=== PATIENT | female | born 1970 | race Caucasian/White ===

== ENCOUNTER → 2017-03-16 | Outpatient (CLI) | payer OTHER ==
[~2017-03-16] MED LIST: BIOT1TAB2 PO; BUPR-83 PO; BUPR100T8 PO; LISI-725 PO; LISI-788 PO; MONT1TAB3 PO; VNTHFA/IN INH
--- NOTE | 2017-03-16 11:57 | DIAGNOSTIC IMAGING REPORT ---
FLUOROSCOPIC SMALL BOWEL FOLLOW-THROUGH CLINICAL HISTORY: Nausea and vomiting. Generalized abdominal pain. Weight gain. Constipation and diarrhea. COMPARISON STUDY: Abdominal CT dated 09/12/2016. TECHNIQUE: An abdominal dynamometer repairer radiograph was performed. The patient consumed several of thin barium and a small follow-through was performed. Overhead radiographs and spot compression images were obtained. FINDINGS: The abdominal dynamometer repairer radiograph shows a nonobstructed abdominal bowel gas pattern. Cholecystectomy clips are noted. Calcified phleboliths are seen in the pelvis. The bony structures appear intact. On the small bowel follow-through, there is delayed transit time with contrast identified in the colon at 2.5 hours. The stomach and duodenum are normal in configuration. The small bowel mucosal pattern is normal. There is no evidence of stricture or mass. The distal/terminal ileum are normal in appearance on the spot compression views. Fluoroscopy time: 1.3 minutes Fluoroscopic images: 7 IMPRESSION: 1. There is delayed transit time of contrast through the small bowel. 2. Otherwise unremarkable small bowel study. Electronically signed by: Melvin Sheets M.D. 03/16/2017 11:56 AM Dictated Date/Time: 03/16/2017 11:34 AM
== END | disposition home or self-care (01) ==
LOC: C.RAD 07:54
PROVIDERS: ATTEND Registered Nurse
DX: R10.9 Unspecified abdominal pain (principal); K59.8 Other specified functional intestinal disorders

== ENCOUNTER → 2017-03-31 | Outpatient (CLI) | payer OTHER ==
--- NOTE | 2017-03-31 11:04 | DIAGNOSTIC IMAGING REPORT ---
LEFT SHOULDER MIN 2 VIEWS ROUTINE CLINICAL HISTORY: M25.512 Acute pain of left [id number] COMPARISON: None. DISCUSSION: No fractures or dislocations are visualized. There are no visible particular calcifications. There are no erosive or destructive changes. IMPRESSION: Unremarkable conventional radiographic evaluation of the left shoulder. Electronically signed by: Mike Warren M.D. 03/31/2017 11:03 AM Dictated Date/Time: 03/31/2017 11:02 AM
--- NOTE | 2017-03-31 11:19 | DIAGNOSTIC IMAGING REPORT ---
CERVICAL SPINE 2 OR 3 VIEWS CLINICAL HISTORY: Radicular pain of left shoulder. COMPARISON STUDY: No previous studies for comparison. FINDINGS: Reversal of the normal cervical lordosis is noted. There is mild to moderate disc space narrowing and osteophytosis at C5-C6 and C6-C7. There is no fracture or suspicious lesion. IMPRESSION: 1. No fracture. 2. Mild to moderate degenerative disc disease at C5-C6 and C6-C7. 3. Reversal of normal cervical lordosis. Electronically signed by: Koko Jacinto M.D. 03/31/2017 11:18 AM Dictated Date/Time: 03/31/2017 11:17 AM
== END | disposition home or self-care (01) ==
LOC: C.RAD 10:21
PROVIDERS: ATTEND Neuromusculoskeletal Medicine & OMM
DX: M25.512 Pain in left shoulder (principal); M50.122 Cervical disc disorder at C5-C6 level with radiculopathy; M50.123 Cervical disc disorder at C6-C7 level with radiculopathy

== ENCOUNTER 2017-08-12 06:14 | Emergency (ER) | payer OTHER ==
[~2017-08-12] VITALS: Ht 160 cm; Wt 111.8 kg
[~2017-08-12 06:14] MED LIST changes: -BIOT1TAB2 PO; -BUPR-83 PO; -BUPR100T8 PO; -LISI-725 PO; -LISI-788 PO; -MONT1TAB3 PO
[2017-08-12 06:20] VITALS: TEMP 36.6; Ht 160 cm; Wt 111.8 kg
[2017-08-12] MEDS ORDERED: MONT1TAB3 PO (06:44)
[2017-08-12] MEDS ORDERED: BIOT1TAB2 PO (06:44)
[2017-08-12] MEDS ORDERED: LISI-725 PO (06:45)
[2017-08-12] MEDS ORDERED: BUPR-83 PO (06:46)
[2017-08-12] MEDS ORDERED: LISI-788 PO (07:00)
[2017-08-12] MEDS ORDERED: BUPR100T8 PO (07:01)
[2017-08-12] MEDS ORDERED: IBUPROFEN 600 MG TAB PO STA (07:01)
[2017-08-12] MEDS ORDERED: TRAMADOL HCL 50 MG TAB PO STA (07:01)
--- NOTE | 2017-08-12 07:35 | EMERGENCY ROOM VISIT NOTE ---
History Report prepared by Suzanne: Marlen Castro Under the Supervision of: Dr. Kalina Medina M.D. First contact with patient: 06:37 Chief Complaint: KNEEPAIN Stated Complaint: RT KNEE, HIP PAIN, PAIN WALKING History of Present Illness The patient is a 47 year old female who presents to the Emergency Room with complaints of right knee pain that began over a week ago. She currently rates her discomfort as an 8/10 in severity. She describes her pain as a "throbbing" pain. The patient states she was walking up the steps and her foot got stuck between the steps. She notes that when she leaned forward to try and catch herself, and she twisted her right leg. The patient states that her primary pain is located around her right knee when she tries to bend and extend it. She states that when she lays on her right side, her right leg experiences numbness. The pain is generally localized from her waste and down her right leg. The patient states that she is unable to lift her right leg without experiencing pain around her hip. Source of History: patient Onset: over a week ago Position: knee (right) Symptom Intensity: 8/10 Quality: other (throbbing) Timing: worsening Modifying Factors (Relieving): movement, elevation Note: The patient states that she is also experiencing hip pain. Review of Systems See HPI for pertinent positives & negatives. A total of 10 systems reviewed and were otherwise negative. Past Medical & Surgical Medical Problems: (1) Asthma (2) Hypertension (3) Obesity, Nos (4) Strain of left knee Surgical Problems: (1) History of cholecystectomy (2) History of orthopedic surgery (3) S/P panniculectomy Family History Cancer Gallbladder disease Heart disease Hypertension Social History Smoking Status: Never Smoker Alcohol Use: none Drug Use: none Marital Status: Occupation Status: employed Current/Historical Medications Scheduled Biotin (Biotin), Unknown Dose PO DAILY Bupropion (Wellbutrin Sr), 100 MG PO QAM Lisinopril/Hctz (Zestoretic 20MG/25MG), 1 TAB PO DAILY Montelukast Sodium (Singulair), 10 MG PO DAILY Allergies Coded Allergies: Tramadol (Verified Allergy, Intermediate, HIVES, 08/12/17) Blueberry (Unverified Allergy, Unknown, HIVES, 09/15/16) Latex (Verified Allergy, Unknown, SKIN IRRITATION, 09/15/16) Propoxyphene (Verified Allergy, Unknown, 09/15/16) Physical Exam Vital Signs Date Time Temp Pulse Resp B/P (MAP) Pulse Ox O2 Delivery O2 Flow Rate FiO2 08/12/17 08:14 71 18 152/75 98 Room Air 08/12/17 06:20 36.6 87 20 152/92 100 Room Air Physical Exam Vital signs reviewed. General: 47-year-old obese female in no apparent distress. Musculoskeletal: Tenderness to right medial joint line. Negative anterior drawer sign. No appreciable ligamentous laxity to valgus or varus stress. No effusion. Neurologic: Patient awake alert and oriented x 3. Skin: Warm, dry, no rash Medical Decision & Procedures ER Provider Diagnostic Interpretation: RIGHT KNEE 2 VIEWS CLINICAL HISTORY: Right knee pain. FINDINGS: AP and crosstable lateral views of the right knee are correlated with AP view of the right knee dated 11/08/2012. The skeletal structures are well mineralized. No fracture is seen. The joint spaces are preserved. There is no joint effusion. The overlying soft tissues are within normal limits. IMPRESSION: No acute bony abnormality is seen involving the right knee. Electronically signed by: Melvin Sheets M.D. 08/12/2017 7:38 AM Dictated Date/Time: 08/12/2017 7:37 AM Medications Administered Medications (Trade) Dose Ordered Sig/Radha Route Start Time Stop Time Status Last Admin Dose Admin Ibuprofen (Motrin Tab) 600 mg NOW STAT PO 08/12/17 07:01 08/12/17 07:03 DC 08/12/17 07:10 600 MG Tramadol HCl (Ultram Tab) 50 mg NOW STAT PO 08/12/17 07:01 08/12/17 07:03 DC 08/12/17 07:11 50 MG ED Course 0650: Past medical records reviewed. The patient was evaluated in room B2. A complete history and physical examination was performed. 0701: Ultram Tab 50 mg PO, Motrin Tab 600 mg PO. 0821: I reevaluated the patient and she is resting comfortably. I answered all of her questions and she expressed complete understanding. The patient will be discharged home. Medical Decision Differential diagnosis: Etiologies such as fracture, dislocation, neurovascular compromise, compartment syndrome, soft tissue injury, as well as others were entertained. This patient was evaluated and appeared to be in no significant distress. Physical examination reveals no significant deformity or swelling to the right knee. She does have some posterior pain when flexing the knee. X-ray of the right knee is negative. Patient is morbidly obese and likely has strained the soft tissue of the right knee. She is placed in a knee immobilizer. Patient will use ibuprofen as needed for pain and follow-up with her PCP this week. She will return to the ER for worsening of symptoms or any medical concerns. Medication Reconcilliation Current Medication List: was personally reviewed by me Impression Primary Impression: Strain of right knee Scribe Attestation The scribe's documentation has been prepared under my direction and personally reviewed by me in its entirety. I confirm that the note above accurately reflects all work, treatment, procedures, and medical decision making performed by me. Departure Information Dispostion Home / Self-Care Referrals No Doctor, Assigned (PCP) Forms HOME CARE DOCUMENTATION FORM, IMPORTANT VISIT INFORMATION Patient Instructions My [facility] Additional Instructions Diagnosis: Right knee strain Ibuprofen 600 mg every 6 hours as needed for pain with food. Ice and elevate when possible, wear knee immobilizer for comfort. Follow up with your doctor for reevlauation this week. Return to the ED for worsening of symptoms or any medical concerns.
--- NOTE | 2017-08-12 07:39 | DIAGNOSTIC IMAGING REPORT ---
RIGHT KNEE 2 VIEWS CLINICAL HISTORY: Right knee pain. FINDINGS: AP and crosstable lateral views of the right knee are correlated with AP view of the right knee dated 11/08/2012. The skeletal structures are well mineralized. No fracture is seen. The joint spaces are preserved. There is no joint effusion. The overlying soft tissues are within normal limits. IMPRESSION: No acute bony abnormality is seen involving the right knee. Electronically signed by: Melvin Sheets M.D. 08/12/2017 7:38 AM Dictated Date/Time: 08/12/2017 7:37 AM
[2017-08-12 08:14] VITALS: BP 152/75; PULSE 71; O2SAT 98
== END 2017-08-12 08:21 | disposition home or self-care (01) ==
LOC: C.EDB 06:15
DX: S83.91XA Sprain of unspecified site of right knee, initial encounter (principal); X50.0XXA Overexertion from strenuous movement or load, initial encounter; J45.909 Unspecified asthma, uncomplicated; I10 Essential (primary) hypertension; E66.01 Morbid (severe) obesity due to excess calories; Z68.41 Body mass index [BMI] 40.0-44.9, adult; Z90.49 Acquired absence of other specified parts of digestive tract; Z80.9 Family history of malignant neoplasm, unspecified; Z82.49 Family history of ischemic heart disease and other diseases of the circulatory system; Z79.899 Other long term (current) drug therapy

== ENCOUNTER 2018-01-23 14:50 | Emergency (ER) | payer OTHER ==
[~2018-01-23] VITALS: Ht 160 cm; Wt 113.6 kg
[~2018-01-23 14:50] MED LIST changes: +BIOT1TAB2 PO; +BUPR100T8 PO; +LISI-788 PO; +MONT1TAB3 PO; -VNTHFA/IN INH
[2018-01-23 14:55] VITALS: TEMP 36.9; Ht 160 cm; Wt 113.6 kg
[2018-01-23] MEDS ORDERED: KETOROLAC TROMETHAMINE 30 MG/ML VIAL IV STA (16:15)
--- NOTE | 2018-01-23 16:26 | EMERGENCY ROOM VISIT NOTE ---
History Report prepared by Suzanne: Shona Osorio Under the Supervision of: Dr. Kevin Zavala M.D. First contact with patient: 16:02 Chief Complaint: PAIN (GENERALIZED) Stated Complaint: PAIN ALL OVER BODY History of Present Illness The patient is a 47 year old female who presents to the Emergency Room with complaints of persistent neck pain starting 1 week ago. She describes the pain as throbbing. The pain radiates down her left arm and down her back on either side of her spine. The pain worsens with movement. She has never had this pain before. She also reports blurred vision and swelling to her left hand. She has had some intermittent headaches. She had SOB yesterday, but none today. She has been having some lower abdominal pain and notes that she has a history of intestinal problems. She denies any numbness, fever, or chest pain. She currently does not work and denies any strain or injury to the neck. She has a family history of fibromyalgia and MS. She has a history of hypertension and hysterectomy. Source of History: patient Onset: 1 week ago Position: neck Quality: other (throbbing) Timing: other (persistent) Modifying Factors (Worsening): movement Associated Symptoms: + headache, + SOB, + abdominal pain, + back pain, No fevers, No chest pain, No numbness Note: Pt reports blurred vision. Review of Systems See HPI for pertinent positives & negatives. A total of 10 systems reviewed and were otherwise negative. Past Medical & Surgical Medical Problems: (1) Asthma (2) Hypertension (3) Obesity, Nos (4) Strain of left knee Surgical Problems: (1) History of cholecystectomy (2) History of orthopedic surgery (3) S/P panniculectomy Old medical records were reviewed. Nurse's notes were reviewed and I agree with. Family History Cancer Gallbladder disease Heart disease Hypertension Social History Smoking Status: Former Smoker Alcohol Use: none Drug Use: none Marital Status: Occupation Status: unemployed Current/Historical Medications Scheduled Biotin (Biotin), 1 TAB PO DAILY Bupropion (Wellbutrin Sr), 100 MG PO QAM Lisinopril/Hctz (Zestoretic 20MG/25MG), 1 TAB PO DAILY Montelukast Sodium (Singulair), 10 MG PO DAILY Phentermine Hcl (Phentermine Hcl), 15 MG PO DAILY Prednisone (Prednisone), 50 MG PO DAILY Scheduled PRN Oxycodone Immediate Rel Tab (Roxicodone Ir), 1-2 TAB PO Q4H PRN for Severe Pain Allergies Coded Allergies: Tramadol (Verified Allergy, Intermediate, HIVES, 01/23/18) Blueberry (Unverified Allergy, Unknown, HIVES, 01/23/18) Latex (Verified Allergy, Unknown, SKIN IRRITATION, 01/23/18) Propoxyphene (Verified Allergy, Unknown, 01/23/18) Physical Exam Vital Signs Date Time Temp Pulse Resp B/P (MAP) Pulse Ox O2 Delivery O2 Flow Rate FiO2 01/23/18 17:21 94 17 185/118 100 01/23/18 17:11 94 17 185/118 100 Room Air 01/23/18 16:23 98 18 193/105 99 Room Air 01/23/18 14:55 36.9 105 20 172/134 99 Room Air Physical Exam General: Non-ill appearing middle age female in no acute distress. HEENT: Normal cephalic atraumatic. Pupils are equal round and reactive to light. Extraocular movements are intact. Oropharynx is pink with moist mucous membranes. No swelling of the mouth lips or tongue. Neck: Supple with a midline trachea. No meningeal signs or stiffness, no JVD or bruits. No Stridor. Chest: Clear to auscultation bilaterally. No wheezes or rhonchi. No increased work of breathing. Heart: regular rate and rhythm. Abdomen: Soft nontender, nondistended without rebound guarding or rigidity. Extremities: Pain with movement of left shoulder. No cyanosis clubbing or edema. No calf tenderness or assymetry Spine/Back. Non tender to palpation. No CVA tenderness Skin: Good turgor without rashes. Neurologic exam: Cranial nerves two through 12 are intact. Motor and sensation are intact and symmetrical throughout. Medical Decision & Procedures ER Provider Diagnostic Interpretation: X-ray results as stated below per interpretation by me and the radiologist. Radiology results as stated below per my review and radiologist interpretation: CHEST ONE VIEW PORTABLE CLINICAL HISTORY: Atypical chest pain COMPARISON STUDY: 09/15/2016 FINDINGS: The heart is borderline enlarged. There is no failure. There is no focal pulmonary consolidation. There are no pleural effusions.[ IMPRESSION: No active disease in the chest. Electronically signed by: Mike Warren M.D. 01/23/2018 4:30 PM Dictated Date/Time: 01/23/2018 4:[address] HEAD WITHOUT CONTRAST (CT) CLINICAL HISTORY: left arm pain, blurry vision COMPARISON STUDY: 09/15/2016 TECHNIQUE: Axial CT of the brain is performed from the vertex to the skull base. IV contrast was not administered for this examination. A dose lowering technique was utilized adhering to the principles of ALARA. CT DOSE: FINDINGS: No intra or extra-axial mass lesions are visualized. There is no CT evidence of acute cortical infarction. There is no evidence of midline shift. There is no acute hemorrhage. No calvarial fractures are visualized. There are patchy white matter hypodensities likely on a small vessel basis. There is no evidence of pathologic ventricular dilatation. There is mild ethmoid sinus mucosal disease. IMPRESSION: No acute intracranial findings Electronically signed by: Mike Warren M.D. 01/23/2018 4:42 PM Dictated Date/Time: 01/23/2018 4:40 PM CERVICAL SPINE W/O CT DOSE: 950.30 mGy.cm HISTORY: Neuropathy. Pain. left arm pain, eval for radic TECHNIQUE: Multiaxial CT images of the cervical spine were performed and reformatted in the sagittal and coronal plane without the use of contrast. A dose lowering technique was utilized adhering to the principles of ALARA. COMPARISON: None. FINDINGS: No fractures. No subluxation. Prevertebral soft tissues and the C1-C2 interval are intact. No pneumothorax. Straightening of the cervical curvature consistent with muscular spasm. Degenerative disc change C5-C7. No significant compromise of the spinal canal or neural foramina. IMPRESSION: 1. Degenerative disc change C5-C7. 2. Muscle spasm. 3. No significant compromise of the spinal canal or neural foramina The above report was generated using voice recognition software. It may contain grammatical, syntax or spelling errors. Electronically signed by: Ean Littlejohn M.D. 01/23/2018 4:44 PM Dictated Date/Time: 01/23/2018 4:42 PM Laboratory Results 01/23/18 16:04 Red Blood Count 4.68, Mean Corpuscular Volume 86.3, Mean Corpuscular Hemoglobin 29.3, Mean Corpuscular Hemoglobin Concent 33.9, Mean Platelet Volume 8.7, Neutrophils (%) (Auto) 59.0, Lymphocytes (%) (Auto) 33.2, Monocytes (%) (Auto) 6.6, Eosinophils (%) (Auto) 0.7, Basophils (%) (Auto) 0.4, Neutrophils # (Auto) 4.14, Lymphocytes # (Auto) 2.33, Monocytes # (Auto) 0.46, Eosinophils # (Auto) 0.05, Basophils # (Auto) 0.03 01/23/18 16:04 Test 01/23/18 16:04 01/23/18 16:15 White Blood Count 7.02 K/uL (4.8-10.8) Red Blood Count 4.68 M/uL (4.2-5.4) Hemoglobin 13.7 g/dL (12.0-16.0) Hematocrit 40.4 % (37-47) Mean Corpuscular Volume 86.3 fL (80-100) Mean Corpuscular Hemoglobin 29.3 pg (25-34) Mean Corpuscular Hemoglobin Concent 33.9 g/dl (32-36) Platelet Count 342 K/uL (130-400) Mean Platelet Volume 8.7 fL (7.4-10.4) Neutrophils (%) (Auto) 59.0 % Lymphocytes (%) (Auto) 33.2 % Monocytes (%) (Auto) 6.6 % Eosinophils (%) (Auto) 0.7 % Basophils (%) (Auto) 0.4 % Neutrophils # (Auto) 4.14 K/uL (1.4-6.5) Lymphocytes # (Auto) 2.33 K/uL (1.2-3.4) Monocytes # (Auto) 0.46 K/uL (0.11-0.59) Eosinophils # (Auto) 0.05 K/uL (0-0.5) Basophils # (Auto) 0.03 K/uL (0-0.2) RDW Standard Deviation 47.0 fL (36.4-46.3) RDW Coefficient of Variation 14.9 % (11.5-14.5) Immature Granulocyte % (Auto) 0.1 % Immature Granulocyte # (Auto) 0.01 K/uL (0.00-0.02) Anion Gap 8.0 mmol/L (3-11) Est Creatinine Clear Calc Drug Dose 106.4 ml/min Estimated GFR () 101.7 Estimated GFR (Non- 87.7 BUN/Creatinine Ratio 18.5 (10-20) Calcium Level 9.2 mg/dl (8.5-10.1) Total Bilirubin 0.5 mg/dl (0.2-1) Direct Bilirubin 0.2 mg/dl (0-0.2) Aspartate Amino Transf (AST/SGOT) 26 U/L (15-37) Alanine Aminotransferase (ALT/SGPT) 41 U/L (12-78) Alkaline Phosphatase 86 U/L (45-117) Total Creatine Kinase 91 U/L (26-192) Creatine Kinase MB 1.2 ng/ml (0.5-3.6) Troponin I < 0.015 ng/ml (0-0.045) Total Protein 8.6 gm/dl (6.4-8.2) Albumin 4.0 gm/dl (3.4-5.0) Lipase 91 U/L (73-393) Creatine Kinase MB Ratio (0-3.0) Laboratory studies as stated above per my review. Medications Administered Medications (Trade) Dose Ordered Sig/Radha Route Start Time Stop Time Status Last Admin Dose Admin Ketorolac Tromethamine (Toradol Inj) 30 mg NOW STAT IV 01/23/18 16:15 01/23/18 16:17 DC 01/23/18 16:56 30 MG Morphine Sulfate (MoRPHine SULFATE INJ) 4 mg NOW STAT IV 01/23/18 17:02 01/23/18 17:04 DC 01/23/18 17:14 4 MG Ondansetron HCl (Zofran Inj) 4 mg NOW STAT IV 01/23/18 17:02 01/23/18 17:04 DC 01/23/18 17:13 4 MG Prednisone (PredniSONE TAB) 60 mg NOW STAT PO 01/23/18 17:02 01/23/18 17:04 DC 01/23/18 17:13 60 MG ECG Per My Interpretation Indication: back/shoulder pain Rate (beats per minute): 90 Rhythm: normal sinus Findings: no acute ischemic change, no ectopy, other (no prolonged QT) Comparison ECG Date: no prior available ED Course 1608: Past medical records reviewed. The patient was evaluated in room A10, and a complete history and physical examination were performed. 1615: Toradol Inj 30 mg IV. 1701: Upon reevaluation, the patient is asking for something else for pain. I discussed the results and treatment plan with her. She verbalized agreement of the treatment plan. The patient was discharged home. 1702: Prednisone 60 mg PO, Zofran Inj 4 mg IV, Morphine Sulfate 4 mg IV. Medical Decision Differentials include, but are not limited to; cervical radiculopathy, intracranial process, cardiac disease, musculoskeletal, infection, electrolyte or metabolic abnormality. This patient comes in as described above. She was placed on a monitor in room A10. She has neck pain radiating down her left arm. I think most likely it is a cervical radiculopathy. She also says her vision is a little blurry when she does not wear her glasses. She has no neurologic deficits. She has no chest pain. She has no fever. She looks well on exam and has normal neurologic exam. IV access established to do a CAT scan of her head and neck as well as EKG and chest x-ray and did a cardiac workup as well. She was given Toradol 30 mg IV. She was reassessed frequently. She seems to be doing much better. CAT scan of her head was unremarkable. CAT scan [place] some degenerative changes. EKG does not suggest a cardiac disease her troponin is not elevated. She has no acute electrolyte or metabolic abnormalities. I think this most likely is related to her neck and more of a cervical radiculopathy. She is going to use steroids and was given prednisone here as well as a prescription for the next couple days. she does an appointment with her doctor on Monday. She is going to use anti-inflammatories as well as OxyIR for breakthrough pain. She was given a small prescription and was warned that it could make her drowsy and do not take for drinking, driving, working. She should return if: increasing pain , worsening of symptoms, numbness or weakness, any new problems or concerns. She was happy with the plan and discharged to home. [place] Drug Monitoring Program Search Results: patient reviewed within database, no issues identified Medication Reconcilliation Current Medication List: was personally reviewed by me Blood Pressure Screening Patient's blood pressure: Elevated blood pressure Blood pressure disposition: Referred to PCP Impression Primary Impression: Cervical radiculopathy Additional Impression: Left arm pain Scribe Attestation The scribe's documentation has been prepared under my direction and personally reviewed by me in its entirety. I confirm that the note above accurately reflects all work, treatment, procedures, and medical decision making performed by me. Departure Information Dispostion Home / Self-Care Prescriptions Oxycodone Immediate Rel Tab (ROXICODONE IR) 5 Mg Tab 1-2 TAB PO Q4H Y for Severe Pain, #15 TAB Prov: Kevin Zavala M.D. 01/23/18 Prednisone (Prednisone) 50 Mg Tab 50 MG PO DAILY, #4 TAB Prov: Kevin Zavala M.D. 01/23/18 Referrals No Doctor, Assigned (PCP) Forms HOME CARE DOCUMENTATION FORM, IMPORTANT VISIT INFORMATION, WORK / SCHOOL INSTRUCTIONS Patient Instructions My [facility] Additional Instructions Rest. Drink plenty of fluids. Use ibuprofen 400 mg every 6 hours, take with food Use prednisone 50 mg a day for the next 3 days For more severe pain, use OxyIR 5 mg, 1 or 2 pills every 4-6 hours as needed. OxyIR may make you drowsy -do not take before drinking, driving, working. Do not take with any other sedating medications or narcotics. Return if: fever, numbness or weakness, worsening of symptoms, chest pain, any new problems or concerns. Follow-up with your doctor this week for recheck, keep your appointment on Monday Problem Qualifiers
[2018-01-23 16:31] LABS: BASO % 0.4 %; BASO ABS # 0.03 K/uL (0-0.2); EOS % 0.7 %; EOS ABS # 0.05 K/uL (0-0.5); HEMATOCRIT 40.4 % (37-47); HEMOGLOBIN 13.7 g/dL (12.0-16.0); IG# 0.01 K/uL (0.00-0.02); LYMPH % 33.2 %; LYMPH ABS # 2.33 K/uL (1.2-3.4); MEAN CELL VOLUME 86.3 fL (80-100); MEAN CORPUSCULAR HEMOGLOBIN 29.3 pg (25-34); MEAN CORPUSCULAR HGB CONC 33.9 g/dl (32-36); MEAN PLATELET VOLUME 8.7 fL (7.4-10.4); MONO % 6.6 %; MONO ABS # 0.46 K/uL (0.11-0.59); NEUT ABS # 4.14 K/uL (1.4-6.5); PLATELET COUNT 342 K/uL (130-400); RED CELL DISTRIBUTION WIDTH CV 14.9 % (11.5-14.5); WHITE BLOOD COUNT 7.02 K/uL (4.8-10.8)
[2018-01-23] MEDS ORDERED: PHEN15CA PO (16:32)
--- NOTE | 2018-01-23 16:32 | DIAGNOSTIC IMAGING REPORT ---
CHEST ONE VIEW PORTABLE CLINICAL HISTORY: Atypical chest pain COMPARISON STUDY: 09/15/2016 FINDINGS: The heart is borderline enlarged. There is no failure. There is no focal pulmonary consolidation. There are no pleural effusions.[ IMPRESSION: No active disease in the chest. Electronically signed by: Mike Warren M.D. 01/23/2018 4:30 PM Dictated Date/Time: 01/23/2018 4:30 PM
[2018-01-23 16:39] LABS: BLOOD UREA NITROGEN 15 mg/dl (7-18); CALCIUM 9.2 mg/dl (8.5-10.1); CARBON DIOXIDE 24 mmol/L (21-32); CREATININE 0.81 mg/dl (0.60-1.20); GLUCOSE 87 mg/dl (70-99); LIPASE 91 U/L (73-393); POTASSIUM 3.5 mmol/L (3.5-5.1); SODIUM 135 mmol/L (136-145)
--- NOTE | 2018-01-23 16:44 | DIAGNOSTIC IMAGING REPORT ---
CT HEAD WITHOUT CONTRAST (CT) CLINICAL HISTORY: left arm pain, blurry vision COMPARISON STUDY: 09/15/2016 TECHNIQUE: Axial CT of the brain is performed from the vertex to the skull base. IV contrast was not administered for this examination. A dose lowering technique was utilized adhering to the principles of ALARA. CT DOSE: FINDINGS: No intra or extra-axial mass lesions are visualized. There is no CT evidence of acute cortical infarction. There is no evidence of midline shift. There is no acute hemorrhage. No calvarial fractures are visualized. There are patchy white matter hypodensities likely on a small vessel basis. There is no evidence of pathologic ventricular dilatation. There is mild ethmoid sinus mucosal disease. IMPRESSION: No acute intracranial findings Electronically signed by: Mike Warren M.D. 01/23/2018 4:42 PM Dictated Date/Time: 01/23/2018 4:40 PM
[2018-01-23 16:45] LABS: ALKALINE PHOSPHATASE 86 U/L (45-117); ALT/SGPT 41 U/L (12-78); AST/SGOT 26 U/L (15-37); CKMB 1.2 ng/ml (0.5-3.6); TOTAL PROTEIN 8.6 gm/dl (6.4-8.2)
--- NOTE | 2018-01-23 16:45 | DIAGNOSTIC IMAGING REPORT ---
CERVICAL SPINE W/O CT DOSE: 950.30 mGy.cm HISTORY: Neuropathy. Pain. left arm pain, eval for radic TECHNIQUE: Multiaxial CT images of the cervical spine were performed and reformatted in the sagittal and coronal plane without the use of contrast. A dose lowering technique was utilized adhering to the principles of ALARA. COMPARISON: None. FINDINGS: No fractures. No subluxation. Prevertebral soft tissues and the C1-C2 interval are intact. No pneumothorax. Straightening of the cervical curvature consistent with muscular spasm. Degenerative disc change C5-C7. No significant compromise of the spinal canal or neural foramina. IMPRESSION: 1. Degenerative disc change C5-C7. 2. Muscle spasm. 3. No significant compromise of the spinal canal or neural foramina The above report was generated using voice recognition software. It may contain grammatical, syntax or spelling errors. Electronically signed by: Ean Littlejohn M.D. 01/23/2018 4:44 PM Dictated Date/Time: 01/23/2018 4:42 PM
[2018-01-23] MEDS ORDERED: ONDANSETRON INJ 2 MG/ML 2 ML VIAL IV STA (17:02)
[2018-01-23] MEDS ORDERED: MoRPHine SULFATE 4 MG/ML 1 ML CARP\\VIAL IV STA (17:02)
[2018-01-23] MEDS ORDERED: PRED50TA PO (17:09)
[2018-01-23] MEDS ORDERED: OXYC1TAB3 PO (17:09)
[2018-01-23 17:21] VITALS: BP 185/118; PULSE 94; O2SAT 100
== END 2018-01-23 17:22 | disposition home or self-care (01) ==
LOC: C.EDB 14:53 → C.EDA 17:22
DX: M54.16 Radiculopathy, lumbar region (principal); H53.8 Other visual disturbances; R60.0 Localized edema; I10 Essential (primary) hypertension; J45.909 Unspecified asthma, uncomplicated; Z87.891 Personal history of nicotine dependence; Z82.69 Family history of other diseases of the musculoskeletal system and connective tissue; Z82.49 Family history of ischemic heart disease and other diseases of the circulatory system; Z83.79 Family history of other diseases of the digestive system

== ENCOUNTER 2018-06-01 16:00 | Emergency (ER) | payer OTHER ==
[~2018-06-01] VITALS: Ht 158.8 cm; Wt 116.0 kg
[~2018-06-01 16:00] MED LIST changes: +OXYC-737 PO; +PHEN15CA PO; +PRED50TA PO
[2018-06-01 16:03] VITALS: TEMP 36.7; Ht 158.8 cm; Wt 116.0 kg
[2018-06-01] MEDS ORDERED: KETOROLAC TROMETHAMINE 60 MG/2 ML VIAL IM STA (16:33)
[2018-06-01] MEDS ORDERED: ONDANSETRON 4MG OD TAB PO ONE (16:45)
[2018-06-01] MEDS ORDERED: IBUP-1050 PO (17:07)
[2018-06-01] MEDS ORDERED: NAPR1TAB9 PO (17:07)
[2018-06-01] MEDS ORDERED: ASPI-390 PO (17:07)
--- NOTE | 2018-06-01 17:32 | DIAGNOSTIC IMAGING REPORT ---
LEFT KNEE 3 VIEWS CLINICAL HISTORY: Left knee pain. FINDINGS: AP, crosstable lateral, and sunrise views of the left knee are compared to study dated 08/09/2015. The skeletal structures are well mineralized. No fracture is seen. There is moderate tricompartmental degenerative joint space narrowing, greatest in the medial and patellofemoral compartments. There are large marginal osteophytes and patellar enthesophytes. There is no joint effusion. The overlying soft tissues are normal in appearance. IMPRESSION: Degenerative change as above with no acute osseous abnormality identified. Findings are similar to the 08/09/2015 examination. Electronically signed by: Melvin Sheets M.D. 06/01/2018 5:31 PM Dictated Date/Time: 06/01/2018 5:29 PM
--- NOTE | 2018-06-01 18:05 | DIAGNOSTIC IMAGING REPORT ---
L VENOUS DOPP LOWER EXT UNILAT CLINICAL HISTORY: LEFT, EVAL DVT pain. Edema. TECHNIQUE: Venous Doppler COMPARISON STUDY: None FINDINGS: Normal study IMPRESSION: Normal study The above report was generated using voice recognition software. It may contain grammatical, syntax or spelling errors. Electronically signed by: Ean Littlejohn M.D. 06/01/2018 6:03 PM Dictated Date/Time: 06/01/2018 6:03 PM
--- NOTE | 2018-06-01 18:17 | EMERGENCY ROOM VISIT NOTE ---
ED Visit Note First contact with patient: 16:15 CHIEF COMPLAINT: Left knee pain 3-4 days HISTORY OF PRESENT ILLNESS: Patient is a 47-year-old female with long-standing history of left knee pain and known arthritis who presents emergency department for evaluation of worsening left knee over the last 3-4 days. Patient reports that she did a lot of walking a couple of days ago, and nearly fell. After that the pain worsened. She is tried ice, heat, Tylenol, ibuprofen, Aleve and BenGay, all without relief. Patient reports she had the knee scoped several years ago, and since then her pain has worsened. She is seen multiple orthopedic providers had multiple injections in the knee, and has been told that she will need a total knee replacement, but she is too young and overweight. She presently rates her pain a 10/10. She notes that it is deep in the knee, and in the posterior aspect of the knee, and radiates down her calf slightly. She denies any calf swelling, does admit to some cramping in the calf in the last couple of days as well. She denies any numbness, tingling or weakness in the lower extremity. She does not have any DVT risk factors. REVIEW OF SYSTEMS: Review of systems as per HPI. All other systems reviewed were negative. 10 systems reviewed. PMH: Electronic medical records are reviewed and summarized as above/below. See Problem List. Elvia. SOCIAL HISTORY: Patient lives at home. Non-smoker. PHYSICAL EXAM: Vital Signs: Reviewed Nurse's notes. MENTAL STATUS: Patient is is an anxious, obese 47-year-old female who is awake and alert and laying supine on the gurney with her left knee propped up on a pillow. MUSCULOSKELETAL : Examination of the left knee does not reveal any erythema, no increased warmth or induration. No prepatellar soft tissue swelling, and no significant knee joint effusion is palpable. Patient is difficult to examine secondary to guarding. She has some peripatellar tenderness and crepitus with range of motion. She is tender along the medial joint line in the popliteal space. She can extend fully, will flex roughly 75 before she has pain. No gross ligamentous instability is appreciated. The calf is soft and nontender. No palpable cords. Distal pulses are easily appreciated. Negative Homans sign. Left lower extremity is neurovascularly intact. EMERGENCY DEPARTMENT COURSE: The patient was seen and examined as above. Patient was reviewed in the [facility] Prescription Drug Monitoring Program. She received regular narcotic prescriptions from her primary care providers for several months, more recently has been receiving buprenorphine prescriptions from a Dr. Duran in the [place] area. Last prescription was filled 05/04/2018. She was medicated with Toradol 60 mg IM and Zofran 4 mg ODT as she states that the Toradol makes her nauseous. X-rays of the left knee and ultrasound of the left lower extremity were obtained. Patient mentioned to nursing staff that she was feeling depressed and anxious and "wanted to talk to someone. Patient spoke with psychiatric briefcase sewer in the emergency department, Bret Reyna. He reported to me that the patient denied any SI/HI, and he provided her with contact information for counselors in the community. Ultrasound of the left lower extremity was negative for DVT. Left knee x-rays noted degenerative changes, stable from 2014. Patient was made aware of her x-ray and ultrasound results. She reports that she has plans to see orthopedics in [place]. She is waiting for records to be transferred. She was given crutches. She was given a Percocet home pack. She was encouraged to follow-up with orthopedics or her primary care provider for further care and management of her chronic left knee pain. The patient was discharged home in good condition rating her pain a 4/10 at discharge. Differential diagnoses entertained included exacerbation of her degenerative joint disease, gouty arthropathy, synovitis, meniscal tear, ligamentous injury, among others. Medication reconciliation: I attest that I have personally reviewed the patient' s current medication list. Blood pressure screening: Patient was found to have a elevated blood pressure likely worsened due to circumstances. She does have a history of hypertension and is followed by her PCP. L VENOUS DOPP LOWER EXT UNILAT CLINICAL HISTORY: LEFT, EVAL DVT pain. Edema. TECHNIQUE: Venous Doppler COMPARISON STUDY: None FINDINGS: Normal study IMPRESSION: Normal study LEFT KNEE 3 VIEWS CLINICAL HISTORY: Left knee pain. FINDINGS: AP, crosstable lateral, and sunrise views of the left knee are compared to study dated 08/09/2015. The skeletal structures are well mineralized. No fracture is seen. There is moderate tricompartmental degenerative joint space narrowing, greatest in the medial and patellofemoral compartments. There are large marginal osteophytes and patellar enthesophytes. There is no joint effusion. The overlying soft tissues are normal in appearance. IMPRESSION: Degenerative change as above with no acute osseous abnormality identified. Findings are similar to the 08/09/2015 examination. Problem List Medical Problems: (1) Asthma Status: Chronic (2) Cervical radiculopathy Status: Resolved (3) Dehydration Status: Resolved (4) Hypertension Status: Chronic (5) Left arm pain Status: Resolved (6) Left flank pain Status: Resolved (7) Low back pain potentially associated with radiculopathy Status: Resolved (8) Lumbar back pain with radiculopathy affecting right lower extremity Status: Resolved (9) Obesity, Nos Status: Chronic (10) Pyelonephritis Status: Resolved (11) Strain of left knee Status: Resolved (12) Strain of right knee Status: Resolved (13) UTI (urinary tract infection) Status: Resolved Surgical Problems: (1) History of cholecystectomy Status: Resolved (2) History of orthopedic surgery Status: Resolved (3) S/P panniculectomy Status: Resolved Current/Historical Medications Scheduled Yprljnk-Rhdrxbuyyzqgr-Drfrpodr (Excedrin Migraine), 2 TABS PO PRN UD Biotin (Biotin), 1 TAB PO DAILY Bupropion (Wellbutrin Sr), 100 MG PO QAM Ibuprofen (Advil), 400 MG PO DAILY Lisinopril/Hctz (Zestoretic 20MG/25MG), 1 TAB PO DAILY Montelukast Sodium (Singulair), 10 MG PO DAILY Naproxen (Aleve), 4 TABS PO DAILY Allergies Coded Allergies: Tramadol (Verified Allergy, Intermediate, HIVES, 06/01/18) Blueberry (Unverified Allergy, Unknown, HIVES, 06/01/18) ONLY IN CANNED OR FROZEN PIE FILLING Latex (Verified Allergy, Unknown, SKIN IRRITATION, 06/01/18) Propoxyphene (Verified Allergy, Unknown, 06/01/18) Uncoded Allergies: MOLDS (Allergy, Severe, SWELLING/HIVES, 06/01/18) Vital Signs Date Time Temp Pulse Resp B/P (MAP) Pulse Ox O2 Delivery O2 Flow Rate FiO2 06/01/18 18:52 103 18 175/99 99 Room Air 06/01/18 16:03 36.7 115 26 170/77 99 Room Air Medications Administered Medications (Trade) Dose Ordered Sig/Radha Route Start Time Stop Time Status Last Admin Dose Admin Ketorolac Tromethamine (Toradol Inj) 60 mg NOW STAT IM 06/01/18 16:33 06/01/18 16:35 DC 06/01/18 16:57 60 MG Ondansetron HCl (Zofran Odt) 4 mg ONE ONCE PO 06/01/18 16:45 06/01/18 16:46 DC 06/01/18 16:57 4 MG Oxycodone/ Acetaminophen (Percocet 5/ 325MG Home Pack) 1 homepack UD ONCE PO 06/01/18 19:00 06/01/18 19:01 DC 06/01/18 18:51 1 HOMEPACK Departure Information Impression Primary Impression: Left knee pain Referrals Maria G Hines DO (PCP) Patient Instructions My [facility] Additional Instructions Ibuprofen(Motrin, Advil) may be used for fever or pain. Use 600mg every six hours as needed. Take with food. Avoid using more than 2400mg in a 24 hour period. Do not use 2400mg per day for more than three consecutive days without physician direction. Prolonged inappropriate use can lead to stomach upset or ulcers. This medication can be taken if you need to drive, work, or perform activities which may be dangerous when taking narcotic pain medication. (AND/OR) Acetaminophen(Tylenol) may be used for fever or pain. Use 1000mg every six hours as needed. Avoid using more than 3000mg in a 24 hour period. This medication can be taken if you need to drive, work, or perform activities which may be dangerous when taking narcotic pain medication. Ice compresses for 20 minutes at a time four times daily for 2-3 days. Use the crutches as instructed. Rest and elevate your injury. Continue current medications. Return to the ER immediately for any numbness, tingling, severe pain, extreme swelling in the extremity or as needed. Follow up with your primary care physician or with orthopedic surgery next week for further care and management of your knee pain. Problem Qualifiers Primary Impression: Left knee pain
[2018-06-01 18:52] VITALS: BP 175/99; PULSE 103; O2SAT 99
[2018-06-01] MEDS ORDERED: PERCOCET HOME PACK PO ONE (19:00)
== END 2018-06-01 18:59 | disposition home or self-care (01) ==
LOC: C.EDB 16:01 → C.EDD 18:59
DX: M25.562 Pain in left knee (principal); J45.909 Unspecified asthma, uncomplicated; I10 Essential (primary) hypertension; E66.9 Obesity, unspecified; Z79.899 Other long term (current) drug therapy; Z88.5 Allergy status to narcotic agent; Z91.040 Latex allergy status; Z91.048 Other nonmedicinal substance allergy status; Z91.018 Allergy to other foods

== ENCOUNTER 2019-04-11 05:07 | Inpatient (IN) ==
--- NOTE | 2019-03-21 17:21 | PAT Medication Instructions ---
Medication Instructions Date of Service March 21, 2019 Home Medications albuterol sulfate [Ventolin HFA] 2 puff INHALATION QID PRN bupropion HCl 100 mg PO QAM chlordiazepoxide-clidinium [Librax (with clidinium)] 2 cap PO Q6H diclofenac sodium 75 mg PO BID dicyclomine 10 mg PO TID ergocalciferol (vitamin D2) 50,000 unit PO WK linaclotide [Linzess] 145 mcg PO QAM lisinopril-hydrochlorothiazide 1 tab PO QAM montelukast [Singulair] 10 mg PO PM ASK your surgeon for instructions diclofenac sodium 75 mg PO BID DO NOT take the morning of surgery chlordiazepoxide-clidinium [Librax (with clidinium)] 2 cap PO Q6H dicyclomine 10 mg PO TID ergocalciferol (vitamin D2) 50,000 unit PO WK linaclotide [Linzess] 145 mcg PO QAM lisinopril-hydrochlorothiazide 1 tab PO QAM Take morning of surgery With a small sip of water, OTHERWISE NOTHING TO EAT OR DRINK AFTER MIDNIGHT: albuterol sulfate [Ventolin HFA] 2 puff INHALATION QID PRN (if needed, and bring with you to the hospital) bupropion HCl 100 mg PO QAM Take evening before surgery albuterol sulfate [Ventolin HFA] 2 puff INHALATION QID PRN (if needed) chlordiazepoxide-clidinium [Librax (with clidinium)] 2 cap PO Q6H dicyclomine 10 mg PO TID montelukast [Singulair] 10 mg PO PM Other Notes If you have any questions please call us at [phone] or [phone] or [phone] or [phone]
--- NOTE | 2019-03-28 09:46 | Anesthesiology Consultation ---
Date of Service March 28, 2019 Assessment & Plan (1) Encounter for pre-operative examination: - No previous anesthesia records that involve intubation. Chart Review Chart Review: Acceptable Risk for Surgery and Patient seen in Pre Admission Testing Consults Requested medical (Dr. Hines (03/27)) Patient was seen by PCPs office on 03/26/19 for preoperative evaluation. Per note from that visit, "Lengthy discussion education regarding benefits and risks for operative procedure for left knee total arthroplasty. Patient accepts all risks to pursue surgical intervention for degenerative joint disease left knee. At this time, patient is at acceptable risk for surgical intervention." Teaching & Discussion Pre-Anesthesia Teaching/Discussion Notes: Instructed NPO after midnight before surgery, except medications with 15 cc of water. Medication instructions provided according to the PAT guidelines. History Surgery Operation Date: 04/11/19 09:15 Proposed Procedures p Left Total Knee Arthroplasty - Jordan Flores MD Height/Weight Height: 5 ft 2.5 in Weight: 121.7 kg Allergies Allergy/AdvReac Type Severity Reaction Status Date / Time buprenorphine [From Suboxone] Allergy Severe Throat Verified 03/28/19 10:00 swells, hives naloxone [From Suboxone] Allergy Severe Throat Verified 03/28/19 10:00 swells, hives blueberry Allergy Intermediate HIVES Unverified 03/19/19 09:44 tramadol Allergy Intermediate HIVES Verified 03/19/19 09:44 latex Allergy Mild SKIN Verified 03/19/19 09:44 PEELING MOLDS Allergy Severe SWELLING/HI Uncoded 03/19/19 09:44 VES CHEAP METAL Allergy Intermediate SKIN Uncoded 03/19/19 09:45 IRRITATION/SWELLING Medications Home Medications Medication Instructions Recorded Confirmed Last Taken albuterol sulfate [Ventolin HFA] 2 puff INHALATION QID PRN 03/19/19 03/19/19 Unknown bupropion HCl 100 mg PO QAM 03/19/19 03/19/19 Unknown diclofenac sodium 75 mg PO BID 03/19/19 03/19/19 Unknown dicyclomine 10 mg PO TID 03/19/19 03/19/19 Unknown ergocalciferol (vitamin D2) 50,000 unit PO WK 03/19/19 03/19/19 Unknown [Vitamin D2] linaclotide [Linzess] 145 mcg PO QAM 03/19/19 03/19/19 Unknown lisinopril-hydrochlorothiazide 1 tab PO QAM 03/19/19 03/19/19 Unknown montelukast [Singulair] 10 mg PO PM 03/19/19 03/19/19 Unknown azelastine 2 spray INTRANASAL BID 03/28/19 03/28/19 Unknown oxybutynin chloride 5 mg PO QAM 03/28/19 03/28/19 Unknown Past Medical History Medical History Anemia Anxiety Asthma USED RESCUE INHALER LAST YESTERDAY Environmental and seasonal allergies Hypertension IBS (irritable bowel syndrome) Lumbar disc disorder "LOOSE" Migraine Osteoarthritis Overactive bladder Rheumatoid arthritis Exercise / Class Metabolic Activity III < 4 Walking/Shop/Light housework (Limited due to knee pain. Is able to do housework, but rests intermittently. Able to climb stairs sideways, with difficulty. Denies CP or SOB (unless asthma is acting up, has been this spring due to allergies)) Past Family History Family History Father Family history of esophageal cancer Past Surgical History Surgical History H/O bilateral breast reduction surgery History of bilateral tubal ligation History of section History of cholecystectomy History of colonoscopy History of esophagogastroduodenoscopy (EGD) History of hysterectomy History of nasal septoplasty History of tooth extraction S/P panniculectomy Past Anesthesia History No Hx of Anesthesia Complications and No Family Hx of Anesthesia Complications History of PONV No Hx of PONV and Hx of Motion Sickness Social History Smoking Status: Former smoker tobacco type: cigarettes Smoking cigarettes per day: 2ppd x 4-5 years Do You Dip or Chew Tobacco: No Smoking End Date: QUIT 2007 Hx Alcohol Use: No Hx Substance Use: No substance use type: does not use Review of Systems Patient denies chest pain, dyspnea on exertion, reflux, cough, palpitations. +SOB (when asthma is acting up, which has been more lately due to worsening allergies. Sees inventory control associate 04/01) +Joint Pain (Back, right hip, knees) +Wheezing (with asthma/allergies) Physical Exam Vital Signs BP: 118/75 P: 89 R: 18 T: 97.7 SPO2: 100% on RA Constitutional + morbidly obese ENMT Mouth: + dentures (Full upper plate) Thyromental Distance: > or= 3.5 Finger Breadths (4) Mallampati Class: II Neck normal visual inspection and + thick neck; neck extension not limited Respiratory normal respiratory effort Auscultation: lungs clear to auscultation bilaterally Cardiovascular Rate/Rhythm: regular rate and regular rhythm Heart Sounds: no murmur Neurologic moves all extremities Psychiatric Orientation: alert and oriented x 3 Testing Laboratory Results 03/28/19 10:40 03/28/19 10:40 03/28/19 03/28/19 03/28/19 10:40 10:40 10:40 PT 10.1 INR 1.0 APTT 24.2 Hemoglobin A1c 5.6 Urine Color Urine Appearance Urine pH Ur Specific [place] Urine Protein Urine Glucose (UA) Urine Ketones Urine Nitrite Ur Leukocyte Esterase Urine WBC (Auto) Urine RBC (Auto) U Hyaline Cast (Auto) U Epithel Cells (Auto) Urine Bacteria (Auto) Blood Type O Positive Antibody Screen NEGATIVE 03/28/19 Unknown PT INR APTT Hemoglobin A1c Urine Color Yellow Urine Appearance Clear Urine pH 6.0 Ur Specific [place] 1.020 Urine Protein Negative Urine Glucose (UA) Negative Urine Ketones Negative Urine Nitrite Positive A Ur Leukocyte Esterase Negative Urine WBC (Auto) 1-5 Urine RBC (Auto) 0-4 U Hyaline Cast (Auto) 1-5 U Epithel Cells (Auto) >30 H Urine Bacteria (Auto) 1+ H Blood Type Antibody Screen 03/28/19 Unknown Urine Culture - Final Urine,Clean Catch More than three types of organisms present, all high counts. Repeat collection recommended. No further identifications or sensitivities to follow. Surgeon notified of U/A results. Electrocardiogram Date: 03/28/19 Findings: + NSR @ (86) Possible anterior infarct (cited on or before 03/28/19) When compared with ECG of 01/23/18, Nonspecific T wave abnormality now evident in lateral leads Chest X-Ray Date: 03/28/19 Findings: + NAD FINDINGS: The bones soft tissues and hemidiaphragms are normal. The cardiomed iastinal silhouette is normal. The lungs are clear. The pulmonary vasculature is normal. IMPRESSION: Negative chest.
--- NOTE | 2019-03-28 10:09 | PAT Medication Instructions ---
Medication Instructions Date of Service March 28, 2019 Home Medications albuterol sulfate [Ventolin HFA] 2 puff INHALATION QID NEEDED bupropion HCl 100 mg PO QAM diclofenac sodium 75 mg PO BID dicyclomine 10 mg PO TID ergocalciferol (vitamin D2) [Vitamin D2] 50,000 unit PO WK linaclotide [Linzess] 145 mcg PO QAM lisinopril-hydrochlorothiazide 1 tab PO QAM montelukast [Singulair] 10 mg PO PM azelastine 2 spray INTRANASAL BID oxybutynin chloride 5 mg PO QAM Continue as directed ergocalciferol (vitamin D2) [Vitamin D2] 50,000 unit PO WK ASK your surgeon for instructions diclofenac sodium 75 mg PO BID DO NOT take the morning of surgery linaclotide [Linzess] 145 mcg PO QAM lisinopril-hydrochlorothiazide 1 tab PO QAM azelastine 2 spray INTRANASAL BID oxybutynin chloride 5 mg PO QAM Take morning of surgery With a small sip of water, OTHERWISE NOTHING TO EAT OR DRINK AFTER MIDNIGHT: albuterol sulfate [Ventolin HFA] 2 puff INHALATION QID NEEDED (if needed; bring to hospital) bupropion HCl 100 mg PO QAM dicyclomine 10 mg PO TID Take evening before surgery albuterol sulfate [Ventolin HFA] 2 puff INHALATION QID NEEDED (if needed) dicyclomine 10 mg PO TID montelukast [Singulair] 10 mg PO PM azelastine 2 spray INTRANASAL BID Other Notes If you have any questions please call us at [phone] or [phone] or [phone] or [phone]
--- NOTE | 2019-03-28 11:12 | XRay Report ---
XR chest Pre-admission PA/Lat CLINICAL HISTORY: pat preoperative evaluation COMPARISON STUDY: 01/23/2018 FINDINGS: The bones soft tissues and hemidiaphragms are normal. The cardiomediastinal silhouette is n ormal. The lungs are clear. The pulmonary vasculature is normal. IMPRESSION: Negative chest. The above report was generated using voice recognition software. It may contain grammatical, syntax or spelling errors. Electronically signed by: Ean Littlejohn M.D. 03/28/2019 11:10 AM
[2019-03-28 12:23] LABS: Basophils # (auto) 0.04 K/uL (0-0.2); Basophils % (auto) 0.8 %; Eosinophils # (auto) 0.11 K/uL (0-0.5); Eosinophils % (auto) 2.1 %; Hematocrit (blood only) 39.1 % (37-47); Hemoglobin 12.7 g/dL (12.0-16.0); Immature Granulocytes # (auto) 0.01 K/uL (0.00-0.02); Immature Granulocytes % (auto) 0.2 %; Lymphocytes # (auto) 1.76 K/uL (1.2-3.4); Lymphocytes % (auto) 33.5 %; Mean Corpuscular Hgb Conc 32.5 g/dL (32-36); Mean Corpuscular Volume 90.3 fL (80-100); Mean Platelet Volume 8.6 fL (7.4-10.4); Monocytes # (auto) 0.42 K/uL (0.11-0.59); Neutrophils # (auto) 2.92 K/uL (1.4-6.5); Neutrophils % (auto) 55.4 %; Platelet Count 303 K/uL (130-400); RDW Coefficient of Variation 14.2 % (11.5-14.5); RDW Standard Deviation 47.3 fL (36.4-46.3); Red Blood Count 4.33 M/uL (4.2-5.4); White Blood Count 5.26 K/uL (4.8-10.8)
[2019-03-28 12:29] LABS: Albumin Level 3.2 gm/dl (3.4-5.0); BUN Creatinine Ratio 17.5 (10-20); Calcium 8.9 mg/dl (8.5-10.1); Creatinine Clr Calc Pharmacy 111.6 ml/min; Est GFR (Non-African American) 89.8; Potassium 3.9 mmol/L (3.5-5.1)
[2019-03-28 12:31] LABS: Appearance Urine Clear (Clear); Bacteria Urine Automated 1+ (Negative); Bilirubin Urine Negative (Negative); Blood Urine Negative (Negative); Color Urine Yellow; Epithelial Cell Urine Auto >30 /lpf (0-5); Glucose Urine UA Negative (Negative); Ketones Urine Negative (Negative); Leukocyte Esterase Urine Negative (Negative); Nitrite Urine Positive (Negative); Protein Urine Negative (Negative); RBC Urine Automated 0-4 /hpf (0-4); Urobilinogen Urine Negative (Negative)
[2019-03-28 12:31] LABS: Estimated Average Glucose 114 mg/dl; Hemoglobin A1C 5.6 % (4.5-5.6)
[2019-03-28 12:34] LABS: Partial Thromboplastin Ratio 0.9; Partial Thromboplastin Time 24.2 Seconds (21.0-31.0); Prothrombin Time 10.1 Seconds (9.0-12.0)
--- NOTE | 2019-04-09 18:15 | History and Physical Report ---
DATE OF ADMISSION: 04/11/2019 CHIEF COMPLAINT: Chronic left knee pain and instability. HISTORY OF PRESENT ILLNESS: This is a 48-year-old female patient of Dr. Flores'linda complaining of chronic left knee pain and instability, longstanding, now progressively getting worse. The patient has been diagnosed with end-stage osteoarthritis per clinical and radiographic exams. The patient has failed conservative treatment including intraarticular injections, anti-inflammatories, the use of a brace and home exercise program. The patient has increased pain with weightbearing activities and her pain does interfere with her activities of daily living. The patient wished to proceed with an elective left total knee arthroplasty. PAST MEDICAL HISTORY: Asthma, anxiety, anemia, rheumatoid arthritis, spine problems, neck problems, sciatica, obesity, dentures on the top of her mouth. SOCIAL HISTORY: Nonsmoker, nondrinker. PAST SURGICAL HISTORY: Abdominal surgery, gallbladder, hysterectomy, breast reduction, and left knee surgery. FAMILY HISTORY: Noncontributory. REVIEW OF SYSTEMS: Chronic left knee pain and instability. Otherwise, denies any shortness of breath, chest pain, nausea, vomiting or any other joint complaints. MEDICATIONS: Bupropion 100 mg daily, diclofenac sodium 75 mg twice daily, dicyclomine 10 mg 3 times a day, Linzess 145 mcg as needed, lisinopril/hydrochlorothiazide 20/12.5 one tablet daily, montelukast sodium 10 mg at bedtime, Ventolin HFA 90 mg actuation inhaler as needed, vitamin D 50,000 units daily and Bentyl daily. ALLERGIES: LATEX. PHYSICAL EXAMINATION: GENERAL: Well-developed, well-nourished 48-year-old female, in no acute distress. She is alert and oriented x3 and pleasant. HEENT: Normocephalic, atraumatic. Extraocular motions are intact. Pupils are equal, reactive to light. HEART: Regular rate and rhythm. No murmurs appreciated. LUNGS: Clear. ABDOMEN: Soft and nontender. Bowel sounds are present. EXTREMITIES: Left knee limited range of motion of 0-90 degrees. She has a varus deformity with a mild effusion. She has medial joint line tenderness. She has 4/5 strength with pain. NEUROLOGIC: Neurovascularly, she is intact in her left lower extremity. DIAGNOSES: Left knee end-stage osteoarthritis, asthma, anxiety, anemia, rheumatoid arthritis, spine problems, neck problems, sciatica, obesity, top dentures. PLAN: The patient was advised of her diagnosis. Indications, risks, benefits, postop course have all been reviewed. The patient wished to proceed with a left total knee arthroplasty. Necessary consent forms, preoperative testing and clearances will be obtained. ALFREDO
--- OUTSIDE RECORDS SUMMARY | 2019-04-11 05:10 | External Medical Summary | Continuity of Care Document ---
:1970 Author Name Kelly Moe, Provider Address Unavailable Unavailable , Care Team Providers Name Role Phone Kamilla Moe, Mauro Unavailable [email or web address] Roger IVAN, Stefany Unavailable [email or web address] Titi Loyola Unavailable [email or web address] JEANE Moe, ELSA Castaneda Unavailable Unavailable Juan PETERSON Unavailable Unavailable Unavailable Unavailable Unavailable Problems IBS (irritable colon syndrome) (564.1) (K58.9) Low back pain (724.2) (M54.5) Polyosteoarthritis, unspecified (715.89) (M15.9) BMI 40.0-44.9, adult (V85.41) (Z68.41) Joint pain, hip (719.45) (M25.559) Arthritis (716.90) (M19.90) Osteoarthritis of left knee (715.96) (M17.12) Morbid obesity (278.01) (E66.01) Obstructive sleep apnea (327.23) (G47.33) Hiatal hernia (553.3) (K44.9) Dysphagia (787.20) (R13.10) Numbness (782.0) (R20.0) Perimenopause (627.2) (N95.1) Overweight (278.02) (E66.3) Asthma (493.90) (J45.909) Carpal tunnel syndrome (354.0) (G56.00) Reflex incontinence (788.39) (N39.498) History of allergy (V15.09) (Z88.9) Chronic constipation (564.00) (K59.09) Preop examination (V72.84) (Z01.818) Urinary incontinence in female (788.30) (R32) Left knee pain (719.46) (M25.562) Hypertension (401.9) (I10) BMI 45.0-49.9, adult (V85.42) (Z68.42) Allergic rhinitis (477.9) (J30.9) Low vitamin D level (790.6) (R79.89) Dizziness (780.4) (R42) Gait disturbance (781.2) (R26.9) Head injury (959.01) (S09.90XA) Fatigue (780.79) (R53.83) Edema of both legs (782.3) (R60.0) Back pain (724.5) (M54.9) Neck pain (723.1) (M54.2) Fall (E888.9) (W19.XXXA) Rib pain (786.50) (R07.81) Joint pain, knee (719.46) (M25.569) Seasonal allergies (477.9) (J30.2) Radicular pain of shoulder (723.4) (M54.12) Pain medication agreement broken (V15.81) (Z91.14) Diverticulosis of colon (562.10) (K57.30) Encounter for medication monitoring (V58.83) (Z51.81) Neurological abnormality (781.99) (R29.818) Urinary urgency (788.63) (R39.15) Allergies and Adverse Reactions Darvocet-N 100 TABS (Allergy) Reaction: Nausea, Other Suboxone (Allergy) Reaction: Shortness of breath, Hives, Nausea, Vomiting Tramadol (Allergy) Reaction: Hives Medications Ventolin HFA 108 (90 Base) MCG/ACT Inhal ation Aerosol Solution; INHALE 2 PUFFS EVERY 4-6 HOURS NEEDED. Abhi Kohli Start: 02-Oct-2013 Quantity: 5 8 GM Inhaler Refills: 0 Montelukast Sodium 10 MG Oral Tablet; TAKE 1 TABLET AT BEDTIME. LITTLE Hinojosa Start: 25-Jan-2017 Quantity: 30 Refills: 5 buPROPion HCl ER (SR) 100 MG Oral Tablet Extended Release 12 Hour; TAKE 1 TABLET Daily after breakfast LITTLE Hinojosa Start: 29-Dec-2016 Quantity: 30 Refills: 5 Lisinopril-hydroCHLOROthiazide 20-12.5 M G Oral Tablet; Take 1 tablet by mouth daily. LITTLE Hinojosa Start: 17-Jan-2014 Quantity: 30 Refills: 3 Diclofenac Sodium 75 MG Oral Tablet Delayed Release; T avelino 1 tablet twice daily LITTLE Hinojosa Start: 06-Jul-2018 Quantity: 1 60 Tablet Bottle Refills: 1 Dicyclomine HCl - 10 MG Oral Capsule; TAKE ONE CAPSULE 3 TIMES DAILY NEEDED LITTLE Hinojosa Start: 30-Jun-2017 Quantity: 90 Refills: 3 Vitamin D (Ergocalciferol) 2000 UNIT Oral Capsule; URI E 1 CAPSULE Daily LITTLE Hinojosa Start: 01-Apr-2019 Quantity: 30 Refills: 5 Azelastine HCl - 0.1 % Nasal Solution; I NSERT 2 SQUIRTS IN EACH NOSTRIL TWICE DAILY LITTLE Hinojosa Start: 05-Mar-2019 Quantity: 1 30 ML Bottle Refills: 5 Oxybutynin Chloride ER 10 MG Oral Tablet Extended Release 24 Hour; Take 1 tablet daily LITTLE Hinojosa Start: 05-Mar-2019 Quantity: 30 Refills: 3 Linzess 290 MCG Oral Capsule; TAKE 1 CAPSULE Daily MARZENA Duran Start: 17-Mar-2017 Quantity: 30 Refills: 11 Procedures Vitamin D, 25-Hydroxy Date: 26-Mar-2019 History of Arthroscopy Knee Left Status: Completed History of Cholecystectomy Status: Compl eted History of Neuroplasty Decompression Median Nerve Status: Completed At Carpal Tunnel History of Panniculectomy Status: Comple bunny History of Breast Surgery Reduction Procedure Status: Completed Bilateral History of Nasal Septal Deviation Repair Status: Completed History of Layer Closure Of Wound Wrists Status: Completed Immunizations Tdap On: 07-May-2013 Influenza On: 07-Aug-2013 Pneumococcal polysaccharide vaccine, 23 valent On: 3 Family History Unknown Family Member Family history of Ovarian Cancer (V16.41) Status: Active Comments: Family History Social History - Smoking Status Former smoker Plan of Treatment Planned Encounters Appointment; Stefany Duran PA-C Start: 17-May-2019 9:00 Re quest Planned Observations Planned Goals not documented Results X-Ray Chest Preadm Testing (Pending) Laboratory: [facility] Diagnostic Imaging [address] [place] 28-Mar-2019 11:09 X-Ray Chest Preadm Testing (CXRPRE) [facility] [phone] XRay Report Patient: LAVELLE VALIENTE Admit Date: MR#: [id number] Address1: [address] Acct ID:[id number] Address2: Date: 1970 [facility] [address] Age: 48 Location: [facility] Sex: F Room/Bed: Att Phy: Jordan Flores M.D. Diagnosis: Left Knee Osteoarthritis Radha Phy: Elsa Hines DO Service Date: 03/28/19 Fam Phy: Interpreting Phy: Ean Littlejohn MD Admit Phy: Orde ring Phy: Jordan Flores M.D. cc: XR chest Pre-admission PA/Lat CLINICAL HISTORY: pat preoperative evaluation COMPARISON STUDY: 2017 FINDINGS: The bones soft tissues and hemidiaphragms are normal. The cardiomediastinal silhouette isnormal. T he lungs are clear. The pulmonary vasculatu re is normal. IMPRESSION: Negative ches t. The above report was gener ated using voice recognition software. It ma y contain grammatical, syntax or spelling errors. Electronically sig mychal by: Ean Littlejohn M.D. 03/28/2019 11:10 AM Dictated: 03/28/19 1109 Transcribed: 03/28/19 1109 Vital Signs 05-Apr-2019 10:38 Systolic 130 mm[Hg] Diastolic 88 mm[Hg] Weight 261 lb BSA Calculated 2.15 m2 BMI Calculated 47.28 kg/m2 Respiration 16 /min Heart Rate 84 /min 26-Mar-2019 7:12 Systolic 133 mm[Hg] Diastolic 82 mm[Hg] Weight 265.125 lb BSA Calculated 2.16 m2 BMI Calculated 48.03 kg/m2 Heart Rate 88 /min O2 Saturation 97 % Encounters Appointment; Stefany Duran PA-C 05-Apr-2019 10:30 Encounter Diagnosis: Problem not documented Appointment; Titi Hinojosa CRNP 26-Mar-2019 7:00 Encounter Diagnosis: Problem not documented Appointment; Titi Hinojosa CRNP 05-Mar-2019 9:00 Encounter Diagnosis: Problem not documented Appointment; Titi Hinojosa CRNP 08-Feb-2019 9:40 Encounter Diagnosis: Problem not documented Appointment; Elsa Hines DO 18-Jul-2018 10:20 Encounter Diagnosis: Problem not documented Appointment; Elsa Hines DO 06-Jul-2018 11:40 Encounter Diagnosis: Problem not documented Appointment; Tomas Peterson DO 14-Feb-2018 13:00 Encounter Diagnosis: Problem not documented Appointment; Tomas Peterson DO 01-Feb-2018 13:00 Encounter Diagnosis: Problem not documented Appointment; Elsa Hines DO 01-Nov-2017 13:40 Encounter Diagnosis: Problem not documented Appointment; Caprice Cooper DO 11-Jul-2017 15:20 Encounter Diagnosis: Problem not documented Appointment; Nancy Diop PA-C 11-Jul-2017 13:00 Encounter Diagnosis: Problem not documented Appointment; Tomas Peterson DO 22-Jun-2017 11:30 Encounter Diagnosis: Problem not documented Appointment; Nancy Diop PA-C 21-Jun-2017 15:30 Encounter Diagnosis: Problem not documented Appointment; Stefany Duran PA-C 17-May-2019 9:00 Encounter Diagnosis: Problem not documented
[2019-04-11] MEDS ORDERED: CEFAZOLIN 3000MG 65 ML IV SCH (06:00)
[2019-04-11] MEDS ORDERED: dexAMETHasone 4 MG TAB PO SCH (06:00)
[2019-04-11] MEDS ORDERED: LR 500ML BOLUS, THEN 15ML/HR IV SCH (06:00)
[2019-04-11] MEDS ORDERED: CeleBREX 200 MG CAP PO SCH (06:00)
[2019-04-11] MEDS ORDERED: ROPIVACAINE 0.5% HCL/PF 150 MG, BUPIVACAINE 0.5% MPF 30 ML, EPINEPHrine 30MG/30ML (OR U... INFIL SCH (06:00)
[2019-04-11] MEDS ORDERED: ACETAMINOPHEN 500 MG TAB PO SCH (06:00)
[2019-04-11] MEDS ORDERED: GABAPENTIN 300 MG x 3 PO SCH (06:00)
[2019-04-11] MEDS ORDERED: FAMOTIDINE 20 MG TAB PO SCH (06:00)
[2019-04-11] MEDS ORDERED: METOCLOPRAMIDE HCL 10 MG TABLET PO SCH (06:00)
[2019-04-11] MEDS ORDERED: TRANEXAMIC ACID 1,000 MG **IV Pre-op IV SCH (06:00)
[2019-04-11] MEDS ORDERED: BUPIVACAINE 0.5 % 5 MG/1 ML PF 10ML VIAL ONE (06:07)
[2019-04-11] MEDS ORDERED: ROPIVACAINE 0.5% 5 MG/ML 30 ML VIAL ONE (06:07)
[2019-04-11] MEDS ORDERED: TRANEXAMIC ACID 1,000 MG **IV Intra-op IV SCH (06:30)
[2019-04-11] MEDS ORDERED: HYDROmorphone INJ 1 MG/ML SYRINGE IV PRN (06:50)
[2019-04-11] MEDS ORDERED: fentaNYL citrate 100 MCG/2 ML VIAL IV PRN (06:50)
[2019-04-11] MEDS ORDERED: ONDANSETRON INJ 2 MG/ML 2 ML VIAL IV PRN (06:50)
[2019-04-11] MEDS ORDERED: PROMETHAZINE HCL 12.5 MG in SODIUM CHLORIDE 0.9% 50 ML IV PRN (06:50)
[2019-04-11] MEDS ORDERED: ePHEDrine sulfate 50 MG/ML AMP IV PRN (06:50)
[2019-04-11] MEDS ORDERED: PHENYLEPHRINE 100MCG/ML 5ML SYR IV PRN (06:50)
[2019-04-11] MEDS ORDERED: ATROPINE SULFATE 0.1 MG/ML 10ML SYR IV PRN (06:50)
[2019-04-11] MEDS ORDERED: fentaNYL citrate 100 MCG/2 ML VIAL ONE (06:52)
[2019-04-11] MEDS ORDERED: MIDAZOLAM HCL 1 MG/ML 2ML VIAL ONE (06:52)
[2019-04-11] MEDS ORDERED: ORTHO JOINT ANESTHETIC ONE (06:54)
[2019-04-11] MEDS ORDERED: BACITRACIN INJ 50,000 UNIT VIAL ONE (06:54)
--- NOTE | 2019-04-11 07:15 | History & Physical Bridge Note ---
Date of Service April 11, 2019 History & Physical Bridge Note I have examined the patient, reviewed the History & Physical and in the interval since the performance of the History & Physical I have noted the following changes of clinical significance: no changes noted
[2019-04-11] MEDS ORDERED: LIDOCAINE HCL 2% 2 ML VIAL/AMP(20MG/ML) INFIL ONE (08:10)
[2019-04-11] MEDS ORDERED: ePHEDrine sulfate 50 MG/ML SYR ONE (08:10)
[2019-04-11] MEDS ORDERED: PROPOFOL IV EMULSION 10 MG/ML 20 ML VIAL IV ONE ×2 (08:11→09:00)
--- NOTE | 2019-04-11 09:31 | Post Operative Brief Note ---
Immediate Post Op Note v1 Date of Surgery April 11, 2019 Pre & Post Diagnosis Operation Date: 04/11/19 07:15 Pre-Op Diagnosis: Left Knee Osteoarthritis morbid obesity BMI 47.8 Post-Op Diagnosis: Left Knee Osteoarthritis morbid obesity BMI 47.8 Procedure Operation Date: 04/11/19 07:15 Actual Procedures p Left Total Knee Arthroplasty(Left) increased difficulty morbid obesity BMI 47.8, superficial wound VAC- Jordan Florse MD Surgeon Jordan Flores MD Electronic Musical Instrument Repairer Ean BOSCH Estimated Blood Loss 5 Findings Consistent with Post-Op Diagnosis Specimens Bone cuts Drains Hemovac Drain Anesthesia Type Spinal MAC Complications none Disposition Accompanied Patient To Recovery: No Disposition: Recovery Room Overlapping Procedure I was present for: the critical portions of procedure.
--- NOTE | 2019-04-11 10:29 | Anesthesiology Progress Note ---
Date of Service April 11, 2019 Anesthesia Post Procedure Vital Signs Vital Signs: Temp Pulse Resp BP Pulse Ox 04/11/19 10:25 78 16 139/87 99 04/11/19 10:15 83 14 134/79 96 04/11/19 10:05 36.8 C 89 14 119/76 100 04/11/19 05:49 36.9 C 87 18 171/92 H 99 Pain Intensity Left Knee: Pain Intensity: 0 Transfer of Care Handoff Completed per policy Notes Mental Status: alert / awake / arousable Patient Amnestic to Procedure: Yes Nausea / Vomiting: adequately controlled Pain: adequately controlled Airway Patency, RR, SpO2: stable & adequate BP & HR: stable & adequate Neuraxial Anesthesia: was administered and sensory block is resolving Anesthetic Complications: no major complications apparent
--- NOTE | 2019-04-11 10:38 | XRay Report ---
XR knee LT 2V routine CLINICAL HISTORY: Postoperative evaluation. COMPARISON: Left knee radiographs June 01, 2018. FINDINGS: Alignment of the total left knee arthroplasty is anatomic. There is no fracture or unexpec bunny radiopaque foreign body. Drains and skin javy are present. IMPRESSION: Expected findings following total left knee arthroplasty. Electronically signed by: Koko Jacinto M.D. 04/11/2019 10:37 AM
[2019-04-11] MEDS ORDERED: MAGNESIUM HYDROXIDE SUSP 30 ML UDC PO PRN (11:22)
[2019-04-11] MEDS ORDERED: BISACODYL 10 MG SUPP PR PRN (11:22)
[2019-04-11] MEDS ORDERED: HYDROmorphone INJ 0.5 MG/0.5 ML SYR IV PRN (11:22)
[2019-04-11] MEDS ORDERED: ALBUTEROL HFA 8 GM INHALER INH PRN (11:22)
[2019-04-11] MEDS: SODIUM CHLORIDE 0.9% 1000ML 1,000 ML IV SCH ×2 (12:19→22:41)
[2019-04-11] MEDS: DICYCLOMINE HCL 10 MG CAP PO SCH ×2 (13:52→21:57)
[2019-04-11] MEDS: ACETAMINOPHEN 500 MG TAB PO SCH ×2 (13:53→21:57)
[2019-04-11] MEDS ORDERED: PNEUMOCOCCAL POLYSACCHARIDES 25 MCG/0.5 ML VIAL/SYR IM ONE (14:00)
[2019-04-11] MEDS ORDERED: PNEUMOCOCCAL ADMINISTRATION CHARGE ONE (14:00)
--- NOTE | 2019-04-11 15:12 | Hospitalist Consultation ---
Date of Consultation April 11, 2019 Assessment & Plan (1) Post-operative state: 48 y/o F Hx RA, HTN, anxiety, asthma, obesity. The pt is post L TKR. The pt is recovering well in the post-op period. She denies CP, SOB, nausea, vomiting, fevers or excessive pain at the surgical site. 1) Post op - pain is well controlled - no additional acute complaints - early mobility and anticoagulation recommended 2) HTN - can resume Lisinopril Am provided SBP and BMP are at baseline. 3) Anxiety - cont Bupropion 4) Asthma - PRN albuterol - spirometry 5) RA - not presently treated Total time for this consult including review of labs, meds, imaging, records - discussion with pt and review of ortho notes - 33 min The medical service will sign off - we will be data acquisition technician for any acute issues. Present on Admission?: Yes History of Present Illness Reason for Consultation: Post-op med management Attending Physician: Jordan Flores MD History of Present Illness 48 y/o F Hx RA, HTN, anxiety, asthma, obesity. The pt is post L TKR. The pt is recovering well in the post-op period. She denies CP, SOB, nausea, vomiting, fevers or excessive pain at the surgical site. PMH: 1) RA - does not take immune modulators at present 2) Morbidly obese - BMI 45-50 3) Anxiety 4) HTN 5) Asthma Surgical: 1) BL carpal tunnel 2) Cholecystectomy 3) C section Social: Does not drink - quit smoking 12 years ago Family: Father due to esophageal and lung CA Allergies Allergy/AdvReac Type Severity Reaction Status Date / Time buprenorphine [From Suboxone] Allergy Severe Throat Verified 04/11/19 05:44 swells, hives naloxone [From Suboxone] Allergy Severe Throat Verified 04/11/19 05:44 swells, hives blueberry Allergy Intermediate HIVES Verified 04/11/19 05:44 tramadol Allergy Intermediate HIVES Verified 04/11/19 05:44 latex Allergy Mild SKIN Verified 04/11/19 05:44 PEELING MOLDS Allergy Severe SWELLING/HI Uncoded 04/11/19 05:44 VES CHEAP METAL Allergy Intermediate SKIN Uncoded 04/11/19 05:44 IRRITATION/SWELLING Home Medications Home Medications Medication Instructions Recorded Confirmed Type bupropion HCl 100 mg PO QAM 03/19/19 04/11/19 History diclofenac sodium 75 mg PO BID 03/19/19 04/11/19 History dicyclomine 10 mg PO TID 03/19/19 04/11/19 History ergocalciferol (vitamin D2) 50,000 unit PO WK 03/19/19 04/11/19 History [Vitamin D2] linaclotide [Linzess] 145 mcg PO QAM 03/19/19 04/11/19 History lisinopril-hydrochlorothiazide 1 tab PO QAM 03/19/19 04/11/19 History montelukast [Singulair] 10 mg PO PM 03/19/19 04/11/19 History azelastine 2 spray INTRANASAL BID 03/28/19 04/11/19 History oxybutynin chloride 5 mg PO QAM 03/28/19 04/11/19 History albuterol sulfate HFA 90 2 puff INHALATION QID PRN #18 gm 04/01/19 04/11/19 Rx mcg/actuation aerosol inhaler Patient History Family History Father Family history of esophageal cancer Social History Preferred Language: Thai Communication Ability: Effective Frit Coater Required: No Beliefs That Will Affect Care: None Current Living Situation: Significant Other Other Information That Helps Us Care for You: No Feels Safe at Home: Yes Safety Concerns: Feels Safe At This Time Smoking Status: Former smoker Tobacco Type: cigarettes Cigarettes Per Day: 2ppd x 4-5 years Do You Dip or Chew Tobacco: No Smoking End Date: QUIT 2007 Second Hand Exposure: Yes (SOME EXPOSURE) Tobacco Cessation Education Requested by Patient: No Hx Alcohol Use: No Hx Substance Use: No Review of Systems Review of Systems: Gen: Denies fevers, night sweats, rigors, fatigue, malaise, weight loss/gain ENT: Denies congestion, throat pain, hearing loss Eyes: Denies acute visual changes CV: Denies CP, palpitations Pulmonary: Denies SOB, cough, wheezing GI: Denies N/V, diarrhea, constipation Neuro: Denies acute or unilateral weakness, acute gait impairment, headache or acute visual changes Musculoskeletal: Denies ant post-op pain at the time of evaluation Endocrine: Denies polydipsia, polyuria Skin: Denies acute rashes or ulcers Physical Exam Physical Exam: General: Pleasant, overweight F in good spirits, AAO x 3, no distress ENT: No erythema or exudates, no thrush Eyes: MJ, EOMI Head and neck: Normocephalic, atraumatic, No JVD, neck is supple. Chest/heart: Nontender, S1,2, RRR, no murmurs, no gallops Lungs: CTAB, no wheezing or crackles Abdomen: Nontender, nondistended, BS+ Neuro: AAO x 3, speech is clear, no unilateral weakness or loss of sensation, coordination intact Musculoskeletal: L knee is bandaged Skin: No acute rashes or ulcers Extremities: No clubbing, cyanosis, edema Results & Data Vital Signs (Past 12 Hours) Vital Signs Temp Pulse Resp BP Pulse Ox 04/11/19 14:08 91 H 18 146/83 H 94 04/11/19 13:54 98 H 16 142/87 H 97 04/11/19 13:01 85 18 143/90 H 98 04/11/19 11:58 72 18 150/93 H 99 04/11/19 11:00 97.5 F L 81 16 147/84 H 93 04/11/19 10:45 77 20 144/98 H 98 04/11/19 10:36 98.4 F 80 20 166/93 H 98 04/11/19 10:25 78 16 139/87 99 04/11/19 10:15 83 14 134/79 96 04/11/19 10:05 98.2 F 89 14 119/76 100 04/11/19 05:49 98.4 F 87 18 171/92 H 99 PG Care Time/CCT Total # of Minutes Spent Total Time Spent with Patient: Total time spent is greater than 50% in coordination of care (as documented) at patient's floor/unit and/or counseling patient:
[2019-04-11] MEDS: CEFAZOLIN 2000MG 2,000 MG/15 ML SYR IV SCH ×2 (17:00→23:26)
--- NOTE | 2019-04-11 17:43 | Operative Report ---
Post Operative Report Pre & Post Diagnosis Operation Date: 04/11/19 07:15 Pre-Op Diagnosis: Left Knee Osteoarthritis morbid obesity BMI 47.8 Post-Op Diagnosis: Left Knee Osteoarthritis morbid obesity BMI 47.8 Procedure Operation Date: 04/11/19 07:15 Actual Procedures p Left Total Knee Arthroplasty(Left) - Jordan Flores MD Surgeon Jordan Flores MD Spud Sorter Ean BOSCH Estimated Blood Loss 5 Findings Consistent with Post-Op Diagnosis Specimens Bone cuts Drains 2 Hemovac Anesthesia Type Spinal MAC Complications none Disposition Accompanied Patient To Recovery: No Disposition: Recovery Room Indications 48-year-old female with very severe osteoarthritis of left knee.'s [id number] subluxation of femur on the tibia she has a varus knee. She is tricompartmental osteoarthritis. She failed all conservative management. She had prior arthroscopy. Description of Procedure The patient was taken to the operating room and anesthetized under regional block spinal and sedation. Patient was placed supine on the the operating table. A pneumatic tourniquet was placed about the obese left upper thigh. The knee exam demonstrated that she had a flexion contracture that she had flexion to about 115 degrees and had no instability and a varus knee.. The involved leg was elevated exsanguinated with Esmarch bandage and the pneumatic tourniquet was raised to 350 millimeters mercury. A longitudinal incision was made across the anterior knee. Deep layer of fat was divided down to the fascia. Skin flaps were elevated. An incision was made into the medial retinaculum and extended up into the mid third of the quadriceps tendon and extended down to the tibial tubercle. Intra-articular findings demonstrated severe tricompartmental DJD [id number] medial compartment.. The knee was exposed by excising cruciate ligaments and menisci. The infrapatellar fat pad was resected. The fat pad over the anterior femur at the upper aspect of the articular surface was resected for placement of the component in that area. A subperiosteal peel lateral release was performed around the patella. Exposure of the knee was more difficult due to her obesity. The [employer] journey 2.0 total knee arthroplasty system was utilized for the procedure. The intramedullary drill hole was made into the femur and the distal femoral cutting guide was suggested to resect a standard cut distal femur at 5 degree valgus. The distal femoral cut was made. The size 4, 5 in 1 cutting block was placed. The anterior posterior and chamfer cuts were made. The knee was extended and a free hand cut technique was performed to the patella. The patella with was measured and the width was reproduced using a 29 patella component. 3 drill holes are made for the patella component pegs. The tibia was then subluxed. The external tibial cutting guide was adjusted to resect below the most deficient medial side and a perpendicular cut the long axis of the tibia matching the slope and the proximal tibial cut was made with the oscillating saw. The size 3 tibial trial was externally rotated in line with the tibial tubercle and pinned in position. The punch for the stem was used. The femoral trial was inserted and centered the notch cutting devices were used and the collet was placed. Tibial trials were used for the insert. The size 10 trial gave balanced ligaments through full range of motion. Patella tracking was assessed with range of motion. The patella tracked laterally so I went ahead did a lateral release and put a towel clip in place and the patella tracked centrally. The trials were removed. The Orthomix anesthetic cocktail was injected per protocol. The cut bone surfaces and soft tissue were copiously irrigated with antibiotic solution with bacitracin. The final components were cemented with Simplex cement. The final components were size 4 Oxinium left femoral component split there for Javi 2.0 with 3 primary tibial baseplate with 10 mm posterior stabilized polyethylene insert and 29 symmetrical patella.. While the cement cured the Betadine soak was used per protocol. When the cement cured the knee was copiously irrigated with pulsatile lavage antibiotic solution with bacitracin. 2 drains were brought out laterally connected to Hemovac. The quadriceps tendon and medial retinaculum were closed with interrupted [id number] #1 Vicryl sutures. The knee was taken through full range of motion and repair was secure. The subcutaneous tissues were closed with 2-0 Vicryl sutures. The skin was closed with titanium javy. A sterile dressing was applied. The tourniquet was let down and the patient had good capillary refill to the extremity. The patient tolerated the procedure well. My physician assistant speech language pathologist Ean BOSCH assisted in the procedure including prepping draping leg positioning soft tissue retraction instrument management and assisted in the closure ,dressings application and will participate in postoperative care the patient. I attest to the content of the Intraoperative Record and any orders documented therein. Any exceptions are noted below.
[2019-04-11] MEDS: AZELASTINE 0.1% SCH (21:53)
[2019-04-11] MEDS: CeleBREX 200 MG CAP PO SCH (21:57)
[2019-04-11] MEDS: MONTELUKAST SODIUM 10 MG TABLET PO SCH (21:57)
[2019-04-11] MEDS: SENNA 8.6 MG TAB PO SCH (21:57)
[2019-04-11] MEDS: DOCUSATE SODIUM 100 MG CAP PO SCH (21:57)
[2019-04-11] MEDS: OXYCODONE HCL IR 5 MG TAB (IMMEDIATE RELEASE) PO PRN (22:02)
[2019-04-12] MEDS: OXYCODONE HCL IR 5 MG TAB (IMMEDIATE RELEASE) PO PRN ×2 (04:01→15:23)
[2019-04-12] MEDS: ONDANSETRON INJ 2 MG/ML 2 ML VIAL IV PRN (04:01)
[2019-04-12 05:47] LABS: Hemoglobin 10.3 g/dL (12.0-16.0); Mean Corpuscular Hgb Conc 33.2 g/dL (32-36); Mean Corpuscular Volume 89.1 fL (80-100); Mean Platelet Volume 8.6 fL (7.4-10.4); Platelet Count 266 K/uL (130-400); RDW Coefficient of Variation 14.5 % (11.5-14.5); Red Blood Count 3.48 M/uL (4.2-5.4); White Blood Count 7.13 K/uL (4.8-10.8)
[2019-04-12] MEDS: ACETAMINOPHEN 500 MG TAB PO SCH ×3 (05:55→21:25)
[2019-04-12 06:17] LABS: BUN Creatinine Ratio 17.3 (10-20); Calcium 8.9 mg/dl (8.5-10.1); Creatinine Clr Calc Pharmacy 85.1 ml/min; Est GFR (African American) 77.3; Est GFR (Non-African American) 66.7; Potassium 3.9 mmol/L (3.5-5.1)
--- NOTE | 2019-04-12 07:44 | Orthopedic Progress Note ---
Date of Service April 12, 2019 Assessment & Plan (1) Arthritis of left knee: POD #1, Left TKA PT/ OT DVT proph- Xarelto D/C planning- Home w OPPT. Appreciate medicine input. Subjective POD #1, Doing well, denies SOB, CP, N/V. Pain controlled well. Physical Exam Physical Exam: Left knee dressings c/d/i, drain in place, no erythema. Toes and ankle mobile. No calf tenderness. A&Ox3. Results & Data Vital Signs (Past 12 Hours) Vital Signs Temp Pulse Resp BP Pulse Ox 04/12/19 07:05 36.6 C 86 16 127/78 100 04/12/19 03:19 36.8 C 97 H 16 122/73 95 04/11/19 23:05 37.2 C 106 H 16 156/80 H 97
[2019-04-12] MEDS: CeleBREX 200 MG CAP PO SCH ×2 (08:47→20:24)
[2019-04-12] MEDS: OXYBUTYNIN CHLORIDE XL 5 MG TABCR PO SCH (08:47)
[2019-04-12] MEDS: AZELASTINE 0.1% SCH ×2 (08:47→20:21)
[2019-04-12] MEDS: DICYCLOMINE HCL 10 MG CAP PO SCH ×3 (08:47→20:22)
[2019-04-12] MEDS: DOCUSATE SODIUM 100 MG CAP PO SCH ×2 (08:47→20:22)
[2019-04-12] MEDS: RIVAROXABAN 10 MG TABLET PO SCH (08:47)
[2019-04-12] MEDS: MULTIVITAMIN TAB PO SCH (08:48)
[2019-04-12] MEDS: buPROPion HCl 100 MG TABLET PO SCH (08:48)
[2019-04-12] MEDS: LISINOPRIL/HCTZ 20/12.5MG 1 TAB TAB PO SCH (08:48)
[2019-04-12] MEDS: SENNA 8.6 MG TAB PO SCH (20:25)
[2019-04-12] MEDS: MONTELUKAST SODIUM 10 MG TABLET PO SCH (20:25)
[2019-04-13] MEDS: ACETAMINOPHEN 500 MG TAB PO SCH (05:27)
[2019-04-13 06:57] LABS: Hematocrit (blood only) 29.3 % (37-47); Hemoglobin 10.2 g/dL (12.0-16.0); Mean Corpuscular Hgb Conc 34.8 g/dL (32-36); Mean Corpuscular Volume 90.7 fL (80-100); Mean Platelet Volume 8.6 fL (7.4-10.4); Platelet Count 242 K/uL (130-400); RDW Coefficient of Variation 14.8 % (11.5-14.5); Red Blood Count 3.23 M/uL (4.2-5.4); White Blood Count 5.22 K/uL (4.8-10.8)
[2019-04-13] MEDS: ONDANSETRON INJ 2 MG/ML 2 ML VIAL IV PRN (07:12)
[2019-04-13] MEDS: OXYCODONE HCL IR 5 MG TAB (IMMEDIATE RELEASE) PO PRN ×2 (07:13→13:02)
[2019-04-13 07:29] LABS: BUN Creatinine Ratio 18.7 (10-20); Calcium 9.1 mg/dl (8.5-10.1); Creatinine Clr Calc Pharmacy 94.5 ml/min; Est GFR (African American) 87.7; Est GFR (Non-African American) 75.7; Potassium 3.7 mmol/L (3.5-5.1)
--- NOTE | 2019-04-13 08:26 | Orthopedic Progress Note ---
Date of Service April 13, 2019 Assessment & Plan (1) Arthritis of left knee: POD #2, Left TKA PT/ OT DVT proph- Xarelto D/C planning- Home w OPPT today. Appreciate medicine input. Subjective POD #2, Doing well, denies SOB, CP, N/V. Pain controlled well. Physical Exam Physical Exam: Left knee prevena c/d/i, no erythema, no drainage. No calf tenderness. Toes and ankle mobile. A&Ox3. Results & Data Vital Signs (Past 12 Hours) Vital Signs Temp Pulse Resp BP Pulse Ox 04/13/ 06:44 36.7 C 93 H 18 150/86 H 100 04/12/19 23:09 36.6 C 78 18 128/77 99
[2019-04-13] MEDS: DICYCLOMINE HCL 10 MG CAP PO SCH (08:34)
[2019-04-13] MEDS: DOCUSATE SODIUM 100 MG CAP PO SCH (08:34)
[2019-04-13] MEDS: OXYBUTYNIN CHLORIDE XL 5 MG TABCR PO SCH (08:34)
[2019-04-13] MEDS: MULTIVITAMIN TAB PO SCH (08:34)
[2019-04-13] MEDS: LISINOPRIL/HCTZ 20/12.5MG 1 TAB TAB PO SCH (08:35)
[2019-04-13] MEDS: CeleBREX 200 MG CAP PO SCH (08:35)
[2019-04-13] MEDS: AZELASTINE 0.1% SCH (08:36)
[2019-04-13] MEDS: buPROPion HCl 100 MG TABLET PO SCH (08:36)
[2019-04-13] MEDS: RIVAROXABAN 10 MG TABLET PO SCH (08:36)
[2019-04-17] MEDS ORDERED: ERGOCALCIFEROL 50,000 UNITS CAP PO SCH (09:00)
--- NOTE | 2019-04-26 02:03 | Discharge Summary ---
This is a 48-year-old female patient of Dr. Flores's complaining of chronic left knee pain, longstanding, progressively getting worse. The patient failed conservative treatment and elected to proceed with a left total knee arthroplasty. PAST MEDICAL HISTORY: Asthma, anxiety, anemia, rheumatoid arthritis, spine problems, neck problems, sciatica, obesity and dentures. POSTOPERATIVE COURSE: The patient underwent a left total knee arthroplasty on 04/11/2019. She was followed closely with medical consultation, DVT prophylaxis in the form of Xarelto, physical therapy and pain control. The patient did well postoperatively and was discharged home on postoperative day #2. PHYSICAL EXAMINATION: On discharge left knee superficial Prevena wound VAC was clean, dry and intact. It was holding suction well. There was no redness or drainage. She had no calf tenderness. Negative Homans sign. Toes and ankle were mobile. Neurologically and neurovascularly, she was intact in her left lower extremity. DIAGNOSES: Status post left total knee arthroplasty, asthma, anxiety, anemia, rheumatoid arthritis, spine problems, neck problems, sciatica, obesity and dentures. PLAN: The patient was discharged home with outpatient physical therapy on postoperative day #2. She will continue her preadmission medications with the addition of Xarelto for DVT prophylaxis. She will also continue pain medications as needed. She will follow up with Dr. Flores as an outpatient as scheduled.
== END 2019-04-13 13:54 | disposition home health service (06) | DRG 470 ==
LOC: ASU 05:07 → 3E 10:11

== ENCOUNTER 2019-05-08 04:11 | Inpatient (IN) ==
[2019-05-08 05:02] LABS: iSTAT Creatinine 0.9 mg/dl (0.6-1.3); iSTAT Hemoglobin 9.9 g/dl (12.0-16.0); iSTAT Ionized Calcium 1.33 mmol/l (1.12-1.32); iSTAT Potassium 3.7 mEq/L (3.3-5.0)
[2019-05-08] MEDS: fentaNYL citrate 100 MCG/2 ML VIAL IV PRN ×6 (06:00→17:45)
[2019-05-08] MEDS ORDERED: CEFAZOLIN 2000MG 2,000 MG/15 ML SYR IV STA (06:26)
--- NOTE | 2019-05-08 07:23 | XRay Report ---
SINGLE VIEW CHEST CLINICAL HISTORY: Trauma. FINDINGS: 2 AP, portable, supine chest radiographs are compared to study dated 03/28/2019. The examina tion is degraded by portable technique, apical lordotic positioning, and patient rotation. The card iomediastinal silhouette is unremarkable. The lungs and pleural spaces are clear. No pneumothorax is seen. The bony thorax is grossly intact. Cholecystectomy clips are seen in the right upper quadrant. IMPRESSION: No active disease in the chest. Electronically signed by: Melvin Sheets M.D. 05/08/2019 7:22 AM
--- NOTE | 2019-05-08 07:27 | XRay Report ---
SINGLE VIEW PELVIS; 2 VIEWS LEFT HIP; 2 VIEWS LEFT FEMUR CLINICAL HISTORY: Trauma. Fall with left leg pain. FINDINGS: An AP view of the pelvis with AP and crosstable lateral views of the left hip as well as AP and crosstable lateral views of the left femur are obtained. Correlation is made with pelvic CT date d 09/12/2016. The skeletal structures are osteopenic. There is no radiographic evidence of fracture i nvolving the hips or bony pelvis. There is no radiographic evidence of left femoral fracture. Large e nthesophytes arise from the right anterior superior iliac spine. The hip joints are preserved. The sa croiliac joints appear maintained. A left knee arthroplasty is in place. The overlying soft tissues a re normal as imaged. Phleboliths are observed in the pelvis. IMPRESSION: 1. No acute bony abnormality is seen involving the hips or bony pelvis. 2. There is no radiographic evidence of left femoral fracture. Electronically signed by: Melvin Sheets M.D. 05/08/2019 7:25 AM
--- NOTE | 2019-05-08 07:33 | XRay Report ---
LEFT KNEE 2 VIEWS HISTORY: Left knee pain. trauma COMPARISON: None. FINDINGS: There is no fracture or dislocation. Anterior soft tissue swelling. There appears to be gas within the joint space which may represent residual/resolving postoperative change. There is a left total knee arthroplasty. The hardware appears intact. IMPRESSION: 1. No fracture or dislocation within the left knee. 2. Gas within the joint space which favors residual/resolving postoperative change. Electronically signed by: Austin Hendrix M.D. 05/08/2019 7:32 AM
--- NOTE | 2019-05-08 07:35 | XRay Report ---
XR tibia fibula LT 2V CLINICAL HISTORY: trauma. Left lower leg pain. Fall. COMPARISON STUDY: None. FINDINGS: Partially visualized left total knee arthroplasty is again noted. Diffuse subcutaneous arleth a within the lower leg. No fractures within the left tibia or left fibula. No dislocation. IMPRESSION: 1. No fractures within the left lower leg. 2. Diffuse subcutaneous edema within the left lower leg. Electronically signed by: Austin Hendrix M.D. 05/08/2019 7:33 AM
--- NOTE | 2019-05-08 08:22 | History and Physical Report ---
DATE OF ADMISSION: 05/08/2019 CHIEF COMPLAINT: Pain in left knee. HISTORY OF PRESENT ILLNESS: The patient is a 48-year-old white female who is almost 4 weeks out from having her left total knee arthroplasty done by Dr. Flores. The patient states that she was in her normal state of health and that she was doing very well with her rehab for her knee. She was coming down the steps of her home when she ended up losing her balance and falling down a portion of the stairs. She states that upon landing on the ground and the stairs, she ended up hyperflexing her left knee and she heard a noise that sounded like a tear and began having pain in her left knee. She had noticed her wound was open/bleeding and her fiance was there and helped her come to the Emergency Room. She was seen by the staff and was noted to have a left knee wound dehiscence. We have now asked to take care of her wound dehiscence at this time. She denies any loss of consciousness after the fall. She denies any shortness of breath, chest pain, lightheadedness before the fall or after. PAST MEDICAL HISTORY: Asthma, anxiety, anemia, rheumatoid arthritis, degenerative spine disease, sciatica, obesity. PAST SURGICAL HISTORY: She has had a cholecystectomy, hysterectomy, breast reduction, , and noted above, left total knee arthroplasty done on 04/11/2019. FAMILY HISTORY: Noncontributory. SOCIAL HISTORY: The patient does not use tobacco or alcohol and lives with her fiance. MEDICATIONS: Albuterol 2 puffs inhaled q.i.d. p.r.n., Azelastine 137 mcg 2 sprays intranasally b.i.d., bupropion 100 mg p.o. q.a.m., Celebrex 200 mg p.o. b.i.d. for 30 days postop, a history of taking diclofenac sodium 75 mg p.o. b.i.d., dicyclomine 10 mg p.o. t.i.d., vitamin D2 50 mcg p.o. daily, linaclotide 290 mcg p.o. daily, lisinopril/hydrochlorothiazide 1 tab p.o. q.a.m., montelukast 10 mg p.o. q.p.m., oxybutynin chloride ER 5 mg tablets 10 mg p.o. q.a.m. and oxycodone 5 mg p.o. q. 4 hours p.r.n. ALLERGIES: SUBOXONE, BLUEBERRY WHICH CAUSES HIVES, TRAMADOL CAUSES HIVES. LATEX CAUSES SKIN PEELING. CEFADROXIL CAUSES RASH. MOLDS AND CHEAP METAL/NICKEL ALLERGY. REVIEW OF SYSTEMS: The patient states she has been in her normal state of health since her surgery. Denies any unusual fever, chills, night sweats, unexplained weight loss or weight gain. No flu or cold-like symptoms. No increased cough or sputum production. No shortness of breath on exertion or at rest. No hemoptysis, no chest pain, chest pressure, irregular heartbeat. Denies any abdominal discomfort. No unusual nausea, vomiting, or diarrhea. Denies hematemesis, melena, or hematochezia. No recent urinary tract infections, burning on urination, hematuria or pyuria, frequency or urgency. No history of CVA, TIA, seizure disorder, migraine headache. PHYSICAL EXAMINATION: VITAL SIGNS: On this admission, blood pressure is 167/101, pulse 79, respirations 17, temperature 36.6. O2 sats are 100 on room air. GENERAL: The patient is an obese white female who is alert and oriented x3 and in no acute distress, pleasant and cooperative. SKIN: Warm and dry. Turgor is good. HEENT: Head is normocephalic and atraumatic. There is no scleral icterus or injection seen at this time. Nasal airway is patent. Oral mucosa is pink and moist. NECK: Supple without adenopathy or bruits. HEART: Regular rate and rhythm. LUNGS: Clear to auscultation. ABDOMEN: Soft, obese, nontender. Bowel sounds are present x4. GENITALIA AND RECTAL: Not performed at this time. EXTREMITIES: On examination of the left lower extremity, she has a dressing noted over the left knee. This is all removed revealing a large portion of the wound dehiscence of her initial incision. I cannot appreciate any metal showing through or any tear in her retinaculum that is opened into the joint at this time; however, the patient is unable to do a straight leg raise at all. She can bend the knee to try and help with removing the dressing and putting a dressing on. However, it is minimalistic at this time. She has good range of motion of her left ankle and toes. Cap refill is less than 2 seconds. She does state she has some numbness down below the knee that travels across the anterior portion of her lower extremity down to her foot. She states that her whole foot feels numb and tingly and comparing to the right, she states that she can feel me touching her foot, but it definitely feels different than before. Thigh is essentially nontender on palpation, although over the lateral aspect of the thigh just above the knee joint line, she does have some discomfort which she states is where she hit her leg on one of the stairs that she went down. There was no overt bruising noted at this time. Bleeding is controlled of the open wound. She has no other complaints of the right lower extremity at this time and has good range of motion of the hip, knee and ankle. Upper extremities are unaffected bilaterally and she has good range of motion which is within normal limits. She denies any neck pain, thoracic and/or low back pain at this time other than having some new numbness and tingling of the left lower extremity below the knee and at the foot. She otherwise shows no gross motor or sensory loss in any other aspects of her extremities. Distal pulses are equal bilaterally of the upper and lower extremities. ASSESSMENT: Left wound dehiscence. R/O retinacular tear. XRAYS: Xrays of the knee,femur, and tib/fib have been reviewed. No fx's noted. PLAN: The patient will be admitted and planned for irrigation and debridement today with exploration of the knee wound. We discussed that if her retinaculum has been disrupted that will have to be opened further and a possible polyethylene bearing change may occur within repair of the retinaculum and closure of the wound. The patient understands the plan at this point in time and we will get her admitted under Dr. Flores service for her upcoming surgery. ALFREDO
--- NOTE | 2019-05-08 08:44 | Emergency Department Note ---
Entered by Jacquelyn Chase acting as a scribe for History of Present Illness General Chief complaint: Fall Stated complaint: FALL/ KNEE PAIN Time Seen by Provider: 05/08/19 04:16 Source: patient History of Present Illness Provider complaint: fall evaluation Onset (ago): hour(s) less than 1 Location: lower extremity and left Pain Consistency: + constant Maximum Pain Intensity: 3 Relieved By: + none Exacerbated By: + movement Associated symptoms: + denies other symptoms The patient is a 48 y/o female who presents to the emergency department for evaluation of constant left leg pain following a fall prior to arrival. The patient states that she was going down the stair to use the restroom when she felt a shock in her leg causing it to give out causing her to fall down seven s tairs. The patient reports that he whole leg including hip hurts. She states that she had knee surgery on the left knee three weeks ago which was healing great until tonight. The patient notes that she does not know if she hit her head but she knows she did not pass out, though she notes mild face pain. The patient denies any other symptoms. No headache, neck or back pain, no numbness or tingling, vision changes, dizziness, no abdominal pain, no nausea or vomiting, no chest pain or trouble breathing. Patient felt in her usual state of health prior to getting up to go to the bathroom tonight. Home Medications Home Medications Medication Instructions Recorded Confirmed Type dicyclomine 10 mg PO TID 03/19/19 05/08/19 History lisinopril-hydrochlorothiazide 1 tab PO QAM 03/19/19 05/08/19 History montelukast [Singulair] 10 mg PO PM 03/19/19 05/08/19 History albuterol sulfate HFA 90 2 puff INHALATION QID PRN #18 gm 04/01/19 05/08/19 Rx mcg/actuation aerosol inhaler celecoxib [Celebrex] 200 mg PO BID 30 Days #60 cap 04/13/19 05/08/19 Rx azelastine 137 mcg (0.1 %) nasal 2 spray INTRANASAL BID #30 ml 04/15/19 05/08/19 Rx spray aerosol bupropion HCl 100 mg tablet 100 mg PO QAM 04/15/19 05/08/19 History diclofenac sodium 75 mg 75 mg PO BID #1 tab 04/23/19 05/08/19 History tablet,delayed release ergocalciferol (vitamin D2) 50 mcg 50 mcg PO DAILY #30 cap 04/23/19 05/08/19 History (2,000 unit) capsule linaclotide 290 mcg capsule 290 mcg PO DAILY #30 cap 04/23/19 05/08/19 History oxybutynin chloride ER 5 mg 10 mg PO QAM tab 04/23/19 05/08/19 History tablet,extended release 24 hr oxycodone 5 mg tablet 5 mg PO Q4H PRN tab 04/23/19 05/08/19 History Allergies Allergy/AdvReac Type Severity Reaction Status Date / Time buprenorphine [From Suboxone] Allergy Severe Throat Verified 05/08/19 04:39 swells, hives naloxone [From Suboxone] Allergy Severe Throat Verified 05/08/19 04:39 swells, hives blueberry Allergy Intermediate HIVES Verified 05/08/19 04:39 tramadol Allergy Intermediate HIVES Verified 05/08/19 04:39 latex Allergy Mild SKIN Verified 05/08/19 04:39 PEELING cefadroxil Allergy Rash Verified 05/08/19 06:09 MOLDS Allergy Severe SWELLING/HI Uncoded 05/08/19 04:39 VES CHEAP METAL Allergy Intermediate SKIN Uncoded 05/08/19 04:39 IRRITATION/SWELLING Past Med/Surg History Medical History Anemia Anxiety Asthma USED RESCUE INHALER LAST YESTERDAY Environmental and seasonal allergies Hypertension IBS (irritable bowel syndrome) Lumbar disc disorder "LOOSE" Migraine Osteoarthritis Overactive bladder Rheumatoid arthritis Surgical History H/O bilateral breast reduction surgery History of bilateral tubal ligation History of section History of cholecystectomy History of colonoscopy History of esophagogastroduodenoscopy (EGD) History of hysterectomy History of nasal septoplasty History of tooth extraction S/P panniculectomy Family History Father Family history of esophageal cancer Social History Preferred Language: Bulgarian Communication Ability: Effective 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 and A total of 10 systems reviewed and were otherwise negative Physical Exam Vital Signs Vital Signs - 24 hr 05/08/19 05:24 05/08/19 06:02 05/08/19 07:36 Pulse Rate [Finger] 83 87 79 Pulse Rhythm [Finger] Regular Pulse Strength [Finger] Normal Respiratory Rate 16 16 17 Respiratory Effort / Characteristics Non-Labored Spontaneous Non-Labored Spontaneous Non-Labored Spontaneous Respiratory Depth Normal Normal Normal Respiratory Pattern Regular Blood Pressure [Left Arm] 148/91 H 153/94 H 167/101 H Blood Pressure Mean [Left Arm] 110 113 123 Pulse Oximetry 100 100 100 Oxygen Delivery Method Room Air Room Air Room Air GENERAL: alert, well nourished, no distress, non-toxic. Obese, tearful, anxious appearing. HEAD: nc/at, no nuñez sign, no raccoon eyes EYE EXAM: normal conjunctiva, PERRL and EOM's grossly intact OROPHARYNX: no exudate, no erythema, lips, buccal mucosa, and tongue normal and mucous membranes are moist NECK: supple, no nuchal rigidity, no adenopathy, non-tender, FROM LUNGS: Clear to auscultation. Normal chest wall mechanics, no w/r/r CHEST WALL: nontender, no crepitus, no ecchymosis HEART: no murmurs, S1 normal and S2 normal ABDOMEN: abdomen soft, non-tender, normo-active bowel sounds, no masses, no rebound or guarding. BACK: Back is symmetrical on inspection and there is no deformity, no midline tenderness, no CVA tenderness. SKIN: no rashes and no bruising UPPER EXTREMITIES: upper extremities are grossly normal. Nml pulses b/l, FROM, no deformities or evidence of trauma LOWER EXTREMITIES: No pitting edema, pain with palpation distal aspect of proximal left lower extremity. Pain and faint ecchymosis surrounding left knee. Large gapping laceration noted in the area of a prior knee surgery to left knee. White appearing area superiorly possible quad tendon or patella. Har[place] not visible. No active bleeding. Normal distal pulses. Compartments soft. Decreased range of motion secondary to pain. No other deformities, nml distal pulses b/l. NEURO EXAM: Normal sensorium, cranial nerves II-XII intact, normal speech, no weakness of arms, no weakness of legs. Course 0428: Past medical records reviewed. The patient was evaluated in room B12. A complete history and physical exam was performed. 0605: I checked on the patient and reexamined her left leg wound. 0623: I spoke with Dr. Atkins. He requested the patient receive 2 grams of Ancef. He notes a colleague will evaluate for further management. 0640: I redressed the wound on the patients leg. Patient was updated on treatment plan. 0820: Patient seen and evaluated by physician data analysis assistant with orthopedic service. Administered Medications Acetaminophen (Tylenol) 1,[address] Stop: 06/07/19 21:59 Last Admin: 05/08/19 21:09 Dose: 1,000 mg Documented by: [id number] Celecoxib (Celebrex) [address] Stop: 06/07/19 20:59 Last Admin: 05/08/19 21:09 Dose: 200 mg Documented by: [id number] Dicyclomine HCl (Bentyl) [address] Stop: 06/07/19 20:59 Last Admin: 05/08/19 21:09 Dose: 10 mg Documented by: [id number] Docusate Sodium (Colace) [address] Stop: 06/07/19 20:59 Last Admin: 05/08/19 21:09 Dose: 100 mg Documented by: [id number] Hydromorphone HCl (Dilaudid) 0.5 mg IV Q4H PRN PRN Reason: Pain Stop: 05/22/19 18:20 Last Admin: 05/08/19 18:20 Dose: 0.5 mg Documented by: [id number] Sodium Chloride (Nss 1000ml) 1,000 mls @ 100 mls/hr IV .Q10H CT Stop: 05/09/19 06:00 Last Admin: 05/08/19 18:57 Dose: 100 mls/hr Documented by: [id number] Miscellaneous (Order Awaiting Action) 1 ea N/A QS [facility] Stop: 06/08/19 00:00 Last Admin: 05/08/19 23:44 Dose: Not Given Documented by: [id number] Miscellaneous (Order Awaiting Action) 1 ea N/A QS [facility] Stop: 06/08/19 00:00 Last Admin: 05/08/19 23:45 Dose: Not Given Documented by: [id number] Montelukast Sodium (Singulair) [address] Stop: 06/07/19 20:59 Last Admin: 05/08/19 21:09 Dose: 10 mg Documented by: [id number] Oxycodone HCl (Roxicodone Immediate Rel) 5 - 10 mg PO Q4H PRN PRN Reason: Pain Stop: 05/22/19 18:20 Last Admin: 05/08/19 23:48 Dose: 10 mg Documented by: [id number] Sennosides (Senokot) 17.2 mg PO HS [facility] Stop: 06/07/19 20:59 Last Admin: 05/08/19 21:09 Dose: 17.2 mg Documented by: [id number] Discontinued Medications Bacitracin (Bacitracin) Confirm Administered Dose 150,000 units .ROUTE .STK-MED ONE Stop: 05/08/19 13:46 Last Admin: 05/08/19 15:46 Dose: 150,000 units Documented by: [id number] Bacitracin (Bacitracin) Confirm Administered Dose 50,000 units .ROUTE .STK-MED ONE Stop: 05/08/19 15:25 Last Admin: 05/08/19 15:47 Dose: 50,000 units Documented by: [id number] Bupivacaine HCl/Epinephrine Bitart (Sensorcaine/Epinephrine 0.5% Mpf 1:200,000) Confirm Administered Dose 60 ml .ROUTE .STK-MED ONE Stop: 05/08/19 14:19 Last Admin: 05/08/19 16:37 Dose: Not Given Documented by: [id number] Fentanyl Citrate (Fentanyl Citrate) 50 mcg IV Q15M PRN PRN Reason: Pain Stop: 05/22/19 05:45 Last Admin: 05/08/19 08:20 Dose: 50 mcg Documented by: [id number] Admin: 05/08/19 06:00 Dose: 50 mcg Documented by: [id number] Fentanyl Citrate (Fentanyl Citrate) 50 mcg IV Q5M PRN PRN Reason: PACU Use Only-Pain Stop: 05/08/19 19:15 Last Admin: 05/08/19 17:45 Dose: 50 mcg Documented by: [id number] Admin: 05/08/19 17:19 Dose: 50 mcg Documented by: [id number] Admin: 05/08/19 16:55 Dose: 50 mcg Documented by: [id number] Admin: 05/08/19 16:50 Dose: 50 mcg Documented by: [id number] Hydromorphone HCl (Dilaudid) 0.5 mg IV Q4H PRN PRN Reason: Pain Stop: 05/22/19 08:58 Last Admin: 05/08/19 10:22 Dose: 0.5 mg Documented by: [id number] Hydromorphone HCl (Dilaudid) Confirm Administered Dose 0.5 mg .ROUTE .STK-MED ONE Stop: 05/08/19 18:28 Last Admin: 05/08/19 18:56 Dose: Not Given Documented by: [id number] Cefazolin Sodium (Ancef 2000mg) 2,000 mg in 15 mls @ 3.75 mls/min IV NOW STA Stop: 05/08/19 06:29 Last Admin: 05/08/19 06:35 Dose: 3.75 mls/min Documented by: [id number] Cefazolin Sodium (Ancef 2000mg) 2,000 mg in 15 mls @ 3.75 mls/min IV PREOP CT; Protocol Stop: 05/08/19 23:59 Last Admin: 05/08/19 19:35 Dose: Not Given Documented by: [id number] Sodium Chloride (Nss 1000ml) 1,000 mls @ 15 mls/hr IV .Q24H CT Stop: 06/07/19 09:34 Last Admin: 05/08/19 10:24 Dose: 15 mls/hr Documented by: [id number] Cefazolin Sodium (Ancef 2000mg) 2,000 mg in 15 mls @ 3.75 mls/min IV Q8H CT; Protocol Stop: 05/09/19 02:33 Last Admin: 05/09/19 02:27 Dose: 3.75 mls/min Documented by: [id number] Admin: 05/08/19 19:01 Dose: 3.75 mls/min Documented by: [id number] Lisinopril (Zestril) 20 mg PO NOW STA Stop: 05/08/19 09:36 Last Admin: 05/08/19 11:06 Dose: Not Given Documented by: [id number] Medical Decision Making Differential Diagnosis Differential diagnosis includes: fracture, dislocation, intra-abdominal, pneumothorax, intrathoracic , intracranial, neurologic, as well as other traumatic pathologies were entertained. Medical Records Attestation: I reviewed the patient's medical records. Home Medications Current Medication List: was personally reviewed by me Laboratory Data Attestation: I reviewed the patient's lab results. Lab Results 05/08/19 Range/Units 04:47 POC Hgb 9.9 L (12.0-16.0) g/dl POC Hct 29 L (37-47) % POC Sodium 140 (135-144) mEq/L POC Potassium 3.7 (3.3-5.0) mEq/L POC Chloride 104 (101-112) mEq/L POC Total CO2 23 L (24-31) mEq/l POC Anion Gap 17.0 (16-25) mmol/L POC BUN 17 (7-18) mg/dl POC Creatinine 0.9 (0.6-1.3) mg/dl POC Glucose (other) 119 H (70-99) mg/dl POC Ioniz Calcium Herberth 1.33 H (1.12-1.32) mmol/l Imaging Data Attestation: I personally reviewed and interpreted this imaging study as follows: My Impression: Left tib/fib x-ray 4 views hardware at knee notes. No new fracture or dislocation noted. Chest x-ray 1 view showed no cardiomegaly, no effusions, no wide mediastinum, no focal consolidation X-ray of left knee 2 view: hardware noted, no acute fracture or dislocation. Left hip and pelvis x-ray 5 views showed no new fracture or dislocation. Blood Pressure Blood Pressure Findings: Elevated blood pressure Blood Pressure Disposition: elevated BP felt to be situational MDM Narrative Pt here with wheeler resulting in wound dehiscence of recent left knee replacement. No other evidence of trauma and no other reported complaints. xrays reassuring. VS stable. Pain controlled with IV pain meds. Case discussed with ortho as concern wound should be closed in the OR after additional evaluation due to depth and severity. Case discussed with Dr. Chinchilla. Pt seen by ortho PA while in the ER and arrangements made to take to the OR. Pt aware of all results and in agreement with the plan. I have a low suspicion for any additional occult traumatic injury. Impression & Plan Dehiscence of wound, Fall, Left leg pain Discharge Plan Visit Data *Final* Discharge Date/Time: 05/08/19 08:47 Chief Complaint: Fall Stated Complaint: FALL/ KNEE PAIN Other Complaint: Knee Injury/Pain ED Provider: Lili Menendez Discharge Problem: Dehiscence of wound, Fall, Left leg pain Patient Disposition: Admitted As Inpatient Discharge Instructions Interventions: ED Discharge Assessment Last Done: 05/08/19 08:47 Discharge Problem: Fall Qualifiers: Encounter type: initial encounter Qualified Code(s): W19.XXXA - Unspecified fall, initial encounter The scribe's documentation has been prepared under my direction and personally reviewed by me in its entirety. I confirm that the note above accurately reflects all work, treatment, procedures, and medical decision making performed by me.
[2019-05-08] MEDS ORDERED: HYDROmorphone INJ 0.5 MG/0.5 ML SYR IV PRN (08:59)
[2019-05-08] MEDS ORDERED: CEFAZOLIN 2000MG 2,000 MG/15 ML SYR IV SCH (09:30)
[2019-05-08] MEDS ORDERED: LISINOPRIL 20 MG TAB PO STA (09:35)
[2019-05-08] MEDS ORDERED: SODIUM CHLORIDE 0.9% 1000ML 1,000 ML IV SCH (09:35)
[2019-05-08] MEDS ORDERED: ONDANSETRON INJ 2 MG/ML 2 ML VIAL IV PRN ×2 (10:47→14:15)
[2019-05-08] MEDS ORDERED: ONDANSETRON INJ 2 MG/ML 2 ML VIAL ONE (11:38)
[2019-05-08] MEDS ORDERED: PROPOFOL IV EMULSION 10 MG/ML 20 ML VIAL IV ONE (11:38)
[2019-05-08] MEDS ORDERED: LIDOCAINE HCL 2% 2 ML VIAL/AMP(20MG/ML) INFIL ONE (11:38)
[2019-05-08] MEDS ORDERED: MIDAZOLAM HCL 1 MG/ML 2ML VIAL ONE (11:39)
[2019-05-08] MEDS ORDERED: fentaNYL citrate 100 MCG/2 ML VIAL ONE ×2 (11:39→15:03)
[2019-05-08] MEDS ORDERED: BACITRACIN INJ 50,000 UNIT VIAL ONE ×2 (13:45→15:24)
--- NOTE | 2019-05-08 14:09 | Anesthesiology Consultation ---
Date of Service May 08, 2019 Assessment & Plan (1) Encounter for pre-operative examination: Chart Review Chart Review: Acceptable Risk for Surgery Consults Requested none ASA ASA3 Proposed Anesthesia Anesthesia Type: General Risk / Benefits Reviewed With: PT / POA / Parent / Guardian, Accepts Plan and Informed Consent Obtained History Surgery Operation Date: 05/08/19 07:00 Proposed Procedures p Left Knee Incision and Drainage, Possible Retinacular Repair, Possible Polyethylene Bearing Change - Jordan Flores MD Height/Weight Height: 5 ft 2 in Weight: 118.7 kg Allergies Allergy/AdvReac Type Severity Reaction Status Date / Time buprenorphine [From Suboxone] Allergy Severe Throat Verified 05/08/19 04:39 swells, hives naloxone [From Suboxone] Allergy Severe Throat Verified 05/08/19 04:39 swells, hives blueberry Allergy Intermediate HIVES Verified 05/08/19 04:39 tramadol Allergy Intermediate HIVES Verified 05/08/19 04:39 latex Allergy Mild SKIN Verified 05/08/19 04:39 PEELING cefadroxil Allergy Rash Verified 05/08/19 06:09 MOLDS Allergy Severe SWELLING/HI Uncoded 05/08/19 04:39 VES CHEAP METAL Allergy Intermediate SKIN Uncoded 05/08/19 04:39 IRRITATION/SWELLING Medications Home Medications Medication Instructions Recorded Confirmed Last Taken dicyclomine 10 mg PO TID 03/19/19 05/08/19 05/06/19 lisinopril-hydrochlorothiazide 1 tab PO QAM 03/19/19 05/08/19 05/06/19 montelukast [Singulair] 10 mg PO PM 03/19/19 05/08/19 05/07/19 albuterol sulfate HFA 90 2 puff INHALATION QID PRN #18 gm 04/01/19 05/08/19 04/09/19 mcg/actuation aerosol inhaler celecoxib [Celebrex] 200 mg PO BID 30 Days #60 cap 04/13/19 05/08/19 05/06/19 azelastine 137 mcg (0.1 %) nasal 2 spray INTRANASAL BID #30 ml 04/15/19 05/08/19 Unknown spray aerosol bupropion HCl 100 mg tablet 100 mg PO QAM 04/15/19 05/08/19 05/06/19 diclofenac sodium 75 mg 75 mg PO BID #1 tab 06/25/19 07/10/19 07/08/19 tablet,delayed release ergocalciferol (vitamin D2) 50 mcg 50 mcg PO DAILY #30 cap 04/23/19 05/08/19 05/07/19 (2,000 unit) capsule linaclotide 290 mcg capsule 290 mcg PO DAILY #30 cap 04/23/19 05/08/19 05/06/19 oxybutynin chloride ER 5 mg 10 mg PO QAM tab 04/23/19 05/08/19 05/06/19 tablet,extended release 24 hr oxycodone 5 mg tablet 5 mg PO Q4H PRN tab 04/23/19 05/08/19 05/07/19 Active Medications Generic Name Dose Route Start Last Admin Trade Name Freq PRN Reason Stop Dose Admin Hydromorphone HCl 0.5 mg 05/08/19 08:59 05/08/19 10:22 Dilaudid IV 05/22/19 08:58 0.5 mg Q4H PRN Administration Pain Sodium Chloride 1,000 mls @ 15 mls/hr 05/08/19 09:35 05/08/19 10:24 Nss 1000ml IV 06/07/19 09:34 15 mls/hr .Q24H CT Administration NPO Date Last Intake of Fluids: 05/07/19 Time Last Intake of Fluids: 19:00 Date Last Intake of Solids: 05/07/19 Time Last Intake of Solids: 19:00 Past Medical History Medical History Anemia Anxiety Asthma USED RESCUE INHALER LAST YESTERDAY Environmental and seasonal allergies Hypertension IBS (irritable bowel syndrome) Lumbar disc disorder "LOOSE" Migraine Osteoarthritis Overactive bladder Rheumatoid arthritis Exercise / Class Metabolic Activity II 4-5 Yardwork/Stairs/Walk up hill Past Family History Family History Father Family history of esophageal cancer Past Surgical History Surgical History H/O bilateral breast reduction surgery History of bilateral tubal ligation History of section History of cholecystectomy History of colonoscopy History of esophagogastroduodenoscopy (EGD) History of hysterectomy History of nasal septoplasty History of tooth extraction S/P panniculectomy Past Anesthesia History No Hx of Anesthesia Complications and No Family Hx of Anesthesia Complications History of PONV No Hx of PONV and No Hx of Motion Sickness Social History Smoking Status: Former smoker tobacco type: cigarettes Smoking cigarettes per day: 2ppd x 4-5 years Do You Dip or Chew Tobacco: No Smoking End Date: 2007 Hx Alcohol Use: No Hx Substance Use: No substance use type: prescription drug Substance Use Type Other:: oxycodone Last Used Substance: Unknown Physical Exam Vital Signs Last Vital Signs Temp 97.3 F L 05/08/19 13:27 Pulse 57 L 05/08/19 13:27 Resp 16 05/08/19 13:27 BP 163/70 H 05/08/19 13:27 Pulse Ox 100 05/08/19 13:27 ENMT Mouth: + dentures (Upper) Thyromental Distance: > or= 3.5 Finger Breadths Mallampati Class: II Neck normal visual inspection Respiratory normal respiratory effort Auscultation: lungs clear to auscultation bilaterally Cardiovascular Rate/Rhythm: regular rate and regular rhythm Testing Laboratory Results Blood Type O Positive 05/08/19 09:06 Antibody Screen NEGATIVE 05/08/19 09:06 05/08/19 04:47 POC Glucose (other) 119 H Electrocardiogram Date: 03/28/19 Normal sinus rhythm, rate 86 bpm Possible Anterior infarct (cited on or before 28-MAR-2019) Abnormal ECG When compared with ECG of 23-JAN-2018 16:26, Nonspecific T wave abnormality now evident in Lateral leads Confirmed by Orville Zamudio ([id number]) on 03/28/2019 10:07:34 PM Chest X-Ray Date: 05/08/19 Findings: + NAD
[2019-05-08] MEDS ORDERED: ATROPINE SULFATE 0.1 MG/ML 10ML SYR IV PRN (14:15)
[2019-05-08] MEDS ORDERED: ePHEDrine sulfate 50 MG/ML AMP IV PRN (14:15)
[2019-05-08] MEDS ORDERED: BUPIVACAINE/EPINEPHRINE 0.5% MPF 1:200,000 30 ML VIAL ONE (14:18)
--- NOTE | 2019-05-08 14:20 | History & Physical Bridge Note ---
Date of Service May 08, 2019 History & Physical Bridge Note I have examined the patient, reviewed the History & Physical and in the interval since the performance of the History & Physical I have noted the following changes of clinical significance: no changes noted
--- NOTE | 2019-05-08 16:24 | Post Operative Brief Note ---
Immediate Post Op Note v1 Date of Surgery May 08, 2019 Pre & Post Diagnosis Operation Date: 05/08/19 07:00 Pre-Op Diagnosis: Left knee posttraumatic wound dehiscence status post a fall, status post recent total knee replacement, morbid obesity BMI 47.9 Post-Op Diagnosis: Same including acute quadriceps tendon medial retinacular tears. Procedure Operation Date: 05/08/19 07:00 Actual Procedures p Left Knee Incision and Drainage, Quadraceps tendon repair, Retinacular Repair, wound repair(Left) increased difficulty morbid obesity BMI 47.9- Jordan Flores MD Surgeon Jordan Flores MD Insulation Worker aEn BOSCH Estimated Blood Loss 20 Findings Consistent with Post-Op Diagnosis Specimens Culture x1 Drains Hemovac Drain (10 dual hemovac) Anesthesia Type Spinal MAC Complications none Disposition Accompanied Patient To Recovery: No Disposition: Recovery Room Overlapping Procedure I was immediately available: during the entire case.
[2019-05-08] MEDS ORDERED: HYDROmorphone INJ 2 MG/ML SYR/VIAL IV PRN (16:53)
--- NOTE | 2019-05-08 17:18 | Anesthesiology Progress Note ---
Date of Service May 08, 2019 Anesthesia Post Procedure Vital Signs Vital Signs: Temp Pulse Pulse Pulse Resp BP BP 05/08/19 17:15 75 15 170/96 H 05/08/19 17:05 75 14 133/89 05/08/19 16:55 79 15 208/96 H 05/08/19 16:45 36.1 C L 85 16 189/119 H 05/08/19 13:27 36.3 C L 57 L 16 163/70 H 05/08/19 10:31 36.7 C 64 16 137/91 05/08/19 08:47 81 17 163/96 H 05/08/19 07:36 79 17 167/101 H 05/08/19 06:02 87 16 153/94 H 05/08/19 05:24 83 16 148/91 H 05/08/19 04:13 36.6 C 88 20 148/91 H Pulse Ox 05/08/19 17:15 100 05/08/19 17:05 100 05/08/19 16:55 99 05/08/19 16:45 100 05/08/19 13:27 100 05/08/19 10:31 100 05/08/19 08:47 100 05/08/19 07:36 100 05/08/19 06:02 100 05/08/19 05:24 100 05/08/19 04:13 100 Pain Intensity Left Knee: Pain Intensity: 5 Transfer of Care Handoff Completed per policy Notes Mental Status: alert / awake / arousable Patient Amnestic to Procedure: Yes Nausea / Vomiting: adequately controlled Pain: adequately controlled Airway Patency, RR, SpO2: stable & adequate BP & HR: stable & adequate Hydration State: stable & adequate Anesthetic Complications: no major complications apparent
[2019-05-08] MEDS: HYDROmorphone INJ 0.5 MG/0.5 ML SYR IV PRN (18:20)
[2019-05-08] MEDS ORDERED: ALBUTEROL HFA 8 GM INHALER INH PRN (18:21)
[2019-05-08] MEDS ORDERED: BISACODYL 10 MG SUPP PR PRN (18:21)
[2019-05-08] MEDS ORDERED: MAGNESIUM HYDROXIDE SUSP 30 ML UDC PO PRN (18:21)
[2019-05-08] MEDS ORDERED: HYDROmorphone INJ 0.5 MG/0.5 ML SYR ONE (18:27)
[2019-05-08] MEDS: SODIUM CHLORIDE 0.9% 1000ML 1,000 ML IV SCH (18:57)
[2019-05-08] MEDS: CEFAZOLIN 2000MG 2,000 MG/15 ML SYR IV SCH (19:01)
--- NOTE | 2019-05-08 19:41 | XRay Report ---
XR knee LT 2V routine CLINICAL HISTORY: 48 years-old Female presenting with Surgical Post Op. TECHNIQUE: Frontal and crosstable lateral views of the left knee were obtained. COMPARISON: 05/08/2019 at 5:03 AM. FINDINGS: Total left knee arthroplasty with patellar resurfacing. Expected intra-articular and soft tissue emph ysema. Overlying skin javy. A surgical drain is in place. Diffuse soft tissue swelling. No peripro sthetic fracture. No malalignment. IMPRESSION: Expected postsurgical appearance status post total left knee arthroplasty with patellar resurfacing. Electronically signed by: Samy Rg M.D. 05/08/2019 7:40 PM
[2019-05-08] MEDS: CeleBREX 200 MG CAP PO SCH (21:09)
[2019-05-08] MEDS: ACETAMINOPHEN 500 MG TAB PO SCH (21:09)
[2019-05-08] MEDS: SENNA 8.6 MG TAB PO SCH (21:09)
[2019-05-08] MEDS: MONTELUKAST SODIUM 10 MG TABLET PO SCH (21:09)
[2019-05-08] MEDS: DOCUSATE SODIUM 100 MG CAP PO SCH (21:09)
[2019-05-08] MEDS: DICYCLOMINE HCL 10 MG CAP PO SCH (21:09)
--- NOTE | 2019-05-08 21:11 | Operative Report ---
DATE OF OPERATION: 05/08/2019 DATE OF PROCEDURE: 05/08/2019 INDICATION FOR PROCEDURE: The patient is a 48-year-old female who had an acute fall on 05/08/2019 and split open wound of her left knee. She is status post a total knee replacement on 04/11/2019. She is doing well and not having any complications and she fell down some stairs. She was unable to elevate her leg and she has a large open wound in her left knee and radiographs demonstrate intact implants with a [employer] 2.0 total knee replacement with no periprosthetic fracture. There is some air in the joint which consistent with some type of traumatic arthrotomy probably due to quadriceps or medial retinacular disruption. PREOPERATIVE DIAGNOSES: Left knee posttraumatic wound dehiscence with probable quadriceps tendon or medial retinacular rupture, status post total knee replacement with morbid obesity, BMI 47.9. POSTOPERATIVE DIAGNOSES: Left knee wound dehiscence with quadriceps tendon and medial retinacular disruption and morbid obesity, BMI of 47.9. PROCEDURE: Left knee quadriceps tendon and medial retinacular repair with irrigation of knee joint repair of skin and subcutaneous wound dehiscence and closure over drains including application of a superficial wound VAC with increased difficulty due to BMI of 47.9. SURGEON: Jordan Flores MD WINDOW CASER: Ean Gaytan PA-C. ANESTHESIA: Spinal, MAC. COMPLICATIONS: None. SPECIMENS: Knee joint culture. DRAINS: 2 Hemovac and a superficial wound VAC. OPERATIVE PROCEDURE: The patient taken to the operating room and placed supine on the operating room table. She did have spinal anesthesia. Pneumatic tourniquet was placed about her obese left upper thigh. Her left leg examined, demonstrate that she had about 12-15 cm wound dehiscence in the central region of her incision, some of the lower and upper aspect of the original incision was still closed and healed completely. There is no erythema. There is no drainage. There were exposed subcutaneous tissues. The leg was sterilely scrubbed with Hibiclens, painted with Hibiclens and prepped and draped in sterile fashion. Then, the wound was explored and the medial retinaculum was clearly opened, so we did swab the joint internally, then irrigated out. The superficial fat copiously irrigated the fascia of the retinaculum and quad tendon and subsequently irrigated out the joint. We used multiple liters of antibiotic solution with bacitracin. The proximal dehiscence was extended proximally slightly, so we could fully assess the quad extensor mechanism. At this time, the quad tendon was noted to be transversely disrupted about 2-3 cm for musculotendinous junction and then the retinacular repair from the original surgery was disrupted along the medial side of the knee and then the medial retinaculum was transversely disrupted down to the midline of the knee. Patella tendon was intact. The patella was intact. The patellar implant was intact. The polyethylene of the tibial component was intact. The total knee implants are all intact. There are no pus, no signs of infection. At this time, further copious irrigation was performed. The old suture material was all removed which was Vicryl sutures and Vicryl sutures in the subcutaneous and in the retinacular and quad tendon repairs. the edges of the torn tendon areas were freshened up with a scalpel. Some of the shredded tissue was resected. I did release some of the scarred synovium underlying the VMO, so I can mobilize that better. The knee was then soaked with Betadine soak for 3 minutes. I repaired the quad tendon by placing a Krackow suture into the distal quad tendon above the patella and left 2 tails out to the superior quad tendon rupture area and then the superior quad tendon was captured with similar Krackow stitch and then the 2 were tied together to repair the quad tendon transverse portion of the tear end-to-end. Then, the transfer split in the medial retinaculum right at the knee joint level was repaired using a Chin suture technique and [id number] sutures. I used #5 FiberWire for that as well as the Krackow suture of the quad tendon repair with the #5 FiberWire suture. After that was completed, then the knee was irrigated copiously with antibiotic solution and bacitracin. Two drains were brought out laterally and then the VMO medial retinaculum was repaired with clyreo-[id number]-avslw #2 Fiberwire sutures and [id number] #1 Vicryl sutures. The repair secured through 0-90 degrees range of motion. At this time, after further irrigation of subcutaneous tissues, the subcutaneous tissue was closed with interrupted 2-0 Vicryl in layers and the skin was closed with titanium javy and the Prevena superficial wound VAC was applied. Hemovac was activated. Tourniquet was let down. The patient had blood loss of 20 mL and the patient tolerated the procedure well. There was increased difficulty throughout the procedure due to her BMI 47.9. DANITZA Kaiser was my miller first. He functioned as miller first for the entire procedure. He assisted in patient positioning, tourniquet application, prepping, draping, assisted in soft tissue retraction, and performed the subcutaneous and skin closure and wound VAC application and will participate in postoperative care of the patient. I attest to the content of the Intraoperative Record and any orders documented therein. Any exceptions are noted below. ALFREDO
[2019-05-08] MEDS: OXYCODONE HCL IR 5 MG TAB (IMMEDIATE RELEASE) PO PRN (23:48)
[2019-05-09] MEDS: CEFAZOLIN 2000MG 2,000 MG/15 ML SYR IV SCH (02:27)
[2019-05-09] MEDS: SODIUM CHLORIDE 0.9% 1000ML 1,000 ML IV SCH (04:47)
[2019-05-09] MEDS: ACETAMINOPHEN 500 MG TAB PO SCH ×3 (05:38→21:05)
[2019-05-09 07:45] LABS: Hematocrit (blood only) 31.8 % (37-47); Mean Corpuscular Hgb Conc 31.4 g/dL (32-36); Mean Corpuscular Volume 92.2 fL (80-100); Mean Platelet Volume 8.4 fL (7.4-10.4); Platelet Count 287 K/uL (130-400); RDW Coefficient of Variation 13.7 % (11.5-14.5); RDW Standard Deviation 45.6 fL (36.4-46.3); Red Blood Count 3.45 M/uL (4.2-5.4); White Blood Count 7.05 K/uL (4.8-10.8)
[2019-05-09] MEDS: OXYCODONE HCL IR 5 MG TAB (IMMEDIATE RELEASE) PO PRN ×2 (07:49→15:22)
[2019-05-09] MEDS: ONDANSETRON INJ 2 MG/ML 2 ML VIAL IV PRN (07:50)
[2019-05-09 07:58] LABS: BUN Creatinine Ratio 13.9 (10-20); Calcium 8.8 mg/dl (8.5-10.1); Creatinine Clr Calc Pharmacy 119.5 ml/min; Est GFR (African American) 116.4; Est GFR (Non-African American) 100.4; Potassium 4.3 mmol/L (3.5-5.1)
--- NOTE | 2019-05-09 08:47 | Anesthesiology Progress Note ---
Date of Service May 09, 2019 Anesthesia Post Procedure Vital Signs Vital Signs: Temp Pulse Pulse Pulse Pulse Resp BP 05/09/19 07:01 36.5 C 71 16 05/09/19 02:33 36.5 C 76 14 05/08/19 23:00 36.5 C 88 16 05/08/19 21:15 36.6 C 75 19 05/08/19 20:15 36.6 C 68 20 05/08/19 19:15 36.5 C 73 19 05/08/19 18:45 36.6 C 78 18 05/08/19 18:15 36.5 C 77 17 05/08/19 17:50 77 20 05/08/19 17:35 74 15 05/08/19 17:25 36.1 C L 69 15 05/08/19 17:15 75 15 05/08/19 17:05 75 14 05/08/19 16:55 79 15 05/08/19 16:45 36.1 C L 85 16 05/08/19 13:27 36.3 C L 57 L 16 05/08/19 10:31 36.7 C 64 16 05/08/19 08:47 81 17 163/96 H BP Pulse Ox 05/09/19 07:01 133/86 100 05/09/19 02:33 148/93 H 98 05/08/19 23:00 152/88 H 100 05/08/19 21:15 152/81 H 98 05/08/19 20:15 154/81 H 94 05/08/19 19:15 144/78 H 95 05/08/19 18:45 163/78 H 99 05/08/19 18:15 190/92 H 100 05/08/19 17:50 199/98 H 100 05/08/19 17:35 176/99 H 100 05/08/19 17:25 155/97 H 100 05/08/19 17:15 170/96 H 100 05/08/19 17:05 133/89 100 05/08/19 16:55 208/96 H 99 05/08/19 16:45 189/119 H 100 05/08/19 13:27 163/70 H 100 05/08/19 10:31 137/91 100 05/08/19 08:47 100 Notes Mental Status: alert / awake / arousable and participated in evaluation Nausea / Vomiting: adequately controlled Pain: adequately controlled Airway Patency, RR, SpO2: stable & adequate BP & HR: stable & adequate Hydration State: stable & adequate
[2019-05-09] MEDS ORDERED: LINACLOTIDE 72 MCG CAPSULE PO SCH (09:00)
[2019-05-09] MEDS: CeleBREX 200 MG CAP PO SCH ×2 (09:01→21:05)
[2019-05-09] MEDS: DICYCLOMINE HCL 10 MG CAP PO SCH ×3 (09:01→21:05)
[2019-05-09] MEDS: MULTIVITAMIN TAB PO SCH (09:01)
[2019-05-09] MEDS: DOCUSATE SODIUM 100 MG CAP PO SCH ×2 (09:01→21:05)
[2019-05-09] MEDS: LISINOPRIL/HCTZ 20/12.5MG 1 TAB TAB PO SCH (09:01)
[2019-05-09] MEDS: buPROPion HCl 100 MG TABLET PO SCH (09:01)
[2019-05-09] MEDS: RIVAROXABAN 10 MG TABLET PO SCH (09:01)
[2019-05-09] MEDS: OXYBUTYNIN CHLORIDE XL 5 MG TABCR PO SCH (09:03)
[2019-05-09] MEDS: HYDROmorphone INJ 0.5 MG/0.5 ML SYR IV PRN ×2 (12:07→21:13)
--- NOTE | 2019-05-09 12:25 | Orthopedic Progress Note ---
Date of Service May 09, 2019 Assessment & Plan (1) Dehiscence of wound: POD #1, Left knee I&D repair retinaculum, repair quad tendon s/p wound dehiscence post op TKA PT/ OT- WBAT with brace, no knee flexion DVT proph- Xarelto D/C plans home. Subjective POD #1, Doing well, denies sob, cp, n/v. pain controlled well. Physical Exam Physical Exam: Left knee dressings c/d/i, no drainage, toes/ ankle mobile, no calf tenderness, A&oX3. Results & Data Vital Signs (Past 12 Hours) Vital Signs Temp Pulse Resp BP Pulse Ox 05/09/19 11:32 36.4 C L 75 17 111/70 100 05/09/19 07:01 36.5 C 71 16 133/86 100 05/09/19 02:33 36.5 C 76 14 148/93 H 98
[2019-05-09] MEDS: LINACLOTIDE 72 MCG CAPSULE PO SCH (13:20)
[2019-05-09] MEDS: SENNA 8.6 MG TAB PO SCH (21:04)
[2019-05-09] MEDS: MONTELUKAST SODIUM 10 MG TABLET PO SCH (21:04)
[2019-05-10] MEDS: ACETAMINOPHEN 500 MG TAB PO SCH ×3 (05:34→21:11)
[2019-05-10 08:03] LABS: Hematocrit (blood only) 29.9 % (37-47); Hemoglobin 9.4 g/dL (12.0-16.0); Mean Corpuscular Hgb Conc 31.4 g/dL (32-36); Mean Corpuscular Volume 91.2 fL (80-100); Mean Platelet Volume 8.5 fL (7.4-10.4); Platelet Count 259 K/uL (130-400); RDW Standard Deviation 46.3 fL (36.4-46.3); Red Blood Count 3.28 M/uL (4.2-5.4); White Blood Count 4.94 K/uL (4.8-10.8)
--- NOTE | 2019-05-10 08:10 | Orthopedic Progress Note ---
Date of Service May 10, 2019 Assessment & Plan (1) Dehiscence of wound: POD #2 , Left knee I&D repair retinaculum, repair quad tendon s/p wound dehiscence post op TKA PT/ OT- WBAT with brace, no knee flexion DVT proph- Xarelto D/C plans home. Cx's as noted above. Will continue antibx for now. Subjective POD 2 s/p I/D left knee wound dehiscence and repair extensor mechanism/retinaculum Pt sitting up in bed. No complaints. Comfortable. Pain controlled. States she was up with PT twice yesterday. Physical Exam Physical Exam: Dressings C/D/I. Calves soft,NT. NV intact. She states that the original numbness/tingling she had below the knee has essentially resolved. Toes mobile. Hinged knee brace on. Results & Data Vital Signs (Past 12 Hours) Vital Signs Temp Pulse Resp BP Pulse Ox 05/09/19 23:09 36.6 C 69 14 92/52 L 99 Diagnostic Findings Microbiology 05/08/19 15:00 Joint Fluid,Knee Gram Stain - Final 05/08/19 15:00 Joint Fluid,Knee Aerobic and Anaerobic Culture - Preliminary Coag negative Staphylococcus Corynebacterium species
[2019-05-10 08:35] LABS: BUN Creatinine Ratio 15.9 (10-20); Calcium 9.2 mg/dl (8.5-10.1); Creatinine Clr Calc Pharmacy 89.6 ml/min; Est GFR (African American) 82.2; Est GFR (Non-African American) 70.9; Potassium 3.7 mmol/L (3.5-5.1)
[2019-05-10] MEDS: OXYCODONE HCL IR 5 MG TAB (IMMEDIATE RELEASE) PO PRN ×2 (08:37→14:05)
[2019-05-10] MEDS: DOCUSATE SODIUM 100 MG CAP PO SCH ×2 (08:39→21:11)
[2019-05-10] MEDS: CeleBREX 200 MG CAP PO SCH ×2 (08:39→21:11)
[2019-05-10] MEDS: MULTIVITAMIN TAB PO SCH (08:39)
[2019-05-10] MEDS: OXYBUTYNIN CHLORIDE XL 5 MG TABCR PO SCH (08:39)
[2019-05-10] MEDS: DICYCLOMINE HCL 10 MG CAP PO SCH ×3 (08:40→21:11)
[2019-05-10] MEDS: buPROPion HCl 100 MG TABLET PO SCH (08:40)
[2019-05-10] MEDS: LISINOPRIL/HCTZ 20/12.5MG 1 TAB TAB PO SCH (08:40)
[2019-05-10] MEDS: RIVAROXABAN 10 MG TABLET PO SCH (08:41)
[2019-05-10] MEDS: LINACLOTIDE 72 MCG CAPSULE PO SCH (08:41)
[2019-05-10] MEDS: CEFAZOLIN 2000MG 2,000 MG/15 ML SYR IV SCH ×3 (08:51→09:33)
--- NOTE | 2019-05-10 10:00 | Infectious Disease Consult ---
Date of Consultation May 10, 2019 Assessment & Plan (1) Post op infection: Unclear significane of OR cultures, may represent skin telma but due to recent TKR and recent wound opening she would likely benefit from abx. pt states after discussing with surgery, she agrees with IV abx. will stop ancef, discussed with patient and nursing, will change abx to Dapto due to cephalosporin allergy, ease of daily dosing and suspected difficulty of adequate vanco trough due to elevated BMI. Will start Dapto, will need picc line. Suspect 4-6 weeks abx. will follow post d/c. Will need weekly cbc, cmp, esr, cpk while on abx. Ok for d/c when plan for home abx in place, discussed with case management, will follow post d/c. History of Present Illness Attending Physician: Jordan Flores MD pt admitted after fall at home and trauma to incision left knee. underwent TKR 4 weeks ago, was doing well until fall. Came to ER and was taken to OR - underwent I&D and tendon repair. Intra-op culture obtained, now growing few LINE ERECTOR APPRENTICE and few Corynebacterum. No sensitivities done. No f/c. drain and vac in place. For dressing change and drain removal later today. ID consulted to direct abx therapy, pt states she was informed by surgery that she will receive IV abx at home, she has met with case management to review process, ID asked to help with abx selection. wbc nml. She denies cp, sob, cough, shrestha, no abd pain, no n/v/d. states she feels tired today. no gu symptoms. pain in knee well controlled. She does have an allergy to Keflex - states rash, itching, facial flushing. she was ordered Ancef today, but held due to allergy to Keflex. wbc 4.9, creat 0.9. CXR negative. Allergies Allergy/AdvReac Type Severity Reaction Status Date / Time buprenorphine [From Suboxone] Allergy Severe Throat Verified 05/08/19 04:39 swells, hives naloxone [From Suboxone] Allergy Severe Throat Verified 05/08/19 04:39 swells, hives blueberry Allergy Intermediate HIVES Verified 05/08/19 04:39 tramadol Allergy Intermediate HIVES Verified 05/08/19 04:39 latex Allergy Mild SKIN Verified 05/08/19 04:39 PEELING cefadroxil Allergy Rash Verified 05/08/19 06:09 MOLDS Allergy Severe SWELLING/HI Uncoded 05/08/19 04:39 VES CHEAP METAL Allergy Intermediate SKIN Uncoded 05/08/19 04:39 IRRITATION/SWELLING Home Medications Home Medications Medication Instructions Recorded Confirmed Type dicyclomine 10 mg PO TID 03/19/19 05/08/19 History lisinopril-hydrochlorothiazide 1 tab PO QAM 03/19/19 05/08/19 History montelukast [Singulair] 10 mg PO PM 03/19/19 05/08/19 History albuterol sulfate HFA 90 2 puff INHALATION QID PRN #18 gm 04/01/19 05/08/19 Rx mcg/actuation aerosol inhaler celecoxib [Celebrex] 200 mg PO BID 30 Days #60 cap 04/13/19 05/08/19 Rx azelastine 137 mcg (0.1 %) nasal 2 spray INTRANASAL BID #30 ml 04/15/19 05/08/19 Rx spray aerosol bupropion HCl 100 mg tablet 100 mg PO QAM 04/15/19 05/08/19 History diclofenac sodium 75 mg 75 mg PO BID #1 tab 04/23/19 05/08/19 History tablet,delayed release ergocalciferol (vitamin D2) 50 mcg 50 mcg PO DAILY #30 cap 04/23/19 05/08/19 History (2,000 unit) capsule linaclotide 290 mcg capsule 290 mcg PO DAILY #30 cap 04/23/19 05/08/19 History oxybutynin chloride ER 5 mg 10 mg PO QAM tab 04/23/19 05/08/19 History tablet,extended release 24 hr oxycodone 5 mg tablet 5 mg PO Q4H PRN tab 04/23/19 05/08/19 History Patient History Medical History Anemia Anxiety Asthma USED RESCUE INHALER LAST YESTERDAY Environmental and seasonal allergies Hypertension IBS (irritable bowel syndrome) Lumbar disc disorder "LOOSE" Migraine Osteoarthritis Overactive bladder Rheumatoid arthritis Surgical History H/O bilateral breast reduction surgery History of bilateral tubal ligation History of section History of cholecystectomy History of colonoscopy History of esophagogastroduodenoscopy (EGD) History of hysterectomy History of nasal septoplasty History of tooth extraction S/P panniculectomy Family History Father Family history of esophageal cancer Social History Preferred Language: Lao Communication Ability: Effective Vice President Compliance Required: No Beliefs That Will Affect Care: None marital status: Life Partner Current Living Situation: Significant Other Other Information That Helps Us Care for You: No Feels Safe at Home: Yes Safety Concerns: Feels Safe At This Time Smoking Status: Former smoker Tobacco Type: cigarettes Cigarettes Per Day: 2ppd x 4-5 years Do You Dip or Chew Tobacco: No Smoking End Date: 2007 Second Hand Exposure: Yes (some) Tobacco Cessation Education Requested by Patient: No Hx Alcohol Use: No Hx Substance Use: No Review of Systems Review of Systems: All systems reviewed & are unremarkable except as noted in HPI & below Physical Exam Constitutional: WD/WN, vitals as above Eyes: PERRL, conjunctivae normal, anicteric sclerae ENMT: external ear and nose normal, oropharynx normal Neck: normal visual inspection Respiratory: normal respiratory effort, lungs clear to auscultation Cardiovascular: RRR, no murmur, no edema Gastrointestinal (Abdomen): normal bowel sounds, soft, nontender, no hepatosplenomegaly Musculoskeletal: no cyanosis or clubbing, extremities motor strength 5/5 Skin: no rashes, warm and dry left knee brace in place, dressing intact, drain and wound vac in place Psychiatric: A+Ox3, euthymic affect Results & Data Vital Signs (Past 12 Hours) Vital Signs Temp Pulse Pulse Resp BP Pulse Ox 05/10/19 07:40 37 C 86 15 137/81 100 05/09/19 23:09 36.6 C 69 14 92/52 L 99 Laboratory Results Microbiology 05/08/19 15:00 Joint Fluid,Knee Gram Stain - Final 05/08/19 15:00 Joint Fluid,Knee Aerobic and Anaerobic Culture - Preliminary Coag negative Staphylococcus Corynebacterium species
[2019-05-10] MEDS: DAPTOmycin 300 MG in SYRINGE 0 ML IV SCH (11:16)
[2019-05-10] MEDS: ONDANSETRON INJ 2 MG/ML 2 ML VIAL IV PRN (14:05)
[2019-05-10] MEDS: HYDROmorphone INJ 0.5 MG/0.5 ML SYR IV PRN (18:48)
[2019-05-10] MEDS: SENNA 8.6 MG TAB PO SCH (21:11)
[2019-05-10] MEDS: MONTELUKAST SODIUM 10 MG TABLET PO SCH (21:11)
[2019-05-11] MEDS: ACETAMINOPHEN 500 MG TAB PO SCH ×2 (05:50→13:27)
[2019-05-11] MEDS: LISINOPRIL/HCTZ 20/12.5MG 1 TAB TAB PO SCH (09:07)
[2019-05-11] MEDS: DICYCLOMINE HCL 10 MG CAP PO SCH ×2 (09:08→13:27)
[2019-05-11] MEDS: CeleBREX 200 MG CAP PO SCH (09:08)
[2019-05-11] MEDS: OXYBUTYNIN CHLORIDE XL 5 MG TABCR PO SCH (09:08)
[2019-05-11] MEDS: LINACLOTIDE 72 MCG CAPSULE PO SCH (09:08)
[2019-05-11] MEDS: DOCUSATE SODIUM 100 MG CAP PO SCH (09:08)
[2019-05-11] MEDS: MULTIVITAMIN TAB PO SCH (09:08)
[2019-05-11] MEDS: buPROPion HCl 100 MG TABLET PO SCH (09:08)
[2019-05-11] MEDS: RIVAROXABAN 10 MG TABLET PO SCH (09:10)
[2019-05-11] MEDS: OXYCODONE HCL IR 5 MG TAB (IMMEDIATE RELEASE) PO PRN (09:12)
--- NOTE | 2019-05-11 09:13 | Orthopedic Progress Note ---
Date of Service May 11, 2019 Assessment & Plan (1) Post op infection: (2) Dehiscence of wound: 48 yo female s/p recent fall with wound dehiscence left TKA requiring operative repair and positive cultures, ID recommending PICC line and IV abx 1. Med management- PICC line in place, Dr Ignacio recommending 4-6 weeks of IV Dapto 2. DVT prophylaxis- Xarelto, SCDs 3. PT/OT 4. D/C planning- home w/ HH, IV abx Subjective Pt resting in bed, pain controlled, denies complaints, pt just had PICC line placed Physical Exam Physical Exam: Long hinged knee immobilizer in place, prevena in place, toes mobile, NVI Results & Data Vital Signs (Past 12 Hours) Vital Signs Temp Pulse Resp BP Pulse Ox 05/11/19 08:11 36.7 C 90 18 160/87 H 100 05/10/19 23:12 36.7 C 76 14 102/43 L 97 Laboratory Results 05/10/19 Range/Units 07:29 Total Creatine Kinase 43 (26-192) U/L
[2019-05-11] MEDS: DAPTOmycin 300 MG in SYRINGE 0 ML IV SCH (10:38)
--- NOTE | 2019-05-23 09:26 | Discharge Summary ---
HISTORY OF PRESENT ILLNESS: This is a 48-year-old female patient of Dr. Flores, who was about 1 month with a left total knee arthroplasty. She was in her normal state of health and doing very well. She apparently came down the steps at her home when she ended up losing her balance and falling down the stairs. She ended up with a very large wound dehiscence of her left knee and was admitted to the hospital for a wound dehiscence and I&D. The patient denied any loss of consciousness with the fall. She denied any other joint injuries, shortness of breath or head trauma. PAST MEDICAL HISTORY: Asthma, anxiety, anemia, rheumatoid arthritis, degenerative spine disease, sciatica and obesity. POSTOPERATIVE COURSE: The patient underwent a left knee I&D, quad tendon repair and retinacular repair on 05/08/2019. She was followed closely with medical consultation, DVT prophylaxis in the form of Xarelto and physical therapy. Postoperative and intraoperative cultures did show coag negative Staphylococcus infection. Infectious disease was consulted on board. The recommendation was daptomycin for 6 weeks. The patient was given a PICC line and she returned home with home health. She will receive daptomycin daily for 6 weeks and follow up with Dr. Ignacio from infectious disease and Dr. Flores as an outpatient as scheduled. PHYSICAL EXAMINATION: On discharge, left knee incision was clean, dry and intact. Magui were intact. Skin edges were approximated well. There was no redness or drainage. The patient had no calf tenderness. Negative Homans sign. Neurologically and neurovascularly, she was intact in the left lower extremity. DIAGNOSES: Left knee wound dehiscence, status post left total knee arthroplasty with infection. She has a history of asthma, anxiety, anemia, rheumatoid arthritis, degenerative spine disease, sciatica and obesity. PLAN: The patient was discharged home with home health services. She will receive IV daptomycin through a PICC line daily at least for 6 weeks. She will follow up with infectious disease and Dr. Flores as scheduled. The patient will continue her preadmission medications with the addition of Xarelto and pain medications as recommended. The patient will follow up as an outpatient as scheduled.
== END 2019-05-11 17:25 | disposition home health service (06) | DRG 908 ==
LOC: ED 04:11 → 3W 08:03

== ENCOUNTER 2020-06-18 20:18 | Observation (INO) ==
--- NOTE | 2020-06-18 20:54 | XRay Report ---
XR chest 1V portable HISTORY: 49 years-old Female Chest Pain acute atypical chest pain COMPARISON: Chest radiograph 06/11/2019 TECHNIQUE: Portable AP view of the chest FINDINGS: Cardiac silhouette is enlarged, unchanged. No pneumothorax, pleural effusion, airspace consolidation or overt pulmonary edema. Bones of the chest appear grossly intact. IMPRESSION: No acute process. ACT 112: Negative or not required by law. The above report was generated using voice recognition software. It may contain grammatical, syntax o r spelling errors. Electronically signed by: Blair Yates M.D. 06/18/2020 8:52 PM
[2020-06-18 21:09] LABS: Basophils # (auto) 0.04 K/uL (0-0.2); Basophils % (auto) 0.7 %; Eosinophils # (auto) 0.18 K/uL (0-0.5); Hematocrit (blood only) 34.1 % (37-47); Hemoglobin 10.3 g/dL (12.0-16.0); Lymphocytes # (auto) 1.84 K/uL (1.2-3.4); Lymphocytes % (auto) 30.8 %; Mean Corpuscular Hemoglobin 24.9 pg (25-34); Mean Corpuscular Hgb Conc 30.2 g/dL (32-36); Mean Corpuscular Volume 82.4 fL (80-100); Mean Platelet Volume 8.4 fL (7.4-10.4); Monocytes # (auto) 0.45 K/uL (0.11-0.59); Monocytes % (auto) 7.5 %; Neutrophils # (auto) 3.46 K/uL (1.4-6.5); Platelet Count 358 K/uL (130-400); RDW Coefficient of Variation 15.6 % (11.5-14.5); RDW Standard Deviation 47.2 fL (36.4-46.3); Red Blood Count 4.14 M/uL (4.2-5.4); White Blood Count 5.97 K/uL (4.8-10.8)
[2020-06-18 21:21] LABS: Partial Thromboplastin Ratio 0.9; Partial Thromboplastin Time 23.8 Seconds (21.0-31.0); Prothrombin Time 10.7 Seconds (9.0-12.0)
[2020-06-18 21:33] LABS: Pregnancy Test, Serum Negative (Negative)
[2020-06-18 21:41] LABS: Alanine Aminotransferase 26 U/L (12-78); Albumin Level 3.3 gm/dl (3.4-5.0); Aspartate Aminotransferase 16 U/L (15-37); Bilirubin Direct < 0.1 mg/dl (0-0.2); Blood Urea Nitrogen 12 mg/dl (7-18); Calcium 9.1 mg/dl (8.5-10.1); Carbon Dioxide 23 mmol/L (21-32); Chloride 108 mmol/L (98-107); Creatinine Clr Calc Pharmacy 100.7 ml/min; Est GFR (African American) 83.7; Est GFR (Non-African American) 72.2; Glucose 106 mg/dl (70-99); Lipase 72 U/L (73-393); Magnesium 2.2 mg/dl (1.8-2.4); Potassium 4.1 mmol/L (3.5-5.1); Sodium 137 mmol/L (136-145)
--- NOTE | 2020-06-18 21:43 | Emergency Department Note ---
Impression & Plan Hypertensive urgency, Volume overload, Dyspnea, Elevated brain natriuretic peptide (BNP) level ED Provider Note NAME: LAVELLE VALIENTE AGE: 49 SEX: F ARRIVES VIA: Walk-In INFORMANT: Patient, ED PROVIDER(S): Partha Meléndez MD CHIEF COMPLAINT: Shortness of breath, Edema. PLAN: Disposition: Admit MEDICAL DECISION MAKING: The patient is a pleasant 49-year-old woman with a past medical history of LEYDI currently not on CPAP attempting to get device, history of IBS, history of asthma, hypertension, history of broken medication agreement, this emergency department with worsening shortness of breath, lower extremity edema, cough and fatigue that has been ongoing for the past several months and being evaluated by the patient's PCP and had an appointment today and was referred to the emergency department as the patient's symptoms have been worsening with 20lb weight gain since November. Patient denies any fevers, chills, nausea, vomiting, diarrhea, urinary symptoms. Patient is not a smoker but reports her partner smokes in the house. On arrival the patient is in no acute distress, afebrile stable vital signs. She does appear to have fluid overload with bilateral lower extremity edema. She has diminished breath sounds at the bases. EKG without overt acute ischemia. Chest x-ray negative for acute process. WBC and platelets within nor mal limits. H/H 10.3/34.1 similar to prior range of values. Chemistry without acidosis. Electrolytes and LFTs unremarkable. Troponin negative/undetectable. BNP 1400 without prior values for comparison and consistent with the patient's volume overload on exam. CTA of the chest was performed and per preliminary stat read report was negative for PE though does demonstrate interstitial thickening. Patient was ordered for IV Lasix. A limited bedside cardiac ultrasound was performed with suboptimal views given the patient's body habitus and positioning however there was no overt reduction in EF. Given the patient is symptomatic to the point of being unable to sleep and becoming significantly short of breath with minimal exertion reasonable to admit for further management of volume overload and improve blood pressure control which likely is contributing to the patient's symptoms.. Patient is agreeable with this plan. Findings and plan for follow-up reviewed with patient. Patient agreeable and d/c'd per discharge instructions. Triage Nursing notes reviewed and agree them. Prior medical records reviewed Vital Signs: reviewed and remarkable for hypertension. Differential diagnosis: Reactive airway disease, pneumonia, pneumothorax, COPD, CHF, infections, cardiac ischemia, pulmonary embolism, musculoskeletal, gastrointestinal, as well as other pathologies. ER treatment provided: See below. Diagnostics interpreted by me: ECG: Normal sinus rhythm, 94 bpm, no ectopy, no overt ST elevation or depression, QTC 492, QRS 86. Cardiac Monitoring: An order for continuous cardiac monitoring was placed and demonstrated NSR 94 bpm, no ectopy. Laboratory studies: See below Imaging studies: XR chest 1V portable HISTORY: 49 years-old Female Chest Pain acute atypical chest pain COMPARISON: Chest radiograph 06/11/2019 TECHNIQUE: Portable AP view of the chest FINDINGS: Cardiac silhouette is enlarged, unchanged. No pneumothorax, pleural effusion, airspace consolidation or overt pulmonary edema. Bones of the chest appear grossly intact. IMPRESSION: No acute process. Preliminary Findings Only See Final Report For Complete Findings CTA CHEST: The ascending aortic arch is upper limits of normal in diameter measuring 3.8 cm. No dissection is seen. The descending thoracic aorta is normal. Great vessels are all widely patent. The pulmonary arterial tree is well opacified with contrast. No pulmonary emboli are identified. The heart is borderline enlarged. No pericardial effusion is seen. No coronary calcification is identified. The lungs are well inflated and clear. No infiltrate or consolidation is identified. There is a trace amount of subsegmental atelectasis in the lung bases and questionable trace amount of interstitial edema. No pneumothorax or pleural effusion. Mild multilevel degenerative changes are seen throughout the thoracic spine. No fracture or subluxation is seen. Radiologist: Steve Lee MD Study ready at 22:09 and initial results transmitted at 22:18 Consultation(s): Case was discussed [place], [facility], who will evaluate the patient for admission. HPI: The patient is a pleasant 49-year-old woman with a past medical history of LEYDI currently not on CPAP attempting to get device, history of IBS, history of asthma, hypertension, history of broken medication agreement, this emergency department with worsening shortness of breath, lower extremity edema, cough and fatigue that has been ongoing for the past several months and being evaluated by the patient's PCP and had an appointment today and was referred to the emergency department as the patient's symptoms have been worsening with 20lb weight gain since November. Patient denies any fevers, chills, nausea, vomiting, diarrhea, urinary symptoms. Patient is not a smoker but reports her partner smokes in the house. ROS: See above HPI for pertinent positives & negatives. A total of 10 systems reviewed and were otherwise negative. PAST MEDICAL HISTORY:See Below PAST SURGICAL HISTORY:See Below FAMILY HISTORY:See Below SOCIAL HISTORY:See Below HOME MEDICATIONS:See Below ALLERGIES:See Below VITALS:See Below PHYSICAL EXAMINATION: GENERAL: Awake, alert, uncomfortable-appearing, in no distress, BMI 56.6 kg/M HENT: Normocephalic, atraumatic. Oropharynx unremarkable. EYES: Normal conjunctiva. Sclera non-icteric. NECK: Supple. No nuchal rigidity. FROM. No JVD. RESPIRATORY: Diminished breath sounds at the bases otherwise clear. Mild increased work of breathing. CARDIAC: Regular rate, normal rhythm. Extremities warm and well perfused. Pulses equal. ABDOMEN: Soft, non-distended. No tenderness to palpation. No rebound or guarding. No masses. RECTAL: Deferred. MUSCULOSKELETAL: Chest examination reveals no tenderness. The back is symmetrical on inspection without obvious abnormality. There is no CVA tendernes s to palpation. No joint edema. LOWER EXTREMITIES: Calves are equal size bilaterally and non-tender. 2+ edema. No discoloration. NEURO: Normal sensorium. No sensory or motor deficits noted. SKIN: No rash or jaundice noted. Partha Meléndez MD Past Med/Surg History Medical History Anemia Anxiety Asthma USED RESCUE INHALER LAST YESTERDAY Environmental and seasonal allergies Hypertension IBS (irritable bowel syndrome) Lumbar disc disorder "LOOSE" Migraine Osteoarthritis Overactive bladder Rheumatoid arthritis Skin ulcer of female breast Surgical History H/O bilateral breast reduction surgery History of bilateral tubal ligation History of carpal tunnel surgery History of section History of cholecystectomy History of colonoscopy History of esophagogastroduodenoscopy (EGD) History of hysterectomy History of nasal septoplasty History of tooth extraction S/P panniculectomy Status post left knee replacement Family History Father Family history of esophageal cancer Social History Smoking Status: Former smoker Age Started Using Tobacco: 12; Age Quit Using Tobacco: 22; Second Hand Exposure: Yes (some); Hx Alcohol Use: No Hx Substance Use: No Preferred Language: Yakut Communication Ability: Effective 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 Required: No Beliefs That Will Affect Care: None marital status: Life Partner Current Living Situation: Significant Other Feels Safe at Home: Yes Dental Care, Regularly: Yes Physical Activity Frequency: Does not Exercise Seatbelt Use: never Allergies Allergies Allergy/AdvReac Type Severity Reaction Status Date / Time buprenorphine [From Suboxone] Allergy Severe Throat Verified 06/18/20 23:06 swells, hives naloxone [From Suboxone] Allergy Severe Throat Verified 06/18/20 23:06 swells, hives blueberry Allergy Intermediate HIVES Verified 06/18/20 23:06 tramadol Allergy Intermediate HIVES Verified 06/18/20 23:06 latex Allergy Mild SKIN Verified 06/18/20 23:06 PEELING cefadroxil Allergy Rash Verified 06/18/20 23:06 MOLDS Allergy Severe SWELLING/HI Uncoded 06/18/20 23:06 VES CHEAP METAL Allergy Intermediate SKIN Uncoded 06/18/20 23:06 IRRITATION/SWELLING Home Meds Home Medications Medication Instructions Recorded Confirmed diclofenac sodium 75 mg PO BID 06/11/19 06/18/20 linaclotide [Linzess] 290 mcg PO DAILY 06/12/19 06/18/20 acetaminophen [Tylenol Extra 1,000 mg PO Q8 PRN 06/18/20 06/18/20 Strength] Previous Rx's Medication Instructions Recorded albuterol sulfate 90 mcg/actuation 2 puff INHALATION QID PRN #18 gm 04/01/19 aerosol inhaler ondansetron 4 mg PO Q6H PRN #10 tab 06/12/19 bupropion HCl 100 mg tablet,12 hr 100 mg PO DAILY #90 ea 08/05/19 sustained-release oxybutynin chloride 10 mg 10 mg PO DAILY #30 tab 09/05/19 tablet,extended release 24 hr azelastine 137 mcg (0.1 %) nasal See Rx Instructions .ROUTE 09/06/19 spray aerosol .COMPLEX #90 milliliter hydroxyzine HCl 50 mg tablet 50 mg PO TID PRN #90 tab 10/02/19 ferrous sulfate 325 mg (65 mg 325 mg PO .COMPLEX #90 tab 11/21/19 iron) tablet celecoxib 200 mg capsule 200 mg PO BID #60 cap 12/13/19 lisinopril 20 1 tab PO DAILY #90 tab 01/01/20 mg-hydrochlorothiazide 12.5 mg tablet montelukast 10 mg tablet 10 mg PO HS #90 tab 03/04/20 budesonide-formoterol HFA 160 1 puffs INH BID #10.2 gm 05/29/20 mcg-4.5 mcg/actuation aerosol inhaler Results & Data (ED) Vital Signs Vital Signs - 24 hr 06/18/20 20:22 06/18/20 20:41 06/18/20 22:13 Temperature 37.1 C Temperature Source Oral Pulse Rate 115 H 93 H Pulse Rate [Apical] Pulse Rate from SpO2 Sensor 93 H Respiratory Rate 20 23 Respiratory Depth Blood Pressure 200/111 H 136/102 H Blood Pressure [Right Arm] Blood Pressure Mean 140 120 Blood Pressure Mean [Right Arm] Blood Pressure Position Lying Pulse Oximetry 99 98 Oxygen Delivery Method Room Air Room Air Room Air Sepsis Recent Fever Within 48 Hours No Sepsis New/Unexplained Change in Mental Status No Sepsis Action Taken by Nursing No Action Required 06/18/20 22:31 06/18/20 23:02 06/19/20 00:10 Temperature Temperature Source Pulse Rate 92 H 91 H 105 H Pulse Rate [Apical] Pulse Rate from SpO2 Sensor 93 H 89 Respiratory Rate 26 H 21 29 H Respiratory Depth Blood Pressure 191/103 H 208/69 H 137/106 H Blood Pressure [Right Arm] Blood Pressure Mean 121 125 115 Blood Pressure Mean [Right Arm] Blood Pressure Position Pulse Oximetry 99 96 97 Oxygen Delivery Method Room Air Room Air Room Air Sepsis Recent Fever Within 48 Hours Sepsis New/Unexplained Change in Mental Status Sepsis Action Taken by Nursing 06/19/20 00:31 06/19/20 01:25 06/19/20 02:27 Temperature Temperature Source Pulse Rate 93 H Pulse Rate [Apical] 91 H 85 Pulse Rate from SpO2 Sensor 94 H Respiratory Rate 16 20 20 Respiratory Depth Normal Normal Blood Pressure 152/131 H Blood Pressure [Right Arm] 142/72 H 148/80 H Blood Pressure Mean 136 Blood Pressure Mean [Right Arm] 95 102 Blood Pressure Position Pulse Oximetry 98 99 Oxygen Delivery Method Room Air Room Air Sepsis Recent Fever Within 48 Hours Sepsis New/Unexplained Change in Mental Status Sepsis Action Taken by Nursing Laboratory Data Attestation: I reviewed the patient's lab results. Result diagrams: 06/18/20 21:00 06/18/20 21:00 Lab Results 06/18/20 06/18/20 06/18/20 Range/Units 21:00 21:00 21:00 WBC 5.97 (4.8-10.8) K/uL RBC 4.14 L (4.2-5.4) M/uL Hgb 10.3 L (12.0-16.0) g/dL Hct 34.1 L (37-47) % MCV 82.4 (80-100) fL MCH 24.9 L (25-34) pg MCHC 30.2 L (32-36) g/dL RDW Std Deviation 47.2 H (36.4-46.3) fL RDW Coeff of Ni 15.6 H (11.5-14.5) % Plt Count 358 (130-400) K/uL MPV 8.4 (7.4-10.4) fL Immature Gran % (Auto) 0.0 % Neut % (Auto) 58.0 % Lymph % (Auto) 30.8 % [place] % (Auto) 7.5 % Eos % (Auto) 3.0 % Baso % (Auto) 0.7 % Neut # (Auto) 3.46 (1.4-6.5) K/uL Lymph # (Auto) 1.84 (1.2-3.4) K/uL [place] # (Auto) 0.45 (0.11-0.59) K/uL Eos # (Auto) 0.18 (0-0.5) K/uL Baso # (Auto) 0.04 (0-0.2) K/uL Immature Gran # (Auto) 0.00 (0.00-0.02) K/uL PT 10.7 (9.0-12.0) Seconds INR 1.0 (0.9-1.1) APTT 23.8 (21.0-31.0) Seconds PTT Ratio 0.9 Sodium 137 (136-145) mmol/L Potassium 4.1 (3.5-5.1) mmol/L Chloride 108 H (98-107) mmol/L Carbon Dioxide 23 (21-32) mmol/L Anion Gap 6.0 (3-11) BUN 12 (7-18) mg/dl Creatinine 0.94 (0.6-1.2) mg/dl Est Cr Clr Drug Dosing 100.7 ml/min Est GFR ( Amer) 83.7 Est GFR (Non-Af Amer) 72.2 BUN/Creatinine Ratio 13.0 (10-20) Glucose 106 H (70-99) mg/dl Calcium 9.1 (8.5-10.1) mg/dl Phosphorus 3.0 (2.5-4.9) mg/dl Magnesium 2.2 (1.8-2.4) mg/dl Total Bilirubin 0.2 (0.2-1) mg/dl Direct Bilirubin < 0.1 (0-0.2) mg/dl AST 16 (15-37) U/L ALT 26 (12-78) U/L Alkaline Phosphatase 99 (45-117) U/L Troponin I < 0.015 (0-0.045) ng/ml NT-Pro-B Natriuret Pep 1471 H (0-450) pg/ml Total Protein 7.3 (6.4-8.2) gm/dl Albumin 3.3 L (3.4-5.0) gm/dl Globulin 4.0 (2.5-4.0) gm/dl Albumin/Globulin Ratio 0.8 L (0.9-2) Lipase 72 L (73-393) U/L TSH 1.780 (0.300-4.500) uIu/ml HCG, Qual (Negative) 06/18/20 Range/Units 21:00 WBC (4.8-10.8) K/uL RBC (4.2-5.4) M/uL Hgb (12.0-16.0) g/dL Hct (37-47) % MCV (80-100) fL MCH (25-34) pg MCHC (32-36) g/dL RDW Std Deviation (36.4-46.3) fL RDW Coeff of Ni (11.5-14.5) % Plt Count (130-400) K/uL MPV (7.4-10.4) fL Immature Gran % (Auto) % Neut % (Auto) % Lymph % (Auto) % [place] % (Auto) % Eos % (Auto) % Baso % (Auto) % Neut # (Auto) (1.4-6.5) K/uL Lymph # (Auto) (1.2-3.4) K/uL [place] # (Auto) (0.11-0.59) K/uL Eos # (Auto) (0-0.5) K/uL Baso # (Auto) (0-0.2) K/uL Immature Gran # (Auto) (0.00-0.02) K/uL PT (9.0-12.0) Seconds INR (0.9-1.1) APTT (21.0-31.0) Seconds PTT Ratio Sodium (136-145) mmol/L Potassium (3.5-5.1) mmol/L Chloride (98-107) mmol/L Carbon Dioxide (21-32) mmol/L Anion Gap (3-11) BUN (7-18) mg/dl Creatinine (0.6-1.2) mg/dl Est Cr Clr Drug Dosing ml/min Est GFR ( Amer) Est GFR (Non-Af Amer) BUN/Creatinine Ratio (10-20) Glucose (70-99) mg/dl Calcium (8.5-10.1) mg/dl Phosphorus (2.5-4.9) mg/dl Magnesium (1.8-2.4) mg/dl Total Bilirubin (0.2-1) mg/dl Direct Bilirubin (0-0.2) mg/dl AST (15-37) U/L ALT (12-78) U/L Alkaline Phosphatase (45-117) U/L Troponin I (0-0.045) ng/ml NT-Pro-B Natriuret Pep (0-450) pg/ml Total Protein (6.4-8.2) gm/dl Albumin (3.4-5.0) gm/dl Globulin (2.5-4.0) gm/dl Albumin/Globulin Ratio (0.9-2) Lipase (73-393) U/L TSH (0.300-4.500) uIu/ml HCG, Qual Negative (Negative) Administered Medications Discontinued Medications Furosemide (Furosemide 40 Mg/4 Ml Vial) 20 mg IV NOW STA Stop: 06/18/20 23:07 Last Admin: 06/18/20 23:20 Dose: 20 mg Documented by: [id number] Lisinopril/HCTZ (Lisinopril/Hctz 20/12.5mg 1 Tab Tab) 1 tab PO NOW STA Stop: 06/18/20 23:27 Last Admin: 06/19/20 00:08 Dose: 1 tab Documented by: [id number] Ioversol (Optiray 320 125ml) 119 ml IV ONCE ONE Stop: 06/18/20 21:58 Last Admin: 06/18/20 21:58 Dose: 119 ml Documented by: [id number] Ketorolac Tromethamine (Ketorolac Tromethamine 15 Mg/Ml Vial) 15 mg IV NOW STA Stop: 06/18/20 21:45 Last Admin: 06/18/20 22:13 Dose: 15 mg Documented by: [id number] Blood Pressure Blood Pressure Findings: Elevated blood pressure Blood Pressure Disposition: further management by hospitalist Discharge Plan Visit Data Chief Complaint: Shortness of Breath/Dyspnea Stated Complaint: SOB, RETAINING FLUID ED Provider: Partha Meléndez Discharge Problem: Hypertensive urgency, Volume overload, Dyspnea, Elevated brain natriuretic peptide (BNP) level Forms Stand Alone Forms: [facility] [employer] Prescriptions Prescriptions: No Action albuterol sulfate [Ventolin HFA] 90 mcg/actuation HFA aerosol inhaler 2 puff INHALATION QID PRN (Reason: SHORT OF BREATH) Qty: 18 RF: 1 bupropion HCl 100 mg tablet sustained-release 12 hr 100 mg PO DAILY Qty: 90 RF: 2 oxybutynin chloride 10 mg tablet extended release 24hr 10 mg PO DAILY Qty: 30 RF: 3 azelastine 137 mcg (0.1 %) aerosol,spray See Rx Instructions .ROUTE .COMPLEX Qty: 90 RF: 4 hydroxyzine HCl 50 mg tablet 50 mg PO TID PRN (Reason: nausea and vomiting) Qty: 90 RF: 0 ferrous sulfate 325 mg (65 mg iron) tablet 325 mg PO .COMPLEX Qty: 90 RF: 2 celecoxib [Celebrex] 200 mg capsule 200 mg PO BID Qty: 60 RF: 5 lisinopril-hydrochlorothiazide 20-12.5 mg tablet 1 tab PO DAILY Qty: 90 RF: 1 montelukast [Singulair] 10 mg tablet 10 mg PO HS Qty: 90 RF: 3 budesonide-formoterol [Symbicort] 160-4.5 mcg/actuation HFA aerosol inhaler 1 puffs INH BID Qty: 10.2 RF: 1 acetaminophen [Tylenol Extra Strength] 500 mg tablet 1,000 mg PO Q8 PRN (Reason: Fever Or Pain) RF: 0 diclofenac sodium 75 mg Tablet,Delayed Release (Dr/Ec) 75 mg PO BID RF: 0 ondansetron 4 mg tablet,disintegrating 4 mg PO Q6H PRN (Reason: nausea and vomiting) Qty: 10 RF: 0 Linzess 290 mcg Capsule 290 mcg PO DAILY RF: 0 Discharge Problem: Volume overload Qualifiers: Hypervolemia type: unspecified Qualified Code(s): E87.70 - Fluid overload, unspecified Dyspnea Qualifiers: Dyspnea type: unspecified Qualified Code(s): R06.00 - Dyspnea, unspecified
[2020-06-18] MEDS ORDERED: KETOROLAC TROMETHAMINE 15 MG/ML VIAL IV STA (21:44)
[2020-06-18 21:50] LABS: Albumin Globulin Ratio 0.8 (0.9-2); Alkaline Phosphatase 99 U/L (45-117); Bilirubin,Total 0.2 mg/dl (0.2-1); NT Pro B Type Natriuretic Pept 1471 pg/ml (0-450); Total Protein 7.3 gm/dl (6.4-8.2); Troponin I < 0.015 ng/ml (0-0.045)
[2020-06-18] MEDS ORDERED: OPTIRAY 320 125ml IV ONE (21:57)
[2020-06-18] MEDS ORDERED: FUROSEMIDE 40 MG/4 ML VIAL IV STA (23:06)
[2020-06-18] MEDS ORDERED: LISINOPRIL/HCTZ 20/12.5MG 1 TAB TAB PO STA (23:26)
--- NOTE | 2020-06-19 01:13 | History & Physical Report ---
Date of Service June 19, 2020 Assessment & Plan (1) Volume overload: Laine is a 49-year-old female with a past medical history of asthma, poorly controlled, IBS, obstructive sleep apnea pending CPAP equipment, hypertension, obesity, and arthritis who presents with 40 pound weight gain over several weeks and increasing fatigue and shortness of breath. She reports she is also had 1 month of severe right ear and neck pain which has not been improving with conservative treatment. Bilateral leg swelling with 40 pound weight gain, strong family history of HFrEF Lungs without edema on x-ray Legs bilaterally swollen with weight gain as above EKG normal sinus with no signs of ischemia, troponin normal TTE pending Lasix every 6 hours as needed for diuresis BMP daily Lower extremities hot, warm, painful to the touch. Maryellen in color, but not well demarcated. Peer coverage as noted below will cover for potential cellulitis. Asthma Moderate to poorly controlled outpatient Continue budesonide/remainder all inhaler Nebs every 4 hours as needed No wheezing at time of assessment, defer steroids at this time Right ear pain, concern for neck space infection Patient thought she had a right ear infection for 1 month with dental pain No trismus, uvular deflection, airway compromise but external fullness in the V3 distribution with severe pain is appreciated on exam CTsoft tissue ordered If any signs of neck space infection/abscess, stat ENT consult will be ordered Empiric Zosyn/Dapto. No leukocytosis, afebrile pending results, no history of MRSA High NSAID use Patient had been taking 1600 mg of ibuprofen daily, lisinopril/hydrochlorothiazide daily, in addition to Toradol in the ED -Suspicion patient may develop KEY, BMP in the morning Lisinopril/hydrochlorothiazide held Hydralazine, IV antihypertensives PRN overnight BMP in the morning LEYDI CPAP nightly ordered DVT prophylaxis: SCDs, heparin weight adjusted, hold if CTneck positive FEN GI: N.p.o., hold fluids at this time CODE STATUS: Full code Disposal: Medical/surgical with telemetry (2) Hypertensive urgency: (3) Dyspnea: (4) Elevated brain natriuretic peptide (BNP) level: (5) Skin ulcer of female breast: (6) Post op infection: (7) Dehiscence of wound: (8) Fall: (9) Left leg pain: (10) Aftercare following knee joint replacement surgery: (11) Allergic reaction: (12) Allergic rhinitis: (13) Edema of both legs: History of Present Illness Chief Complaint: Shortness of breath, leg swelling, ear pain Primary Care Provider: LITTLE Reyes Laine is a 49-year-old female with a past medical history of asthma, poorly controlled, IBS, obstructive sleep apnea pending CPAP equipment, hypertension, obesity, and arthritis who presents with 40 pound weight gain over several weeks and increasing fatigue and shortness of breath. She reports she is also had 1 month of severe right ear and neck pain which has not been improving with conservative treatment. She reports that her symptoms began several weeks ago and she has had slow progressive increase in swelling in her legs and feet. She reports she has not had any dietary indiscretions and "salt is not allowed in my house ". Nonetheless she has had increasing bilateral lower leg swelling which have become tender, stretch, and painful bilaterally in the last few weeks. She has noted an increased shortness of breath while walking and decreased exercise tolerance. She occasionally feels her breathing is tight, like she experiences with asthma exacerbations and these episodes are increasing in frequency and with less and less exercise. She is now only able to walk through the store before she feels very winded. She denies chest pain. She is not had a cough. She had one episode of presyncope many months ago, but otherwise denies syncope, presyncope, palpitations. She denies dysuria, but endorses recent urinary incontinence for which she was supposed to follow-up with urology but has had an appointment yet due to COVID. She is also had severe right ear pain extending into her neck for about 1 month. She denies taking any antibiotic treatment for this, but reports that the pain is constant. It extends from the inner ear, border of the ear, and mcc down her neck. She feels that it is slightly tight and swollen. She denies any fever, chills, sweats. She has not had any trismus, but endorses some upper tooth pain. Denies oral discharge/purulence/foul taste. She is able to rotate her neck, but notes that the right side feels tender. She denies ear discharge, loss of balance, and loss of hearing. She has a extensive family history of early heart disease with congestive heart failure and reduced ejection fraction/cardiomyopathies. History: Reviewed Surgical history: Reviewed Allergies: Reviewed. Of note patient reports she has had penicillins and penicillin related drugs before, with no reaction. She is not aware of ever having cefadroxil. Medications: Reviewed CODE STATUS: Full code, discussed with patient Allergies Allergy/AdvReac Type Severity Reaction Status Date / Time buprenorphine [From Suboxone] Allergy Severe Throat Verified 06/18/20 23:06 swells, hives naloxone [From Suboxone] Allergy Severe Throat Verified 06/18/20 23:06 swells, hives blueberry Allergy Intermediate HIVES Verified 06/18/20 23:06 tramadol Allergy Intermediate HIVES Verified 06/18/20 23:06 latex Allergy Mild SKIN Verified 06/18/20 23:06 PEELING cefadroxil Allergy Rash Verified 06/18/20 23:06 MOLDS Allergy Severe SWELLING/HI Uncoded 06/18/20 23:06 VES CHEAP METAL Allergy Intermediate SKIN Uncoded 06/18/20 23:06 IRRITATION/SWELLING Home Medications Home Medications Medication Instructions Recorded Confirmed Type albuterol sulfate 90 mcg/actuation 2 puff INHALATION QID PRN #18 gm 04/01/19 06/18/20 Rx aerosol inhaler diclofenac sodium 75 mg PO BID 06/11/19 06/18/20 History linaclotide [Linzess] 290 mcg PO DAILY 06/12/19 06/18/20 History ondansetron 4 mg PO Q6H PRN #10 tab 06/12/19 06/18/20 Rx bupropion HCl 100 mg tablet,12 hr 100 mg PO DAILY #90 ea 08/05/19 06/18/20 Rx sustained-release oxybutynin chloride 10 mg 10 mg PO DAILY #30 tab 09/05/19 06/18/20 Rx tablet,extended release 24 hr azelastine 137 mcg (0.1 %) nasal See Rx Instructions .ROUTE 09/06/19 06/18/20 Rx spray aerosol .COMPLEX #90 milliliter hydroxyzine HCl 50 mg tablet 50 mg PO TID PRN #90 tab 10/02/19 06/18/20 Rx ferrous sulfate 325 mg (65 mg 325 mg PO .COMPLEX #90 tab 11/21/19 06/18/20 Rx iron) tablet celecoxib 200 mg capsule 200 mg PO BID #60 cap 12/13/19 06/18/20 Rx lisinopril 20 1 tab PO DAILY #90 tab 01/01/20 06/18/20 Rx mg-hydrochlorothiazide 12.5 mg tablet montelukast 10 mg tablet 10 mg PO HS #90 tab 03/04/20 06/18/20 Rx budesonide-formoterol HFA 160 1 puffs INH BID #10.2 gm 05/29/20 06/18/20 Rx mcg-4.5 mcg/actuation aerosol inhaler acetaminophen [Tylenol Extra 1,000 mg PO Q8 PRN 06/18/20 06/18/20 History Strength] Past Med/Surg History Medical History Anemia Anxiety Asthma USED RESCUE INHALER LAST YESTERDAY Environmental and seasonal allergies Hypertension IBS (irritable bowel syndrome) Lumbar disc disorder "LOOSE" Migraine Osteoarthritis Overactive bladder Rheumatoid arthritis Skin ulcer of female breast Surgical History H/O bilateral breast reduction surgery History of bilateral tubal ligation History of carpal tunnel surgery History of section History of cholecystectomy History of colonoscopy History of esophagogastroduodenoscopy (EGD) History of hysterectomy History of nasal septoplasty History of tooth extraction S/P panniculectomy Status post left knee replacement Family History Father Family history of esophageal cancer Social History Smoking Status: Former smoker Age Started Using Tobacco: 12; Age Quit Using Tobacco: 22; Second Hand Exposure: Yes (some); Hx Alcohol Use: No Hx Substance Use: No Preferred Language: Turkmen Communication Ability: Effective Hearing Screener Required: No Beliefs That Will Affect Care: None marital status: Life Partner Current Living Situation: Other Current Living Situation Comment: Giuseppe lives with pt Feels Safe at Home: Yes Dental Care, Regularly: Yes Physical Activity Frequency: Does not Exercise Seatbelt Use: never Review of Systems Review of Systems: All systems reviewed & are unremarkable except as noted in HPI & below Physical Exam Physical Exam: General: A&Ox3. NAD. Cooperative. HEENT: Atraumatic, normocephalic. Pulls equal and reactive to light and accommodation, visual acuity grossly intact. TMs without perforation, effusion, erythema, purulence, or injection bilaterally. Ear canals clear bilaterally. Patient with right sided zone 3 tenderness with some swelling appreciated. No uvular deviation, no airway swelling. No stridor. Pulm: CTAB A&P. -wheezes, -rales, -rhonchi. Symmetrical chest rise. No increase work of breathing. No respiratory distress. Cardiac: RRR, -mrg. Radial pulses intact and symmetrical. Abdominal: Bees, nontender, nondistended, soft. BS present. Extremities: Swollen, maryellen, warm, tender bilaterally and symmetrically. No clear demarcation. Pitting edema at the ankles. DP pulses intact. 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 Sensation to soft touch intact in fingers and toes bilaterally without deficit. Results & Data Results & Data ([facility]) Vital Signs (Past 12 Hours) Vital Signs Temp Pulse Resp BP Pulse Ox 06/19/20 00:31 93 H 16 152/131 H 98 06/19/20 00:10 105 H 29 H 137/106 H 97 06/18/20 23:02 91 H 21 208/69 H 96 06/18/20 22:31 92 H 26 H 191/103 H 99 06/18/20 22:13 93 H 23 136/102 H 98 06/18/20 20:22 37.1 C 115 H 20 200/111 H 99 Code Status & VTE Plan VTE Prophylaxis Plan VTE Prophylaxis will be ordered: Yes Supervising Physician Co-Signing Physician Notes Attending addendum: I have physically seen this patient, have supervised the medical residents activities, and agree with the H&P unless as otherwise noted. Assessment and Plan: Volume overload/bilateral lower extremity swelling/40 pound weight gain- The patient will be admitted to telemetry for serial cardiac enzymes, serial EKG's, cardiac rhythm monitoring and a 2-D echocardiogram with Dopplers. Given Lasix 20 mg IV by the ED. Place on Lasix 20 mg IV twice daily, avoiding stronger dosages for now due to significant nephrotoxin contribution to current state. Symptoms are likely in large part contributed to her taking ibuprofen 1600 mg daily, and being on lisinopril/HCTZ daily, all of which will be held. Place on hydralazine 10 mg IV every 4 hours as needed for systolic blood pressure greater than 160 Follow serial laboratories History of right ear infection with dental pain x1 month- CT soft tissues of face and neck ordered. Empiric treatment with daptomycin and Zosyn IV for now. Remaining orders and notations as noted. Resident Activity Tracking Resident Involvement: Resident Care Provided Care Provided: Adult Hospital Medicine (1) Dyspnea Dyspnea type: unspecified Qualified Code(s): R06.00 - Dyspnea, unspecified (2) Fall Encounter type: initial encounter Qualified Code(s): W19.XXXA - Unspecified fall, initial encounter (3) Volume overload Hypervolemia type: unspecified Qualified Code(s): E87.70 - Fluid overload, unspecified
[2020-06-19] MEDS ORDERED: HydrALAZINE HCL 20 MG/ML VIAL IV PRN (01:14)
[2020-06-19] MEDS ORDERED: HydrALAZINE HCL 20 MG/ML VIAL ONE (01:21)
[2020-06-19] MEDS ORDERED: PIPERACILL/TAZOBAC CONSULT ACTIVE PRN (03:19)
[2020-06-19] MEDS ORDERED: ACETAMINOPHEN 325 MG TAB PO PRN (03:19)
[2020-06-19] MEDS ORDERED: DAPTOMYCIN CONSULT ACTIVE PRN (03:19)
[2020-06-19] MEDS ORDERED: ALBUT/IPRATROP 3MG/0.5MG NEB 3 ML VIAL NEB PRN (03:19)
[2020-06-19] MEDS ORDERED: PIPERACILLIN/TAZOBACTAM 4.5 GM in DEXTROSE 5% 100 ML IV ONE (03:30)
[2020-06-19] MEDS: DAPTOmycin 350 MG in SYRINGE 0 ML IV SCH (03:48)
[2020-06-19] MEDS: HEPARIN SOD 5,000 UNIT/0.5 ML VIAL SQ SCH ×3 (05:44→22:04)
--- NOTE | 2020-06-19 08:07 | CT Scan Report ---
CT angio chest PE protocol CT DOSE: 803.00 mGy.cm HISTORY: 49 years-old Female with PE. Acute shortness of breath TECHNIQUE: Multiple CTA images of the chest were obtained after the intravenous administration of 119 ml Optiray 320. Coronal and sagittal MIPS were obtained from the axial data set and were submitted for review. All measurements were obtained according to NASCET criteria. A dose lowering technique w as utilized adhering to the principles of ALARA. COMPARISON: CT soft tissue neck, chest radiograph of same day FINDINGS: CTA: Heart is upper limits of normal in size. No pericardial effusion. No thoracic aortic aneurysm or diss ection. Patency of the imaged great vessels. The pulmonary artery is opacified to the level of the lo bar branches. The segmental and subsegmental branches are not well evaluated secondary to contrast idalia cheryl timing and respiratory motion artifact. No pulmonary emboli identified. CT CHEST: Heterogeneous thyroid. Left thyroid lobe calcification. No adenopathy. No pneumothorax, pleural effus ion, overt pulmonary edema or airspace consolidation typical for pneumonia. There is mild subsegmenta l bibasilar atelectasis. There are no suspicious pulmonary nodules or masses. Central airways are pat ent. No acute process of the imaged upper abdomen. Soft tissues are unremarkable. The bones appear intact. IMPRESSION: No acute intrathoracic abnormality, specifically there is no evidence of pulmonary throm boembolic disease. ACT 112: Negative or not required by law. The above report was generated using voice recognition software. It may contain grammatical, syntax o r spelling errors. Electronically signed by: Blair Yates M.D. 06/19/2020 8:06 AM
--- NOTE | 2020-06-19 08:11 | CT Scan Report ---
CT soft tissue neck wo con HISTORY: 49 years-old Female L neck pain, soft tissue swelling vs inf acute shortness of breath with neck pain and soft tissue swelling. COMPARISON: CTA of the chest of same day, CT cervical spine 01/23/2018 TECHNIQUE: Multiple axial CT images of the soft tissues of the neck were obtained without the use of IV contrast. A dose lowering technique was used consistent with the principals of ALARA. FINDINGS: The imaged intracranial structures demonstrate no acute abnormality. The globes and orbits are unrema rkable. The parotid and 70 blood glands are within normal limits. Heterogeneous thyroid. Left thyroid lobe calcification. Frontal fat planes are symmetric. Patent nasopharynx, oral pharynx and hypopharynx. The epiglottis an d area epiglottic folds are unremarkable. The glottis and subglottic airway is unremarkable. No signi ficant adenopathy or parapharyngeal collection. Streak artifact from dental amalgam hardware. Nonspec ific mildly enlarged left supraclavicular lymph node, 1.5 x 1.0 cm. Lung apices are clear without pne umothorax. No acute fracture. Minimal mucosal thickening of the right maxillary sinus. Partial ethmoi dectomy with bilateral maxillary antrostomy. Mastoid air cells are clear. Multilevel degenerative leonie nges of the cervical spine. IMPRESSION: 1. Patent airway. No significant inflammatory stranding, mass or drainable fluid collection. 2. Nonspecific mildly enlarged left supraclavicular lymph node. ACT 112: Negative or not required by law. The above report was generated using voice recognition software. It may contain grammatical, syntax o r spelling errors. Electronically signed by: Blair Yates M.D. 06/19/2020 8:10 AM
[2020-06-19] MEDS ORDERED: FUROSEMIDE 40 MG/4 ML VIAL IV SCH (09:00)
[2020-06-19 09:20] LABS: Basophils # (auto) 0.04 K/uL (0-0.2); Basophils % (auto) 0.7 %; Eosinophils # (auto) 0.23 K/uL (0-0.5); Eosinophils % (auto) 4.1 %; Hemoglobin 10.1 g/dL (12.0-16.0); Immature Granulocytes # (auto) 0.01 K/uL (0.00-0.02); Immature Granulocytes % (auto) 0.2 %; Lymphocytes # (auto) 1.42 K/uL (1.2-3.4); Lymphocytes % (auto) 25.2 %; Mean Corpuscular Hgb Conc 29.7 g/dL (32-36); Mean Corpuscular Volume 84.2 fL (80-100); Mean Platelet Volume 8.5 fL (7.4-10.4); Monocytes # (auto) 0.48 K/uL (0.11-0.59); Monocytes % (auto) 8.5 %; Neutrophils # (auto) 3.46 K/uL (1.4-6.5); Neutrophils % (auto) 61.3 %; Platelet Count 341 K/uL (130-400); RDW Standard Deviation 49.1 fL (36.4-46.3); Red Blood Count 4.04 M/uL (4.2-5.4); White Blood Count 5.64 K/uL (4.8-10.8)
[2020-06-19] MEDS: FUROSEMIDE 40 MG in SYRINGE 0 ML IV SCH (09:40)
[2020-06-19] MEDS: OXYBUTYNIN CHLORIDE XL 5 MG TABCR PO SCH (09:40)
[2020-06-19] MEDS: BuPROPion SR 100 MG TABCR PO SCH (09:41)
[2020-06-19] MEDS: FLUTICASONE/VILANTEROL 200/25MCG 14 PUFFS/INHALER INH SCH (09:41)
[2020-06-19 09:51] LABS: BUN Creatinine Ratio 16.2 (10-20); Creatinine Clr Calc Pharmacy 102.9 ml/min; Est GFR (African American) 84.8; Est GFR (Non-African American) 73.2
--- NOTE | 2020-06-19 13:54 | XCELERA ---
[id number]
--- NOTE | 2020-06-19 14:48 | Electrocardiogram Report ---
Test Reason : Blood Pressure : / mmHG Vent. Rate : 094 BPM Atrial Rate : 094 BPM P-R Int : 166 ms QRS Dur : 086 ms QT Int : 394 ms P-R-T Axes : 070 070 080 degrees QTc Int : 492 ms Normal sinus rhythm Right atrial enlargement Prolonged QT Abnormal ECG When compared with ECG of 28-MAR-2019 10:35, No significant change was found Confirmed by Salvatore Duarte ([id number]) on 06/19/2020 2:48:23 PM Referred By: REFERRED SELF Confirmed By:Salvatore Duarte
[2020-06-19] MEDS: PIPERACILLIN/TAZOBACTAM 4.5 GM in DEXTROSE 5% 100 ML IV SCH ×2 (15:41→22:10)
[2020-06-19] MEDS ORDERED: IBUPROFEN 800 MG TAB PO PRN (19:30)
[2020-06-19] MEDS: GABAPENTIN 100 MG CAP PO SCH (22:05)
--- NOTE | 2020-06-20 04:40 | Billing Data ---
Date of Service June 20, 2020 Coding Level of Care Code 53644 Initial Inpt Care Lvl 3
[2020-06-20] MEDS: DAPTOmycin 350 MG in SYRINGE 0 ML IV SCH (05:03)
[2020-06-20] MEDS: HEPARIN SOD 5,000 UNIT/0.5 ML VIAL SQ SCH ×2 (05:54→13:57)
[2020-06-20] MEDS: PIPERACILLIN/TAZOBACTAM 4.5 GM in DEXTROSE 5% 100 ML IV SCH ×2 (05:59→14:00)
[2020-06-20] MEDS: FLUTICASONE/VILANTEROL 200/25MCG 14 PUFFS/INHALER INH SCH (09:15)
[2020-06-20] MEDS: BuPROPion SR 100 MG TABCR PO SCH (09:15)
[2020-06-20] MEDS: GABAPENTIN 100 MG CAP PO SCH ×2 (09:15→13:55)
[2020-06-20] MEDS: OXYBUTYNIN CHLORIDE XL 5 MG TABCR PO SCH (09:15)
[2020-06-20] MEDS: FUROSEMIDE 40 MG in SYRINGE 0 ML IV SCH (09:17)
--- NOTE | 2020-06-28 16:58 | Discharge Summary ---
Date of Service June 20, 2020 Admission HPI Per Admitting Provider Laine is a 49-year-old female with a past medical history of asthma, poorly controlled, IBS, obstructive sleep apnea pending CPAP equipment, hypertension, obesity, and arthritis who presents with 40 pound weight gain over several weeks and increasing fatigue and shortness of breath. She reports she is also had 1 month of severe right ear and neck pain which has not been improving with conservative treatment. She reports that her symptoms began several weeks ago and she has had slow progressive increase in swelling in her legs and feet. She reports she has not had any dietary indiscretions and "salt is not allowed in my house ". Nonetheless she has had increasing bilateral lower leg swelling which have become tender, stretch, and painful bilaterally in the last few weeks. She has noted an increased shortness of breath while walking and decreased exercise tolerance. She occasionally feels her breathing is tight, like she experiences with asthma exacerbations and these episodes are increasing in frequency and with less and less exercise. She is now only able to walk through the store before she feels very winded. She denies chest pain. She is not had a cough. She had one episode of presyncope many months ago, but otherwise denies syncope, presyncope, palpitations. She denies dysuria, but endorses recent urinary incontinence for which she was supposed to follow-up with urology but has had an appointment yet due to COVID. She is also had severe right ear pain extending into her neck for about 1 month. She denies taking any antibiotic treatment for this, but reports that the pain is constant. It extends from the inner ear, border of the ear, and [facility] down her neck. She feels that it is slightly tight and swollen. She denies any fever, chills, sweats. She has not had any trismus, but endorses some upper tooth pain. Denies oral discharge/purulence/foul taste. She is able to rotate her neck, but notes that the right side feels tender. She denies ear discharge, loss of balance, and loss of hearing. She has a extensive family history of early heart disease with congestive heart failure and reduced ejection fraction/cardiomyopathies. History: Reviewed Surgical history: Reviewed Allergies: Reviewed. Of note patient reports she has had penicillins and penicillin related drugs before, with no reaction. She is not aware of ever having cefadroxil. Medications: Reviewed CODE STATUS: Full code, discussed with patient Principal Diagnosis tooth pain Discharge Exam General: A&Ox3. NAD. Cooperative. HEENT: Atraumatic, normocephalic. Pulls equal and reactive to light and accommodation, visual acuity grossly intact. TMs without perforation, effusion, erythema, purulence, or injection bilaterally. Ear canals clear bilaterally. Patient with right sided zone 3 tenderness with some swelling appreciated. No uvular deviation, no airway swelling. No stridor. Pulm: CTAB A&P. -wheezes, -rales, -rhonchi. Symmetrical chest rise. No increase work of breathing. No respiratory distress. Cardiac: RRR, -mrg. Radial pulses intact and symmetrical. Abdominal: Bees, nontender, nondistended, soft. BS present. Extremities: Swollen, pa, warm, tender bilaterally and symmetrically. No clear demarcation. Pitting edema at the ankles. DP pulses intact. 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 Sensation to soft touch intact in fingers and toes bilaterally without deficit. Discharge Data Allergies Allergy/AdvReac Type Severity Reaction Status Date / Time buprenorphine [From Suboxone] Allergy Severe Throat Verified 06/26/20 09:29 swells, hives naloxone [From Suboxone] Allergy Severe Throat Verified 06/26/20 09:29 swells, hives blueberry Allergy Intermediate HIVES Verified 06/26/20 09:29 tramadol Allergy Intermediate HIVES Verified 06/26/20 09:29 latex Allergy Mild SKIN Verified 06/26/20 09:29 PEELING cefadroxil Allergy Rash Verified 06/26/20 09:29 MOLDS Allergy Severe SWELLING/HI Uncoded 06/26/20 09:29 VES CHEAP METAL Allergy Intermediate SKIN Uncoded 06/26/20 09:29 IRRITATION/SWELLING Consultations 06/18/20 23:28 ED Decision to Admit Stat Ordered Studies 06/18/20 20:41 CT angio chest PE protocol Urgent 06/19/20 00:56 CT soft tissue neck wo con Urgent Hospital Course (1) Volume overload: Laine is a 49-year-old female with a past medical history of asthma, poorly controlled, IBS, obstructive sleep apnea pending CPAP equipment, hypertension, obesity, and arthritis who presents with 40 pound weight gain over several weeks and increasing fatigue and shortness of breath. She reports she is also had 1 month of severe right ear and neck pain which has not been improving with conservative treatment. Bilateral leg swelling with 40 pound weight gain, strong family history of HFrEF Lungs without edema on x-ray Legs bilaterally swollen with weight gain as above -No signs of heart failure. Possible diastolic dysfunction. will defer to PCP. Asthma Moderate to poorly controlled outpatient Continue budesonide/remainder all inhaler Nebs every 4 hours as needed No wheezing at time of assessment, defer steroids at this time -WILL RECOMMEND close followup and frequent outpatient visits to help get this under control. Right ear pain, concern for neck space infection Patient thought she had a right ear infection for 1 month with dental pain No trismus, uvular deflection, airway compromise but external fullness in the V3 distribution with severe pain is appreciated on exam CTsoft tissue ordered negative for abscess. will place on antibiotics. Patient will benefit from seeing Maxillofacial or dentist. will discharge on gabapentin. High NSAID use Patient had been taking 1600 mg of ibuprofen daily, lisinopril/hydrochlorothiazide daily, in addition to Toradol in the ED -Suspicion patient may develop KEY, BMP improved LEYDI CPAP nightly ordered (2) Hypertensive urgency: (3) Dyspnea: (4) Elevated brain natriuretic peptide (BNP) level: (5) Skin ulcer of female breast: (6) Post op infection: (7) Dehiscence of wound: (8) Fall: (9) Left leg pain: (10) Aftercare following knee joint replacement surgery: (11) Allergic reaction: (12) Allergic rhinitis: (13) Edema of both legs: Total Time Total Time Spent Total Time Spent (In Minutes): 32 Discharge Plan Discharge Items Patient Disposition: Home - Self-Care Reason For Visit: CHF, FLUID OVERLOAD Discharge Diagnosis: Tooth pain Activity: Resume your previous activity Non-emergency contact: Primary Care Provider Call non-emergency contact if: you have any medication questions Follow-up/Referrals: Titi Hinojosa CRNP [Primary Care Provider] - Diet: Regular Addtl Attending Provider Instructions: will recommend to followup with dentist or maxillofacial surgeon. will continue with gabapentin until tooth is removed. will also continue on antibiotics for 7 days. Check bmp in 1 week Pending Studies at Discharge: No Stand-Alone Forms: [place], Smoking Cessation Medications and DC Order Prescriptions: New ibuprofen 800 mg Tablet 800 mg PO TID PRN (Reason: pain) Qty: 15 RF: 0 gabapentin 100 mg Capsule 100 mg PO TID Qty: 45 RF: 0 lisinopril 20 mg tablet 20 mg PO DAILY Qty: 30 RF: 0 Continued albuterol sulfate [Ventolin HFA] 90 mcg/actuation HFA aerosol inhaler 2 puff INHALATION QID PRN (Reason: SHORT OF BREATH) Qty: 18 RF: 1 bupropion HCl 100 mg tablet sustained-release 12 hr 100 mg PO DAILY Qty: 90 RF: 2 oxybutynin chloride 10 mg tablet extended release 24hr 10 mg PO DAILY Qty: 30 RF: 3 azelastine 137 mcg (0.1 %) aerosol,spray See Rx Instructions .ROUTE .COMPLEX Qty: 90 RF: 4 hydroxyzine HCl 50 mg tablet 50 mg PO TID PRN (Reason: nausea and vomiting) Qty: 90 RF: 0 ferrous sulfate 325 mg (65 mg iron) tablet 325 mg PO .COMPLEX Qty: 90 RF: 2 celecoxib [Celebrex] 200 mg capsule 200 mg PO BID Qty: 60 RF: 5 montelukast [Singulair] 10 mg tablet 10 mg PO HS Qty: 90 RF: 3 budesonide-formoterol [Symbicort] 160-4.5 mcg/actuation HFA aerosol inhaler 1 puffs INH BID Qty: 10.2 RF: 1 acetaminophen [Tylenol Extra Strength] 500 mg tablet 1,000 mg PO Q8 PRN (Reason: Fever Or Pain) RF: 0 diclofenac sodium 75 mg Tablet,Delayed Release (Dr/Ec) 75 mg PO BID RF: 0 ondansetron 4 mg tablet,disintegrating 4 mg PO Q6H PRN (Reason: nausea and vomiting) Qty: 10 RF: 0 Linzess 290 mcg Capsule 290 mcg PO DAILY RF: 0 Discontinued lisinopril-hydrochlorothiazide 20-12.5 mg tablet 1 tab PO DAILY Qty: 90 RF: 1 No Action furosemide 40 mg tablet 40 mg PO DAILY Qty: 30 RF: 1 metoprolol succinate 25 mg tablet extended release 24 hr 12.5 mg PO DAILY Qty: 30 RF: 2 Discharge Orders: Discharge Order (Routine); Ordered 06/20/20 Ordered By: Alexis Mishra Admission Data Admit Date/Time: 06/19/20 00:56 Attending Provider: Alexis Mishra Admit Provider: Samy Moe Primary Care Provider: Titi Hinojosa Other Providers: Andrew Ha Other Interventions: Discharge Summary Assessment (RN) Last Done: 06/20/20 14:24 Coding Level of Care Code 08267 OBS Care - Discharge Diagnoses Volume overload E87.70 Hypervolemia type: unspecified Hypertensive urgency I16.0 Dyspnea R06.00 Dyspnea type: unspecified Elevated brain natriuretic peptide (BNP) level R79.89 Skin ulcer of female breast N61.1 Post op infection T81.40XA Dehiscence of wound T81.30XA Fall W19.XXXA Encounter type: initial encounter Left leg pain M79.605 Aftercare following knee joint replacement surgery Z47.1; Z96.659 Allergic reaction T78.40XA Allergic rhinitis J30.9 Edema of both legs R60.0
== END 2020-06-20 17:02 | disposition home or self-care (01) ==
LOC: ED 20:18 → 2W 06-19 00:56 → SUATTDRO 06-19 00:56 → INTOOBSV 06-19 00:56 → 2W 06-19 02:58

== ENCOUNTER 2023-03-15 07:02 | Observation (INO) ==
--- NOTE | 2023-03-06 15:10 | PAT Medication Instructions ---
Medication Instructions Date of Service March 06, 2023 Home Medications Medication Instructions Recorded tretinoin 0.025 % topical cream 1 applic topical .COMPLEX #45 grams 04/27/22 ketoconazole 2 % shampoo 1 applic topical .COMPLEX #120 mL 08/04/22 albuterol sulfate 90 mcg/actuation 2 puff inhalation QID PRN SHORT OF 10/17/22 aerosol inhaler (Ventolin HFA) BREATH #18 grams budesonide-formoterol HFA 160 2 puff inhalation QAM #10.2 grams 10/17/22 mcg-4.5 mcg/actuation aerosol inhaler (Symbicort) bupropion HCl 150 mg tablet,12 hr 150 mg PO BID 1 month #180 ea 10/17/22 sustained-release gabapentin 100 mg capsule 100 mg PO TID #360 caps 10/17/22 hydroxyzine HCl 50 mg tablet 50 mg PO TID PRN anxiety #90 tabs 10/17/22 losartan 100 1 tab PO QAM #90 tabs 10/19/22 mg-hydrochlorothiazide 25 mg tablet ergocalciferol (vitamin D2) 1,250 1,250 mcg PO .weekly #12 caps 10/20/22 mcg (50,000 unit) capsule montelukast 10 mg tablet 10 mg PO HS #90 tabs 11/17/22 (Singulair) cyclobenzaprine 5 mg tablet 5 mg PO TID PRN muscle spasm #45 12/08/22 tabs betamethasone valerate 0.1 % 1 applic topical TID PRN skin 02/21/23 topical cream irritation #45 grams furosemide 40 mg tablet (Lasix) 40 mg PO DAILY PRN edema #30 tabs 02/21/23 metoprolol succinate 25 mg tablet,extended release 24 hr 12.5 mg PO QAM oxybutynin chloride 10 mg tablet,extended release 24 hr 10 mg PO QAM tretinoin 0.025 % topical cream 1 applic topical .COMPLEX ketoconazole 2 % shampoo 1 applic topical .COMPLEX albuterol sulfate 90 mcg/actuation aerosol inhaler (Ventolin HFA) 2 puff inhalation QID PRN SHORT OF BREATH budesonide-formoterol HFA 160 mcg-4.5 mcg/actuation aerosol inhaler (Symbicort) 2 puff inhalation QAM bupropion HCl 150 mg tablet,12 hr sustained-release 150 mg PO BID gabapentin 100 mg capsule 100 mg PO TID hydroxyzine HCl 50 mg tablet 50 mg PO TID PRN anxiety losartan 100 mg-hydrochlorothiazide 25 mg tablet 1 tab PO QAM ergocalciferol (vitamin D2) 1,250 mcg (50,000 unit) capsule 1,250 mcg PO .weekly montelukast 10 mg tablet (Singulair) 10 mg PO HS cyclobenzaprine 5 mg tablet 5 mg PO TID PRN muscle spasm betamethasone valerate 0.1 % topical cream 1 applic topical TID PRN skin irritation furosemide 40 mg tablet (Lasix) 40 mg PO DAILY PRN edema ondansetron HCl 4 mg tablet 4 mg PO Q8H PRN Nausea amlodipine 5 mg tablet (Norvasc) 5 mg PO QAM cholecalciferol (vitamin D3) 25 mcg (1,000 unit) capsule 25 mcg PO QAM clindamycin phosphate 1 % lotion 1 applic topical Q OTHER DAY fluoxetine 20 mg capsule 20 mg PO QAM pantoprazole 40 mg tablet,delayed release 40 mg PO QAM STOP taking 24 hours before surgery tretinoin 0.025 % topical cream 1 applic topical .COMPLEX ketoconazole 2 % shampoo 1 applic topical .COMPLEX betamethasone valerate 0.1 % topical cream 1 applic topical TID PRN skin irritation clindamycin phosphate 1 % lotion 1 applic topical Q OTHER DAY DO NOT take the morning of surgery oxybutynin chloride 10 mg tablet,extended release 24 hr 10 mg PO QAM hydroxyzine HCl 50 mg tablet 50 mg PO TID PRN anxiety losartan 100 mg-hydrochlorothiazide 25 mg tablet 1 tab PO QAM ergocalciferol (vitamin D2) 1,250 mcg (50,000 unit) capsule 1,250 mcg PO .weekly cyclobenzaprine 5 mg tablet 5 mg PO TID PRN muscle spasm furosemide 40 mg tablet (Lasix) 40 mg PO DAILY PRN edema cholecalciferol (vitamin D3) 25 mcg (1,000 unit) capsule 25 mcg PO QAM Take morning of surgery With a small sip of water, OTHERWISE NOTHING TO EAT OR DRINK AFTER MIDNIGHT: metoprolol succinate 25 mg tablet,extended release 24 hr 12.5 mg PO QAM albuterol sulfate 90 mcg/actuation aerosol inhaler (Ventolin HFA) 2 puff inhalation QID PRN SHORT OF BREATH (use if needed; please bring rescue inhaler with you to hospital day of surgery if possible) budesonide-formoterol HFA 160 mcg-4.5 mcg/actuation aerosol inhaler (Symbicort) 2 puff inhalation QAM bupropion HCl 150 mg tablet,12 hr sustained-release 150 mg PO BID gabapentin 100 mg capsule 100 mg PO TID furosemide 40 mg tablet (Lasix) 40 mg PO DAILY PRN edema (if needed) ondansetron HCl 4 mg tablet 4 mg PO Q8H PRN Nausea (if needed) amlodipine 5 mg tablet (Norvasc) 5 mg PO QAM fluoxetine 20 mg capsule 20 mg PO QAM pantoprazole 40 mg tablet,delayed release 40 mg PO QAM Take evening before surgery albuterol sulfate 90 mcg/actuation aerosol inhaler (Ventolin HFA) 2 puff inhalation QID PRN SHORT OF BREATH (if needed) bupropion HCl 150 mg tablet,12 hr sustained-release 150 mg PO BID gabapentin 100 mg capsule 100 mg PO TID hydroxyzine HCl 50 mg tablet 50 mg PO TID PRN anxiety (if needed) montelukast 10 mg tablet (Singulair) 10 mg PO HS cyclobenzaprine 5 mg tablet 5 mg PO TID PRN muscle spasm (if needed) furosemide 40 mg tablet (Lasix) 40 mg PO DAILY PRN edema (if needed) ondansetron HCl 4 mg tablet 4 mg PO Q8H PRN Nausea (if needed) Other Notes If you have any questions please call us at [phone] or [phone] or [phone] or [phone]
--- NOTE | 2023-03-07 09:15 | Anesthesiology Consultation ---
Date of Service March 07, 2023 Assessment & Plan (1) Encounter for pre-operative examination: - generalized pruritus after hysterectomy. - Outpatient joint assessment: Patient is currently scheduled for inpatient pathway. If re-evaluated pending system levels during current pandemic/surgeon requests outpatient pathway, patient is not acceptable candidate for outpatient joint program from anesthesia standpoint. Chart Review Chart Review: Acceptable Risk for Surgery and Patient seen in Pre Admission Testing Teaching & Discussion Pre-Anesthesia Teaching/Discussion Notes: Instructed NPO after midnight before s urgery, except medications with 15 cc of water. Medication instructions provided according to the PAT guidelines. History Surgery Operation Date: 03/15/23 12:40 Proposed Procedures p Right Total Knee Arthroplasty - Jordan Flores MD Height/Weight Height: 5 ft 2 in Weight: 126.552 kg Allergies Allergy/AdvReac Type Severity Reaction Status Date / Time buprenorphine [From Suboxone] Allergy Severe Throat Verified 03/06/23 11:48 swells, hives naloxone [From Suboxone] Allergy Severe Throat Verified 03/06/23 11:48 swells, hives blueberry Allergy Intermediate HIVES Verified 03/06/23 11:48 nickel Allergy Intermediate SKIN Verified 03/06/23 11:48 IRRITATION/SWELLING tramadol Allergy Intermediate HIVES/nause Verified 03/06/23 11:48 a cefadroxil Allergy Mild Rash Verified 03/06/23 11:48 latex Allergy Mild SKIN Verified 03/06/23 11:48 PEELING MOLDS Allergy Severe SWELLING/HI Uncoded 03/06/23 11:48 VES Medications Home Medications Medication Instructions Recorded Confirmed Last Taken metoprolol succinate 25 mg 12.5 mg PO QAM 12/15/21 03/06/23 03/16/22 tablet,extended release 24 hr oxybutynin chloride 10 mg 10 mg PO QAM 12/15/21 03/06/23 03/16/22 tablet,extended release 24 hr tretinoin 0.025 % topical cream 1 applic topical .COMPLEX #45 grams 04/27/22 03/06/23 Unknown ketoconazole 2 % shampoo 1 applic topical .COMPLEX #120 mL 08/04/22 03/06/23 Unknown albuterol sulfate 90 mcg/actuation 2 puff inhalation QID PRN SHORT OF 10/17/22 03/06/23 Unknown aerosol inhaler (Ventolin HFA) BREATH #18 grams budesonide-formoterol HFA 160 2 puff inhalation QAM #10.2 grams 10/17/22 03/06/23 Unknown mcg-4.5 mcg/actuation aerosol inhaler (Symbicort) bupropion HCl 150 mg tablet,12 hr 150 mg PO BID 1 month #180 ea 10/17/22 03/06/23 Unknown sustained-release gabapentin 100 mg capsule 100 mg PO TID #360 caps 10/17/22 03/06/23 Unknown hydroxyzine HCl 50 mg tablet 50 mg PO TID PRN anxiety #90 tabs 10/17/22 03/06/23 Unknown losartan 100 1 tab PO QAM #90 tabs 10/19/22 03/06/23 Unknown mg-hydrochlorothiazide 25 mg tablet ergocalciferol (vitamin D2) 1,250 1,250 mcg PO .weekly #12 caps 10/20/22 03/06/23 Unknown mcg (50,000 unit) capsule montelukast 10 mg tablet 10 mg PO HS #90 tabs 11/17/22 03/06/23 Unknown (Singulair) cyclobenzaprine 5 mg tablet 5 mg PO TID PRN muscle spasm #45 12/08/22 03/06/23 Unknown tabs betamethasone valerate 0.1 % 1 applic topical TID PRN skin 02/21/23 03/06/23 Unknown topical cream irritation #45 grams furosemide 40 mg tablet (Lasix) 40 mg PO DAILY PRN edema #30 tabs 02/21/23 03/06/23 Unknown ondansetron HCl 4 mg tablet 4 mg PO Q8H PRN Nausea 02/21/23 03/06/23 Unknown amlodipine 5 mg tablet (Norvasc) 5 mg PO QAM 03/06/23 03/06/23 Unknown cholecalciferol (vitamin D3) 25 25 mcg PO QAM 03/06/23 03/06/23 Unknown mcg (1,000 unit) capsule clindamycin phosphate 1 % lotion 1 applic topical Q OTHER DAY 03/06/23 03/06/23 Unknown fluoxetine 20 mg capsule 20 mg PO QAM 03/06/23 03/06/23 Unknown pantoprazole 40 mg tablet,delayed 40 mg PO QAM 03/06/23 03/06/23 Unknown release Additional Notes: Provided medication instructions were corrected that patient is NOT to take furosemide day of surgery. She verbalized full understanding and agreement, denied questions or concerns. Past Medical History Medical History (Updated 03/07/23 @ 09:36 by Rosmery Brock PA-C) Anxiety Asthma well controlled at present, rare res inh use Creatinine elevation Depression Heart enlargement per pt History of anesthesia reaction states woke up itchy after hysterectomy--no other issues with anesthesia with prior surgeries or surgeries after History of COVID-19 diagnosed 09/2020 @ [facility]--denies hospitalization--no issues now Hypertension controlled, stable per ptp IBS (irritable bowel syndrome) Iron deficiency anemia Lumbar disc disorder Migraine Morbid obesity BMI 55.7 Obstructive sleep apnea getting fitted for device in March Overactive bladder Prediabetes diet controlled Rheumatoid arthritis Seasonal allergies Urinary incontinence in female Patient denies h/o stroke, seizures, heart attack, heart failure, blood clots or blood transfusions. Exercise / Class Metabolic Activity III < 4 Walking/Shop/Light housework (< 8 steps in home; denies chest discomfort or shortness of breath with usual activities) Past Family History Family History Father Family history of esophageal cancer Heart disease Lung cancer Family/Other Breast cancer maternal cousin Multiple sclerosis paternal side Aunt Breast cancer maternal Sister Colorectal cancer Family/Other Ovarian cancer niece and 2 of mothers nieces Grandfather (Paternal) Cirrhosis Other No family history of adverse response to anesthesia Denies family history of Prostate cancer Myocardial infarction Past Surgical History Surgical History H/O bilateral breast reduction surgery H/O gastric bypass 02/09/23 [facility] [place] History of bilateral tubal ligation History of carpal tunnel surgery bilat History of section x1 History of cholecystectomy History of colonoscopy History of esophagogastroduodenoscopy (EGD) History of hysterectomy History of left knee surgery (~05/11/19) Left knee quadriceps tendon and medial retinacular repair with irrigation of knee joint repair of skin LMA#4. History of nasal septoplasty History of tooth extraction states all teeth are removed S/P panniculectomy Status post left knee replacement (~04/11/19) 04/11/19 SAB L3-L4 1 attempt + PNB. Past Anesthesia History No Family Hx of Anesthesia Complications and Other (generalized itchiness after hysterectomy, denies rash, shortness of breath, dysphagia or swelling) History of PONV History of PONV and Hx of Motion Sickness Social History Smoking Status: Former smoker tobacco type: cigarettes Do You Dip or Chew Tobacco: No Smoking End Date: 13 yrs ago Hx Alcohol Use: No Hx Substance Use: No substance use type: does not use Substance Use Type Other:: oxycodone Last Used Substance: Unknown Review of Systems Patient denies chest pain, shortness of breath, dyspnea on exertion, reflux, fever, chills, cough, wheezing, or palpitations. Physical Exam Vital Signs Vitals BP 123/72 P 67 TEMP 97.8 SP02 99% on RA RESP 17 Physical Full cervical extension range of motion without pain TMD < 3 finger breadths Mallampati Score 3 Dentition: edentulous, full upper and lower dentures Lungs: normal respiratory effort. Clear throughout to auscultation, no adventitious breath sounds Cardiac: regular rate and rhythm, no murmurs noted Carotid arteries: negative bruit bilat Lab Results Anesthesia Preop Results Results Anesthesia Widget: WBC 6.05 K/ul (4.8-10.8) 02/21/23 Hgb 15.8 g/dl (12.0-16.0) 02/21/23 Hct 47.3 % (37.0-47.0) H 02/21/23 Plt 408 K/uL (130-400) H 02/21/23 Na 141 mmol/L (136-145) 03/07/23 K 4.4 mmol/L (3.5-5.1) 03/07/23 Cl 108 mmol/L (98-107) H 03/07/23 CO2 29 mmol/L (21-32) 03/07/23 BUN 13 mg/dl (6-23) 03/07/23 Creat 0.98 mg/dl (0.6-1.2) 03/07/23 Glucose Level 86 mg/dl (70-99(Fasting)) 03/07/23 PT 10.9 Seconds (9.0-12.0) 03/07/23 PTT 27.3 Seconds (21.0-31.0) 03/07/23 INR 1.0 (0.9-1.1) 03/07/23 Urine Color Dark Yellow 03/07/23 Urine Appearance Cloudy (Clear) A 03/07/23 Urine pH 5.5 (4.5-7.5) 03/07/23 Urine Specific [place] 1.031 (1.000-1.030) H 03/07/23 Urine Protein Trace (Negative) H 03/07/23 Urine Glucose (UA) Negative (Negative) 03/07/23 Urine Ketones Trace (Negative) H 03/07/23 Urine Blood Negative (Negative) 03/07/23 Urine Nitrite Negative (Negative) 03/07/23 Urine Bilirubin 1+ (Negative) H 03/07/23 Urine Urobilinogen Negative (Negative) 03/07/23 Urine Leukocyte Esterase Negative (Negative) 03/07/23 Urine WBC (Auto) 1-5 /hpf (0-5) 03/07/23 Urine RBC (Auto) 0-4 /hpf (0-4) 03/07/23 Urine Hyaline Casts (Auto) 0 /lpf (0-5) 03/07/23 Urine Epithelial Cells (Auto) >30 /lpf (0-5) H 03/07/23 Urine Bacteria (Auto) 1+ (Negative) H 03/07/23 Urine Yeast Not Reportable 03/07/23 Blood Type O Positive 03/07/23 Antibody Screen NEGATIVE 03/07/23 Testing Laboratory Results Surgeon's office made aware of abnormal UA. Electrocardiogram Date: 03/07/23 NSR, rate 61 bpm Cannot rule out anterior infarct (cited on or before 03/07/23) When compared with 09/15/21 EKG, ventricular rate has decreased by 31 bpm Chest X-Ray Date: 01/13/23 No acute cardiopulmonary abnormality Echocardiogram Date: 06/19/20 EF 60-65% No regional wall motion abnormalities Borderline cLVH No significant valvular pathology LA mildly dilated Grade II diastolic dysfunction Cervical Spine Date: 11/25/22 No evidence of acute osseous abnormality Slight progression in degenerative findings in the lower cervical spine since 08/04/2018, including moderate left neural foraminal stenosis at C5-6. COVID-19 Risk Screen Screening Information COVID-19 Screen Date: 03/07/23 Exposure 21 Days Family/Household +COVID Last 21 Days: No Exposure 10 Days Any COVID Exposure Last 10 Days: No Symptoms Last 10 Days Experienced COVID Sx Last 10 Days: No + COVID 0-90 Days COVID + in Last 0-90 Days: No
--- NOTE | 2023-03-14 14:46 | History & Physical Report ---
Date of Service March 14, 2023 Assessment & Plan (1) Primary osteoarthritis of right knee: Plan: Treatment options discussed with patient. She has failed conservative measures and would like to proceed with surgical intervention. Risks, benefits and alternatives to surgery including but not limited to infection, DVT, pain, stiffness, need for revision surgery, damage to blood vessels, damage to nerves, PE, , were discussed with the patient and they wish to proceed. Plan on right total knee arthroplasty scheduled for 03/15/23 at [facility] with Dr. Flores. Plan on outpatient PT vs HHPT post op. Plan on Xarelto post op for DVT prophylaxis. All questions answered. Patient will follow up post op. History of Present Illness Chief Complaint: Right knee pain Primary Care Provider: LITTLE Reyes 52yo female with PMHx significant for anxiety, asthma, HTN, migraines, hx of left TKA, LEYDI, RA, morbid obesity s/p recent gastric bypass who presents with ongoing right knee pain. Pain is interfering with daily activities. She has failed conservative measures. She would like to proceed with surgical inter vention. Patient denies headaches, sweats, fevers, chills, double vision, blurred vision, cough, sore throat, dysphagia, chest pain, sob, wheezing, n/v/d/c, numbness, tingling, fatigue, urinary symptoms, mood disorders. ROS positive for right knee pain and stiffness. Allergies Allergy/AdvReac Type Severity Reaction Status Date / Time buprenorphine [From Suboxone] Allergy Severe Throat Verified 03/06/23 11:48 swells, hives naloxone [From Suboxone] Allergy Severe Throat Verified 03/06/23 11:48 swells, hives blueberry Allergy Intermediate HIVES Verified 03/06/23 11:48 nickel Allergy Intermediate SKIN Verified 03/06/23 11:48 IRRITATION/SWELLING tramadol Allergy Intermediate HIVES/nause Verified 03/06/23 11:48 a cefadroxil Allergy Mild Rash Verified 03/06/23 11:48 latex Allergy Mild SKIN Verified 03/06/23 11:48 PEELING MOLDS Allergy Severe SWELLING/HI Uncoded 03/06/23 11:48 VES Home Medications Medication Instructions Recorded Confirmed Type metoprolol succinate 25 mg 12.5 mg PO QAM 12/15/21 03/06/23 History tablet,extended release 24 hr oxybutynin chloride 10 mg 10 mg PO QAM 12/15/21 03/06/23 History tablet,extended release 24 hr tretinoin 0.025 % topical cream 1 applic topical .COMPLEX #45 grams 04/27/22 03/06/23 Rx ketoconazole 2 % shampoo 1 applic topical .COMPLEX #120 mL 08/04/22 03/06/23 Rx albuterol sulfate 90 mcg/actuation 2 puff inhalation QID PRN SHORT OF 10/17/22 03/06/23 Rx aerosol inhaler (Ventolin HFA) BREATH #18 grams budesonide-formoterol HFA 160 2 puff inhalation QAM #10.2 grams 10/17/22 03/06/23 Rx mcg-4.5 mcg/actuation aerosol inhaler (Symbicort) gabapentin 100 mg capsule 100 mg PO TID #360 caps 10/17/22 03/06/23 Rx hydroxyzine HCl 50 mg tablet 50 mg PO TID PRN anxiety #90 tabs 10/17/22 03/06/23 Rx losartan 100 1 tab PO QAM #90 tabs 10/19/22 03/06/23 Rx mg-hydrochlorothiazide 25 mg tablet ergocalciferol (vitamin D2) 1,250 1,250 mcg PO .weekly #12 caps 10/20/22 03/06/23 Rx mcg (50,000 unit) capsule montelukast 10 mg tablet 10 mg PO HS #90 tabs 11/17/22 03/06/23 Rx (Singulair) cyclobenzaprine 5 mg tablet 5 mg PO TID PRN muscle spasm #45 12/08/22 03/06/23 Rx tabs betamethasone valerate 0.1 % 1 applic topical TID PRN skin 02/21/23 03/06/23 Rx topical cream irritation #45 grams furosemide 40 mg tablet (Lasix) 40 mg PO DAILY PRN edema #30 tabs 02/21/23 03/06/23 Rx ondansetron HCl 4 mg tablet 4 mg PO Q8H PRN Nausea 02/21/23 03/06/23 History amlodipine 5 mg tablet (Norvasc) 5 mg PO QAM 03/06/23 03/06/23 History cholecalciferol (vitamin D3) 25 25 mcg PO QAM 03/06/23 03/06/23 History mcg (1,000 unit) capsule clindamycin phosphate 1 % lotion 1 applic topical Q OTHER DAY 03/06/23 03/06/23 History fluoxetine 20 mg capsule 20 mg PO QAM 03/06/23 03/06/23 History pantoprazole 40 mg tablet,delayed 40 mg PO QAM 03/06/23 03/06/23 History release bupropion HCl 150 mg tablet,12 hr 150 mg PO BID 1 month #180 ea 03/13/23 Rx sustained-release Past Med/Surg History Medical History (Updated 03/14/23 @ 14:44 by Malik Acevedo PA-C) Anxiety Asthma well controlled at present, rare res inh use Creatinine elevation Depression Heart enlargement per pt History of anesthesia reaction states woke up itchy after hysterectomy--no other issues with anesthesia with prior surgeries or surgeries after History of COVID-19 diagnosed 09/2020 @ [facility]--denies hospitalization--no issues now Hypertension controlled, stable per ptp IBS (irritable bowel syndrome) Iron deficiency anemia Lumbar disc disorder Migraine Morbid obesity BMI 55.7 Obstructive sleep apnea getting fitted for device in March Overactive bladder Prediabetes diet controlled Rheumatoid arthritis Seasonal allergies Urinary incontinence in female Surgical History H/O bilateral breast reduction surgery H/O gastric bypass 02/09/23 by [facility] History of bilateral tubal ligation History of carpal tunnel surgery bilat History of section x1 History of cholecystectomy History of colonoscopy History of esophagogastroduodenoscopy (EGD) History of hysterectomy History of left knee surgery (~05/11/19) Left knee quadriceps tendon and medial retinacular repair with irrigation of knee joint repair of skin LMA#4. History of nasal septoplasty History of tooth extraction states all teeth are removed S/P panniculectomy Status post left knee replacement (~04/11/19) 04/11/19 SAB L3-L4 1 attempt + PNB. Family History Father Family history of esophageal cancer Heart disease Lung cancer Family/Other Breast cancer maternal cousin Multiple sclerosis paternal side Aunt Breast cancer maternal Sister Colorectal cancer Family/Other Ovarian cancer niece and 2 of mothers nieces Grandfather (Paternal) Cirrhosis Other No family history of adverse response to anesthesia Denies family history of Prostate cancer Myocardial infarction Social History Smoking Status: Former smoker Tobacco Type: Cigarettes Age Started Using Tobacco: 12; Age Quit Using Tobacco: 22; Smoking End Date: 13 yrs ago; Second Hand Exposure: No; Do You Dip or Chew Tobacco: No; Tobacco Cessation Education Requested by Patient: No Hx Alcohol Use: No Hx Substance Use: No Preferred Language: Yemeni Communication Ability: Effective Visual Impairment: No Limitations Hearing Ability: Normal Splash Line Operator Required: No Beliefs That Will Affect Care: None marital status: Current Living Situation: Significant Other Current Living Situation Comment: LIVES ALONE current occupational status: disabled How many Children do You have: 2 Other Information That Helps Us Care for You: No Feels Safe at Home: Yes Safety Concerns: Feels Safe At This Time Childhood Exposure to Second-Hand Smoke: No Diet: regular Diet Comment: regular caffeine: Yes during the past year weight has: remained stable Dental Care, Regularly: Yes Physical Activity Frequency: Does not Exercise Seatbelt Use: never Sunscreen Use: No Assistive Devices: Denture - Upper, Denture - Lower and Glasses Review of Systems All systems reviewed & are unremarkable except as noted in HPI & below Physical Exam Constitutional: well developed and well nourished; no acute distress Eyes: PERRL, conjunctivae normal, anicteric sclerae ENMT: external ear and nose normal, oropharynx normal Neck: trachea midline, no thyromegaly Respiratory: normal respiratory effort, lungs clear to auscultation Cardiovascular: RRR, no murmur, no edema Musculoskeletal: Knee ROM R * Active ROM - Flexion: 115 degrees, Extension: 0 degrees, Factors: pain, Description: flexion. Passive ROM - Factors: pain, Description: flexion. Knee ROM L * Active ROM - Flexion: 130 degrees, Extension: 0 degrees, Factors: normal, Description: active pain free range of motion. Passive ROM - Factors: normal, Description: passive pain free range of motion. Strength LE Normal Strength Description - Normal lower extremity: Bilateral. Knee * Inspection - Gait: antalgic. Alignment - Right: varus, Left: neutral. Ecchymosis - Right: none, Left: none. Effusion - Right: mild. Skin - Left: surgical scars. Swelling - Right: mild, Left: none. Maximum tenderness - Right: medial joint line, Left: non-tender. Patella exam - Patella position - Right: lateral, Left: neutral. Knee Comments Widened scar on left Knee Normal Inspection - Atrophy - Right: Absent, Left: Absent. Skin - Right: Normal. Lon's - lateral - Right: Negative, Left: Negative. [facility]'s - medial - Right: Negative, Left: Negative. Anterior drawer - Right: Negative, Left: Negative. Valgus stress - Right: Negative, Left: Negative. Varus stress - Right: Negative, Left: Negative. Extensor lag - Right: Normal, Left: Normal. Neurovascular LE Normal Neurovascular examination including reflexes, sensation, and pulses is within normal limits. Skin: no rashes, warm and dry Neurologic: patellar DTR's 2+ bilat, sensation intact Psychiatric: A+Ox3, euthymic affect Results & Data Diagnostic Findings X-rays, 4 views right knee, demonstrate that she has a varus knee, with substantial subluxation of the femur medially on the tibia. Bone on bone in the medial compartment, with subchondral sclerosis and tricompartmental osteophytes. The patella is centrally aligned. She has a well-aligned [employer] Journey knee replacement on her opposite knee. We did get markers for preoperative templating purposes.
[~2023-03-15 07:02] MED LIST changes: +ACETAMINOPHEN 500 MG TAB PO SCH; -BIOT1TAB2 PO; +BUPIVACAINE 0.5 % 5 MG/1 ML PF 10ML VIAL ONE; -BUPR100T8 PO; +CeleBREX 200 MG CAP PO SCH; +FAMOTIDINE 20 MG TAB PO SCH; +GABAPENTIN 900 MG DOSE PO SCH; -LISI-788 PO; +LR 15ML/HR IV SCH; +METOCLOPRAMIDE HCL 10 MG TABLET PO SCH; -MONT1TAB3 PO; -OXYC-737 PO; -PHEN15CA PO; -PRED50TA PO; +ROPIVACAINE 0.5% 5 MG/ML 30 ML VIAL ONE; +ROPIVACAINE 0.5% HCL/PF 150 MG, BUPIVACAINE 0.75% MPF 20 ML, EPINEPHrine 30MG/30ML (OR ... INSTIL SCH; +TRANEXAMIC ACID 1,000 MG **IV Intra-op IV SCH; +TRANEXAMIC ACID 1,000 MG **IV Pre-op IV SCH; +dexAMETHasone 4 MG TAB PO SCH
[2023-03-15] MEDS ORDERED: PROPOFOL IV EMULSION 10 MG/ML 100 ML VIAL IV ONE (08:11)
[2023-03-15] MEDS ORDERED: fentaNYL citrate PF 100 MCG/2 ML VIAL ONE (08:12)
[2023-03-15] MEDS ORDERED: MIDAZOLAM HCL 1 MG/ML 2ML VIAL ONE (08:13)
[2023-03-15] MEDS ORDERED: fentaNYL citrate PF 100 MCG/2 ML VIAL IV PRN (09:31)
[2023-03-15] MEDS ORDERED: ATROPINE SULFATE 0.1 MG/ML 10ML SYR IV PRN (09:31)
[2023-03-15] MEDS ORDERED: ePHEDrine sulfate 50 MG/ML AMP IV PRN (09:31)
[2023-03-15] MEDS ORDERED: ONDANSETRON INJ 2 MG/ML 2 ML VIAL IV PRN ×2 (09:31→14:36)
--- NOTE | 2023-03-15 09:53 | History & Physical Bridge Note ---
Date of Service March 15, 2023 History & Physical Bridge Note I have examined the patient, reviewed the History & Physical and in the interval since the performance of the History & Physical I have noted the following changes of clinical significance: no changes noted
[2023-03-15] MEDS ORDERED: ORTHO JOINT ANESTHETIC ONE (10:16)
[2023-03-15] MEDS ORDERED: ePHEDrine sulfate 50 MG/ML AMP ONE (11:49)
--- NOTE | 2023-03-15 13:08 | Operative Report ---
Post Operative Report Pre & Post Diagnosis Operation Date: 03/15/23 09:40 Pre-Op Diagnosis: Right Knee Osteoarthritis, morbid obesity BMI 50.9 Post-Op Diagnosis: Right Knee Osteoarthritis, morbid obesity BMI 50.9 I identified the patient and participated in the time-out.: Yes Procedure Operation Date: 03/15/23 09:40 Actual Procedures p Right Total Knee Arthroplasty(Right), caleb and Acticoat superficial wound VAC, increased difficulty morbid obesity BMI 50.9- Jordan Flores MD Surgeon Jordan Flores MD Tool Design Drafter Gregorio BOSCH Estimated Blood Loss 15 Findings Consistent with Post-Op Diagnosis Specimens Bone cuts Drains 2 Hemovac Anesthesia Type General Regional Complications none Disposition Disposition: Recovery Room Indications 52-year-old female with chronic progressive osteoarthritis in her right knee failed conservative management. Radiographs demonstrate she has a varus knee with tricompartment osteoarthritis [id number] medial compartment. Patient has successful left knee replacement. Description of Procedure The patient was taken to the operating room and anesthetized under spinal MAC regional block. Patient was placed supine on the the operating table. A pneumatic tourniquet was placed about the obese right upper thigh. The knee exam demonstrated obese thigh and leg and abdominal obesity. The involved leg was elevated exsanguinated with Esmarch bandage and the pneumatic tourniquet was raised to 350 millimeters mercury. A longitudinal incision was made across the anterior knee. Skin flaps were elevated. An incision was made into the medial retinaculum and extended up into the mid third of the quadriceps tendon and extended down to the tibial tubercle. Intra-articular findings demonstrated tricompartmental osteoarthritis mainly medial compartment and patellofemoral joint with grade 4 anteromedial osteoarthritis [id number]. The knee was exposed by excising cruciate ligaments and menisci. The infrapatellar fat pad was resected. The fat pad over the anterior femur at the upper aspect of the articular surface was resected for placement of the component in that area. A subperiosteal peel lateral release was performed around the patella. The Veliz [employer] Nephew journey 2.0 posterior stabilized total knee arthroplasty system was utilized for the procedure. The drill hole was made into the distal femur and shaft and the cutting guide was set to make a 5 degree valgus cut at a standard distal resection. The distal femoral cut was made. The femoral sizing guide was placed and the femur was sized for a 4 implant. The drill holes were placed in 3 degrees external rotation to match epicondylar axis. The size 4, 5 in 1 cutting block was placed. The anterior posterior and chamfer cuts were made. It was noted that the bone was very solid and hard. All remaining osteophytes were removed with a rongeur. The knee was extended and a free hand cut technique was performed to the patella. The patella with was measured and the width was reproduced using a 29 symmetrical patella component. Excess lateral facet was beveled off to prevent any impingement. 3 drill holes are made for the patella component pegs. The tibia was then subluxed. The external tibial cutting guide was positioned for posterior slope and a perpendicular cut to the long axis of the tibia. The guide was pinned in position and the proximal tibial cut was made with the oscillating saw. The size 3 tibial trial was externally rotated in line with the tibial tubercle and pinned in position. The punch for the stem was used. The femoral trial was inserted and centered the notch cutting devices were used and the collet was placed. Tibial trials were used for the insert. The size 9 trial gave balanced ligaments through full range of motion. Patella tracking was assessed with range of motion. The patella tracked with some slight tilt so I did a limited lateral release leaving the synovium intact and this allowed central patellar tracking.. The trials were removed. The Orthomix anesthetic cocktail was injected per protocol. The cut bone surfaces and soft tissue were copiously irrigated with pulsatile lavage saline solution. The final components were cemented with Refobacin cement. The final components were size 4 right posterior stabilized with a Regeneten 2.0 femoral component, size 3 right tibial component, 9 posterior stabilized tibial polyethylene and a 29 symmetrical patella polyethylene. After the cement cured, the Betadine soak was used for 3 minutes. The knee was then copiously irrigated with pulsatile lavage saline solution. 2 drains were brought out laterally connected to Hemovac. The quadriceps tendon and medial retinaculum were closed with int errupted [id number] #1 Vicryl sutures. Interrupted #2 FiberWire sutures were placed around the VMO medial retinacular area . The knee was taken through full range of motion and repair was secure. Knee range of motion was 0 through 125 degrees. the subcutaneous tissues were closed with 2-0 Vicryl sutures. The skin was closed with javy. A caleb and Acticoat superficial wound VAC was applied. The tourniquet was let down and the patient had good capillary refill to the extremity. The patient tolerated the procedure well. My physician assistant distribution manager Malik BOSCH participated as transportation assistant and was integral part in all aspects of the procedure including prepping, draping, leg positioning, soft tissue retraction, instrument management and assisted in the closure ,dressings application and will participate in postoperative care the patient. I attest to the content of the Intraoperative Record and any orders documented therein. Any exceptions are noted below.
--- NOTE | 2023-03-15 14:00 | XRay Report ---
TWO VIEWS RIGHT KNEE CLINICAL HISTORY: Postoperative examination. FINDINGS: AP and crosstable lateral portable views of the right knee are obtained. A right knee arthr oplasty is in near anatomic alignment. There has been undersurface remodeling of the patella. No acut e fracture is seen. There are expected postoperative changes around the knee including skin clips, a surgical drain, soft tissue edema, and subcutaneous gas. IMPRESSION: Expected postoperative changes status post right knee arthroplasty. No acute fracture is seen. ACT 112: Negative or not required by law. Electronically signed by: Melvin Sheets M.D. 03/15/2023 1:59 PM
--- NOTE | 2023-03-15 14:01 | Anesthesiology Progress Note ---
Date of Service March 15, 2023 Anesthesia Post Procedure Vital Signs Vital Signs: Temp Pulse Pulse Resp BP Pulse Ox O2 Del Method 03/15/23 13:50 70 14 126/83 97 Room Air 03/15/23 13:40 72 14 135/73 96 Room Air 03/15/23 13:30 84 18 121/82 97 Room Air 03/15/23 13:21 97.2 F L 81 22 116/73 98 Oxymask 03/15/23 07:58 98.2 F 105 H 20 179/107 H 97 Room Air O2 Flow Rate 03/15/23 13:50 03/15/23 13:40 03/15/23 13:30 03/15/23 13:21 6 03/15/23 07:58 Transfer of Care Handoff Completed per policy Notes Mental Status: alert / awake / arousable and participated in evaluation Patient Amnestic to Procedure: Yes Nausea / Vomiting: adequately controlled Pain: adequately controlled Airway Patency, RR, SpO2: stable & adequate BP & HR: stable & adequate Hydration State: stable & adequate Neuraxial Anesthesia: was administered and sensory block is resolving Anesthetic Complications: no major complications apparent and Pt Satisfied with anesthetic care
[2023-03-15] MEDS ORDERED: HYDROmorphone INJ 0.5 MG/0.5 ML SYR IV PRN (14:36)
[2023-03-15] MEDS ORDERED: CYCLOBENZAPRINE HCL 5 MG TAB PO PRN (14:36)
[2023-03-15] MEDS ORDERED: SODIUM CHLORIDE 0.9% 1000ML 1,000 ML IV SCH (14:36)
[2023-03-15] MEDS ORDERED: ALBUTEROL HFA 8 GM INHALER INH PRN (14:36)
[2023-03-15] MEDS ORDERED: VANCOMYCIN CONSULT ACTIVE PRN (14:36)
[2023-03-15] MEDS ORDERED: MAGNESIUM HYDROXIDE SUSP 30 ML UDC PO PRN (14:36)
[2023-03-15] MEDS ORDERED: FUROSEMIDE 40 MG TAB PO PRN (14:36)
[2023-03-15] MEDS ORDERED: NALOXONE HCL 0.4 MG/1 ML VIAL/CARP IV PRN (14:36)
[2023-03-15] MEDS ORDERED: METOCLOPRAMIDE HCL INJ 5 MG/ML 2 ML VIAL IV PRN (14:36)
[2023-03-15] MEDS ORDERED: hydrOXYzine HCl 25 MG TAB PO PRN (14:36)
[2023-03-15] MEDS ORDERED: bisacodyL 10 MG SUPP PR PRN (14:36)
[2023-03-15] MEDS: oxyCODONE HCL IR 5 MG TAB (IMMEDIATE RELEASE) PO PRN ×2 (15:11→19:26)
[2023-03-15] MEDS: GABAPENTIN 100 MG CAP PO SCH ×2 (16:08→19:20)
[2023-03-15] MEDS: ACETAMINOPHEN 500 MG TAB PO SCH ×2 (16:08→21:15)
--- NOTE | 2023-03-15 16:18 | Anesthesiology Progress Note ---
Date of Service March 15, 2023 Anesthesia Post Procedure Vital Signs Vital Signs: Temp Pulse Pulse Resp BP Pulse Ox O2 Del Method 03/15/23 15:18 97 H 16 143/83 H 96 Room Air 03/15/23 14:57 80 16 131/77 98 Room Air 03/15/23 14:20 36.4 C L 86 16 139/87 100 Room Air 03/15/23 14:00 75 16 120/64 97 Room Air 03/15/23 14:10 36.5 C 76 16 121/75 97 Room Air 03/15/23 13:50 70 14 126/83 97 Room Air 03/15/23 13:40 72 14 135/73 96 Room Air 03/15/23 13:30 84 18 121/82 97 Room Air 03/15/23 13:21 36.2 C L 81 22 116/73 98 Oxymask 03/15/23 07:58 36.8 C 105 H 20 179/107 H 97 Room Air O2 Flow Rate 03/15/23 15:18 03/15/23 14:57 03/15/23 14:20 03/15/23 14:00 03/15/23 14:10 03/15/23 13:50 03/15/23 13:40 03/15/23 13:30 03/15/23 13:21 6 03/15/23 07:58 Pain Intensity Right Knee: Pain Intensity: 2 Transfer of Care Handoff Completed per policy Notes Mental Status: alert / awake / arousable and participated in evaluation Patient Amnestic to Procedure: Yes Nausea / Vomiting: adequately controlled Pain: adequately controlled Airway Patency, RR, SpO2: stable & adequate BP & HR: stable & adequate Hydration State: stable & adequate Neuraxial Anesthesia: was administered and sensory block is resolving Anesthetic Complications: no major complications apparent and Pt Satisfied with anesthetic care
--- NOTE | 2023-03-15 18:04 | Hospitalist Consultation ---
Date of Consultation March 15, 2023 Assessment & Plan (1) Status post right knee replacement: -Currently stable -Perioperative abx, DVT PPX, and analgesia per the primary team -Stopping IV fluids at this time as she is stable, able to eat/drink, and has previous hx of diastolic CHF. -Agree with am labs, we will follow -Adding daily famotidine for stress ulcer PPX -Thank you for allowing us to participate in the care of this patient, please reach out with any questions or concerns (2) Hypertension: -Stable -Agree with continuing amlodipine tomorrow -Her Losartan-HCTZ has been on hold since her gastric bypass surgery in January, will continue to hold for now (3) Asthma: -Stable on RA and lungs are CTA -Agree with continuing albuterol and (4) Diastolic dysfunction: -Currently euvolemic -IV fluids stopped to prevent volume overload (5) Urinary urgency: -Continue oxybutynin (6) Anxiety and depression: -Continue Wellbutrin, prozac, hydroxyzine, (7) Gastritis: -Continue protonix and adding daily famotidine for stress ulcer PPX (8) Rheumatoid arthritis: -Not currently on outpatient therapy (9) Obstructive sleep apnea: Plan The patient was discussed with Dr. Milton at the time of the consult Supervising Physician Co-Signing Physician Notes I personally saw and examined the patient. I verified all gomez points and agree with Kike Galvez PA-C with the following exceptions and/or additions: 52 year old female POD#0 right TKA. EBL 15ml. Doing well post operatively with no specific complaints although noted mild hypoxia when she naps. Known LEYDI but waiting for repeat sleep study to determine settings. O/E HS RRR, no murmurs, Chest CTAB, Abdo SNT, NV intact distal to operation site. A/P VTE/Pain/bowel management per primary orthopedic team LEYDI - severe, utilize O2 while here HTN - no longer on HCTZ/losartan History of Present Illness Reason for Consultation: Post-op medical management Requesting Physician: Jordan Flores MD Attending Physician: Dr. Santi Milton History of Present Illness Laine is a 52 year old female with a PMH significant for HTN, asthma, previous gastric bypass surgery, RA, who presented to the [facility] OR on 03/15/23 for Right Total Knee Arthroplasty(Right), caleb and Acticoat superficial wound VAC with Dr. Flores. Per review of her vitals the patient has been stable. Per the operative report, there were no reported intraoperative complications, anesthesia was listed as " General, Regional", and EBL was listed as 15 cc. At the time of the exam the patient was sitting comfortably in bed in no acute distress. She has no complaints after her procedure and has been able to eat and drink without issue. She had gastric bypass surgery last month and has been doing well. Her Losartan-HCTZ has been on hold since the procedure, her PCP will follow up with her to determine when she can restart it. She is scheduled to have a sleep study and CPAP fitting in the near future but dose not have a CPAP machine at this time. Please refer to Dr. Milton's attestation for any changes to the treatment plan Allergies Allergy/AdvReac Type Severity Reaction Status Date / Time buprenorphine [From Suboxone] Allergy Severe Throat Verified 03/15/23 07:44 swells, hives naloxone [From Suboxone] Allergy Severe Throat Verified 03/15/23 07:44 swells, hives blueberry Allergy Intermediate HIVES Verified 03/15/23 07:44 nickel Allergy Intermediate SKIN Verified 03/15/23 07:44 IRRITATION/SWELLING tramadol Allergy Intermediate HIVES/nause Verified 03/15/23 07:44 a cefadroxil Allergy Mild Rash Verified 03/15/23 07:44 latex Allergy Mild SKIN Verified 03/15/23 07:44 PEELING MOLDS Allergy Severe SWELLING/HI Uncoded 03/15/23 07:44 VES Home Medications Medication Instructions Recorded Confirmed Type metoprolol succinate 25 mg 12.5 mg PO QAM 12/15/21 03/15/23 History tablet,extended release 24 hr oxybutynin chloride 10 mg 10 mg PO QAM 12/15/21 03/15/23 History tablet,extended release 24 hr tretinoin 0.025 % topical cream 1 applic topical .COMPLEX #45 grams 04/27/22 03/15/23 Rx ketoconazole 2 % shampoo 1 applic topical .COMPLEX #120 mL 08/04/22 03/15/23 Rx albuterol sulfate 90 mcg/actuation 2 puff inhalation QID PRN SHORT OF 10/17/22 03/15/23 Rx aerosol inhaler (Ventolin HFA) BREATH #18 grams budesonide-formoterol HFA 160 2 puff inhalation QAM #10.2 grams 10/17/22 03/15/23 Rx mcg-4.5 mcg/actuation aerosol inhaler (Symbicort) gabapentin 100 mg capsule 100 mg PO TID #360 caps 10/17/22 03/15/23 Rx losartan 100 1 tab PO QAM #90 tabs 10/19/22 03/15/23 Rx mg-hydrochlorothiazide 25 mg tablet montelukast 10 mg tablet 10 mg PO HS #90 tabs 11/17/22 03/15/23 Rx (Singulair) cyclobenzaprine 5 mg tablet 5 mg PO TID PRN muscle spasm #45 12/08/22 03/15/23 Rx tabs furosemide 40 mg tablet (Lasix) 40 mg PO DAILY PRN edema #30 tabs 02/21/23 03/15/23 Rx amlodipine 5 mg tablet (Norvasc) 5 mg PO QAM 03/06/23 03/15/23 History cholecalciferol (vitamin D3) 25 25 mcg PO QAM 03/06/23 03/15/23 History mcg (1,000 unit) capsule clindamycin phosphate 1 % lotion 1 applic topical Q OTHER DAY 03/06/23 03/15/23 History fluoxetine 20 mg capsule (Prozac) 20 mg PO QAM 03/06/23 03/15/23 History pantoprazole 40 mg tablet,delayed 40 mg PO QAM 03/06/23 03/15/23 History release bupropion HCl 150 mg tablet,12 hr 150 mg PO BID 03/15/23 03/15/23 History sustained-release (Wellbutrin SR) cholecalciferol (vitamin D3) 10 10 mcg PO DAILY 03/15/23 03/15/23 History mcg (400 unit) tablet (Vitamin D3) acetaminophen 500 mg tablet 1,000 mg PO Q8 #60 tabs 03/16/23 Rx (Tylenol Extra Strength) apixaban 2.5 mg tablet (Eliquis) 2.5 mg PO BID #60 tabs 03/16/23 Rx doxycycline hyclate 100 mg capsule 100 mg PO BID 14 days #28 caps 03/16/23 Rx hydroxyzine HCl 50 mg tablet 50 mg PO TID PRN anxiety #90 tabs 03/16/23 Rx ondansetron HCl 4 mg tablet 4 mg PO Q8H PRN nausea and 03/16/23 Rx vomiting #20 tabs oxycodone 5 mg tablet 5 - 10 mg PO .Q4h-6h PRN pain #30 03/16/23 Rx tabs Patient History Medical History Anxiety Asthma well controlled at present, rare res inh use Creatinine elevation Depression Heart enlargement per pt History of anesthesia reaction states woke up itchy after hysterectomy--no other issues with anesthesia with prior surgeries or surgeries after History of COVID-19 diagnosed 09/2020 @ [facility]--denies hospitalization--no issues now Hypertension controlled, stable per ptp IBS (irritable bowel syndrome) Iron deficiency anemia Lumbar disc disorder Migraine Morbid obesity BMI 55.7 Obstructive sleep apnea getting fitted for device in March Overactive bladder Prediabetes diet controlled Rheumatoid arthritis Seasonal allergies Urinary incontinence in female Surgical History (Updated 03/15/23 @ 18:38 by Kike Galvez PA-C) H/O bilateral breast reduction surgery H/O gastric bypass 02/09/23 by [facility] History of bilateral tubal ligation History of carpal tunnel surgery bilat History of section x1 History of cholecystectomy History of colonoscopy History of esophagogastroduodenoscopy (EGD) History of hysterectomy History of left knee surgery (~05/11/19) Left knee quadriceps tendon and medial retinacular repair with irrigation of knee joint repair of skin LMA#4. History of nasal septoplasty History of tooth extraction states all teeth are removed S/P panniculectomy Status post left knee replacement (~04/11/19) 04/11/19 SAB L3-L4 1 attempt + PNB. Family History Father Family history of esophageal cancer Heart disease Lung cancer Family/Other Breast cancer maternal cousin Multiple sclerosis paternal side Aunt Breast cancer maternal Sister Colorectal cancer Family/Other Ovarian cancer niece and 2 of mothers nieces Grandfather (Paternal) Cirrhosis Other No family history of adverse response to anesthesia Denies family history of Prostate cancer Myocardial infarction Social History Smoking Status: Former smoker Tobacco Type: Cigarettes Age Started Using Tobacco: 12; Age Quit Using Tobacco: 22; Second Hand Exposure: No; Do You Dip or Chew Tobacco: No; Hx Alcohol Use: No Hx Substance Use: No Preferred Language: Swedish Communication Ability: Effective Visual Impairment: No Limitations Hearing Ability: Normal Fixing Carpenter Required: No Beliefs That Will Affect Care: None marital status: Current Living Situation: Significant Other Current Living Situation Comment: LIVES ALONE current occupational status: disabled How many Children do You have: 2 Feels Safe at Home: Yes Childhood Exposure to Second-Hand Smoke: No Diet: regular Diet Comment: regular caffeine: Yes during the past year weight has: remained stable Dental Care, Regularly: Yes Physical Activity Frequency: Does not Exercise Seatbelt Use: never Sunscreen Use: No Assistive Devices: Walker Physical Exam Physical Exam: Physical Exam: General: In no acute distress, stated age, well-nourished, good hygiene HEENT: Normocephalic, atraumatic, no scleral icterus, pupils around round, symmetrical, and reactive to light, moist mucus membranes, trachea midline, no thyromegaly Chest/Pulm: No respiratory distress, symmetrical chest expansion, clear breath sounds throughout Cardiac: RRR, no murmurs noted Abdomen: Negative for ascites and bruising, normoactive bowel sounds, soft, non-tender to palpation throughout Musculoskeletal: LLE currently with brace and drain in place and appears to be functioning properly, patient with intact motor function and sensation in the BL feet Extremities: Radial, dorsalis pedis, and posterior tibial pulses are intact and symmetrical, no edema noted in the BL LE's Skin: Warm, dry, no rashes , lesions, or scars noted Neuro: Alert and oriented to person, place, month, year, and president, no focal defects, no tremors noted Psych: No acute distress, calm and cooperative during the exam Results & Data Results & Data Vital Signs (Past 12 Hours) Vital Signs Temp Pulse Pulse Resp BP Pulse Ox O2 Del Method 03/15/23 16:29 87 16 124/76 97 Nasal Cannula 03/15/23 15:18 97 H 16 143/83 H 96 Room Air 03/15/23 14:57 80 16 131/77 98 Room Air 03/15/23 14:20 36.4 C L 86 16 139/87 100 Room Air 03/15/23 14:00 75 16 120/64 97 Room Air 03/15/23 14:10 36.5 C 76 16 121/75 97 Room Air 03/15/23 13:50 70 14 126/83 97 Room Air 03/15/23 13:40 72 14 135/73 96 Room Air 03/15/23 13:30 84 18 121/82 97 Room Air 03/15/23 13:21 36.2 C L 81 22 116/73 98 Oxymask 03/15/23 07:58 36.8 C 105 H 20 179/107 H 97 Room Air O2 Flow Rate 03/15/23 16:29 2 03/15/23 15:18 03/15/23 14:57 03/15/23 14:20 03/15/23 14:00 03/15/23 14:10 03/15/23 13:50 03/15/23 13:40 03/15/23 13:30 03/15/23 13:21 6 03/15/23 07:58 Diagnostic Findings Knee X-Ray 03/15/23 13:29 TWO VIEWS RIGHT KNEE CLINICAL HISTORY: Postoperative examination. FINDINGS: AP and crosstable lateral portable views of the right knee are obtained. A right knee arthroplasty is in near anatomic alignment. There has been undersurface remodeling of the patella. No acute fracture is seen. There are expected postoperative changes around the knee including skin clips, a surgical drain, soft tissue edema, and subcutaneous gas. IMPRESSION: Expected postoperative changes status post right knee arthroplasty. No acute fracture is seen. ACT 112: Negative or not required by law. Electronically signed by: Melvin Sheets M.D. 03/15/2023 1:59 PM PG Care Time/CCT Total # of Minutes Spent Total Time Spent with Patient: Total time spent is greater than 50% in coordination of care (as documented) at patient's floor/unit and/or counseling patient: Coding [place] [address] IN/OBS CONSULT LVL 3,45M Patient Type Established Medical Decision Making Moderate Complexity Diagnoses Status post right knee replacement Z96.651 Hypertension I10 Asthma J45.40 Asthma complication type: uncomplicated Asthma persistence: persistent Asthma severity: moderate Diastolic dysfunction I51.89 Urinary urgency R39.15 Anxiety and depression F41.9; F32.9 Gastritis K29.70 Rheumatoid arthritis M06.9 Obstructive sleep apnea G47.33 (3) Asthma Asthma complication type: uncomplicated Asthma persistence: persistent Asthma severity: moderate Qualified Code(s): J45.40 - Moderate persistent asthma, uncomplicated
[2023-03-15] MEDS: DOCUSATE SODIUM 100 MG CAP PO SCH (19:21)
[2023-03-15] MEDS: buPROPion SR 150 MG TABCR PO SCH (19:21)
[2023-03-15] MEDS ORDERED: MONTELUKAST SODIUM 10 MG TABLET PO SCH (21:00)
[2023-03-15] MEDS ORDERED: SENNA 8.6 MG TAB PO SCH (21:00)
[2023-03-15] MEDS ORDERED: VANCOMYCIN HCL 2,000 MG in SODIUM CHLORIDE 0.9% 500 ML IV SCH (23:30)
[2023-03-16] MEDS: oxyCODONE HCL IR 5 MG TAB (IMMEDIATE RELEASE) PO PRN ×2 (01:03→08:15)
[2023-03-16] MEDS: ACETAMINOPHEN 500 MG TAB PO SCH (05:54)
[2023-03-16 06:48] LABS: Hematocrit (blood only) 40.5 % (37.0-47.0); Hemoglobin 13.7 g/dl (12.0-16.0); Mean Corpuscular Hemoglobin 31.1 pg (25.0-34.0); Mean Corpuscular Hgb Conc 33.8 g/dL (32.0-36.0); Mean Platelet Volume 9.7 fL (9.4-12.4); Platelet Count 233 K/uL (130-400); RDW Coefficient of Variation 12.2 % (11.5-14.5); RDW Standard Deviation 41.4 fL (36.4-46.3); White Blood Count 9.38 K/ul (4.8-10.8)
[2023-03-16 07:03] LABS: BUN Creatinine Ratio 16.5 (10-20); Est GFR (African American) 85.3 ml/min; Est GFR (Non-African American) 73.6 ml/min; Potassium 4.1 mmol/L (3.5-5.1)
[2023-03-16] MEDS: buPROPion SR 150 MG TABCR PO SCH (07:15)
--- NOTE | 2023-03-16 07:15 | Orthopedic Progress Note ---
Date of Service March 16, 2023 Assessment & Plan (1) Status post right knee replacement: Plan: POD#1 right TKA -PT/OT -Pain management as written -AM labs stable -DVT prophylaxis-SCDs, TEDs, Eliquis BID -D/C planning-plan on discharge home today with HHPT as long as remains stable. Admission and Anticipated Discharge Date Admission Date: March 15, 2023 Subjective Patient is POD#1 right TKA. She is doing well this morning. Pain controlled. No other complaints. Review of Systems Review of Systems: All systems reviewed & are unremarkable except as noted in Subjective Physical Exam Physical Exam: Right knee dressing is c/d/i, HARRY on suction, hemovac in place. No calf tenderness. Toes mobile with good dorsiflexion. Able to do SLR. Distally n/v status and sensation grossly intact. Constitutional: WD/WN, vitals as above Results & Data Vital Signs (Past 12 Hours) Vital Signs Temp Pulse Resp BP Pulse Ox O2 Del Method 03/16/23 05:55 36.5 C 74 18 114/74 97 Room Air 03/16/23 03:52 36.5 C 72 18 113/69 98 Room Air 03/15/23 22:35 36.6 C 88 18 152/85 H 98 Room Air 03/15/23 20:02 36.7 C 100 H 18 149/77 H 95 Room Air Laboratory Results Lab Results 03/15/23 03/16/23 03/16/23 Range/Units Unknown 06:17 06:17 WBC 9.38 (4.8-10.8) K/ul RBC 4.40 (4.20-5.40) M/uL Hgb 13.7 (12.0-16.0) g/dl Hct 40.5 (37.0-47.0) % MCV 92.0 (80.0-100.0) fL MCH 31.1 (25.0-34.0) pg MCHC 33.8 (32.0-36.0) g/dL RDW Std Deviation 41.4 (36.4-46.3) fL RDW Coeff of Ni 12.2 (11.5-14.5) % Plt Count 233 (130-400) K/uL MPV 9.7 (9.4-12.4) fL Sodium 139 (136-145) mmol/L Potassium 4.1 (3.5-5.1) mmol/L Chloride 108 H (98-107) mmol/L Carbon Dioxide 25 (21-32) mmol/L Anion Gap 6 (3-11) BUN 15 (6-23) mg/dl Creatinine 0.91 (0.6-1.2) mg/dl Est Cr Clr Drug Dosing 94.0 ml/min Est GFR ( Amer) 85.3 ml/min Est GFR (Non-Af Amer) 73.6 ml/min BUN/Creatinine Ratio 16.5 (10-20) Glucose 112 H (70-99(Fasting)) mg/dl Calcium 10.0 (8.6-10.3) mg/dl SARS-CoV-2, RNA, NAAT NEGATIVE (NEGATIVE)
[2023-03-16] MEDS: DOCUSATE SODIUM 100 MG CAP PO SCH (07:16)
[2023-03-16] MEDS: GABAPENTIN 100 MG CAP PO SCH (07:16)
--- NOTE | 2023-03-16 08:19 | Hospitalist Progress Note ---
Date of Service March 16, 2023 Assessment & Plan (1) Status post right knee replacement: Plan: POD#1 s/p RIGHT total knee with Dr Flores. EBL 15cc WBC wnl, hgb stable on repeat. Chemistry reviewed and stable Pain control/antiemetics/bowel regimen/PT/OT per primary service patient would like rx for zfran at d/c -- messaged Ortho PA for such Famotidine for stress ulcer, continued PPI DVT proph w/ eliquis 2.5mg BID ordered Will need to monitor for any GI bleeding on anticoagulation given recent bypass surgery --> discussed w/ patient continue PPI daily but may need to consider increasing to BID while on chemical proph for DVT -- messaged ortho regarding such prior to dc as well Patient planning HHPT -- CM to f/u this morning Medically stable for d/c (2) Hypertension: Plan: Stable Continues on amlodipine Her losartan/HCTZ held since gastric bypass in January -- continued to hold -- outpt f/u at dc Only takes lasix prn weight gain/leg swelling (3) Asthma: Plan: Stable on RA and lungs are CTA albuterol as needed (4) Diastolic dysfunction: Plan: Currently euvolemic IV fluids stopped to prevent volume overload Remains stable (5) Urinary urgency: Plan: Continue oxybutynin (6) Anxiety and depression: Plan: Continue Wellbutrin, prozac, hydroxyzine (7) Gastritis: Plan: Continue protonix and adding daily famotidine for stress ulcer PPX Consider PPI BID at d/c on eliquis (8) Rheumatoid arthritis: Plan: -Not currently on outpatient therapy Plan The patient was discussed with Dr. Milton at the time of the consult Admission and Anticipated Discharge Date Admission Date: March 15, 2023 Supervising Physician Co-Signing Physician Notes The patient was not seen by me. The chart was reviewed. Case discussed with DANITZA Nguyen. Agree with assessment and plan Subjective Eval this morning, dressed and planning for dc w/ home health. Pain controlled with ordered meds. No fever/chills, chest pain, shortness of breath, abdominal pain. Does have some nausea, but reports this is usual after surgery for her and would like rx for zofran at d/c. Will pass along to primary service. Discussed continued PPI but if issues w/ reflux would consider taking twice daily while on eliquis for DVT prophylaxis. Questions/concerns addressed at this time. Physical Exam Physical Exam: General: WD/WN obese female sitting up in bed, on phone, NAD HEENT: head normocephalic, atraumatic, mmm, trachea midline Resp: CTA, no w/c/r, on room air CV: RRR, no significant m/r/g, calves nontender GI:+BS, soft/NT MSK/Neuro: dressing/charles wrap to R knee, hemovac w/ bloody drainage present, pulses palpable, toes mobile, calves nontender, sensation intact Psych: AOx3, cooperative with exam Results & Data Results & Data Vital Signs (Past 12 Hours) Vital Signs Temp Pulse Resp BP Pulse Ox O2 Del Method 03/16/23 05:55 36.5 C 74 18 114/74 97 Room Air 03/16/23 03:52 36.5 C 72 18 113/69 98 Room Air 03/15/23 22:35 36.6 C 88 18 152/85 H 98 Room Air Laboratory Results 03/16/23 03/16/23 Range/Units 06:17 06:17 WBC 9.38 (4.8-10.8) K/ul RBC 4.40 (4.20-5.40) M/uL Hgb 13.7 (12.0-16.0) g/dl Hct 40.5 (37.0-47.0) % MCV 92.0 (80.0-100.0) fL MCH 31.1 (25.0-34.0) pg MCHC 33.8 (32.0-36.0) g/dL RDW Std Deviation 41.4 (36.4-46.3) fL RDW Coeff of Ni 12.2 (11.5-14.5) % Plt Count 233 (130-400) K/uL MPV 9.7 (9.4-12.4) fL Sodium 139 (136-145) mmol/L Potassium 4.1 (3.5-5.1) mmol/L Chloride 108 H (98-107) mmol/L Carbon Dioxide 25 (21-32) mmol/L Anion Gap 6 (3-11) BUN 15 (6-23) mg/dl Creatinine 0.91 (0.6-1.2) mg/dl Est Cr Clr Drug Dosing 94.0 ml/min Est GFR ( Amer) 85.3 ml/min Est GFR (Non-Af Amer) 73.6 ml/min BUN/Creatinine Ratio 16.5 (10-20) Glucose 112 H (70-99(Fasting)) mg/dl Calcium 10.0 (8.6-10.3) mg/dl Diagnostic Findings Knee X-Ray 03/15/23 13:29 TWO VIEWS RIGHT KNEE CLINICAL HISTORY: Postoperative examination. FINDINGS: AP and crosstable lateral portable views of the right knee are obtained. A right knee arthroplasty is in near anatomic alignment. There has been undersurface remodeling of the patella. No acute fracture is seen. There are expected postoperative changes around the knee including skin clips, a surgical drain, soft tissue edema, and subcutaneous gas. IMPRESSION: Expected postoperative changes status post right knee arthroplasty. No acute fracture is seen. ACT 112: Negative or not required by law. Electronically signed by: Melvin Sheets M.D. 03/15/2023 1:59 PM PG Care Time/CCT Total # of Minutes Spent Total Time Spent with Patient: Total time spent is greater than 50% in coordination of care (as documented) at patient's floor/unit and/or counseling patient: Coding Level of Care Code 51219 SUB INP/OBS CARE 2/35MIN Diagnoses Status post right knee replacement Z96.651 Hypertension I10 Asthma J45.40 Asthma complication type: uncomplicated Asthma persistence: persistent Asthma severity: moderate Diastolic dysfunction I51.89 Urinary urgency R39.15 Anxiety and depression F41.9; F32.9 Gastritis K29.70 Rheumatoid arthritis M06.9 (3) Asthma Asthma complication type: uncomplicated Asthma persistence: persistent Asthma severity: moderate Qualified Code(s): J45.40 - Moderate persistent asthma, uncomplicated
[2023-03-16] MEDS ORDERED: LOSARTAN/HCTZ 50/12.5MG TAB PO SCH (09:00)
[2023-03-16] MEDS ORDERED: CHOLECALCIFEROL 1,000 UNITS 25 MCG TAB PO SCH (09:00)
[2023-03-16] MEDS ORDERED: FAMOTIDINE 20 MG in SYRINGE 3 ML IV SCH (09:00)
[2023-03-16] MEDS ORDERED: FLUoxetine HCL 20 MG CAP PO SCH (09:00)
[2023-03-16] MEDS ORDERED: CHOLECALCIFEROL 400 UNITS 10 MCG TAB PO SCH (09:00)
[2023-03-16] MEDS ORDERED: FLUTICASONE/VILANTEROL 200/25MCG 14 PUFFS/INHALER INH SCH (09:00)
[2023-03-16] MEDS ORDERED: PANTOprazole 40 MG TAB PO SCH (09:00)
[2023-03-16] MEDS ORDERED: METOPROLOL SUCC 25MG EXT REL TAB PO SCH (09:00)
[2023-03-16] MEDS ORDERED: OXYBUTYNIN CHLORIDE XL 5 MG TABCR PO SCH (09:00)
[2023-03-16] MEDS ORDERED: amLODIPine BESYLATE 5 MG TAB PO SCH (09:00)
[2023-03-16] MEDS ORDERED: MULTIVITAMIN TAB PO SCH (09:00)
[2023-03-16] MEDS ORDERED: APIXABAN 2.5 MG TAB PO SCH (09:00)
--- NOTE | 2023-03-16 15:02 | Discharge Summary ---
Date of Service March 16, 2023 Admission HPI Per Admitting Provider 52yo female with PMHx significant for anxiety, asthma, HTN, migraines, hx of left TKA, LEYDI, RA, morbid obesity s/p recent gastric bypass who presents with ongoing right knee pain. Pain is interfering with daily activities. She has failed conservative measures. She would like to proceed with surgical intervention. Patient denies headaches, sweats, fevers, chills, double vision, blurred vision, cough, sore throat, dysphagia, chest pain, sob, wheezing, n/v/d/c, numbness, tingling, fatigue, urinary symptoms, mood disorders. ROS positive for right knee pain and stiffness. Admission Exam Per Admitting Provider Constitutional: well developed and well nourished; no acute distress Eyes: PERRL, conjunctivae normal, anicteric sclerae ENMT: external ear and nose normal, oropharynx normal Neck: trachea midline, no thyromegaly Respiratory: normal respiratory effort, lungs clear to auscultation Cardiovascular: RRR, no murmur, no edema Musculoskeletal: Knee ROM R * Active ROM - Flexion: 115 degrees, Extension: 0 degrees, Factors: pain, Description: flexion. Passive ROM - Factors: pain, Description: flexion. Knee ROM L * Active ROM - Flexion: 130 degrees, Extension: 0 degrees, Factors: normal, Description: active pain free range of motion. Passive ROM - Factors: normal, Description: passive pain free range of motion. Strength LE Normal Strength Description - Normal lower extremity: Bilateral. Knee * Inspection - Gait: antalgic. Alignment - Right: varus, Left: neutral. Ecchymosis - Right: none, Left: none. Effusion - Right: mild. Skin - Left: surgical scars. Swelling - Right: mild, Left: none. Maximum tenderness - Right: medial joint line, Left: non-tender. Patella exam - Patella position - Right: lateral, Left: neutral. Knee Comments Widened scar on left Knee Normal Inspection - Atrophy - Right: Absent, Left: Absent. Skin - Right: Normal. [facility]'s - lateral - Right: Negative, Left: Negative. Lon's - medial - Right: Negative, Left: Negative. Anterior drawer - Right: Negative, Left: Negative. Valgus stress - Right: Negative, Left: Negative. Varus stress - Right: Negative, Left: Negative. Extensor lag - Right: Normal, Left: Normal. Neurovascular LE Normal Neurovascular examination including reflexes, sensation, and pulses is within normal limits. Skin: no rashes, warm and dry Neurologic: patellar DTR's 2+ bilat, sensation intact Psychiatric: A+Ox3, euthymic affect Principal Diagnosis Right knee osteoarthritis Discharge Exam Right knee dressing is c/d/i, HARRY on suction, hemovac in place. No calf tenderness. Toes mobile with good dorsiflexion. Able to do SLR. Distally n/v status and sensation grossly intact. Discharge Data Allergies Allergy/AdvReac Type Severity Reaction Status Date / Time buprenorphine [From Suboxone] Allergy Severe Throat Verified 03/15/23 07:44 swells, hives naloxone [From Suboxone] Allergy Severe Throat Verified 03/15/23 07:44 swells, hives blueberry Allergy Intermediate HIVES Verified 03/15/23 07:44 nickel Allergy Intermediate SKIN Verified 03/15/23 07:44 IRRITATION/SWELLING tramadol Allergy Intermediate HIVES/nause Verified 03/15/23 07:44 a cefadroxil Allergy Mild Rash Verified 03/15/23 07:44 latex Allergy Mild SKIN Verified 03/15/23 07:44 PEELING MOLDS Allergy Severe SWELLING/HI Uncoded 03/15/23 07:44 VES Consultations 03/10/23 14:21 Consult Hospitalist Routine Procedures Performed Operation Date: 03/15/23 09:40 Actual Procedures p Right Total Knee Arthroplasty(Right) - Jordan Flores MD Ordered Studies 03/15/23 07:19 US - OR guided needle placemen Routine Hospital Course (1) Status post right knee replacement: POD#1 right TKA -PT/OT -Pain management as written -AM labs stable -DVT prophylaxis-SCDs, TEDs, Eliquis BID -D/C planning-plan on discharge home today with HHPT as long as remains stable. Lab Results 03/15/23 03/16/23 03/16/23 Range/Units Unknown 06:17 06:17 WBC 9.38 (4.8-10.8) K/ul RBC 4.40 (4.20-5.40) M/uL Hgb 13.7 (12.0-16.0) g/dl Hct 40.5 (37.0-47.0) % MCV 92.0 (80.0-100.0) fL MCH 31.1 (25.0-34.0) pg MCHC 33.8 (32.0-36.0) g/dL RDW Std Deviation 41.4 (36.4-46.3) fL RDW Coeff of Ni 12.2 (11.5-14.5) % Plt Count 233 (130-400) K/uL MPV 9.7 (9.4-12.4) fL Sodium 139 (136-145) mmol/L Potassium 4.1 (3.5-5.1) mmol/L Chloride 108 H (98-107) mmol/L Carbon Dioxide 25 (21-32) mmol/L Anion Gap 6 (3-11) BUN 15 (6-23) mg/dl Creatinine 0.91 (0.6-1.2) mg/dl Est Cr Clr Drug Dosing 94.0 ml/min Est GFR ( Amer) 85.3 ml/min Est GFR (Non-Af Amer) 73.6 ml/min BUN/Creatinine Ratio 16.5 (10-20) Glucose 112 H (70-99(Fasting)) mg/dl Calcium 10.0 (8.6-10.3) mg/dl SARS-CoV-2, RNA, NAAT NEGATIVE (NEGATIVE) Total Time Total Time Spent Total Time Spent (In Minutes): 20 Discharge Plan Discharge Items Patient Disposition: Home - Home Health Services Reason For Visit: Right Knee Osteoarthritis Discharge Diagnosis: Right knee osteoarthritis Activity: Per Instructions section Non-emergency contact: Surgeon Call non-emergency contact if: you have any medication questions, your pain is not controlled, you have a fever, your temperature is above 101, your wound has increased redness and your wound has increased drainage Follow-up/Referrals: Titi Hinojosa CRNP [Primary Care Provider] - 03/23/23 10:15 am Diet: Regular Addtl Attending Provider Instructions: ACTIVITY RECOMMENDATIONS: SELF CARE INSTRUCTIONS AFTER TOTAL KNEE REPLACEMENT A. You may need to continue a physical therapy program after discharge from the hospital. There are several options available to you. Your doctor will assist you in selecting the best one for you. 1. An out-patient facility 2 to 3 times a week for therapy or home therapy. 2. Continue working on all exercises taught to you in the hospital. Your goals should be to increase bending of your knee to 90 degrees and beyond and to fully straighten your knee. B. You may progress at your own pace from walking with a walker or crutches to a cane; then to no assistive devices. C. Make walking a part of your daily routine. Be up as much as comfortable with rest periods throughout the day. Rest with leg elevation is very important. Use the ice wrap frequently for the first 3-4 weeks. D. There are no restrictions on activities. You may ride in a car, shop, participate in forensic locksmith and all social activities. E. Wear the long elastic stockings (ELEAZAR hose) 20 hours a day for 2 weeks after surgery. They can be removed several times a day for laundering and for a bath. F. You may shower, no tub baths until cleared by your doctor. SPECIAL CARE INSTRUCTIONS: VERY IMPORTANT TO READ AND REVIEW A. There are a few signs you need to watch for after you are home. Call [facility] if you notice any of the followin. Increased severe knee pain. Some pain is expected especially when you exercise. 2. Increased swelling in your leg or knee; pain or swelling of the calf muscle in either lower leg. 3. Any fluid drainage from the incision. 4. Shortness of breath or chest pain. B. Please call [facility] at if you have any concerns or questions about your operation or recovery. The doctor or his nurse will return your call promptly. C. You must take antibiotics before dental work, bladder, bowel or other surgery. Your doctor will provide you with a permanent care to carry describing this precaution. IMPORTANT: * REMEMBER TO TAKE ASPIRIN, 81 MG, TWICE DAILY FOR 4 WEEKS UNLESS OTHERWISE DIRECTED. THIS IS YOUR BLOOD THINNER. * HIGH RISK PATIENTS MAY BE PRESCRIBED A STRONGER BLOOD THINNER. THIS WILL BE PROVIDED AT DISCHARGE. * CALL IF INCREASED PAIN, REDNESS, DRAINAGE OR FEVER GREATER THAT 101. * WEAR ELEAZAR HOSE 20 HOURS PER DAY FOR 2 WEEKS. This is a large suction dressing covering your incision. This will help pull any excess drainage from the wound and allow your incision to heal properly. You may shower with this if you can keep the unit outside of the shower. If any bleeding or leakage is noted please call your doctor's office. This will remain on your incision for 7 days and then should be removed. This can be done yourself or by the home nursing staff if applicable. The entire unit is disposable once removed. Once removed, keep incision clean and dry. If redness or drainage is noted, please call your surgeon. IF INCISION IS LEAKING THROUGH DRESSING, CALL THE OFFICE . FOLLOW UP VISIT: If appointment is not already scheduled: Please call [facility] to make a follow-up appointment for 2 weeks after your surgery at . Stand-Alone Forms: My [facility] [employer], Pain - Opioid Pain Management, Smoking Cessation Medications and DC Order Prescriptions: New acetaminophen [Tylenol Extra Strength] 500 mg Tablet 1,000 mg PO Q8 Qty: 60 0RF Eliquis 2.5 mg Tablet 2.5 mg PO BID Qty: 60 0RF oxycodone 5 mg Tablet 5 - 10 mg PO .Q4h-6h MDD 6 PRN (Reason: pain) Qty: 30 0RF Rx Instructions: Ongoing therapy, Dr. Flores supervising ondansetron HCl 4 mg tablet 4 mg PO Q8H PRN (Reason: nausea and vomiting) Qty: 20 0RF doxycycline hyclate 100 mg capsule 100 mg PO BID 14 Days Qty: 28 0RF Continued ketoconazole 2 % shampoo 1 applic topical .COMPLEX Qty: 120 1RF Rx Instructions: 1 applic topical to the scalp 2-3 times a week. Allow to sit on the scalp for 5 minutes before rinsing. albuterol sulfate [Ventolin HFA] 90 mcg/actuation HFA aerosol inhaler 2 puff INHALATION QID PRN (Reason: SHORT OF BREATH) Qty: 18 1RF budesonide-formoterol [Symbicort] 160-4.5 mcg/actuation HFA aerosol inhaler 2 puff INH QAM Qty: 10.2 1RF gabapentin 100 mg capsule 100 mg PO TID Qty: 360 1RF hydroxyzine HCl 50 mg tablet 50 mg PO TID PRN (Reason: anxiety) Qty: 90 1RF montelukast [Singulair] 10 mg tablet 10 mg PO HS Qty: 90 1RF cyclobenzaprine 5 mg tablet 5 mg PO TID PRN (Reason: muscle spasm) Qty: 45 0RF furosemide [Lasix] 40 mg tablet 40 mg PO DAILY PRN (Reason: edema) Qty: 30 2RF losartan-hydrochlorothiazide 100-25 mg tablet 1 tab PO QAM Qty: 90 1RF tretinoin 0.025 % cream 1 applic topical .COMPLEX Qty: 45 3RF Rx Instructions: 1 applic topical a pea-sized amount to the face every other night for 2 weeks, then nightly. Followed by moisturizer. amlodipine [Norvasc] 5 mg tablet 5 mg PO QAM pantoprazole 40 mg tablet,delayed release (DR/EC) 40 mg PO QAM Rx Instructions: TAKE ONE TABLET BY MOUTH EVERY DAY fluoxetine [Prozac] 20 mg capsule 20 mg PO QAM clindamycin phosphate 1 % lotion 1 applic topical Q OTHER DAY cholecalciferol (vitamin D3) 25 mcg (1,000 unit) capsule 25 mcg PO QAM cholecalciferol (vitamin D3) [Vitamin D3] 10 mcg (400 unit) Tablet 10 mcg PO DAILY bupropion HCl [Wellbutrin SR] 150 mg tablet sustained-release 12 hr 150 mg PO BID oxybutynin chloride 10 mg tablet extended release 24hr 10 mg PO QAM metoprolol succinate 25 mg tablet extended release 24 hr 12.5 mg PO QAM Krames/Other Patient Handouts: DVT Post Op Prevention Admission Data Admit Date/Time: 03/15/23 13:29 Attending Provider: Jordan Flores Admit Provider: Jordan Flores Primary Care Provider: Titi Hinojosa Other Providers: Santi Perez Robert R. Other Interventions: Discharge Summary Assessment (RN) Last Done: 03/16/23 08:51
== END 2023-03-16 12:35 | disposition home health service (06) ==
LOC: ASU 07:02 → 3E 07:02

== ENCOUNTER 2025-04-08 22:26 | Observation (INO) ==
--- NOTE | 2025-04-08 23:27 | Emergency Department Note ---
Impression & Plan Acute low back pain, Acute left lumbar radiculopathy, Herniated lumbar intervertebral disc, Ambulatory dysfunction ED Provider Note HISTORY OF PRESENT ILLNESS: Patient is a 54-year-old female presenting with low back pain. Patient reports that she has had pain in her lower back that radiates on the lateral and anterior part of her left leg down to her knee. States this been ongoing for the last 2 days. She reports that she fell 2 weeks ago. She has not fallen in the last week. She states that she has been bedbound for the last 24 hours, as she has been unable to bear weight secondary to "my left leg feeling like Jell- O." Denies any bowel or bladder incontinence. Denies any saddle anesthesia. She states she has been taking gabapentin and Tylenol, with little relief in her symptoms. Denies any history of IV drug use. Denies any fevers. ROS: as above PHYSICAL EXAM: Constitutional: Patient appears in no acute distress. HENT: Head: Normocephalic and atraumatic. Eyes: EOMI, PERRL Mouth/Throat: Mucous membranes moist. Neck: Trachea midline. Neck supple. Abdominal: Abdomen soft, no tenderness, rebound or guarding. Back: No paraspinal tenderness, no CVA tenderness. Lower lumbar midline tenderness to palpation. No step-offs. Patient is able to straight leg raise bilaterally. Musculoskeletal: No edema, tenderness or deformity noted. Skin: Warm and dry. No rash, erythema, pallor or cyanosis Psychiatric: Appropriate mood and affect for situation. Neurological: Alert and keenly responsive. CN II-XII grossly intact MDM: - Vitals signs showed hypertension. - History obtained via patient. History as above. - Chronic conditions affecting care: morbid obesity; LEYDI; IBS; HTN - Differential diagnoses include, but are not limited to: Cauda equina; compression fracture; herniated disc; radiculopathy - Order placed for continuous cardiac monitoring. At this time, monitor showed rate of 76 bpm with normal sinus rhythm, per my interpretation. - External medical records reviewed. Wellness visit note dated 03/11/2025 was reviewed. Patient was seen for a wellness visit. She is being followed with wound care as well as secondary to a dog bite to her right thumb and had osteomyelitis. - Laboratory workup interpreted by myself showed normal WBC; stable electrolytes; normal AST/ALT - CT lumbar spine wo contrast showed anterolisthesis of L3 over L4 level. Also noted to have decreased disc height at L3/L4 and L2/L3 with vacuum phenomenon. Noted to have diffuse disc bulging at L3/L4 causing moderate canal stenosis. MRI of the lumbar spine was recommended. - Patient has <300 cc in bladder on ultrasound. - Patient was given 50 mcg IV fentanyl, 1g IV tylenol, 500 mg PO robaxin and a lidocaine patch in the ER. On reassessment, patient reports having continued back pain. - MRI lumbar spine wo contrast showed asymmetric disc bulge on the left side at the L2/L3 causing mild left lateral recess and neuroforaminal narrowing. Also noted to have posterior disc at the lower border of the L3 vertebrae on the left side causing compression of the nerve root. - Patient given 80 mg IV solumedrol for her radiculopathy and herniated disc. - On reassessment, patient was able to transfer herself to the MRI table from the litter. However, when asked to stand at a bedside commode in the emergency department, the patient was unable to stand at bedside secondary to her left leg weakness and her stating that her leg feels like Jell-O. - UA showed bacteria, but no other findings suggestive of infection such as an elevated white blood cell count. - Discussion was had with outsole caser about patient's case and need for admission - Hospitalist, Dr. Moe, consulted for admission - Patient admitted to [facility] hospitalist service for further evaluation and management. ASSESSMENT AND PLAN: Diagnosis: acute low back pain; acute left lumbar radiculopathy; herniated lumbar intervertebral disc; ambulatory dysfunction Plan: admit Past Med/Surg History Problem List (Updated 04/09/25 @ 03:42 by Desiree Epps MD) Ambulatory dysfunction (Acute) Herniated lumbar intervertebral disc (Acute) Acute left lumbar radiculopathy (Acute) Acute low back pain (Acute) Chronic venous insufficiency Lower extremity edema (Chronic) Leg wound, left Hypertension (Chronic) Asthma (Chronic) Osteoarthritis Urinary urgency (Acute) Seasonal allergies (Chronic) Pain medication agreement broken (Acute) IBS (irritable colon syndrome) (Acute) Gait disturbance (Acute) Diastolic dysfunction Metabolic syndrome Vitamin D deficiency Anxiety and depression Gastritis Prediabetes Iron deficiency anemia Urinary incontinence in female (Chronic) Obstructive sleep apnea (Chronic) getting fitted for device in March Morbid obesity BMI 55.7 Rheumatoid arthritis Migraine Medical History Primary osteoarthritis of right knee Prediabetes Depression Seasonal allergies IBS (irritable bowel syndrome) Heart enlargement Creatinine elevation History of COVID-19 History of anesthesia reaction Lumbar disc disorder Overactive bladder Anxiety Hypertension Asthma Surgical History H/O thumb surgery Status post right knee replacement H/O gastric bypass History of left knee surgery (~05/11/19) History of carpal tunnel surgery Status post left knee replacement (~04/11/19) H/O bilateral breast reduction surgery S/P panniculectomy History of hysterectomy History of section History of bilateral tubal ligation History of esophagogastroduodenoscopy (EGD) History of colonoscopy History of cholecystectomy History of tooth extraction History of nasal septoplasty Family History Father Family history of esophageal cancer Heart disease Lung cancer Family/Other Breast cancer Multiple sclerosis Aunt Breast cancer Sister Colorectal cancer Family/Other Ovarian cancer Grandfather (Paternal) Cirrhosis Other No family history of adverse response to anesthesia Denies family history of Prostate cancer Myocardial infarction Social History Smoking Status: Never smoker Tobacco Type: Cigarettes Age Started Using Tobacco: 12; Age Quit Using Tobacco: 22; packs per day: 0.25; Second Hand Exposure: No; Do You Dip or Chew Tobacco: No; Hx Alcohol Use: No Hx Substance Use: No Preferred Language: Kinyarwanda Communication Ability: Effective Visual Impairment: No Limitations Hearing Ability: Normal Accounting Manager Required: No Beliefs That Will Affect Care: None marital status: Current Living Situation: Significant Other Current Living Situation Comment: LIVES ALONE current occupational status: disabled How many Children do You have: 2 Feels Safe at Home: Yes Childhood Exposure to Second-Hand Smoke: No Diet: regular Diet Comment: regular caffeine: Yes during the past year weight has: remained stable Dental Care, Regularly: Yes Physical Activity Frequency: Does not Exercise Seatbelt Use: always Sunscreen Use: No Assistive Devices: Glasses and Walker Allergies Allergies Allergy/AdvReac Type Severity Reaction Status Date / Time buprenorphine [From Suboxone] Allergy Severe Throat Verified 04/08/25 23:37 swells, hives naloxone [From Suboxone] Allergy Severe Throat Verified 04/08/25 23:37 swells, hives blueberry Allergy Intermediate HIVES Verified 04/08/25 23:37 naproxen Allergy Intermediate Hives Verified 04/08/25 23:37 nickel Allergy Intermediate SKIN Verified 04/08/25 23:37 IRRITATION/SWELLING tramadol Allergy Intermediate HIVES/nause Verified 04/08/25 23:37 a cefadroxil Allergy Mild Rash Verified 04/08/25 23:37 latex Allergy Mild SKIN Verified 04/08/25 23:37 PEELING MOLDS Allergy Severe SWELLING/HI Uncoded 04/08/25 23:37 VES Home Meds Home Medications Medication Instructions Recorded Confirmed oxybutynin chloride 10 mg 10 mg PO QAM 12/15/21 04/08/25 tablet,extended release 24 hr clindamycin phosphate 1 % lotion 1 applic topical Q OTHER DAY 03/06/23 04/08/25 fluoxetine 20 mg capsule (Prozac) 20 mg PO QAM 03/06/23 04/08/25 cyanocobalamin (vitamin B-12) 1,000 mcg IM MONTHLY 11/11/24 04/08/25 1,000 mcg/mL injection kit acetaminophen 500 mg tablet 1,000 mg PO Q8 PRN PAIN/FEVER 12/25/24 04/08/25 (Tylenol Extra Strength) alprazolam 0.25 mg tablet 0.25 mg PO 03/11/25 04/08/25 buprenorphine HCl 8 mg sublingual 8 mg sublingual TID 03/11/25 04/08/25 tablet gabapentin 400 mg capsule 400 mg PO TID 03/11/25 04/08/25 methylphenidate HCl 10 mg 10 mg PO DAILY 03/11/25 04/08/25 tablet,extended release methylphenidate HCl 20 mg 20 mg PO DAILY 03/11/25 04/08/25 tablet,extended release bupropion HCl 300 mg 24 hr tablet, 300 mg PO QAM 04/08/25 04/08/25 extended release citalopram 40 mg tablet 40 mg PO DAILY 04/08/25 04/08/25 doxepin 100 mg capsule 100 mg PO 04/08/25 04/08/25 methylphenidate HCl 10 mg tablet 10 mg PO QDL 04/08/25 04/08/25 semaglutide (weight loss) 2.4 2.4 mg subcut WK 04/08/25 04/08/25 mg/0.75 mL subcutaneous pen injector (Chapito) Previous Rx's Medication Instructions Recorded tretinoin 0.025 % topical cream 1 applic topical .COMPLEX #45 grams 04/27/22 ketoconazole 2 % shampoo 1 applic topical .COMPLEX #120 mL 08/04/22 losartan 100 1 tab PO QAM #90 tabs 11/27/23 mg-hydrochlorothiazide 25 mg tablet pantoprazole 40 mg tablet,delayed 40 mg PO QAM #90 tabs 11/29/23 release amlodipine 5 mg tablet (Norvasc) 5 mg PO QAM #90 tabs 10/07/24 albuterol sulfate 90 mcg/actuation 2 puff inhalation QID PRN SHORT OF 11/11/24 aerosol inhaler (Ventolin HFA) BREATH #18 grams budesonide-formoterol HFA 160 2 puff inhalation QAM #10.2 grams 11/11/24 mcg-4.5 mcg/actuation aerosol inhaler (Symbicort) ibuprofen 800 mg tablet 800 mg PO AMPM PRN pain #60 tabs 11/11/24 montelukast 10 mg tablet 10 mg PO HS #90 tabs 11/11/24 (Singulair) furosemide 40 mg tablet (Lasix) 40 mg PO DAILY PRN edema #90 tabs 03/03/25 metoprolol succinate 25 mg 12.5 mg (1/2 x 25 mg) PO QAM #90 03/04/25 tablet,extended release 24 hr tabs ondansetron HCl 4 mg tablet 4 mg PO Q8H PRN nausea and 03/11/25 vomiting #20 tabs cholecalciferol (vitamin D3) 50 50 mcg PO QAM #90 caps 03/13/25 mcg (2,000 unit) capsule ferrous sulfate 325 mg (65 mg 325 mg PO DAILY #90 tabs 03/13/25 iron) tablet cyclobenzaprine 5 mg tablet 5 mg PO TID PRN muscle spasm #20 04/07/25 tabs Results & Data (ED) Vital Signs Vital Signs - 24 hr 04/08/25 22:34 04/08/25 22:35 04/08/25 22:42 Temperature 37.1 C Temperature Source Oral Pulse Rate 73 81 Pulse Rate [Apical] 79 Pulse Rate from SpO2 Sensor Pulse Strength Normal Respiratory Rate 17 16 Respiratory Effort / Characteristics Non-Labored Spontaneous Non-Labored Spontaneous Respiratory Pattern Regular Regular Blood Pressure 166/96 H Blood Pressure [Right Arm] 147/85 H Blood Pressure Mean 119 Blood Pressure Mean [Right Arm] 105 Blood Pressure Position Lying Blood Pressure Position [Right Arm] Lying Pulse Oximetry 94 95 Oxygen Delivery Method Room Air Room Air Sepsis Recent Fever Within 48 Hours No Sepsis New/Unexplained Change in Mental Status No Sepsis Action Taken by Nursing No Action Required 04/08/25 23:24 04/08/25 23:36 04/09/25 00:06 Temperature Temperature Source Pulse Rate 76 71 Pulse Rate [Apical] 74 Pulse Rate from SpO2 Sensor 71 Pulse Strength Respiratory Rate 20 16 17 Respiratory Effort / Characteristics Non-Labored Spontaneous Respiratory Pattern Regular Blood Pressure Blood Pressure [Right Arm] 146/75 H Blood Pressure Mean Blood Pressure Mean [Right Arm] 98 Blood Pressure Position Blood Pressure Position [Right Arm] Lying Pulse Oximetry 96 94 97 Oxygen Delivery Method Room Air Room Air Sepsis Recent Fever Within 48 Hours Sepsis New/Unexplained Change in Mental Status Sepsis Action Taken by Nursing 04/09/25 00:12 04/09/25 00:24 04/09/25 00:36 Temperature Temperature Source Pulse Rate 69 72 77 Pulse Rate [Apical] Pulse Rate from SpO2 Sensor 68 73 77 Pulse Strength Respiratory Rate 15 12 22 Respiratory Effort / Characteristics Respiratory Pattern Blood Pressure 140/81 Blood Pressure [Right Arm] Blood Pressure Mean 100 Blood Pressure Mean [Right Arm] Blood Pressure Position Blood Pressure Position [Right Arm] Pulse Oximetry 97 97 98 Oxygen Delivery Method Room Air Sepsis Recent Fever Within 48 Hours Sepsis New/Unexplained Change in Mental Status Sepsis Action Taken by Nursing 04/09/25 01:00 04/09/25 02:17 Temperature Temperature Source Pulse Rate 76 Pulse Rate [Apical] 74 Pulse Rate from SpO2 Sensor Pulse Strength Respiratory Rate 16 20 Respiratory Effort / Characteristics Non-Labored Spontaneous Respiratory Pattern Regular Blood Pressure 136/91 Blood Pressure [Right Arm] 141/70 H Blood Pressure Mean 109 Blood Pressure Mean [Right Arm] 93 Blood Pressure Position Blood Pressure Position [Right Arm] Lying Pulse Oximetry 98 96 Oxygen Delivery Method Room Air Room Air Sepsis Recent Fever Within 48 Hours Sepsis New/Unexplained Change in Mental Status Sepsis Action Taken by Nursing Laboratory Data 04/08/25 22:55 04/08/25 22:55 Lab Results 04/08/25 04/09/25 Range/Units 22:55 03:00 WBC 5.12 (4.8-10.8) K/ul RBC 4.68 (4.20-5.40) M/uL Hgb 13.4 (12.0-16.0) g/dl Hct 40.3 (37.0-47.0) % MCV 86.1 (80.0-100.0) fL MCH 28.6 (25.0-34.0) pg MCHC 33.3 (32.0-36.0) g/dL RDW Std Deviation 45.2 (36.4-46.3) fL RDW Coeff of Ni 14.4 (11.5-14.5) % Plt Count 290 (130-400) K/uL MPV 9.5 (9.4-12.4) fL Immature Gran % (Auto) 0.2 % Neut % (Auto) 48.3 % Lymph % (Auto) 40.0 % [place] % (Auto) 8.0 % Eos % (Auto) 2.7 % Baso % (Auto) 0.8 % Neut # (Auto) 2.47 (1.40-6.50) K/uL Lymph # (Auto) 2.05 (1.20-3.40) K/uL [place] # (Auto) 0.41 (0.11-0.59) K/uL Eos # (Auto) 0.14 (0.00-0.50) K/uL Baso # (Auto) 0.04 (0.00-0.20) K/uL Immature Gran # (Auto) 0.01 (0.01-0.20) K/uL Sodium 139 (136-145) mmol/L Potassium 4.1 (3.5-5.1) mmol/L Chloride 109 H (98-107) mmol/L Carbon Dioxide 25 (21-32) mmol/L Anion Gap 5 (3-11) BUN 18 (6-23) mg/dl Creatinine 1.17 (0.6-1.2) mg/dl Est Cr Clr Drug Dosing 66.0 ml/min eGFR 56.15 BUN/Creatinine Ratio 15.4 (10-20) Glucose 114 H (70-99(Fasting)) mg/dl Calcium 10.0 (8.6-10.3) mg/dl Total Bilirubin 0.3 (0.2-1.0) mg/dl AST 16 (13-39) U/L ALT 15 (7-52) U/L Alkaline Phosphatase 82 (34-104) U/L Total Protein 6.5 (6.0-8.3) gm/dl Albumin 3.7 (3.4-5.0) gm/dl Globulin 2.8 (2.5-4.0) gm/dl Albumin/Globulin Ratio 1.3 (0.9-2) Urine Color Yellow Urine Appearance Cloudy A (Clear) Urine pH 5.5 (4.5-7.5) Ur Specific Finger 1.037 H (1.000-1.030) Urine Protein Trace H (Negative) Urine Glucose (UA) Negative (Negative) Urine Ketones Trace H (Negative) Urine Blood Negative (Negative) Urine Nitrite Negative (Negative) Urine Bilirubin Negative (Negative) Urine Urobilinogen Negative (Negative) Ur Leukocyte Esterase Negative (Negative) Urine WBC (Auto) 0-5 (0-5) /hpf Urine RBC (Auto) 0-2 (0-2) /hpf U Hyaline Cast (Auto) 3-5 H (0-2) /lpf U Epithel Cells (Auto) 11-20 H (0-2) /hpf Urine Bacteria (Auto) 4+ H (None Seen) Calcium Oxalate Crystal Present A (None Prsent) Urine Comment Administered Medications Discontinued Medications Fentanyl Citrate (Fentanyl Citrate Pf 100 Mcg/2 Ml Vial) 50 mcg IV NOW STA Stop: 04/08/25 23:16 Last Admin: 04/08/25 23:36 Dose: 50 mcg Documented By: JESSE Acetaminophen (Ofirmev) 1,000 mg in 100 mls @ 400 mls/hr IV NOW STA Stop: 04/08/25 23:27 Last Infusion: 04/08/25 23:54 Dose: Infused Documented By: Admin: 04/08/25 23:36 Dose: 400 mls/hr Documented By: JESSE Lidocaine (Lidocaine 5% 1 Patch) 1 patch TD NOW STA Stop: 04/08/25 23:14 Last Admin: 04/08/25 23:37 Dose: 1 patch Documented By: CDM Methocarbamol (Methocarbamol 500 Mg Tablet) 500 mg PO ONCE ONE Stop: 04/08/25 23:15 Last Admin: 04/08/25 23:56 Dose: 500 mg Documented By: CDM Methylprednisolone (Methylprednisolone 125 Mg/2 Ml Vial) 80 mg IV NOW STA Stop: 04/09/25 03:29 Last Admin: 04/09/25 03:39 Dose: 80 mg Documented By: NAW Imaging Data Radiologist's Impression: Lumbar Spine CT 04/08/25 23:28 EXAM: CT lumbar spine wo con CLINICAL HISTORY: low back pain radiating into left leg TECHNIQUE: Multiple contiguous axial images were obtained through the lumbar spine without IV contrast. Sagittal and coronal reformatted images were obtained from the axial data. CT scan was performed according to ALARA (as low as reasonably achievable). COMPARISON: MR, 03/14/2016 07:34:17 GEM CUTTER FINDINGS: The normal lordotic curvature of the lumbar spine is maintained. Grade I anterolisthesis of L3 over L4 level . Decreased disc height at L3/L4 and L2/L3 disc levels with vaccum phenomena seen. Multiple level small anterior marginal osteophytes seen. Lumbar vertebral bodies are maintained in height. Diffuse disc bulges noted at L3-L4 level causing moderate spinal canal, bilateral lateral recess and neural foraminal stenosis. No vertebral destructive changes are seen. Paravertebral soft tissues are unremarkable. IMPRESSION: 1. Grade I anterolisthesis of L3 over L4 level . New finding 2. Decreased disc height at L3/L4 and L2/L3 disc levels with vaccum phenomena seen. 3. Stable multiple level small anterior marginal osteophytes seen--- Degenerative changes. 4. Diffuse disc bulges noted at L3-L4 level causing moderate spinal canal, bilateral lateral recess and neural foraminal stenosis. 5. Suggested MRI lumbar spine for further evaluation. Electronically signed by Tomas Angeles 04-09-2025 01:12 AM Lumbar Spine MRI 04/09/25 01:14 EXAM: MR lumbar spine wo con CLINICAL HISTORY: low back pain radiating into L leg TECHNIQUE: Multisequential and multiplanar images of the lumbar spine were submitted for review without contrast. COMPARISON: MR, 03/14/2016 07:34:17 GEM CUTTER FINDINGS: Disc desiccation at multiple levels. Grade I anterolisthesis of L3 over L4 level . Decreased disc height at L3/L4 and L2/L3 disc levels . The conus terminates at approximately L1. Bone marrow signal is normal. No evidence of compression fracture. Limited evaluation of the sacrum is normal. The visualized paravertebral soft tissues are unremarkable. L2-L3: Asymmetric left side disc bulge causing mild left lateral recess and neuroforaminal narrowing. A sequestered disc measuring about 8x6mm seen posterior to lower border of L3 vertebra on left side causing compression over traversing as well as exiting nerve roots on left side. L3-L4: Diffuse posterior disc bulge causing Grade II canal stenosis, indentation over traversing as well as bilateral exiting nerve roots with bilateral moderate neuroforaminal narrowing. IMPRESSION: 1. Lumbar spondylosis. 2. Grade I anterolisthesis of L3 over L4 level . 3. L2-L3: Asymmetric left side disc bulge causing mild left lateral recess and neuroforaminal narrowing. 4. A sequestered disc seen posterior to lower border of L3 vertebra on left side causing compression over traversing as well as exiting nerve roots on left side. 5. L3-L4: Diffuse posterior disc bulge causing Grade II canal stenosis, indentation over traversing as well as bilateral exiting nerve roots with bilateral moderate neuroforaminal narrowing. Electronically signed by Tomas Angeles 04-09-2025 03:03 AM Discharge Plan Visit Data Chief Complaint: Back Injury/Pain Stated Complaint: BACK PAIN ED Provider: Desiree Epps Discharge Problem: Acute low back pain, Acute left lumbar radiculopathy, Herniated lumbar intervertebral disc, Ambulatory dysfunction Patient Disposition: Admitted As Inpatient Condition: Fair Forms Stand Alone Forms: [facility] Prescriptions Prescriptions: No Action ketoconazole 2 % shampoo 1 applic topical .COMPLEX Qty: 120 1RF Rx Instructions: 1 applic topical to the scalp 2-3 times a week. Allow to sit on the scalp for 5 minutes before rinsing. losartan-hydrochlorothiazide 100-25 mg tablet 1 tab PO QAM Qty: 90 1RF pantoprazole 40 mg tablet,delayed release (DR/EC) 40 mg PO QAM Qty: 90 3RF Rx Instructions: TAKE ONE TABLET BY MOUTH EVERY DAY amlodipine [Norvasc] 5 mg tablet 5 mg PO QAM Qty: 90 1RF budesonide-formoterol [Symbicort] 160-4.5 mcg/actuation HFA aerosol inhaler 2 puff INH QAM Qty: 10.2 3RF ibuprofen 800 mg tablet 800 mg PO AMPM PRN (Reason: pain) Qty: 60 2RF albuterol sulfate [Ventolin HFA] 90 mcg/actuation HFA aerosol inhaler 2 puff INHALATION QID PRN (Reason: SHORT OF BREATH) Qty: 18 1RF montelukast [Singulair] 10 mg tablet 10 mg PO HS Qty: 90 1RF furosemide [Lasix] 40 mg tablet 40 mg PO DAILY PRN (Reason: edema) Qty: 90 2RF metoprolol succinate 25 mg tablet extended release 24 hr 12.5 mg PO QAM Qty: 90 1RF cholecalciferol (vitamin D3) 50 mcg (2,000 unit) capsule 50 mcg PO QAM Qty: 90 1RF ferrous sulfate 325 mg (65 mg iron) tablet 325 mg PO DAILY Qty: 90 1RF cyclobenzaprine 5 mg tablet 5 mg PO TID PRN (Reason: muscle spasm) Qty: 20 0RF tretinoin 0.025 % cream 1 applic topical .COMPLEX Qty: 45 3RF Rx Instructions: 1 applic topical a pea-sized amount to the face every other night for 2 weeks, then nightly. Followed by moisturizer. acetaminophen [Tylenol Extra Strength] 500 mg tablet 1,000 mg PO Q8 PRN (Reason: PAIN/FEVER) cyanocobalamin (vitamin B-12) 1,000 mcg/mL kit 1,000 mcg IM MONTHLY gabapentin 400 mg capsule 400 mg PO TID methylphenidate HCl 10 mg tablet extended release 10 mg PO DAILY Rx Instructions: TOTAL DOSE 30 MG--TAKES WITH 20 MG TAB alprazolam 0.25 mg tablet 0.25 mg PO HS methylphenidate HCl 20 mg tablet extended release 20 mg PO DAILY Rx Instructions: TOTAL DOSE 30 MG--TAKES WITH 10 MG TAB. buprenorphine HCl 8 mg tablet, sublingual 8 mg sublingual TID ondansetron HCl 4 mg tablet 4 mg PO Q8H PRN (Reason: nausea and vomiting) Qty: 20 0RF fluoxetine [Prozac] 20 mg capsule 20 mg PO QAM clindamycin phosphate 1 % lotion 1 applic topical Q OTHER DAY oxybutynin chloride 10 mg tablet extended release 24hr 10 mg PO QAM citalopram 40 mg tablet 40 mg PO DAILY methylphenidate HCl 10 mg tablet 10 mg PO QDL doxepin 100 mg capsule 100 mg PO HS bupropion HCl 300 mg tablet extended release 24 hr 300 mg PO QAM Wegovy 2.4 mg/0.75 mL pen injector 2.4 mg SUBCUT WK Rx Instructions: SUNDAYS Referrals Referrals: Titi Hinojosa CRNP [Primary Care Provider] -
[2025-04-08 23:36] LABS: Basophils # (auto) 0.04 K/uL (0.00-0.20); Basophils % (auto) 0.8 %; Eosinophils # (auto) 0.14 K/uL (0.00-0.50); Eosinophils % (auto) 2.7 %; Hematocrit (blood only) 40.3 % (37.0-47.0); Hemoglobin 13.4 g/dl (12.0-16.0); Immature Granulocytes # (auto) 0.01 K/uL (0.01-0.20); Immature Granulocytes % (auto) 0.2 %; Lymphocytes # (auto) 2.05 K/uL (1.20-3.40); Mean Corpuscular Hemoglobin 28.6 pg (25.0-34.0); Mean Corpuscular Hgb Conc 33.3 g/dL (32.0-36.0); Mean Corpuscular Volume 86.1 fL (80.0-100.0); Mean Platelet Volume 9.5 fL (9.4-12.4); Monocytes # (auto) 0.41 K/uL (0.11-0.59); Neutrophils # (auto) 2.47 K/uL (1.40-6.50); Neutrophils % (auto) 48.3 %; Platelet Count 290 K/uL (130-400); RDW Coefficient of Variation 14.4 % (11.5-14.5); RDW Standard Deviation 45.2 fL (36.4-46.3); Red Blood Count 4.68 M/uL (4.20-5.40); White Blood Count 5.12 K/ul (4.8-10.8)
[2025-04-08] MEDS: fentaNYL citrate PF 100 MCG/2 ML VIAL IV STA (23:36)
[2025-04-08] MEDS: ACETAMINOPHEN 1,000 MG/100 ML VIAL IV STA (23:36)
[2025-04-08] MEDS: LIDOCAINE 5% 1 PATCH TD STA (23:37)
[2025-04-08 23:44] LABS: Albumin Globulin Ratio 1.3 (0.9-2); Albumin Level 3.7 gm/dl (3.4-5.0); BUN Creatinine Ratio 15.4 (10-20); Bilirubin,Total 0.3 mg/dl (0.2-1.0); Globulin 2.8 gm/dl (2.5-4.0); Potassium 4.1 mmol/L (3.5-5.1); Total Protein 6.5 gm/dl (6.0-8.3)
[2025-04-08] MEDS: METHOCARBAMOL 500 MG TABLET PO ONE (23:56)
--- NOTE | 2025-04-09 01:12 | CT Scan Report ---
EXAM: CT lumbar spine wo con CLINICAL HISTORY: low back pain radiating into left leg TECHNIQUE: Multiple contiguous axial images were obtained through the lumbar spine without IV contrast. Sagittal and coronal reformatted images were obtained from the axial data. CT scan was performed according to ALARA (as low as reasonably achievable). COMPARISON: , 03/14/2016 07:34:17 ENGRAVER COPPERPLATE FINDINGS: The normal lordotic curvature of the lumbar spine is maintained. Grade I anterolisthesis of L3 over L4 level . Decreased disc height at L3/L4 and L2/L3 disc levels with vaccum phenomena seen. Multiple level small anterior marginal osteophytes seen. Lumbar vertebral bodies are maintained in height. Diffuse disc bulges noted at L3-L4 level causing moderate spinal canal, bilateral lateral recess and neural foraminal stenosis. No vertebral destructive changes are seen. Paravertebral soft tissues are unremarkable. IMPRESSION: 1. Grade I anterolisthesis of L3 over L4 level . New finding 2. Decreased disc height at L3/L4 and L2/L3 disc levels with vaccum phenomena seen. 3. Stable multiple level small anterior marginal osteophytes seen--- Degenerative changes. 4. Diffuse disc bulges noted at L3-L4 level causing moderate spinal canal, bilateral lateral recess and neural foraminal stenosis. 5. Suggested MRI lumbar spine for further evaluation. Electronically signed by Tomas Angeles 04-09-2025 01:12 AM
--- NOTE | 2025-04-09 03:05 | Magnetic Resonance Report ---
EXAM: MR lumbar spine wo con CLINICAL HISTORY: low back pain radiating into L leg TECHNIQUE: Multisequential and multiplanar images of the lumbar spine were submitted for review without contrast. COMPARISON: MR, 03/14/2016 07:34:17 [employer] FINDINGS: Disc desiccation at multiple levels. Grade I anterolisthesis of L3 over L4 level . Decreased disc height at L3/L4 and L2/L3 disc levels . The conus terminates at approximately L1. Bone marrow signal is normal. No evidence of compression fracture. Limited evaluation of the sacrum is normal. The visualized paravertebral soft tissues are unremarkable. L2-L3: Asymmetric left side disc bulge causing mild left lateral recess and neuroforaminal narrowing. A sequestered disc measuring about 8x6mm seen posterior to lower border of L3 vertebra on left side causing compression over traversing as well as exiting nerve roots on left side. L3-L4: Diffuse posterior disc bulge causing Grade II canal stenosis, indentation over traversing as well as bilateral exiting nerve roots with bilateral moderate neuroforaminal narrowing. IMPRESSION: 1. Lumbar spondylosis. 2. Grade I anterolisthesis of L3 over L4 level . 3. L2-L3: Asymmetric left side disc bulge causing mild left lateral recess and neuroforaminal narrowing. 4. A sequestered disc seen posterior to lower border of L3 vertebra on left side causing compression over traversing as well as exiting nerve roots on left side. 5. L3-L4: Diffuse posterior disc bulge causing Grade II canal stenosis, indentation over traversing as well as bilateral exiting nerve roots with bilateral moderate neuroforaminal narrowing. Electronically signed by Tomas Angeles 04-09-2025 03:03 AM
[2025-04-09 03:28] LABS: Appearance Urine Cloudy (Clear); Bacteria Urine Automated 4+ (None Seen); Bilirubin Urine Negative (Negative); Blood Urine Negative (Negative); Calcium Oxalate Crystals Urine Present (None Prsent); Color Urine Yellow; Glucose Urine UA Negative (Negative); Ketones Urine Trace (Negative); Leukocyte Esterase Urine Negative (Negative); Nitrite Urine Negative (Negative); Protein Urine Trace (Negative); RBC Urine Automated 0-2 /hpf (0-2); Specific Gravity Urine 1.037 (1.000-1.030); Urobilinogen Urine Negative (Negative); WBC Urine Automated 0-5 /hpf (0-5); pH Urine 5.5 (4.5-7.5)
[2025-04-09] MEDS: methylPREDNISolone 125 MG/2 ML VIAL IV STA (03:39)
--- NOTE | 2025-04-09 03:57 | History & Physical Report ---
Date of Service April 09, 2025 Assessment & Plan (1) Ambulatory dysfunction: Plan: 54-year-old female who presents with worsening left lower extremity pain and paresthesias shooting down to her knee following a fall 2 weeks ago, unable to ambulate the last 24-48 hours due to symptoms. MRI shows a herniated disc and radicular compression. She is not able to pass an ambulatory trial in the ER and was recommended for PT/OT, steroid treatment, and ongoing pain control. Ambulatory dysfunction 2 weeks of left lower extremity pain following a fall, worsened in the last 48 hours and not able to ambulate due to pain they have admission patient is unable to ambulate due to her acute symptoms. Recommended for admission for steroid treatment, PT OT MRIL-spine: Grade 2 canal stenosis, indentation traversing bilateral exiting nerve roots with moderate neuroforaminal narrowing at L3-L4. L2-L3 with asymmetric left-sided disc bulge and mild left lateral recess and neuroforaminal narrowing. L3 sequestered disc with nerve root compression. Received methylprednisolone 80 mg IV x 1 in the ER Will continue dexamethasone 6 mg daily PT/OT Multimodal pain control. Tylenol. Lidocaine patch. Toradol deferred 2/2 allergy. Subutex continued She reports that she has chronic pain including her back which she is prescribed Subutex. Had an allergy to buprenorphine. Reports she has been instructed to take a quarter of a film daily. This is written as 3 times daily, she reports she only takes a quarter of a tablet at night. Hypertension Continue amlodipine Continue losartanhydrochlorothiazide Continue metoprolol GERD Continue PPI Asthma Continue montelukast Continue budesonideformoterol daily No acute exacerbation on admission Anxiety/depression Continue home alprazolam Continue bupropion Fluoxetine continued Subutex use Reports allergy to buprenorphine. Reports that she takes 1/4 tablet for chronic pain, denies history of substance/opioid abuse. DVT prophylaxis: Lovenox Disposition: MSO CODE STATUS: Full code Diet: Regular (2) Herniated lumbar intervertebral disc: (3) Acute low back pain: (4) Prediabetes: History of Present Illness Primary Care Provider: LITTLE Reyes Laine is a 54-year-old female with a past medical history of asthma, hypertension, IBS, diastolic dysfunction, LEYDI, JET, prediabetes, rheumatoid arthritis, migraine who presents with lower back pain following a fall 2 weeks prior. Noticing at the bedside. She reports that she has had some chronic back pain since a fall 2 weeks ago where she tripped "just went over". She reports that she was a little bit sore after falling but otherwise did not have chest pain with activity or exertion. No dyspnea. She reports that she has been weak in her left leg which has been worse in the last 2 days and now cannot walk because of her symptoms. She also has shooting pain which goes from her back down to her left knee. Pain does not travel past the knee. improved but still not tolerable enough to walk at time of ER assessment she reports she has alprazolam for anxiety and buprenorphine which were prescribed by a virtual psychiatrist. She reports that buprenorphine is for pain, denies history of opioid/IV drug use. Denies fever chills or sweats. Endorses fatigue. Denies nausea/vomiting. Medical History: Reviewed Medications: Reviewed Surgical History: Reviewed Family history: Reviewed Allergies: Reviewed Social History: Denies tobacco/etoh use Code Status: Allergies Allergy/AdvReac Type Severity Reaction Status Date / Time buprenorphine [From Suboxone] Allergy Severe Throat Verified 04/08/25 23:37 swells, hives naloxone [From Suboxone] Allergy Severe Throat Verified 04/08/25 23:37 swells, hives blueberry Allergy Intermediate HIVES Verified 04/08/25 23:37 naproxen Allergy Intermediate Hives Verified 04/08/25 23:37 nickel Allergy Intermediate SKIN Verified 04/08/25 23:37 IRRITATION/SWELLING tramadol Allergy Intermediate HIVES/nause Verified 04/08/25 23:37 a cefadroxil Allergy Mild Rash Verified 04/08/25 23:37 latex Allergy Mild SKIN Verified 04/08/25 23:37 PEELING MOLDS Allergy Severe SWELLING/HI Uncoded 04/08/25 23:37 VES Home Medications Medication Instructions Recorded Confirmed Type oxybutynin chloride 10 mg 10 mg PO QAM 12/15/21 04/08/25 History tablet,extended release 24 hr tretinoin 0.025 % topical cream 1 applic topical .COMPLEX #45 grams 04/27/22 04/08/25 Rx ketoconazole 2 % shampoo 1 applic topical .COMPLEX #120 mL 08/04/22 04/08/25 Rx clindamycin phosphate 1 % lotion 1 applic topical Q OTHER DAY 03/06/23 04/08/25 History fluoxetine 20 mg capsule (Prozac) 20 mg PO QAM 03/06/23 04/08/25 History losartan 100 1 tab PO QAM #90 tabs 11/27/23 04/08/25 Rx mg-hydrochlorothiazide 25 mg tablet pantoprazole 40 mg tablet,delayed 40 mg PO QAM #90 tabs 11/29/23 04/08/25 Rx release amlodipine 5 mg tablet (Norvasc) 5 mg PO QAM #90 tabs 10/07/24 04/08/25 Rx albuterol sulfate 90 mcg/actuation 2 puff inhalation QID PRN SHORT OF 11/11/24 04/08/25 Rx aerosol inhaler (Ventolin HFA) BREATH #18 grams budesonide-formoterol HFA 160 2 puff inhalation QAM #10.2 grams 11/11/24 04/08/25 Rx mcg-4.5 mcg/actuation aerosol inhaler (Symbicort) cyanocobalamin (vitamin B-12) 1,000 mcg IM MONTHLY 11/11/24 04/08/25 History 1,000 mcg/mL injection kit ibuprofen 800 mg tablet 800 mg PO AMPM PRN pain #60 tabs 11/11/24 04/08/25 Rx montelukast 10 mg tablet 10 mg PO HS #90 tabs 11/11/24 04/08/25 Rx (Singulair) acetaminophen 500 mg tablet 1,000 mg PO Q8 PRN PAIN/FEVER 12/25/24 04/08/25 History (Tylenol Extra Strength) furosemide 40 mg tablet (Lasix) 40 mg PO DAILY PRN edema #90 tabs 03/03/25 04/08/25 Rx metoprolol succinate 25 mg 12.5 mg (1/2 x 25 mg) PO QAM #90 03/04/25 04/08/25 Rx tablet,extended release 24 hr tabs alprazolam 0.25 mg tablet 0.25 mg PO HS 03/11/25 04/08/25 History buprenorphine HCl 8 mg sublingual 8 mg sublingual TID 03/11/25 04/08/25 History tablet gabapentin 400 mg capsule 400 mg PO TID 03/11/25 04/08/25 History methylphenidate HCl 10 mg 10 mg PO DAILY 03/11/25 04/08/25 History tablet,extended release methylphenidate HCl 20 mg 20 mg PO DAILY 03/11/25 04/08/25 History tablet,extended release ondansetron HCl 4 mg tablet 4 mg PO Q8H PRN nausea and 03/11/25 04/08/25 Rx vomiting #20 tabs cholecalciferol (vitamin D3) 50 50 mcg PO QAM #90 caps 03/13/25 04/08/25 Rx mcg (2,000 unit) capsule ferrous sulfate 325 mg (65 mg 325 mg PO DAILY #90 tabs 03/13/25 04/08/25 Rx iron) tablet cyclobenzaprine 5 mg tablet 5 mg PO TID PRN muscle spasm #20 04/07/25 04/08/25 Rx tabs bupropion HCl 300 mg 24 hr tablet, 300 mg PO QAM 04/08/25 04/08/25 History extended release citalopram 40 mg tablet 40 mg PO DAILY 04/08/25 04/08/25 History doxepin 100 mg capsule 100 mg PO HS 04/08/25 04/08/25 History methylphenidate HCl 10 mg tablet 10 mg PO QDL 04/08/25 04/08/25 History semaglutide (weight loss) 2.4 2.4 mg subcut WK 04/08/25 04/08/25 History mg/0.75 mL subcutaneous pen injector (Wegovy) Past Med/Surg History Problem List (Updated 04/09/25 @ 03:42 by Desiree Epps MD) Ambulatory dysfunction (Acute) Herniated lumbar intervertebral disc (Acute) Acute left lumbar radiculopathy (Acute) Acute low back pain (Acute) Chronic venous insufficiency Lower extremity edema (Chronic) Leg wound, left Hypertension (Chronic) Asthma (Chronic) Osteoarthritis Urinary urgency (Acute) Seasonal allergies (Chronic) Pain medication agreement broken (Acute) IBS (irritable colon syndrome) (Acute) Gait disturbance (Acute) Diastolic dysfunction Metabolic syndrome Vitamin D deficiency Anxiety and depression Gastritis Prediabetes Iron deficiency anemia Urinary incontinence in female (Chronic) Obstructive sleep apnea (Chronic) getting fitted for device in March Morbid obesity BMI 55.7 Rheumatoid arthritis Migraine Medical History Primary osteoarthritis of right knee Prediabetes Depression Seasonal allergies IBS (irritable bowel syndrome) Heart enlargement Creatinine elevation History of COVID-19 History of anesthesia reaction Lumbar disc disorder Overactive bladder Anxiety Hypertension Asthma Surgical History H/O thumb surgery Status post right knee replacement H/O gastric bypass History of left knee surgery (~05/11/19) History of carpal tunnel surgery Status post left knee replacement (~04/11/19) H/O bilateral breast reduction surgery S/P panniculectomy History of hysterectomy History of section History of bilateral tubal ligation History of esophagogastroduodenoscopy (EGD) History of colonoscopy History of cholecystectomy History of tooth extraction History of nasal septoplasty Family History Father Family history of esophageal cancer Heart disease Lung cancer Family/Other Breast cancer Multiple sclerosis Aunt Breast cancer Sister Colorectal cancer Family/Other Ovarian cancer Grandfather (Paternal) Cirrhosis Other No family history of adverse response to anesthesia Denies family history of Prostate cancer Myocardial infarction Social History Smoking Status: Never smoker Tobacco Type: Cigarettes Age Started Using Tobacco: 12; Age Quit Using Tobacco: 22; packs per day: 0.25; Second Hand Exposure: No; Do You Dip or Chew Tobacco: No; Hx Alcohol Use: No Hx Substance Use: No Preferred Language: Com[place]an Communication Ability: Effective Visual Impairment: No Limitations Hearing Ability: Normal Tank Operator Required: No Beliefs That Will Affect Care: None marital status: Current Living Situation: Significant Other Current Living Situation Comment: LIVES ALONE current occupational status: disabled How many Children do You have: 2 Feels Safe at Home: Yes Childhood Exposure to Second-Hand Smoke: No Diet: regular Diet Comment: regular caffeine: Yes during the past year weight has: remained stable Dental Care, Regularly: Yes Physical Activity Frequency: Does not Exercise Seatbelt Use: always Sunscreen Use: No Assistive Devices: Glasses and Walker Physical Exam Physical Exam: General: A&Ox3. NAD. Cooperative. HEENT: Atraumatic, normocephalic. Vision/hearing intact. MJ. Pulm: CTAB A&P. -wheezes, -rales, -rhonchi. Symmetrical chest rise. No increased work of breathing. No respiratory distress. Cardiac: RRR, -mrg. Radial pulses intact and symmetrical. Abdominal: Nontender, nondistended, soft. BS present. Extremities: Compression socks on. Left lower extremity with well-healing wounds, covered without ulceration or erythema. Hip flexion slightly limited by discomfort on the left but with 5/5 strength bilaterally. Ankle dorsiflexion/plantarflexion 5/5 bilaterally. Sensation soft touch intact in hands and feet bilaterally without asymmetry. No ankle clonus. Results & Data Results & Data Vital Signs (Past 12 Hours) Vital Signs Temp Pulse Pulse Resp BP BP Pulse Ox 04/09/25 02:17 74 20 141/70 H 96 04/09/25 01:00 76 16 136/91 98 04/09/25 00:36 77 22 140/81 98 04/09/25 00:24 72 12 97 04/09/25 00:12 69 15 97 04/09/25 00:06 71 17 97 04/08/25 23:36 74 16 146/75 H 94 04/08/25 23:24 76 20 96 04/08/25 22:42 79 16 147/85 H 95 04/08/25 22:35 81 04/08/25 22:34 37.1 C 73 17 166/96 H 94 O2 Del Method 04/09/25 02:17 Room Air 04/09/25 01:00 Room Air 04/09/25 00:36 Room Air 04/09/25 00:24 04/09/25 00:12 04/09/25 00:06 04/08/25 23:36 Room Air 04/08/25 23:24 Room Air 04/08/25 22:42 Room Air 04/08/25 22:35 04/08/25 22:34 Room Air PG Care Time/CCT Total # of Minutes Spent Total Time Spent with Patient: Total time spent is greater than 50% in coordination of care (as documented) at patient's floor/unit and/or counseling patient: Coding Level of Care Code 94416 INT INP/OBS CARE 3/75MIN Diagnoses Ambulatory dysfunction R26.2 Herniated lumbar intervertebral disc M51.26 Acute low back pain M54.50 Prediabetes R73.03
[2025-04-09] MEDS ORDERED: ONDANSETRON INJ 2 MG/ML 2 ML VIAL IV PRN (05:05)
[2025-04-09] MEDS ORDERED: POLYETHYLENE (MIRALAX) 17 GM PACK PO PRN (05:05)
[2025-04-09] MEDS ORDERED: DEXAMETHASONE SOD INJ 4 MG/ML VIAL IV STA (05:05)
[2025-04-09] MEDS ORDERED: MELATONIN 3 MG TAB PO PRN (05:05)
[2025-04-09] MEDS ORDERED: NON-FORMULARY MEDICATION (Cyanocobalamin (Vitamin B-12) 1,000 mcg/mL kit) IM SCH (05:05)
[2025-04-09] MEDS ORDERED: ONDANSETRON 4 MG OD TAB PO PRN (05:12)
[2025-04-09] MEDS: ACETAMINOPHEN 500 MG TAB PO PRN (05:32)
[2025-04-09] MEDS: CYCLOBENZAPRINE HCL 10 MG TAB PO PRN (05:33)
[2025-04-09] MEDS: dexAMETHasone 6 MG in SYRINGE 0 ML IV ONE (05:33)
[2025-04-09] MEDS: ENOXAPARIN INJ 40 MG/0.4 ML SYR SQ SCH (06:45)
[2025-04-09] MEDS: LORazepam 2 MG/1 ML VIAL IV STA (07:41)
[2025-04-09] MEDS: OXYBUTYNIN CHLORIDE XL 5 MG TABCR PO SCH (08:00)
[2025-04-09] MEDS: LOSARTAN/HCTZ 50/12.5MG TAB PO SCH (08:00)
[2025-04-09] MEDS: FLUoxetine HCL 20 MG CAP PO SCH (08:00)
[2025-04-09] MEDS: CHOLECALCIFEROL 25 MCG (1000 UNITS) TAB PO SCH (08:01)
[2025-04-09] MEDS: amLODIPine BESYLATE 5 MG TAB PO SCH (08:01)
[2025-04-09] MEDS: GABAPENTIN 400 MG CAP PO SCH (08:01)
[2025-04-09] MEDS: FUROSEMIDE 40 MG TAB PO PRN (08:01)
[2025-04-09] MEDS: METOPROLOL SUCC 25MG EXT REL TAB PO SCH (08:01)
[2025-04-09] MEDS: CITALOPRAM 40 MG TAB PO SCH (08:01)
[2025-04-09] MEDS: FERROUS SULFATE 325 MG TAB PO SCH (08:02)
[2025-04-09] MEDS: FLUTICASONE/VILANTEROL 100/25MCG 14 PUFFS/INHALER INH SCH (08:02)
[2025-04-09] MEDS: buPROPion XL 300 MG TABCR PO SCH (08:02)
[2025-04-09] MEDS: PANTOprazole 40 MG TAB PO SCH (08:02)
[2025-04-09] MEDS: tiZANidine HCL 4 MG TABLET PO SCH (08:31)
[2025-04-09] MEDS: methylPREDNISolone 4 MG TAB PO SCH (08:31)
--- NOTE | 2025-04-09 17:10 | Hospitalist Progress Note ---
Date of Service April 09, 2025 Assessment & Plan (1) Ambulatory dysfunction: Plan: 54-year-old female who presents with worsening left lower extremity pain and paresthesias shooting down to her knee following a fall 2 weeks ago, unable to ambulate the last 24-48 hours due to symptoms. MRI shows a herniated disc and radicular compression. She is not able to pass an ambulatory trial in the ER and was recommended for PT/OT, steroid treatment, and ongoing pain control. Ambulatory dysfunction 2 weeks of left lower extremity pain following a fall, worsened in the last 48 hours and not able to ambulate due to pain they have admission patient is unable to ambulate due to her acute symptoms. Recommended for admission for steroid treatment, PT OT MRIL-spine: Grade 2 canal stenosis, indentation traversing bilateral exiting nerve roots with moderate neuroforaminal narrowing at L3-L4. L2-L3 with asymmetric left-sided disc bulge and mild left lateral recess and neuroforaminal narrowing. L3 sequestered disc with nerve root compression. Received methylprednisolone 80 mg IV x 1 in the ER c/w steroid medrol started on zanaflex for pain control dexamethasone 6 mg daily PT/OT Multimodal pain control. Tylenol. Lidocaine patch. Toradol deferred 2/2 allergy. Subutex continued She reports that she has chronic pain including her back which she is prescribed Subutex. Had an allergy to buprenorphine. Reports she has been instructed to take a quarter of a film daily. This is written as 3 times daily, she reports she only takes a quarter of a tablet at night. Hypertension Continue amlodipine Continue losartanhydrochlorothiazide Continue metoprolol GERD Continue PPI Asthma Continue montelukast Continue budesonideformoterol daily No acute exacerbation on admission Anxiety/depression Continue home alprazolam Continue bupropion Fluoxetine continued Subutex use Reports allergy to buprenorphine. Reports that she takes 1/4 tablet for chronic pain, denies history of substance/opioid abuse. DVT prophylaxis: Lovenox Disposition: MSO CODE STATUS: Full code Diet: Regular (2) Herniated lumbar intervertebral disc: (3) Acute low back pain: (4) Prediabetes: Admission and Anticipated Discharge Date Admission Date: April 09, 2025 Subjective she was having 10/10 pain started on zanaflex; medrol dose pack and IV ativan still need IV pain medicine for control limiting use of nacrotic review MRI imaging Results & Data Results & Data Vital Signs (Past 12 Hours) Vital Signs Temp Pulse Resp BP Pulse Ox O2 Del Method 04/09/25 15:33 36.6 C 75 16 131/79 94 Room Air 04/09/25 10:04 157/83 H 04/09/25 06:57 37.0 C 93 H 16 175/78 H 90 Room Air Laboratory Results Laboratory Results - last 72 hr 04/08/25 04/09/25 22:55 03:00 WBC 5.12 RBC 4.68 Hgb 13.4 Hct 40.3 MCV 86.1 MCH 28.6 MCHC 33.3 RDW Std Deviation 45.2 RDW Coeff of Ni 14.4 Plt Count 290 MPV 9.5 Immature Gran % (Auto) 0.2 Neut % (Auto) 48.3 Lymph % (Auto) 40.0 [place] % (Auto) 8.0 Eos % (Auto) 2.7 Baso % (Auto) 0.8 Neut # (Auto) 2.47 Lymph # (Auto) 2.05 [place] # (Auto) 0.41 Eos # (Auto) 0.14 Baso # (Auto) 0.04 Immature Gran # (Auto) 0.01 Sodium 139 Potassium 4.1 Chloride 109 H Carbon Dioxide 25 Anion Gap 5 BUN 18 Creatinine 1.17 Est Cr Clr Drug Dosing 66.0 eGFR 56.15 BUN/Creatinine Ratio 15.4 Glucose 114 H Calcium 10.0 Total Bilirubin 0.3 AST 16 ALT 15 Alkaline Phosphatase 82 Total Protein 6.5 Albumin 3.7 Globulin 2.8 Albumin/Globulin Ratio 1.3 Urine Color Yellow Urine Appearance Cloudy A Urine pH 5.5 Ur Specific [place] 1.037 H Urine Protein Trace H Urine Glucose (UA) Negative Urine Ketones Trace H Urine Blood Negative Urine Nitrite Negative Urine Bilirubin Negative Urine Urobilinogen Negative Ur Leukocyte Esterase Negative Urine WBC (Auto) 0-5 Urine RBC (Auto) 0-2 U Hyaline Cast (Auto) 3-5 H U Epithel Cells (Auto) 11-20 H Urine Bacteria (Auto) 4+ H Calcium Oxalate Crystal Present A Urine Comment PG Care Time/CCT Total # of Minutes Spent Total Time Spent with Patient: Total time spent is greater than 50% in coordination of care (as documented) at patient's floor/unit and/or counseling patient: Coding Level of Care Code 57764 SUB INP/OBS CARE 1/25MIN Diagnoses Ambulatory dysfunction R26.2 Herniated lumbar intervertebral disc M51.26 Acute low back pain M54.50 Prediabetes R73.03 Time Spent (min) 25
[2025-04-09] MEDS: DOXEPIN HCL 50 MG CAPSULE PO SCH (20:37)
[2025-04-09] MEDS: MONTELUKAST SODIUM 10 MG TABLET PO SCH (20:37)
[2025-04-09] MEDS: ALPRAZolam 0.25 MG TABLET PO SCH (20:37)
[2025-04-09] MEDS: buprenorphine HCL 2 MG SUBL SL SCH (20:38)
[2025-04-09] MEDS: LIDOCAINE 5% 1 PATCH TD SCH (20:38)
[2025-04-10] MEDS: ALBUTEROL HFA 8 GM INHALER INH PRN (02:06)
[2025-04-10 07:12] LABS: Basophils # (auto) 0.02 K/uL (0.00-0.20); Basophils % (auto) 0.2 %; Eosinophils # (auto) 0.01 K/uL (0.00-0.50); Eosinophils % (auto) 0.1 %; Hematocrit (blood only) 42.4 % (37.0-47.0); Hemoglobin 13.3 g/dl (12.0-16.0); Immature Granulocytes # (auto) 0.03 K/uL (0.01-0.20); Immature Granulocytes % (auto) 0.3 %; Lymphocytes # (auto) 2.38 K/uL (1.20-3.40); Lymphocytes % (auto) 23.2 %; Mean Corpuscular Hemoglobin 27.7 pg (25.0-34.0); Mean Corpuscular Hgb Conc 31.4 g/dL (32.0-36.0); Mean Corpuscular Volume 88.3 fL (80.0-100.0); Mean Platelet Volume 9.4 fL (9.4-12.4); Monocytes # (auto) 0.77 K/uL (0.11-0.59); Monocytes % (auto) 7.5 %; Neutrophils # (auto) 7.06 K/uL (1.40-6.50); Neutrophils % (auto) 68.7 %; Platelet Count 293 K/uL (130-400); RDW Coefficient of Variation 14.9 % (11.5-14.5); RDW Standard Deviation 48.1 fL (36.4-46.3); White Blood Count 10.27 K/ul (4.8-10.8)
[2025-04-10 07:38] LABS: BUN Creatinine Ratio 15.5 (10-20); Calcium 10.3 mg/dl (8.6-10.3); Creatinine Clr Calc Pharmacy 32.8 ml/min; Potassium 3.7 mmol/L (3.5-5.1)
[2025-04-10 07:47] VITALS: RESP 16
[2025-04-10] MEDS: SODIUM CHLORIDE 0.9% 500 ML IV ONE (10:05)
[2025-04-10] MEDS: DOXYCYCLINE HYCLATE 100 MG CAP PO SCH (10:43)
[2025-04-10] MEDS: SODIUM CHLORIDE 0.9% 1,000 ML IV SCH (11:15)
--- NOTE | 2025-04-10 11:23 | Orthopedic Consultation ---
Date of Service April 10, 2025 Assessment & Plan (1) Herniation of intervertebral disc at L3-L4 level: * Case/imaging discussed with Dr Feliciano * Recommend trial of conservative management of L3-4 disc bulge/stenosis, including IV steroid and PT * Disposition: TBD * Daily treatment: Physical Therapy/ Occupational Therapy per protocol * Weight bearing status: WBAT, no motion restrictions * Pain control * Remainder care per primary team * Will continue to follow, if not progressing can discuss surgical intervention but ideally this will be coordinated in outpatient setting * * Patient seen and examined, plan as dictated with IV steroids and mobilization with physical therapy and will monitor the progress for decisions as to whether continued conservative management versus discectomy. (2) Obesity, morbid, BMI 40.0-49.9: (3) Disc degeneration, lumbar: History of Present Illness Reason for Consultation: . Low back pain, leg weakness Requesting Physician: . Attending Physician: Jasmine Donis DO Patient is a 54 y/o female with low back pain and left leg weakness. PMH including HTN, anxiety, prediabetes. Presents to ED with acute onset low back and left leg pain. Patient reports sudden onset of low back pain approximately 3 days ago when lifting an object. Since then she has had persistent low back pain and left leg weakness, difficulty ambulating, requiring use of a crutch to get around. Describes a shooting pain down the back of her left leg to her foot that increases when she is in a sitting position, improved with laying down or not moving. ED workup including CT and MRI lumbar spine demonstrating L2-3 disc bulge, L3-4 disc bulge with grade 2 stenosis. Admitted to hospital medicine team secondary to ambulatory dysfunction and pain. Orthopedics consulted for management recommendations. At time of exam patient sleeping soundly in bed. Upon waking, patient largely comfortable, no acute distress. Reports moderate low back pain at rest that increases with attempted movement as well as sitting up, occasionally pain radiates down the posterior leg to her foot. Reports that she has a difficult time lifting her leg off the bed and has trouble walking. Using a broom stick has a crutch for ambulation. Denies history of similar symptoms. Allergies Allergy/AdvReac Type Severity Reaction Status Date / Time buprenorphine [From Suboxone] Allergy Severe Throat Verified 04/08/25 23:37 louis bush naloxone [From Suboxone] Allergy Severe Throat Verified 04/08/25 23:37 swells, hives blueberry Allergy Intermediate HIVES Verified 04/08/25 23:37 naproxen Allergy Intermediate Hives Verified 04/08/25 23:37 nickel Allergy Intermediate SKIN Verified 04/08/25 23:37 IRRITATION/SWELLING tramadol Allergy Intermediate HIVES/nause Verified 04/08/25 23:37 a cefadroxil Allergy Mild Rash Verified 04/08/25 23:37 latex Allergy Mild SKIN Verified 04/08/25 23:37 PEELING Home Medications Medication Instructions Recorded Confirmed Type oxybutynin chloride 10 mg 10 mg PO QAM 12/15/21 04/08/25 History tablet,extended release 24 hr tretinoin 0.025 % topical cream 1 applic topical .COMPLEX #45 grams 04/27/22 04/08/25 Rx ketoconazole 2 % shampoo 1 applic topical .COMPLEX #120 mL 08/04/22 04/08/25 Rx clindamycin phosphate 1 % lotion 1 applic topical Q OTHER DAY 03/06/23 04/08/25 History fluoxetine 20 mg capsule (Prozac) 20 mg PO QAM 03/06/23 04/08/25 History pantoprazole 40 mg tablet,delayed 40 mg PO QAM #90 tabs 11/29/23 04/08/25 Rx release budesonide-formoterol HFA 160 2 puff inhalation QAM #10.2 grams 11/11/24 04/08/25 Rx mcg-4.5 mcg/actuation aerosol inhaler (Symbicort) acetaminophen 500 mg tablet 1,000 mg PO Q8 PRN PAIN/FEVER 12/25/24 04/08/25 History (Tylenol Extra Strength) metoprolol succinate 25 mg 12.5 mg (1/2 x 25 mg) PO QAM #90 03/04/25 04/08/25 Rx tablet,extended release 24 hr tabs alprazolam 0.25 mg tablet 0.25 mg PO HS 03/11/25 04/08/25 History buprenorphine HCl 8 mg sublingual 8 mg sublingual TID 03/11/25 04/08/25 History tablet gabapentin 400 mg capsule 400 mg PO TID 03/11/25 04/08/25 History methylphenidate HCl 10 mg 10 mg PO DAILY 03/11/25 04/08/25 History tablet,extended release methylphenidate HCl 20 mg 20 mg PO DAILY 03/11/25 04/08/25 History tablet,extended release ondansetron HCl 4 mg tablet 4 mg PO Q8H PRN nausea and 03/11/25 04/08/25 Rx vomiting #20 tabs ferrous sulfate 325 mg (65 mg 325 mg PO DAILY #90 tabs 03/13/25 04/08/25 Rx iron) tablet bupropion HCl 300 mg 24 hr tablet, 300 mg PO QAM 04/08/25 04/08/25 History extended release citalopram 40 mg tablet 40 mg PO DAILY 04/08/25 04/08/25 History doxepin 100 mg capsule 100 mg PO HS 04/08/25 04/08/25 History methylphenidate HCl 10 mg tablet 10 mg PO QDL 04/08/25 04/08/25 History semaglutide (weight loss) 2.4 2.4 mg subcut WK 04/08/25 04/08/25 History mg/0.75 mL subcutaneous pen injector (Wegovy) albuterol sulfate 90 mcg/actuation 2 puff inhalation QID PRN SHORT OF 04/10/25 Rx aerosol inhaler (Ventolin HFA) BREATH #18 grams amlodipine 5 mg tablet (Norvasc) 5 mg PO QAM #90 tabs 04/10/25 Rx cholecalciferol (vitamin D3) 50 50 mcg PO QAM #90 caps 04/10/25 Rx mcg (2,000 unit) capsule cyanocobalamin (vitamin B-12) 1,000 mcg IM MONTHLY #3 KITS 04/10/25 Rx 1,000 mcg/mL injection kit cyclobenzaprine 5 mg tablet 5 mg PO TID PRN muscle spasm #20 04/10/25 Rx tabs furosemide 40 mg tablet (Lasix) 40 mg PO DAILY PRN edema #90 tabs 04/10/25 Rx ibuprofen 800 mg tablet 800 mg PO AMPM PRN pain #60 tabs 04/10/25 Rx losartan 100 1 tab PO QAM #90 tabs 04/10/25 Rx mg-hydrochlorothiazide 25 mg tablet montelukast 10 mg tablet 10 mg PO HS #90 tabs 04/10/25 Rx (Singulair) Past Med/Surg History Problem List (Updated 04/11/25 @ 08:30 by Chris Feliciano MD) Disc degeneration, lumbar Obesity, morbid, BMI 40.0-49.9 Herniation of intervertebral disc at L3-L4 level Ambulatory dysfunction (Acute) Herniated lumbar intervertebral disc (Acute) Acute left lumbar radiculopathy (Acute) Acute low back pain (Acute) Chronic venous insufficiency Lower extremity edema (Chronic) Leg wound, left Hypertension (Chronic) Asthma (Chronic) Osteoarthritis Urinary urgency (Acute) Seasonal allergies (Chronic) Pain medication agreement broken (Acute) IBS (irritable colon syndrome) (Acute) Gait disturbance (Acute) Diastolic dysfunction Metabolic syndrome Vitamin D deficiency Anxiety and depression Gastritis Prediabetes Iron deficiency anemia Urinary incontinence in female (Chronic) Obstructive sleep apnea (Chronic) getting fitted for device in March Morbid obesity BMI 55.7 Rheumatoid arthritis Migraine Medical History Primary osteoarthritis of right knee Prediabetes Depression Seasonal allergies IBS (irritable bowel syndrome) Heart enlargement Creatinine elevation History of COVID-19 History of anesthesia reaction Lumbar disc disorder Overactive bladder Anxiety Hypertension Asthma Surgical History H/O thumb surgery Status post right knee replacement H/O gastric bypass History of left knee surgery (~05/11/19) History of carpal tunnel surgery Status post left knee replacement (~04/11/19) H/O bilateral breast reduction surgery S/P panniculectomy History of hysterectomy History of section History of bilateral tubal ligation History of esophagogastroduodenoscopy (EGD) History of colonoscopy History of cholecystectomy History of tooth extraction History of nasal septoplasty Family History Father Family history of esophageal cancer Heart disease Lung cancer Family/Other Breast cancer Multiple sclerosis Aunt Breast cancer Sister Colorectal cancer Family/Other Ovarian cancer Grandfather (Paternal) Cirrhosis Other No family history of adverse response to anesthesia Denies family history of Prostate cancer Myocardial infarction Social History Smoking Status: Former smoker Tobacco Type: Cigarettes Age Started Using Tobacco: 12; Age Quit Using Tobacco: 22; packs per day: 0.25; Second Hand Exposure: No; Do You Dip or Chew Tobacco: No; Hx Alcohol Use: No Hx Substance Use: No Preferred Language: Croatian Communication Ability: Effective Visual Impairment: No Limitations Hearing Ability: Normal Health Education Specialist Required: No Beliefs That Will Affect Care: None marital status: Current Living Situation: Alone Current Living Situation Comment: LIVES ALONE current occupational status: disabled How many Children do You have: 2 Feels Safe at Home: Yes Safety Concerns: Feels Safe At This Time Childhood Exposure to Second-Hand Smoke: No Diet: regular Diet Comment: regular caffeine: Yes during the past year weight has: remained stable Dental Care, Regularly: Yes Physical Activity Frequency: Does not Exercise Seatbelt Use: always Sunscreen Use: No Assistive Devices: None Review of Systems All systems reviewed & are unremarkable except as noted in HPI & below. Physical Exam . * General: Alert and oriented, no acute distress * Constitutional: well-developed, well-nourished. * Respiratory: Normal respiratory effort, no distress * Gastrointestinal: No tenderness to palpation, no rigidity or guarding. * Skin: No rash or lesion. * Neurologic: Grossly normal * Musculoskeletal: Lumbar region with no obvious deformity or overlying skin changes. Otherwise no deformity or skin changes to the left lower extremity noted. Mild TTP midline lumbar spine and left gluteal region. Otherwise no tenderness of the thigh, knee region, lower leg, foot/ankle. Increased low back pain with lumbar flexion, improved with extension. AROM hip flexion limited secondary to pain and weakness, 2/5. AROM knee extension limited secondary to pain and weakness, 3/5. AROM ankle dorsiflexion and toe extension intact, 5/5. Sensation intact lateral thigh, anterior thigh, knee, medial lower leg, dorsal foot. Brisk capillary refill. Results & Data Results & Data Laboratory Results . Diagnostic Findings MRI lumbar spine EXAM: MR lumbar spine wo con CLINICAL HISTORY: low back pain radiating into L leg TECHNIQUE: Multisequential and multiplanar images of the lumbar spine were submitted for review without contrast. COMPARISON: , 03/14/2016 07:34:17 EDI COORDINATOR FINDINGS: Disc desiccation at multiple levels. Grade I anterolisthesis of L3 over L4 level . Decreased disc height at L3/L4 and L2/L3 disc levels . The conus terminates at approximately L1. Bone marrow signal is normal. No evidence of compression fracture. Limited evaluation of the sacrum is normal. The visualized paravertebral soft tissues are unremarkable. L2-L3: Asymmetric left side disc bulge causing mild left lateral recess and neuroforaminal narrowing. A sequestered disc measuring about 8x6mm seen posterior to lower border of L3 vertebra on left side causing compression over traversing as well as exiting nerve roots on left side. L3-L4: Diffuse posterior disc bulge causing Grade II canal stenosis, indentation over traversing as well as bilateral exiting nerve roots with bilateral moderate neuroforaminal narrowing. IMPRESSION: 1. Lumbar spondylosis. 2. Grade I anterolisthesis of L3 over L4 level . 3. L2-L3: Asymmetric left side disc bulge causing mild left lateral recess and neuroforaminal narrowing. 4. A sequestered disc seen posterior to lower border of L3 vertebra on left side causing compression over traversing as well as exiting nerve roots on left side. 5. L3-L4: Diffuse posterior disc bulge causing Grade II canal stenosis, indentation over traversing as well as bilateral exiting nerve roots with bilateral moderate neuroforaminal narrowing. PG Care Time/CCT Total # of Minutes Spent Total Time Spent with Patient: Total time spent is greater than 50% in coordination of care (as documented) at patient's floor/unit and/or counseling patient: [place] [address] IN/OBS CONSULT LVL 3,45M Patient Type New Medical Decision Making Moderate Complexity Diagnoses Herniation of intervertebral disc at L3-L4 level M51.26 Obesity, morbid, BMI 40.0-49.9 E66.01 Disc degeneration, lumbar M51.369 Time Spent (min) 30
--- NOTE | 2025-04-10 13:13 | Hospitalist Progress Note ---
Date of Service April 10, 2025 Assessment & Plan (1) Ambulatory dysfunction: Plan: 54-year-old female who presents with worsening left lower extremity pain and paresthesias shooting down to her knee following a fall 2 weeks ago, unable to ambulate the last 24-48 hours due to symptoms. MRI shows a herniated disc and radicular compression. She is not able to pass an ambulatory trial in the ER and was recommended for PT/OT, steroid treatment, and ongoing pain control. intractable low back pain neurosurgery recommended IV steroid hold off zanaflex and gapabentin given her [facility] MRI found grade 2 canal stenosis traverse her nerve root at L3-L4 L2-L3 with asymmetric left side disc bulding and mild lateral recess KEY creatinine of 1.17--> 2.33 hold losartan hctz hold gabapentin and zanaflex giving her iV fluid hypotension hold amlodpine and losartan/hctz ambulatory dysfunction PT and OT to evaluate her Multimodal pain control. Tylenol. Lidocaine patch. Toradol deferred 2/2 allergy. Subutex continued She reports that she has chronic pain including her back which she is prescribed Subutex. Had an allergy to buprenorphine. Reports she has been instructed to take a quarter of a film daily. This is written as 3 times daily, she reports she only takes a quarter of a tablet at night. Hypertension holding losartan-hctz given her KEY c/w metoprolol hold amlodipine Continue amlodipine Continue losartanhydrochlorothiazide Continue metoprolol GERD Continue PPI Asthma Continue montelukast Continue budesonideformoterol daily No acute exacerbation on admission Anxiety/depression Continue home alprazolam Continue bupropion Fluoxetine continued Subutex use Reports allergy to buprenorphine. Reports that she takes 1/4 tablet for chronic pain, denies history of substance/opioid abuse. DVT prophylaxis: Lovenox Disposition: MSO CODE STATUS: Full code Diet: Regular (2) Herniated lumbar intervertebral disc: (3) Acute low back pain: (4) Prediabetes: Admission and Anticipated Discharge Date Admission Date: April 09, 2025 Subjective she is in [facility] and we held her ELIUD-inhibitor, HCTZ giving her IV fluid hold gabapentin 400 TID while she's in [facility] spine surgery consulted; recommended ongoing IV steroid PT will assess her her dc is 24-48 hours away Physical Exam Physical Exam: VITALS: Reviewed. WEIGHT/BMI reviewed. GEN: obese; non-toxic appearing -Head: NC/AT; -Mouth and throat: MMM. Normal gums, muc dario, palate,. Good dentition. NECK: Supple, with no masses. CV: RRR, no m/r/g. LUNGS: CTAB, no w/r/c. ABD: Soft, NT/ND, NBS, no masses or organomegaly. : N/A SKIN: Warm, well perfused. No skin rashes or abnormal lesions. MSK: left sacral painful to palpation; thoracic spine non-painfu to palpation. deferring range of motion. no gross deformity EXT: No clubbing, cyanosis, or edema. NEURO: AAOx3; slow mentation Results & Data Results & Data Vital Signs (Past 12 Hours) Vital Signs Temp Pulse Resp BP Pulse Ox O2 Del Method 04/10/25 07:45 36.5 C 58 L 16 105/61 96 Room Air 04/10/25 07:30 62 14 103/62 95 Room Air 04/10/25 02:09 67 18 93 Room Air Laboratory Results Laboratory Results - last 72 hr 04/08/25 04/09/25 04/10/25 22:55 03:00 06:39 WBC 5.12 10.27 RBC 4.68 4.80 Hgb 13.4 13.3 Hct 40.3 42.4 MCV 86.1 88.3 MCH 28.6 27.7 MCHC 33.3 31.4 L RDW Std Deviation 45.2 48.1 H RDW Coeff of Ni 14.4 14.9 H Plt Count 290 293 MPV 9.5 9.4 Immature Gran % (Auto) 0.2 0.3 Neut % (Auto) 48.3 68.7 Lymph % (Auto) 40.0 23.2 [place] % (Auto) 8.0 7.5 Eos % (Auto) 2.7 0.1 Baso % (Auto) 0.8 0.2 Neut # (Auto) 2.47 7.06 H Lymph # (Auto) 2.05 2.38 [place] # (Auto) 0.41 0.77 H Eos # (Auto) 0.14 0.01 Baso # (Auto) 0.04 0.02 Immature Gran # (Auto) 0.01 0.03 Sodium 139 142 Potassium 4.1 3.7 Chloride 109 H 104 Carbon Dioxide 25 30 Anion Gap 5 8 BUN 18 36 H Creatinine 1.17 2.33 H D Est Cr Clr Drug Dosing 66.0 32.8 eGFR 56.15 24.56 BUN/Creatinine Ratio 15.4 15.5 Glucose 114 H 98 Calcium 10.0 10.3 Total Bilirubin 0.3 AST 16 ALT 15 Alkaline Phosphatase 82 Total Protein 6.5 Albumin 3.7 Globulin 2.8 Albumin/Globulin Ratio 1.3 Urine Color Yellow Urine Appearance Cloudy A Urine pH 5.5 Ur Specific [place] 1.037 H Urine Protein Trace H Urine Glucose (UA) Negative Urine Ketones Trace H Urine Blood Negative Urine Nitrite Negative Urine Bilirubin Negative Urine Urobilinogen Negative Ur Leukocyte Esterase Negative Urine WBC (Auto) 0-5 Urine RBC (Auto) 0-2 U Hyaline Cast (Auto) 3-5 H U Epithel Cells (Auto) 11-20 H Urine Bacteria (Auto) 4+ H Calcium Oxalate Crystal Present A Urine Comment PG Care Time/CCT Total # of Minutes Spent Total Time Spent with Patient: Total time spent is greater than 50% in coordination of care (as documented) at patient's floor/unit and/or counseling patient: Coding Level of Care Code 21289 SUB INP/OBS CARE 2/35MIN Diagnoses Ambulatory dysfunction R26.2 Herniated lumbar intervertebral disc M51.26 Acute low back pain M54.50 Prediabetes R73.03 Time Spent (min) 35
[2025-04-10 15:04] LABS: BUN Creatinine Ratio 15.8 (10-20); Calcium 10.3 mg/dl (8.6-10.3); Creatinine Clr Calc Pharmacy 30.2 ml/min; Potassium 4.2 mmol/L (3.5-5.1)
[2025-04-11 07:08] LABS: Hemoglobin 12.5 g/dl (12.0-16.0); Mean Corpuscular Hemoglobin 28.5 pg (25.0-34.0); Mean Corpuscular Hgb Conc 32.1 g/dL (32.0-36.0); Mean Platelet Volume 9.5 fL (9.4-12.4); Platelet Count 224 K/uL (130-400); RDW Coefficient of Variation 14.9 % (11.5-14.5); RDW Standard Deviation 49.3 fL (36.4-46.3); Red Blood Count 4.38 M/uL (4.20-5.40); White Blood Count 5.63 K/ul (4.8-10.8)
--- NOTE | 2025-04-11 07:29 | Orthopedic Progress Note ---
Date of Service April 11, 2025 Assessment & Plan (1) Herniation of intervertebral disc at L3-L4 level: * Case/imaging discussed with Dr Feliciano * Subjectively continued pain, however moderately improved LLE strength on exam * Continue trial of conservative management of L3-4 disc bulge/stenosis, including IV steroid and PT * Disposition: TBD * Daily treatment: Physical Therapy/ Occupational Therapy per protocol * Weight bearing status: WBAT, no motion restrictions * Pain control * Remainder care per primary team * Will continue to follow, if not progressing can discuss surgical intervention but ideally this will be coordinated in outpatient setting Plan Patient seen and examined, has improved strength in left leg to manual testing she has intact strength her ankle plantar dorsiflexion, knee extension was at least in the 4+ if not 5/5 when compared to the right side. I discussed with the patient the options, and explained once again that with improvement since yesterday, would be reasonable to mobilize her with physical therapy and see if she progresses with her ambulation. If continued improvement can monitor this versus moving ahead with operative intervention which would be a left sided microdiscectomy at L3-4, this was discussed with the patient and will continue to follow daily. Subjective . Active Problems: L3-4 disc bulge, stenosis 54 y/o female with L3-4 disc bulge and stenosis, LBP, L leg weakness. Continued low back pain, but improved ambulation yesterday with PT. Denies fever/chills, chest pain/SOB, nausea/vomiting. Otherwise no complaints. Review of Systems All systems reviewed & are unremarkable except as noted in HPI & below. Physical Exam . * General: Alert and oriented, no acute distress * Constitutional: well-developed, well-nourished. * Respiratory: Normal respiratory effort, no distress * Gastrointestinal: No tenderness to palpation, no rigidity or guarding. * Skin: No rash or lesion. * Neurologic: Grossly normal * Musculoskeletal: Lumbar region with no obvious deformity or overlying skin changes. Mild TTP midline lumbar spine and left gluteal region. Otherwise no tenderness of the thigh, knee region, lower leg, foot/ankle. Increased low back pain with lumbar flexion, improved with extension. AROM hip flexion improved today but still limited secondary to pain and weakness, 3/5. AROM knee extension limited secondary to pain and weakness, 3/5. AROM ankle dorsiflexion and toe extension intact, 5/5. Sensation intact lateral thigh, anterior thigh, knee, medial lower leg, dorsal foot. Brisk capillary refill. Results & Data Results & Data Laboratory Results . Diagnostic Findings . PG Care Time/CCT Total # of Minutes Spent Total Time Spent with Patient: Total time spent is greater than 50% in coordination of care (as documented) at patient's floor/unit and/or counseling patient: Coding Level of Care Code 26057 SUB INP/OBS CARE 11/23MIN Diagnoses Herniation of intervertebral disc at L3-L4 level M51.26
[2025-04-11 07:34] LABS: BUN Creatinine Ratio 25.2 (10-20); Calcium 9.4 mg/dl (8.6-10.3); Potassium 3.8 mmol/L (3.5-5.1)
[2025-04-11 07:42] LABS: Basophils # (auto) 0.04 K/uL (0.00-0.20); Basophils % (auto) 0.7 %; Eosinophils # (auto) 0.13 K/uL (0.00-0.50); Eosinophils % (auto) 2.3 %; Immature Granulocytes # (auto) 0.01 K/uL (0.01-0.20); Immature Granulocytes % (auto) 0.2 %; Lymphocytes # (auto) 2.93 K/uL (1.20-3.40); Monocytes # (auto) 0.47 K/uL (0.11-0.59); Monocytes % (auto) 8.3 %; Neutrophils # (auto) 2.05 K/uL (1.40-6.50); Neutrophils % (auto) 36.5 %
[2025-04-11] MEDS: SODIUM CHLORIDE 0.9% 1,000 ML IV ONE (07:55)
[2025-04-11] MEDS: SODIUM CHLORIDE 0.9% 1,000 ML IV SCH (13:00)
[2025-04-11 14:25] VITALS: BP 152/77; PULSE 72; TEMP 97.9; O2SAT 99
[2025-04-11 14:57] LABS: BUN Creatinine Ratio 26.3 (10-20); Calcium 9.1 mg/dl (8.6-10.3); Creatinine Clr Calc Pharmacy 64.8 ml/min; Potassium 4.5 mmol/L (3.5-5.1)
--- NOTE | 2025-04-11 17:14 | Discharge Summary ---
Discharge Summary Date of Service April 11, 2025 Principal Dx & Hospital Course #1 = Principal Diagnosis (1) Ambulatory dysfunction: intractable back pain, lumbar stenosis affect L3-L4 nerve root, and KEY, hypotension patient is a 54yo woman with PMH of obesity, pre-diabetes, chronic suboxone usage asthma. She's has fall 2 weeks ago and been having left leg pain, and paresthesia down to her knee on April 09, 2025 she's came to our ED for intractable back pain, did not do well with PT assessment and recommended inpatient treatment she was started on zanaflex, IV decadron, and gabapentin, however, she's developed significant hypotension, acute kidney injury and need IV fluid her creatinine raise from 1.17--> 2.53 (04/10). we held her losartan/hctz and amlodipine and administer 3-4 liter of IV fluid she's continue to has intractable low back pain and starte on lidocaine patch and maintain on IV decadron, zanaflex was held given her KEY her lumbar MRI found . L2-L3: Asymmetric left side disc bulge causing mild left lateral recess and neuroforaminal narrowing. 4. A sequestered disc seen posterior to lower border of L3 vertebra on left side causing compression over traversing as well as exiting nerve roots on left side. 5. L3-L4: Diffuse posterior disc bulge causing Grade II canal stenosis, indentation over traversing as well as bilateral exiting nerve roots with bilateral moderate neuroforaminal narrowing. she was seen by neurosurgery and they agreed with ongoing IV steroid. on 04/11/2025, her pain improved and her KEY resolved. she was advised to hold losartan/hctz for 3-4 days she was provided with decadron for pain control. she declined placement to [facility]/acute rehab. home services arrange. and she was dc home on 04/11/2025 (2) Herniated lumbar intervertebral disc: (3) Acute low back pain: (4) Prediabetes: Admission HPI Per Admitting Provider Laine is a 54-year-old female with a past medical history of asthma, hypertension, IBS, diastolic dysfunction, LEYDI, JET, prediabetes, rheumatoid arthritis, migraine who presents with lower back pain following a fall 2 weeks prior. Noticing at the bedside. She reports that she has had some chronic back pain since a fall 2 weeks ago where she tripped "just went over". She reports that she was a little bit sore after falling but otherwise did not have chest pain with activity or exertion. No dyspnea. She reports that she has been weak in her left leg which has been worse in the last 2 days and now cannot walk because of her symptoms. She also has shooting pain which goes from her back down to her left knee. Pain does not travel past the knee. improved but still not tolerable enough to walk at time of ER assessment she reports she has alprazolam for anxiety and buprenorphine which were prescribed by a virtual psychiatrist. She reports that buprenorphine is for pain, denies history of opioid/IV drug use. Denies fever chills or sweats. Endorses fatigue. Denies nausea/vomiting. Medical History: Reviewed Medications: Reviewed Surgical History: Reviewed Family history: Reviewed Allergies: Reviewed Social History: Denies tobacco/etoh use Code Status: Discharge Exam General: no acute distress HEENT:At/NC heart: normal s1; s2; RRR lung: CTA b/l; MSK: normal flexion/extension, side bending and rotation left sacrum painful to palpation neuro: AAox3; 5/5 strength in lower extremity. psych: calm; cooperative Discharge Plan Discharge Items Patient Disposition: Home - Home Health Services Reason For Visit: KEY, INTRACTABLE BACK PAIN, HYPOTENSION NEEDING IV Discharge Diagnosis: hypotension, acute kidney injury intractable back pain lumbar stenosis Condition on Discharge: Fair Activity: Per Instructions section Lifting: Gradually increase as tolerated Non-emergency contact: Primary Care Provider Call non-emergency contact if: you have any medication questions, your symptoms worsen and you have a fever Follow-up/Referrals: Titi Hinojosa CRNP [Primary Care Provider] - (Patient aware to make her own follow up appointment) Diet: Regular Addtl Attending Provider Instructions: you will follow up with physical therapy you will follow up with neurosurgeon avoid using NSAID (such as aleve, motrin, ibuprofen) Pending Studies at Discharge: No Stand-Alone Forms: [employer], Smoking Cessation Medications and DC Order Prescriptions: New methylprednisolone 4 mg Tablet 8 mg PO DAILY 6 Days Qty: 12 0RF lidocaine 5 % Adhesive Patch,Medicated 1 patch transdermal HS 10 Days Qty: 15 0RF Continued ketoconazole 2 % shampoo 1 applic topical .COMPLEX Qty: 120 1RF Rx Instructions: 1 applic topical to the scalp 2-3 times a week. Allow to sit on the scalp for 5 minutes before rinsing. pantoprazole 40 mg tablet,delayed release (DR/EC) 40 mg PO QAM Qty: 90 3RF Rx Instructions: TAKE ONE TABLET BY MOUTH EVERY DAY budesonide-formoterol [Symbicort] 160-4.5 mcg/actuation HFA aerosol inhaler 2 puff INH QAM Qty: 10.2 3RF metoprolol succinate 25 mg tablet extended release 24 hr 12.5 mg PO QAM Qty: 90 1RF ferrous sulfate 325 mg (65 mg iron) tablet 325 mg PO DAILY Qty: 90 1RF ibuprofen 800 mg tablet 800 mg PO AMPM PRN (Reason: pain) Qty: 60 2RF cholecalciferol (vitamin D3) 50 mcg (2,000 unit) capsule 50 mcg PO QAM Qty: 90 1RF amlodipine [Norvasc] 5 mg tablet 5 mg PO QAM Qty: 90 1RF albuterol sulfate [Ventolin HFA] 90 mcg/actuation HFA aerosol inhaler 2 puff INHALATION QID PRN (Reason: SHORT OF BREATH) Qty: 18 1RF montelukast [Singulair] 10 mg tablet 10 mg PO HS Qty: 90 1RF cyanocobalamin (vitamin B-12) 1,000 mcg/mL kit 1,000 mcg IM MONTHLY Qty: 3 11RF cyclobenzaprine 5 mg tablet 5 mg PO TID PRN (Reason: muscle spasm) Qty: 20 0RF tretinoin 0.025 % cream 1 applic topical .COMPLEX Qty: 45 3RF Rx Instructions: 1 applic topical a pea-sized amount to the face every other night for 2 weeks, then nightly. Followed by moisturizer. acetaminophen [Tylenol Extra Strength] 500 mg tablet 1,000 mg PO Q8 PRN (Reason: PAIN/FEVER) gabapentin 400 mg capsule 400 mg PO TID methylphenidate HCl 10 mg tablet extended release 10 mg PO DAILY Rx Instructions: TOTAL DOSE 30 MG--TAKES WITH 20 MG TAB alprazolam 0.25 mg tablet 0.25 mg PO HS methylphenidate HCl 20 mg tablet extended release 20 mg PO DAILY Rx Instructions: TOTAL DOSE 30 MG--TAKES WITH 10 MG TAB. buprenorphine HCl 8 mg tablet, sublingual 8 mg sublingual TID ondansetron HCl 4 mg tablet 4 mg PO Q8H PRN (Reason: nausea and vomiting) Qty: 20 0RF fluoxetine [Prozac] 20 mg capsule 20 mg PO QAM clindamycin phosphate 1 % lotion 1 applic topical Q OTHER DAY oxybutynin chloride 10 mg tablet extended release 24hr 10 mg PO QAM citalopram 40 mg tablet 40 mg PO DAILY methylphenidate HCl 10 mg tablet 10 mg PO QDL doxepin 100 mg capsule 100 mg PO HS bupropion HCl 300 mg tablet extended release 24 hr 300 mg PO QAM Wegovy 2.4 mg/0.75 mL pen injector 2.4 mg SUBCUT WK Rx Instructions: SUNDAYS Held furosemide [Lasix] 40 mg tablet 40 mg PO DAILY PRN (Reason: edema) Qty: 90 2RF Hold Instructions: Resume on 04/16/25. losartan-hydrochlorothiazide 100-25 mg tablet 1 tab PO QAM Qty: 90 1RF Hold Instructions: Resume on 04/14/25. Discharge Orders: Discharge Order (Routine); Ordered 04/11/25 Ordered By: Jasmine Paiz/Other Patient Handouts: Back Safety: Pushing and Pulling, Back Safety: Poor Posture Hurts Admission Data Admit Date/Time: 04/10/25 15:50 Attending Provider: Samy Moe Admit Provider: Jasmine Donis Primary Care Provider: Titi Hinojosa Other Providers: Samy Moe; Chris Feliciano Other Interventions: Discharge Summary Assessment (RN) Last Done: 04/11/25 16:00 Hospital Stay Data Consultations 04/09/25 03:47 ED Decision to Admit Stat 04/10/25 08:28 Consult Orthopedic Surgery Routine Diagnostic Imagining Performed 04/08/25 23:28 CT lumbar spine wo con Stat 04/09/25 01:14 MRI Lumbar Spine [MR lumbar spine wo con] Stat Pending Results Patient Have Any Pending Studies at Discharge: No Discharge Instructions Given to Patient (Per Discharging Provider) you will follow up with physical therapy you will follow up with neurosurgeon avoid using NSAID (such as aleve, motrin, ibuprofen) Total Time Total Time Spent Total Time Spent (In Minutes): 35 Coding Level of Care Code 28621 IN/OBS DISCH 30 MIN/LESS Diagnoses Ambulatory dysfunction R26.2 Herniated lumbar intervertebral disc M51.26 Acute low back pain M54.50 Prediabetes R73.03 Time Spent (min) 30
== END 2025-04-11 16:35 | disposition home health service (06) | DRG 552 ==
LOC: SUATTDRO → ED 22:26 → 3W 22:26 → SUATTDRO 04-09 03:59 → 3W 04-09 04:40

== ENCOUNTER 2025-06-02 05:23 | Inpatient (IN) ==
--- NOTE | 2025-05-01 11:18 | PAT Medication Instructions ---
Medication Instructions Date of Service May 01, 2025 Home Medications Medication Instructions Recorded pantoprazole 40 mg tablet,delayed 40 mg PO QAM #90 tabs 11/29/23 release metoprolol succinate 25 mg 12.5 mg (1/2 x 25 mg) PO QAM #90 03/04/25 tablet,extended release 24 hr tabs ondansetron HCl 4 mg tablet 4 mg PO Q8H PRN nausea and 03/11/25 vomiting #20 tabs ferrous sulfate 325 mg (65 mg 325 mg PO DAILY #90 tabs 03/13/25 iron) tablet albuterol sulfate 90 mcg/actuation 2 puff inhalation QID PRN SHORT OF 04/10/25 aerosol inhaler (Ventolin HFA) BREATH #18 grams amlodipine 5 mg tablet (Norvasc) 5 mg PO QAM #90 tabs 04/10/25 furosemide 40 mg tablet (Lasix) 40 mg PO DAILY PRN edema #90 tabs 04/10/25 losartan 100 1 tab PO QAM #90 tabs 04/10/25 mg-hydrochlorothiazide 25 mg tablet budesonide-formoterol HFA 160 2 puff inhalation QAM #10.2 grams 04/15/25 mcg-4.5 mcg/actuation aerosol inhaler (Symbicort) cyanocobalamin (vitamin B-12) 1,000 mcg IM MONTHLY #3 KITS 04/17/25 1,000 mcg/mL injection kit [employer] See Rx Instructions .Route 04/17/25 .COMPLEX #1 ea montelukast 10 mg tablet 10 mg PO HS #90 tabs 04/17/25 (Singulair) cholecalciferol (vitamin D3) 50 50 mcg PO QAM #90 caps 04/25/25 mcg (2,000 unit) capsule ibuprofen 800 mg tablet 800 mg PO AMPM PRN pain #60 tabs 04/25/25 syringe with needle, safety 3 mL #12 ea 04/25/25 25 gauge x 5/8" ([employer] Safety Syringes) cyclobenzaprine 10 mg tablet 10 mg PO Q8H spasm #30 tabs 04/30/25 oxybutynin chloride 10 mg tablet,extended release 24 hr 10 mg PO QAM fluoxetine 20 mg capsule (Prozac) 20 mg PO QAM pantoprazole 40 mg tablet,delayed release 40 mg PO QAM acetaminophen 500 mg tablet (Tylenol Extra Strength) 1,000 mg PO Q8 PRN PAIN/FEVER metoprolol succinate 25 mg tablet,extended release 24 hr 12.5 mg (1/2 x 25 mg) PO QAM alprazolam 0.25 mg tablet 0.25 mg PO HS gabapentin 400 mg capsule 400 mg PO TID methylphenidate HCl 10 mg tablet,extended release 10 mg PO QAM methylphenidate HCl 20 mg tablet,extended release 20 mg PO QAM ondansetron HCl 4 mg tablet 4 mg PO Q8H PRN nausea and vomiting ferrous sulfate 325 mg (65 mg iron) tablet 325 mg PO DAILY citalopram 40 mg tablet 40 mg PO QPM methylphenidate HCl 10 mg tablet 10 mg PO QDL PRN focus with school work semaglutide (weight loss) 2.4 mg/0.75 mL subcutaneous pen injector (Wegovy) 2.4 mg subcut WK albuterol sulfate 90 mcg/actuation aerosol inhaler (Ventolin HFA) 2 puff inhalation QID PRN SHORT OF BREATH amlodipine 5 mg tablet (Norvasc) 5 mg PO QAM furosemide 40 mg tablet (Lasix) 40 mg PO DAILY PRN edema losartan 100 mg-hydrochlorothiazide 25 mg tablet 1 tab PO QAM budesonide-formoterol HFA 160 mcg-4.5 mcg/actuation aerosol inhaler (Symbicort) 2 puff inhalation QAM cyanocobalamin (vitamin B-12) 1,000 mcg/mL injection kit 1,000 mcg IM MONTHLY montelukast 10 mg tablet (Singulair) 10 mg PO HS cholecalciferol (vitamin D3) 50 mcg (2,000 unit) capsule 50 mcg PO QAM ibuprofen 800 mg tablet 800 mg PO AMPM PRN pain cyclobenzaprine 10 mg tablet 10 mg PO Q8H spasm multivitamin 1 tab PO DAILY Continue as directed cyanocobalamin (vitamin B-12) 1,000 mcg/mL injection kit 1,000 mcg IM MONTHLY ASK your surgeon for instructions ibuprofen 800 mg tablet 800 mg PO AMPM PRN pain STOP taking at least 7 days before surgery semaglutide (weight loss) 2.4 mg/0.75 mL subcutaneous pen injector (Wegovy) 2.4 mg subcut WK DO NOT take the morning of surgery oxybutynin chloride 10 mg tablet,extended release 24 hr 10 mg PO QAM methylphenidate HCl 10 mg tablet,extended release 10 mg PO QAM methylphenidate HCl 20 mg tablet,extended release 20 mg PO QAM ferrous sulfate 325 mg (65 mg iron) tablet 325 mg PO DAILY methylphenidate HCl 10 mg tablet 10 mg PO QDL PRN focus with school work furosemide 40 mg tablet (Lasix) 40 mg PO DAILY PRN edema losartan 100 mg-hydrochlorothiazide 25 mg tablet 1 tab PO QAM cholecalciferol (vitamin D3) 50 mcg (2,000 unit) capsule 50 mcg PO QAM multivitamin 1 tab PO DAILY Take morning of surgery With a small sip of water, OTHERWISE NOTHING TO EAT OR DRINK AFTER MIDNIGHT: fluoxetine 20 mg capsule (Prozac) 20 mg PO QAM pantoprazole 40 mg tablet,delayed release 40 mg PO QAM acetaminophen 500 mg tablet (Tylenol Extra Strength) 1,000 mg PO Q8 PRN PAIN/FEVER (if needed) metoprolol succinate 25 mg tablet,extended release 24 hr 12.5 mg (1/2 x 25 mg) PO QAM gabapentin 400 mg capsule 400 mg PO TID ondansetron HCl 4 mg tablet 4 mg PO Q8H PRN nausea and vomiting (if needed) albuterol sulfate 90 mcg/actuation aerosol inhaler (Ventolin HFA) 2 puff inhalation QID PRN SHORT OF BREATH (use if needed; please bring with you to hospital day of surgery if possible) amlodipine 5 mg tablet (Norvasc) 5 mg PO QAM budesonide-formoterol HFA 160 mcg-4.5 mcg/actuation aerosol inhaler (Symbicort) 2 puff inhalation QAM cyclobenzaprine 10 mg tablet 10 mg PO Q8H spasm (if needed) Take evening before surgery acetaminophen 500 mg tablet (Tylenol Extra Strength) 1,000 mg PO Q8 PRN PAIN/ FEVER (if needed) alprazolam 0.25 mg tablet 0.25 mg PO HS gabapentin 400 mg capsule 400 mg PO TID ondansetron HCl 4 mg tablet 4 mg PO Q8H PRN nausea and vomiting (if needed) citalopram 40 mg tablet 40 mg PO QPM albuterol sulfate 90 mcg/actuation aerosol inhaler (Ventolin HFA) 2 puff inhalation QID PRN SHORT OF BREATH (if needed) methylphenidate HCl 10 mg tablet 10 mg PO QDL PRN focus with school work (if needed) furosemide 40 mg tablet (Lasix) 40 mg PO DAILY PRN edema (if needed) montelukast 10 mg tablet (Singulair) 10 mg PO HS cyclobenzaprine 10 mg tablet 10 mg PO Q8H spasm (if needed) Other Notes If you have any questions please call us at [phone] or [phone] or [phone] or [phone]
--- NOTE | 2025-05-07 14:20 | Anesthesiology Consultation ---
Date of Service May 07, 2025 Assessment & Plan (1) Encounter for pre-operative examination: Chart Review Chart Review: Acceptable Risk for Surgery (pending PCP clearance and response regarding abnormal urine) and Patient seen in Pre Admission Testing - Awaiting PCP clearance 05/08/25 (workload note sent re: abnormal UA/urine culture) - Patient informed by nursing to stop Wegovy 7 days prior to surgery. Last dose of Wegovy scheduled 05/11/25. Will be off Wegovy x 9 days prior to DOS on 05/20/25 Per PAT appt on 05/07/25, no recent illness/disease exposures, illness related symptoms, or recent illness/disease positive tests. Will leave to surgeon's discretion if preop Covid testing needed History Surgery Operation Date: 05/20/25 07:15 Proposed Procedures p L3-L4 Lateral Fusion, Post Fusion, Instrumentation/Decompression - Chris Feliciano MD Height/Weight Height: 5 ft 2 in Weight: 108.6 kg Allergies Allergy/AdvReac Type Severity Reaction Status Date / Time buprenorphine [From Suboxone] Allergy Severe Throat Verified 05/08/25 08:12 swells, hives naloxone [From Suboxone] Allergy Severe Throat Verified 05/08/25 08:12 swells, hives blueberry Allergy Intermediate HIVES Verified 05/08/25 08:12 naproxen Allergy Intermediate Hives Verified 05/08/25 08:12 nickel Allergy Intermediate SKIN Verified 05/08/25 08:12 IRRITATION/SWELLING tramadol Allergy Intermediate HIVES/nause Verified 05/08/25 08:12 a cefadroxil Allergy Mild Rash Verified 05/08/25 08:12 latex Allergy Mild SKIN Verified 05/08/25 08:12 PEELING Medications Home Medications Medication Instructions Recorded Confirmed Last Taken oxybutynin chloride 10 mg 10 mg PO QAM 12/15/21 05/08/25 04/08/25 tablet,extended release 24 hr fluoxetine 20 mg capsule (Prozac) 20 mg PO QAM 03/06/23 05/08/25 04/08/25 acetaminophen 500 mg tablet 1,000 mg PO Q8 PRN PAIN/FEVER 12/25/24 05/08/25 Unknown (Tylenol Extra Strength) metoprolol succinate 25 mg 12.5 mg (1/2 x 25 mg) PO QAM #90 0505/08/25 04/08/25 tablet,extended release 24 hr tabs alprazolam 0.25 mg tablet 0.25 mg PO HS 03/11/25 05/08/25 04/07/25 gabapentin 400 mg capsule 400 mg PO TID 03/11/25 05/08/25 04/08/25 14:00 methylphenidate HCl 10 mg 10 mg PO QAM 03/11/25 05/08/25 04/08/25 tablet,extended release methylphenidate HCl 20 mg 20 mg PO QAM 03/11/25 05/08/25 04/08/25 tablet,extended release ondansetron HCl 4 mg tablet 4 mg PO Q8H PRN nausea and 03/11/25 05/08/25 Unknown vomiting #20 tabs ferrous sulfate 325 mg (65 mg 325 mg PO DAILY #90 tabs 03/13/25 05/08/25 04/08/25 iron) tablet citalopram 40 mg tablet 40 mg PO QPM 04/08/25 05/08/25 04/08/25 methylphenidate HCl 10 mg tablet 10 mg PO QDL PRN focus with school 04/08/25 05/08/25 04/08/25 work semaglutide (weight loss) 2.4 2.4 mg subcut WK 04/08/25 05/08/25 04/06/25 mg/0.75 mL subcutaneous pen injector (Wegovy) albuterol sulfate 90 mcg/actuation 2 puff inhalation QID PRN SHORT OF 04/10/25 05/08/25 Unknown aerosol inhaler (Ventolin HFA) BREATH #18 grams amlodipine 5 mg tablet (Norvasc) 5 mg PO QAM #90 tabs 04/10/25 05/08/25 Unknown furosemide 40 mg tablet (Lasix) 40 mg PO DAILY PRN edema #90 tabs 04/10/25 05/08/25 Unknown losartan 100 1 tab PO QAM #90 tabs 04/10/25 05/08/25 Unknown mg-hydrochlorothiazide 25 mg tablet budesonide-formoterol HFA 160 2 puff inhalation QAM #10.2 grams 04/15/2504/29 Unknown mcg-4.5 mcg/actuation aerosol inhaler (Symbicort) cyanocobalamin (vitamin B-12) 1,000 mcg IM MONTHLY #3 KITS 04/17/25 05/08/25 Unknown 1,000 mcg/mL injection kit miscellaneous medical supply See Rx Instructions .Route 04/17/25 05/08/25 Unknown .COMPLEX #1 ea montelukast 10 mg tablet 10 mg PO HS #90 tabs 04/17/25 05/08/25 Unknown (Singulair) cholecalciferol (vitamin D3) 50 50 mcg PO QAM #90 caps 04/25/25 05/08/25 Unknown mcg (2,000 unit) capsule ibuprofen 800 mg tablet 800 mg PO AMPM PRN pain #60 tabs 04/25/25 05/08/25 Unknown syringe with needle, safety 3 mL #12 ea 04/25/25 05/08/25 Unknown 25 gauge x 5/8" (Monoject Safety Syringes) cyclobenzaprine 10 mg tablet 10 mg PO Q8H spasm #30 tabs 04/30/25 05/08/25 Unknown multivitamin 1 tab PO DAILY 04/30/25 05/08/25 Unknown dexlansoprazole 60 mg 60 mg PO DAILY #90 caps 05/08/25 05/08/25 Unknown capsule,biphase delayed release Past Medical History Medical History Ambulatory dysfunction Anxiety Asthma well controlled at present, rare res inh use Chronic venous insufficiency Degenerative spondylolisthesis Depression Disc degeneration, lumbar Herniated lumbar intervertebral disc History of anesthesia reaction states woke up itchy after hysterectomy--no other issues with anesthesia with prior surgeries or surgeries after 2022: woke up during knee surgery- thought she was at [facility]- wide awake after surgery History of COVID-19 diagnosed 09/2020 @ [facility]--denies hospitalization--no issues now History of dog bite (05/19/24) - attacked by a pitbull on may 19, 2024- has had 7 right hand surgeries- will need additional surgery- bone graft - had wound vac on left calf- now healed- no current issues - left arm-- 33 bite amador, right arm-- 28 bite amador- admit to [place] trauma History of urinary incontinence Hx of acute renal failure 04/10/25- admitted to [facility]- resolved on discharge Hx of gastritis Hypertension controlled, stable per ptp IBS (irritable bowel syndrome) Intractable back pain (03/2025) had fallen at home, had left leg numbness, crawled to her bed, was in bed x 3 days, taken to [facility] via ambulance, admitted and d/c - using walker to ambulate, having extreme pain Iron deficiency anemia Lumbar disc disorder Osteoarthritis Overactive bladder Prediabetes diet controlled Rheumatoid arthritis No rheum at this time Seasonal allergies Sleep apnea never got cpap, it was during the time last year when she was attacked by a dog, now has to retested to get machine Stenosis, spinal, lumbar Exercise / Class Metabolic Activity III < 4 Walking/Shop/Light housework (one flight of stairs - no chest pain or SOB- goes very slow ) Past Family History Family History Father Family history of esophageal cancer Heart disease Lung cancer Family/Other Breast cancer maternal cousin Multiple sclerosis paternal side Aunt Breast cancer maternal Sister Colorectal cancer Family/Other Ovarian cancer niece and 2 of mothers nieces Grandfather (Paternal) Cirrhosis Other No family history of adverse response to anesthesia Denies family history of Prostate cancer Myocardial infarction Past Surgical History Surgical History H/O bilateral breast reduction surgery H/O gastric bypass (02/09/23) 02/09/23 by [facility] H/O thumb surgery (2023) has had 7 surgeries so far- R thumb reconstruction .- pt. was attacked by a pitbull on may 19, 2024- will need additional surgery- bone graft History of bilateral knee replacement (2022) right 2022 2018 left History of bilateral tubal ligation History of carpal tunnel surgery bilat History of section (1993) x1 History of cholecystectomy History of colonoscopy History of esophagogastroduodenoscopy (EGD) History of hysterectomy (2001) History of left knee surgery (~05/11/19) Left knee quadriceps tendon and medial retinacular repair with irrigation of knee joint repair of skin LMA#4. History of nasal septoplasty (2008) History of tooth extraction states all teeth are removed History of vascular surgery 02/05/25- LEFT GREAT SAPHENOUS ENDOVENOUS ABLATION S/P panniculectomy Past Anesthesia History No Hx of Anesthesia Complications (with exception to pruritis with hysterectomy post op and awareness with knee surgery ) and No Family Hx of Anesthesia Complications History of PONV No Hx of PONV, No Hx of Motion Sickness and Other ( anxiety with oxygen nasal cannula - does better with oxygen mask ) Social History Smoking Status: Former smoker tobacco type: cigarettes Do You Dip or Chew Tobacco: No Smoking End Date: quit 15 years ago Hx Alcohol Use: No Hx Substance Use: Yes substance use type: marijuana Last Used Substance: Unknown Last Used Substance Other:: marijuana (gummy)- advised Review of Systems - Cough- improved since stopping a certain medication (possibly Lisinopril) - Reflux - occ- eventually relieved with Tums Patient denies chest pain, shortness of breath at rest, wheezing, palpitations. No hx of seizures, stroke, MS. No hx of blood clots or blood transfusions Physical Exam Vital Signs VITALS BP 159/89 P 91 TEMP 98.0 SP02 100% RESP 16 Constitutional no acute distress ENMT Mouth: no TMJ clicking Thyromental Distance: > or= 3.5 Finger Breadths (3.5) Mallampati Class: III Full dentures on top and bottom Neck + limited neck extension Respiratory normal respiratory effort; no respiratory distress Auscultation: lungs clear to auscultation bilaterally; no wheezes Cardiovascular Rate/Rhythm: regular rate and regular rhythm Heart Sounds: no murmur Vessels: no carotid bruit Musculoskeletal Spine: + pain with cervical ROM Extremities: extremities normal to inspection Psychiatric Orientation: alert Lab Results Anesthesia Preop Results Results Anesthesia Widget: WBC 5.63 K/ul (4.8-10.8) 04/11/25 Hgb 12.5 g/dl (12.0-16.0) 04/11/25 Hct 39.0 % (37.0-47.0) 04/11/25 Plt 224 K/uL (130-400) 04/11/25 Na 140 mmol/L (136-145) 05/07/25 K 4.0 mmol/L (3.5-5.1) 05/07/25 Cl 110 mmol/L (98-107) H 05/07/25 CO2 27 mmol/L (21-32) 05/07/25 BUN 17 mg/dl (6-23) 05/07/25 Creat 0.79 mg/dl (0.6-1.2) 05/07/25 Glucose Level 88 mg/dl (70-99(Fasting)) 05/07/25 PT 10.4 Seconds (9.0-12.0) 05/07/25 PTT 26 Seconds (21-31) 05/07/25 INR 1.0 (0.9-1.1) 05/07/25 TSH 1.486 uIu/ml (0.300-4.500) 03/11/25 HA1c 5.3 % (4.5-5.6) 05/07/25 Urine Color Yellow 05/07/25 Urine Appearance Cloudy (Clear) A 05/07/25 Urine pH 7.0 (4.5-7.5) 05/07/25 Urine Specific [place] 1.023 (1.000-1.030) 05/07/25 Urine Protein Negative (Negative) 05/07/25 Urine Glucose (UA) Negative (Negative) 05/07/25 Urine Ketones Negative (Negative) 05/07/25 Urine Blood Negative (Negative) 05/07/25 Urine Nitrite Positive (Negative) A 05/07/25 Urine Bilirubin Negative (Negative) 05/07/25 Urine Urobilinogen Negative (Negative) 05/07/25 Urine Leukocyte Esterase Negative (Negative) 05/07/25 Urine WBC (Auto) 0-5 /hpf (0-5) 05/07/25 Urine RBC (Auto) 0-2 /hpf (0-2) 05/07/25 Urine Hyaline Casts (Auto) 0-2 /lpf (0-2) 05/07/25 Urine Epithelial Cells (Auto) 6-10 /hpf (0-2) H 05/07/25 Urine Bacteria (Auto) 4+ (None Seen) H 05/07/25 Blood Type O Positive 05/07/25 Antibody Screen NEGATIVE 05/07/25 Testing Laboratory Results 05/07/25= URINE CULTURE: Klebsiella pneumoniae >100,000 CFU/ml (will send workload message to PCP to address) Electrocardiogram Date: 05/07/25 Findings: + NSR @ (81bpm) Poor R wave progression, consider anterior MS vs lead placement vs LVH ("Possible anterior infarct" noted on EKGs since at least March 28, 2019; patient has PCP clearance prior to procedure) Chest X-Ray Date: 05/07/25 No active cardiopulmonary disease. No other abnormalities noted. Cardiac silhouette described enlarged in prior US appears to be within normal limits with cardiothoracic ratio of 14/29. Echocardiogram Date: 06/19/20 EF 60-65% No regional wall motion abnormalities Borderline cLVH No significant valvular pathology LA mildly dilated Grade II diastolic dysfunction Cervical Spine Date: 05/07/25 Straightening of the cervical curvature likely due to myospasm. Mild to moderate degenerative changes in the cervical spine with multilevel marginal osteophytosis, varying degree of reduced intervertebral disc spaces at lower cervical levels. Findings remain interval stable when compared to prior CT cervical spine DOS 03/25/2018 and CR cervical spine DOS 03/31/2017. No acute bony abnormality noted. No fracture, or subluxation noted.
[2025-06-02] MEDS: VANCOMYCIN HCL 1,500 MG in SODIUM CHLORIDE 0.9% 500 ML IV SCH (05:51)
[2025-06-02] MEDS: ACETAMINOPHEN 500 MG TAB PO SCH (06:24)
[2025-06-02] MEDS: LR 60ML/HR IV SCH (06:24)
[2025-06-02] MEDS: LR 15ML/HR IV SCH (06:24)
[2025-06-02] MEDS ORDERED: DEXAMETHASONE SOD INJ 4 MG/ML VIAL ONE (06:45)
[2025-06-02] MEDS ORDERED: GLYCOPYRROLATE 0.2 MG/ML VIAL ONE (06:45)
[2025-06-02] MEDS ORDERED: LIDOCAINE 2% 2 ML VIAL/AMP(20MG/ML) INFIL ONE (06:45)
[2025-06-02] MEDS ORDERED: ONDANSETRON INJ 2 MG/ML 2 ML VIAL ONE (06:45)
[2025-06-02] MEDS ORDERED: MIDAZOLAM HCL 1 MG/ML 2ML VIAL ONE (06:46)
[2025-06-02] MEDS ORDERED: PROPOFOL IV EMULSION 10 MG/ML 20 ML VIAL IV ONE (06:46)
[2025-06-02] MEDS ORDERED: ROCURONIUM BROMIDE 10 MG/ML 5 ML VIAL IV ONE (06:46)
[2025-06-02] MEDS ORDERED: SUGAMMADEX SODIUM 200 MG/2 ML VIAL IV ONE ×2 (06:47→13:57)
[2025-06-02] MEDS ORDERED: PROPOFOL IV EMULSION 10 MG/ML 100 ML VIAL IV ONE ×2 (06:52→09:47)
[2025-06-02] MEDS ORDERED: KETAMINE HCL 10MG/ML SYR ONE (06:58)
[2025-06-02] MEDS ORDERED: ATROPINE SULFATE 0.1 MG/ML 10ML SYR IV PRN (07:04)
[2025-06-02] MEDS ORDERED: ONDANSETRON INJ 2 MG/ML 2 ML VIAL IV PRN (07:04)
[2025-06-02] MEDS ORDERED: HYDROmorphone INJ 2 MG/ML SYR/VIAL IV PRN (07:04)
[2025-06-02] MEDS ORDERED: HYDROmorphone INJ 1 MG/ML SYRINGE IV PRN (07:04)
[2025-06-02] MEDS ORDERED: REMIFENTANIL HCL 1 MG VIAL IV ONE ×2 (07:06→07:34)
--- NOTE | 2025-06-02 07:08 | Anesthesiology Consultation ---
Date of Service June 02, 2025 Assessment & Plan Chart Review Chart Review: Acceptable Risk for Surgery Consults Requested none ASA ASA3 Proposed Anesthesia Anesthesia Type: General Additional Notes +LEYDI History Surgery Operation Date: 06/02/25 07:30 Proposed Procedures p L3-L4 Lateral Fusion, Post Fusion, Instrumentation/Decompression - Chris Feliciano MD Height/Weight Height: 5 ft 2 in Weight: 106.5 kg Allergies Allergy/AdvReac Type Severity Reaction Status Date / Time buprenorphine [From Suboxone] Allergy Severe Throat Verified 06/02/25 05:48 swells, hives naloxone [From Suboxone] Allergy Severe Throat Verified 06/02/25 05:48 swells, hives blueberry Allergy Intermediate HIVES Verified 06/02/25 05:48 naproxen Allergy Intermediate Hives Verified 06/02/25 05:48 nickel Allergy Intermediate SKIN Verified 06/02/25 05:48 IRRITATION/SWELLING tramadol Allergy Intermediate HIVES/nause Verified 06/02/25 05:48 a cefadroxil Allergy Mild Rash Verified 06/02/25 05:48 latex Allergy Mild SKIN Verified 06/02/25 05:48 PEELING Medications Home Medications Medication Instructions Recorded Confirmed Last Taken fluoxetine 20 mg capsule (Prozac) 20 mg PO QAM 03/06/23 06/02/25 06/01/25 11:45 acetaminophen 500 mg tablet 1,000 mg PO Q8 PRN PAIN/FEVER 12/25/24 06/02/25 Unknown (Tylenol Extra Strength) metoprolol succinate 25 mg 12.5 mg (1/2 x 25 mg) PO QA #90 03/04/25 06/02/25 06/01/25 11:45 tablet,extended release 24 hr tabs alprazolam 0.25 mg tablet (Xanax) 0.25 mg PO HS 03/11/25 06/02/25 06/01/25 18:00 gabapentin 400 mg capsule 400 mg PO TID 03/11/25 06/02/25 06/01/25 11:45 methylphenidate HCl 10 mg 10 mg PO QAM 03/11/25 06/02/25 06/01/25 15:00 tablet,extended release methylphenidate HCl 20 mg 20 mg PO QAM 03/11/25 06/02/25 06/01/25 11:45 tablet,extended release ferrous sulfate 325 mg (65 mg 325 mg PO DAILY #90 tabs 03/13/25 06/02/25 06/01/25 11:45 iron) tablet citalopram 40 mg tablet (Celexa) 40 mg PO QPM 04/08/25 06/02/25 06/01/25 19:00 methylphenidate HCl 10 mg tablet 10 mg PO QDL PRN focus with school 04/08/25 06/02/25 06/01/25 12:00 (Ritalin) work semaglutide (weight loss) 2.4 2.4 mg subcut WK 04/08/25 06/02/25 05/25/25 mg/0.75 mL subcutaneous pen injector (Wegovy) amlodipine 5 mg tablet (Norvasc) 5 mg PO QAM #90 tabs 04/10/25 06/02/25 06/01/25 11:45 furosemide 40 mg tablet (Lasix) 40 mg PO DAILY PRN edema #90 tabs 04/10/25 06/02/25 Unknown budesonide-formoterol HFA 160 2 puff inhalation QAM #10.2 grams 04/15/25 06/02/25 05/31/25 mcg-4.5 mcg/actuation aerosol inhaler (Symbicort) cyanocobalamin (vitamin B-12) 1,000 mcg IM MONTHLY #3 KITS 04/17/25 06/02/25 05/10/25 1,000 mcg/mL injection kit montelukast 10 mg tablet 10 mg PO HS #90 tabs 04/17/25 06/02/25 06/01/25 20:00 (Singulair) cholecalciferol (vitamin D3) 50 50 mcg PO QAM #90 caps 04/25/25 06/02/25 06/01/25 11:45 mcg (2,000 unit) capsule ibuprofen 800 mg tablet 800 mg PO AMPM PRN pain #60 tabs 04/25/25 06/02/25 06/01/25 19:30 syringe with needle, safety 3 mL #12 ea 04/25/25 05/28/25 Unknown 25 gauge x 5/8" (Monoject Safety Syringes) multivitamin 1 tab PO DAILY 04/30/25 06/02/25 06/01/25 08:00 albuterol sulfate 90 mcg/actuation 2 puff inhalation QID PRN SHORT OF 05/21/25 06/02/25 06/01/25 11:45 aerosol inhaler (Ventolin HFA) BREATH #18 grams cyclobenzaprine 10 mg tablet 10 mg PO Q8H spasm #30 tabs 05/21/25 06/02/25 06/01/25 20:30 ondansetron HCl 4 mg tablet 4 mg PO Q8H PRN nausea and 05/21/25 06/02/25 05/31/25 vomiting #20 tabs electric lift chair #1 ea 05/23/25 05/28/25 Unknown miscellaneous medical supply See Rx Instructions .Route 05/23/25 05/28/25 Unknown .COMPLEX #1 ea dexlansoprazole 60 mg 60 mg PO DAILY 06/02/25 06/02/25 06/01/25 11:45 capsule,biphase delayed release (Dexilant) losartan 100 1 tab PO QAM 06/02/25 06/02/25 06/01/25 11:45 mg-hydrochlorothiazide 25 mg tablet (Hyzaar) Active Medications Generic Name Dose Route Start Last Admin Trade Name Freq PRN Reason Stop Dose Admin Acetaminophen 1,000 mg 06/02/25 06:00 06/02/25 06:24 Acetaminophen 500 Mg Tab PO 07/02/25 05:59 1,[address] Administration Lactated Ringer's 1,000 mls @ 15 mls/hr 06/02/25 06:00 06/02/25 06:24 Lr IV 06/03/25 05:59 15 mls/hr .Q24H CT Administration Lactated Ringer's 1,000 mls @ 60 mls/hr 06/02/25 06:00 06/02/25 06:24 Lr IV 06/02/25 22:[id number] CT Vancomycin HCl 1,500 mg/ 530 mls @ 200 mls/hr 06/02/25 06:00 06/02/25 05:51 Sodium Chloride IV 06/02/25 18:00 200 mls/hr PREOP CT Administration NPO Date Last Intake of Fluids: 06/01/25 Time Last Intake of Fluids: 21:30 Date Last Intake of Solids: 06/01/25 Time Last Intake of Solids: 21:30 Past Medical History Medical History Herniated lumbar intervertebral disc Iron deficiency anemia Intractable back pain (03/2025) had fallen at home, had left leg numbness, crawled to her bed, was in bed x 3 days, taken to [facility] [place] via ambulance, admitted and d/c - using walker to ambulate, having extreme pain Hx of acute renal failure 04/10/25- admitted to [facility]- resolved on discharge Hx of gastritis Osteoarthritis Rheumatoid arthritis No rheum at this time History of urinary incontinence Stenosis, spinal, lumbar Disc degeneration, lumbar Degenerative spondylolisthesis Chronic venous insufficiency Ambulatory dysfunction History of dog bite (05/19/24) - attacked by a pitbull on may 19, 2024- has had 7 right hand surgeries- will need additional surgery- bone graft - had wound vac on left calf- now healed- no current issues - left arm-- 33 bite amador, right arm-- 28 bite amador- [place] [facility] Sleep apnea never got cpap, it was during the time last year when she was attacked by a dog, now has to retested to get machine Prediabetes diet controlled Depression Seasonal allergies IBS (irritable bowel syndrome) History of COVID-19 diagnosed 09/2020 @ [facility]--denies hospitalization--no issues now History of anesthesia reaction states woke up itchy after hysterectomy--no other issues with anesthesia with prior surgeries or surgeries after 2022: woke up during knee surgery- thought she was at [employer]- wide awake after surgery Lumbar disc disorder Overactive bladder Anxiety Hypertension controlled, stable per ptp Asthma well controlled at present, rare res inh use Exercise / Class Metabolic Activity III < 4 Walking/Shop/Light housework Past Family History Family History Father Family history of esophageal cancer Heart disease Lung cancer Family/Other Breast cancer maternal cousin Multiple sclerosis paternal side Aunt Breast cancer maternal Sister Colorectal cancer Family/Other Ovarian cancer niece and 2 of mothers nieces Grandfather (Paternal) Cirrhosis Other No family history of adverse response to anesthesia Denies family history of Prostate cancer Myocardial infarction Past Surgical History Surgical History History of vascular surgery 02/05/25- LEFT GREAT SAPHENOUS ENDOVENOUS ABLATION History of bilateral knee replacement (2022) right 2022 2018 left H/O thumb surgery (2023) has had 7 surgeries so far- R thumb reconstruction .- pt. was attacked by a usama on may 19, 2024- will need additional surgery- bone graft H/O gastric bypass (02/09/23) 02/09/[address] [facility] History of left knee surgery (~05/11/19) Left knee quadriceps tendon and medial retinacular repair with irrigation of knee joint repair of skin LMA#4. History of carpal tunnel surgery bilat H/O bilateral breast reduction surgery S/P panniculectomy History of hysterectomy (2001) History of section (1993) x1 History of bilateral tubal ligation History of esophagogastroduodenoscopy (EGD) History of colonoscopy History of cholecystectomy History of tooth extraction states all teeth are removed History of nasal septoplasty (2008) Past Anesthesia History No Hx of Anesthesia Complications Does report being awake for knee operation - possible spinal with sedation History of PONV No Hx of PONV Social History Smoking Status: Former smoker tobacco type: cigarettes Do You Dip or Chew Tobacco: No Smoking End Date: quit 15 years ago Hx Alcohol Use: No Hx Substance Use: Yes substance use type: marijuana Substance Use Type Other:: oxycodone Last Used Substance: Unknown Last Used Substance Other:: marijuana (gummy)- advised Review of Systems ROS Unobtainable: All systems reviewed & are unremarkable except as noted in HPI & below Physical Exam Vital Signs Last Vital Signs Temp 36.9 C 06/02/25 05:59 Pulse 87 06/02/25 05:59 Resp 18 06/02/25 05:59 BP 146/88 H 06/02/25 05:59 Pulse Ox 99 06/02/25 05:59 O2 Del Method Room Air 06/02/25 05:59 Constitutional no acute distress ENMT Mouth: + TMJ abnormality and + edentulous Mallampati Class: II Neck normal visual inspection and + thick neck Respiratory normal respiratory effort Cardiovascular Rate/Rhythm: regular rate and regular rhythm Neurologic moves all extremities Testing Electrocardiogram Date: 05/07/25 Findings: + NSR @ (81bpm) Poor R wave progression, consider anterior MO vs lead placement vs LVH ("Possible anterior infarct" noted on EKGs since at least March 28, 2019; patient has PCP clearance prior to procedure) Chest X-Ray Date: 05/07/25 No active cardiopulmonary disease. No other abnormalities noted. Cardiac silhouette described enlarged in prior US appears to be within normal limits with cardiothoracic ratio of 14/29. Echocardiogram Date: 06/19/20 EF 60-65% No regional wall motion abnormalities Borderline cLVH No significant valvular pathology LA mildly dilated Grade II diastolic dysfunction Cervical Spine Date: 05/07/25 Straightening of the cervical curvature likely due to myospasm. Mild to m oderate degenerative changes in the cervical spine with multilevel marginal osteophytosis, varying degree of reduced intervertebral disc spaces at lower cervical levels. Findings remain interval stable when compared to prior CT cervical spine DOS 03/25/2018 and CR cervical spine DOS 03/31/2017. No acute bony abnormality noted. No fracture, or subluxation noted.
--- NOTE | 2025-06-02 07:22 | History & Physical Bridge Note ---
Date of Service June 02, 2025 History & Physical Bridge Note I have examined the patient, reviewed the History & Physical and in the interval since the performance of the History & Physical I have noted the following changes of clinical significance: no changes noted
--- NOTE | 2025-06-02 07:23 | History & Physical Report ---
Date of Service June 02, 2025 History of Present Illness Chief Complaint: Low back and leg pain. Primary Care Provider: LITTLE Reyes Patient is here for evaluation status post initial consultation in the hospital in March for back pain and left leg radicular symptoms. Patient states that she is continue to do therapy at home as she did not want to go to rehab, she continues to have pain which starts in the left lumbosacral region radiating around to the posterior thigh but then anterolaterally in the left thigh down to about the knee. It has continued to persist despite taking gabapentin 400 mg 4 times a day, and ibuprofen 800 mg twice a day, along with some other [id number] medications. She has no right leg symptoms, she is here for follow-up evaluation. Exam reveals the patient to be able to stand and raising up on toes and heels, she was able to accomplish this task without any obvious weakness. While seated she had trace knee reflexes roughly symmetric absent ankle reflexes, she had intact strength for EHL, but her left leg extension was slightly weaker in the 4-4+ range as compared to the right side, positive femoral stretch test on the left, straight leg raise also exhibited some back pain. Review of MRI images from [facility] of the lumbar spine from April 09, 2025, this my separate interpretation, this reveals the patient to have unremarkable discs at L4-5 and L5-S1, there is some facet arthrosis at those levels but no stenosis. L3-4 has degenerative grade 1 spondylolisthesis with a central left disc herniation and extrusion going cephalad at the L3-4 level. Notable facet arthritis contributing to the degenerative spondylolisthesis. L1-2 and L2-3 both have some limited degenerative changes and some disc bulging present. 4 views of the lumbar spine taken for today's office AP lateral flexion- extension views reveal the patient on AP view to have no notable findings involving the hip joints, the spine has some scoliosis which appears to develop at the L3-4 level with some lateral listhesis of L3 on L4 to the right, there is grade 1 anterolisthesis and notable loss of disc base height at the L3-4 level, some limited change in flexion extension. Impression: Grade 1 anterolisthesis with degenerative spondylolisthesis at L3-4 along with disc herniation and lumbar stenosis, left leg radiculopathy. Plan: Today I reviewed the imaging studies with the patient went over these with her and another family member went over them in detail. This time I related to the patient that certainly I think the new event that developed several weeks ago was a disc herniation at the L3-4 level though she obviously had some degenerative changes already developing at that level from before. She relates that her symptoms have not really improved significantly and its is hampering her recovery, so for this reason I have recommended operative intervention though I did discuss with her consideration for pain management and additional time. I went on to describe the operative procedure, which would be lateral cage placement at L3-4 followed with posterior instrumentation fusion and decompression at the L3-4 level. Went on to describe the technical details of the surgery, potential risk complications, hospital postoperative course went over these in detail. The patient has been working on weight reduction, she has been having some success with that I have asked her to continue to work on ambulation and getting around and we will work to get her scheduled for this procedure in the near future. A prescription for cyclobenzaprine was provided to help with spasms and she will continue with the current medications except I did advise against stopping the ibuprofen 1 week prior to the surgery. Allergies Allergy/AdvReac Type Severity Reaction Status Date / Time buprenorphine [From Suboxone] Allergy Severe Throat Verified 06/02/25 05:48 swells, hives naloxone [From Suboxone] Allergy Severe Throat Verified 06/02/25 05:48 swells, hives blueberry Allergy Intermediate HIVES Verified 06/02/25 05:48 naproxen Allergy Intermediate Hives Verified 06/02/25 05:48 nickel Allergy Intermediate SKIN Verified 06/02/25 05:48 IRRITATION/SWELLING tramadol Allergy Intermediate HIVES/nause Verified 06/02/25 05:48 a cefadroxil Allergy Mild Rash Verified 06/02/25 05:48 latex Allergy Mild SKIN Verified 06/02/25 05:48 PEELING Home Medications Medication Instructions Recorded Confirmed Type fluoxetine 20 mg capsule (Prozac) 20 mg PO QAM 03/06/23 06/02/25 History acetaminophen 500 mg tablet 1,000 mg PO Q8 PRN PAIN/FEVER 12/25/24 06/02/25 History (Tylenol Extra Strength) metoprolol succinate 25 mg 12.5 mg (1/2 x 25 mg) PO QAM #90 03/04/25 06/02/25 Rx tablet,extended release 24 hr tabs alprazolam 0.25 mg tablet (Xanax) 0.25 mg PO HS 03/11/25 06/02/25 History gabapentin 400 mg capsule 400 mg PO TID 03/11/25 06/02/25 History methylphenidate HCl 10 mg 10 mg PO QAM 03/11/25 06/02/25 History tablet,extended release methylphenidate HCl 20 mg 20 mg PO QAM 03/11/25 06/02/25 History tablet,extended release ferrous sulfate 325 mg (65 mg 325 mg PO DAILY #90 tabs 03/13/25 06/02/25 Rx iron) tablet citalopram 40 mg tablet (Celexa) 40 mg PO QPM 04/08/25 06/02/25 History methylphenidate HCl 10 mg tablet 10 mg PO QDL PRN focus with school 04/08/25 06/02/25 History (Ritalin) work semaglutide (weight loss) 2.4 2.4 mg subcut WK 04/08/25 06/02/25 History mg/0.75 mL subcutaneous pen injector (Wegovy) amlodipine 5 mg tablet (Norvasc) 5 mg PO QAM #90 tabs 04/10/25 06/02/25 Rx furosemide 40 mg tablet (Lasix) 40 mg PO DAILY PRN edema #90 tabs 04/10/25 06/02/25 Rx budesonide-formoterol HFA 160 2 puff inhalation QAM #10.2 grams 04/15/25 06/02/25 Rx mcg-4.5 mcg/actuation aerosol inhaler (Symbicort) cyanocobalamin (vitamin B-12) 1,000 mcg IM MONTHLY #3 KITS 04/17/25 06/02/25 Rx 1,000 mcg/mL injection kit montelukast 10 mg tablet 10 mg PO HS #90 tabs 04/17/25 06/02/25 Rx (Singulair) cholecalciferol (vitamin D3) 50 50 mcg PO QAM #90 caps 04/25/25 06/02/25 Rx mcg (2,000 unit) capsule ibuprofen 800 mg tablet 800 mg PO AMPM PRN pain #60 tabs 04/25/25 06/02/25 Rx syringe with needle, safety 3 mL #12 ea 04/25/25 05/28/25 Rx 25 gauge x 5/8" (Monoject Safety Syringes) multivitamin 1 tab PO DAILY 04/30/25 06/02/25 History albuterol sulfate 90 mcg/actuation 2 puff inhalation QID PRN SHORT OF 05/21/25 06/02/25 Rx aerosol inhaler (Ventolin HFA) BREATH #18 grams cyclobenzaprine 10 mg tablet 10 mg PO Q8H spasm #30 tabs 05/21/25 06/02/25 Rx ondansetron HCl 4 mg tablet 4 mg PO Q8H PRN nausea and 05/21/25 06/02/25 Rx vomiting #20 tabs electric lift chair #1 ea 05/23/25 05/28/25 Rx miscellaneous medical supply See Rx Instructions .Route 05/23/25 05/28/25 Rx .COMPLEX #1 ea dexlansoprazole 60 mg 60 mg PO DAILY 06/02/25 06/02/25 History capsule,biphase delayed release (Dexilant) losartan 100 1 tab PO QAM 06/02/25 06/02/25 History mg-hydrochlorothiazide 25 mg tablet (Hyzaar) Past Med/Surg History Problem List Encounter for pre-operative examination Stenosis, spinal, lumbar Degenerative spondylolisthesis Disc degeneration, lumbar Ambulatory dysfunction (Acute) Herniated lumbar intervertebral disc (Acute) Acute left lumbar radiculopathy (Acute) Chronic venous insufficiency Lower extremity edema (Chronic) Leg wound, left Prediabetes Gastritis Iron deficiency anemia Anxiety and depression Vitamin D deficiency Morbid obesity Metabolic syndrome Diastolic dysfunction Gait disturbance (Acute) IBS (irritable colon syndrome) (Acute) Obstructive sleep apnea (Chronic) getting fitted for device in March Pain medication agreement broken (Acute) Seasonal allergies (Chronic) Urinary incontinence in female (Chronic) Rheumatoid arthritis Osteoarthritis Migraine Asthma (Chronic) Hypertension (Chronic) Medical History Herniated lumbar intervertebral disc Iron deficiency anemia Intractable back pain (03/2025) had fallen at home, had left leg numbness, crawled to her bed, was in bed x 3 days, taken to [facility] via ambulance, admitted and d/c - using walker to ambulate, having extreme pain Hx of acute renal failure 04/10/25- admitted to [facility]- resolved on discharge Hx of gastritis Osteoarthritis Rheumatoid arthritis No rheum at this time History of urinary incontinence Stenosis, spinal, lumbar Disc degeneration, lumbar Degenerative spondylolisthesis Chronic venous insufficiency Ambulatory dysfunction History of dog bite (05/19/24) - attacked by a usama on may 19, 2024- has had 7 right hand surgeries- will need additional surgery- bone graft - had wound vac on left calf- now healed- no current issues - left arm-- 33 bite amador, right arm-- 28 bite amador- admit to [facility] Sleep apnea never got cpap, it was during the time last year when she was attacked by a dog, now has to retested to get machine Prediabetes diet controlled Depression Seasonal allergies IBS (irritable bowel syndrome) History of COVID-19 diagnosed 09/2020 @ [facility]--denies hospitalization--no issues now History of anesthesia reaction states woke up itchy after hysterectomy--no other issues with anesthesia with prior surgeries or surgeries after 2022: woke up during knee surgery- thought she was at [employer]- wide awake after surgery Lumbar disc disorder Overactive bladder Anxiety Hypertension controlled, stable per ptp Asthma well controlled at present, rare res inh use Surgical History History of vascular surgery 02/05/25- LEFT GREAT SAPHENOUS ENDOVENOUS ABLATION History of bilateral knee replacement (2022) right 2022 2018 left H/O thumb surgery (2023) has had 7 surgeries so far- R thumb reconstruction .- pt. was attacked by a rorybull on may 19, 2024- will need additional surgery- bone graft H/O gastric bypass (02/09/23) 02/09/23 by [facility] History of left knee surgery (~05/11/19) Left knee quadriceps tendon and medial retinacular repair with irrigation of knee joint repair of skin LMA#4. History of carpal tunnel surgery bilat H/O bilateral breast reduction surgery S/P panniculectomy History of hysterectomy (2001) History of section (1993) x1 History of bilateral tubal ligation History of esophagogastroduodenoscopy (EGD) History of colonoscopy History of cholecystectomy History of tooth extraction states all teeth are removed History of nasal septoplasty (2008) Family History Father Family history of esophageal cancer Heart disease Lung cancer Family/Other Breast cancer maternal cousin Multiple sclerosis paternal side Aunt Breast cancer maternal Sister Colorectal cancer Family/Other Ovarian cancer niece and 2 of mothers nieces Grandfather (Paternal) Cirrhosis Other No family history of adverse response to anesthesia Denies family history of Prostate cancer Myocardial infarction Social History Smoking Status: Former smoker Tobacco Type: Cigarettes Age Started Using Tobacco: 12; Age Quit Using Tobacco: 22; packs per day: 0.25; Smoking End Date: quit 15 years ago; Second Hand Exposure: No; Do You Dip or Chew Tobacco: No; Tobacco Cessation Education Requested by Patient: No Hx Alcohol Use: No Hx Substance Use: Yes Last Used Substance: Unknown Last Used Substance Other:: marijuana (gummy)- advised Substance Use Type Other:: oxycodone Preferred Language: Khmer Communication Ability: Effective Visual Impairment: No Limitations Hearing Ability: Normal Structural Technician Required: No Beliefs That Will Affect Care: None marital status: Current Living Situation: Alone Current Living Situation Comment: daughter lives across road and helps pt current occupational status: disabled How many Children do You have: 2 Other Information That Helps Us Care for You: No Feels Safe at Home: Yes Safety Concerns: Feels Safe At This Time Childhood Exposure to Second-Hand Smoke: No Diet: regular Diet Comment: regular caffeine: Yes during the past year weight has: remained stable Dental Care, Regularly: Yes Physical Activity Frequency: Does not Exercise Seatbelt Use: always Sunscreen Use: No Assistive Devices: Cane, Denture - Upper, Denture - Lower, Glasses and Walker Results & Data Results & Data Vital Signs (Past 12 Hours) Vital Signs Temp Pulse Resp BP Pulse Ox O2 Del Method 06/02/25 05:59 36.9 C 87 18 146/88 H 99 Room Air
[2025-06-02] MEDS ORDERED: PHENYLEPHRINE 100MCG/ML 5ML SYR ONE (09:21)
[2025-06-02] MEDS: BUPIVACAINE/EPINEPHRINE 0.5% MPF 1:200,000 30 ML VIAL ONE (13:45)
[2025-06-02] MEDS: GELATIN SPONGE 12-7MM ONE (13:46)
[2025-06-02] MEDS: THROMBIN 5000 UNITS KIT ONE (13:46)
[2025-06-02] MEDS: VANCOMYCIN HCL 1000MG/20ML VIAL ONE (13:46)
[2025-06-02] MEDS: FLOSEAL HEMOSTATIC MATRIX 5ML TOP ONE (13:47)
--- NOTE | 2025-06-02 14:07 | Fluoroscopy Report ---
FL lumbar spine 2-3V CLINICAL HISTORY: L3-L4 LATERAL FUSION, POST FUSION COMPARISON STUDY: None FLUOROSCOPY TIME: 147 seconds FLUOROSCOPY IMAGES: 10 EXPOSURE DOSE: 109.93 mGy FINDINGS: Discectomy with posterior interbody tamy and screw fusion hardware is noted at what is label ed the L3-L4 level. No unexpected opaque foreign bodies. IMPRESSION: Fluoroscopic assistance as above. ACT 112: Negative or not required by law. Electronically signed by: Mauro Yates M.D. 06/02/2025 2:06 PM
--- NOTE | 2025-06-02 14:15 | Post Operative Brief Note ---
PG Immediate Post Op with CF Date of Surgery June 02, 2025 Pre & Post Diagnosis Operation Date: 06/02/25 07:30 Pre-Op Diagnosis: 1. Herniation of Intervertebral L3-L4 2. Degenerative Spondylosis 3. Spinal Stenosis Post-Op Diagnosis: 1. Herniation of Intervertebral L3-L4 2. Degenerative Spondylosis 3. Spinal Stenosis I identified the patient and participated in the time-out.: Yes Procedure Operation Date: 06/02/25 07:30 Actual Procedures p L3-L4 Lateral Fusion(Not Applicable) - Chris Feliciano MD s Lumbar Decompression and Posterior Fusion(Not Applicable) - Chris Feliciano MD Surgeon Chris Feliciano MD Hand Cooper Helper none Estimated Blood Loss 100 Findings Consistent with Post-Op Diagnosis Specimens Specimen Description: No specimen per surgeon Drains Lebron Catheter (16f lebron inserted prior to procedure start by Meryl Diaz RN; 10cc in balloon; clear,yellow urine returned; leg strap applied)
[2025-06-02] MEDS ORDERED: DO NOT ADMINISTER PNEUMOCOCCAL VACCINE PRN (14:38)
[2025-06-02] MEDS ORDERED: diphenhydrAMINE Capsule 25 MG CAP PO PRN (14:38)
[2025-06-02] MEDS ORDERED: MAGNESIUM HYDROXIDE SUSP 30 ML UDC PO PRN (14:38)
[2025-06-02] MEDS ORDERED: DO NOT ADMINISTER FLU VACCINE PRN (14:38)
[2025-06-02] MEDS ORDERED: SOD PHOSPHATE/SOD BIPHOSPHATE ENEMA 132 ML BTL PR PRN (14:38)
[2025-06-02] MEDS ORDERED: ACETAMINOPHEN 1,000 MG/100 ML VIAL IV PRN (14:38)
[2025-06-02] MEDS ORDERED: ALUMINUM/MAGNESIUM SUSP 30 ML UDC PO PRN (14:38)
[2025-06-02] MEDS ORDERED: LORazepam 0.5 MG TAB PO PRN (14:38)
[2025-06-02] MEDS ORDERED: PROMETHAZINE 12.5 MG/50.5 ML BAG IV PRN (14:38)
[2025-06-02] MEDS ORDERED: FAMOTIDINE 20 MG TAB PO PRN (14:38)
[2025-06-02] MEDS ORDERED: NALOXONE HCL 0.4 MG/1 ML VIAL/CARP IV PRN (14:38)
[2025-06-02] MEDS ORDERED: METOCLOPRAMIDE HCL INJ 5 MG/ML 2 ML VIAL IV PRN (14:38)
[2025-06-02] MEDS ORDERED: VANCOMYCIN CONSULT ACTIVE PRN (14:54)
--- NOTE | 2025-06-02 15:23 | Hospitalist Consultation ---
Date of Consultation June 02, 2025 Assessment & Plan (1) Stenosis, spinal, lumbar: (2) Acute left lumbar radiculopathy: (3) Prediabetes: (4) Gastritis: (5) Metabolic syndrome: (6) Diastolic dysfunction: (7) Obstructive sleep apnea: (8) Rheumatoid arthritis: (9) Asthma: (10) Hypertension: Plan 54yo female presented for elective lumbar decompression/fusion for LLE stenosis with radiculopathy with Dr Feliciano. MRI last month during admission w/ L2-L3 L sided disc bulge causing mild neruoforaminal narrowing, sequestered disc posterior to lower border L3 on L causing compression over traversing as well as exiting nerve roots on the left. Diffuse posterior disc bulge causing grade II canal stenosis, indentation over traversing as well as b/l exiting nerve roots with bilateral moderate neuroforamial narrowing #Lumbar stenosis with radiculopathy s/p L3-L4 decompression/fusion with Dr Feliciano. EBL 100cc Post-op pain management, bowel regimen, PT/OT, DVT proph per primary service Monitor labs in AM #HTN BP stable 123/73 Continue metoprolol. 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 Adjustment pending serial BSGs Continues on gabapentin TID but reduced to 300mg TID from 400mg to prevent over sedation but is on at baseline Monitor to increase back to baseline, B12 w/ AM labs #Asthma continue inhalers as needed, montelukast daily. Reports typically uses albuterol HFA in AM Continue incentive spirometry Monitor for any issues, ensure mag replete #GERD/Gastritis- chronic continue PPI daily - ordered dexliant (prior reports not effective with pantoprazole). -can see if able to bring in home meds. Pepcid BID prn available as well #LEYDI- CPAP HS ordered but patient was to get machine last year but delayed w/ dog bite/surgeries/etc and will need re-tested outpatient. Check overnight pulse ox, can arrange NC HS at dc until able to be arranged Supplemental O2 titration as needed, incentive spirometry #Hx UTI -Note was tx Levaquin for possible UTI on pre-op testing from 05/07, did see urology following and repeat urine cx 05/12 without growth. Patient denied sx UTI. Lebron w/ surgery placed but removed prior to [facility]SU. Was given vanco/ancef ethel-operative abx and should be covered. Monitor for any issues with removal DVT proph: SCDs, bunny hose in place Dispo: continued inpatient stay for monitoring post-op. Cautious sedation/pain meds, concerns for marijuana usage - will need follow up discussions regarding use Hospitalist service will follow along. Please call with any questions/concerns. Supervising Physician Co-Signing Physician Notes The patient was seen by me. The chart was reviewed. Case discussed with DANITZA Nguyen. Agree with assessment and plan History of Present Illness Reason for Consultation: medical management, surgery Requesting Physician: Dr Feliciano Attending Physician: Chris Feliciano MD History of Present Illness 54yo female with PMHx significant for RA, LEYDI, asthma, pre-DM, HTN, IBS, anxiety, venous insufficiency and lumbar stenosis presented for elective lumbar decompression and fusion with Dr Feliciano. s/p L3-L4 decompression/fusion with Dr Feliciano. EBL 100cc Reports having had lower back symptoms for years, worse prior LLE radiculopathy. Patient evaluated in [facility], warming blanket in place. Reports feels warm, nursing checking temperature. Denies any pain at this time and reports "can't feel anything", however able to wiggle toes/sensation intact. No CP/SOB at this time, history of asthma and reports using inhaler at times in the morning. Lebron placed but removed prior to coming to [facility], per RN, had ~250cc urine in bag. Confirmed home medications, discussed holding off losartan-HCTZ for now. Patient reports issues w/ anesthesia with her knee in 2022 and reported she woke up during procedure and felt she was at [employer], Hx itchiness w/ hysterectomy as well- no issues with present. Did report holding Wegovy as instructed, has been off for about a week. Hx LEYDI but was to get her CPAP last year but never obtained as got bite by a dog. Discussed ongoing admission/observation for pain control and therapy evals. Upon leaving [facility], nursing reporting received in report patient given minimal medications with surgery as reported to have taken "gummies" this morning for pain. Will need to inquire further about use in follow up. Allergies Allergy/AdvReac Type Severity Reaction Status Date / Time buprenorphine [From Suboxone] Allergy Severe Throat Verified 06/02/25 05:48 swells, hives naloxone [From Suboxone] Allergy Severe Throat Verified 06/02/25 05:48 swells, hives blueberry Allergy Intermediate HIVES Verified 06/02/25 05:48 naproxen Allergy Intermediate Hives Verified 06/02/25 05:48 nickel Allergy Intermediate SKIN Verified 06/02/25 05:48 IRRITATION/SWELLING tramadol Allergy Intermediate HIVES/nause Verified 06/02/25 05:48 a cefadroxil Allergy Mild Rash Verified 06/02/25 05:48 latex Allergy Mild SKIN Verified 06/02/25 05:48 PEELING Home Medications Medication Instructions Recorded Confirmed Type fluoxetine 20 mg capsule (Prozac) 20 mg PO QAM 03/06/23 06/02/25 History acetaminophen 500 mg tablet 1,000 mg PO Q8 PRN PAIN/FEVER 12/25/24 06/02/25 History (Tylenol Extra Strength) metoprolol succinate 25 mg 12.5 mg (1/2 x 25 mg) PO QAM #90 03/04/25 06/02/25 Rx tablet,extended release 24 hr tabs alprazolam 0.25 mg tablet (Xanax) 0.25 mg PO HS 03/11/25 06/02/25 History gabapentin 400 mg capsule 400 mg PO TID 03/11/25 06/02/25 History methylphenidate HCl 10 mg 10 mg PO QAM 03/11/25 06/02/25 History tablet,extended release methylphenidate HCl 20 mg 20 mg PO QAM 03/11/25 06/02/25 History tablet,extended release ferrous sulfate 325 mg (65 mg 325 mg PO DAILY #90 tabs 03/13/25 06/02/25 Rx iron) tablet citalopram 40 mg tablet (Celexa) 40 mg PO QPM 04/08/25 06/02/25 History methylphenidate HCl 10 mg tablet 10 mg PO QDL PRN focus with school 04/08/25 06/02/25 History (Ritalin) work semaglutide (weight loss) 2.4 2.4 mg subcut WK 04/08/25 06/02/25 History mg/0.75 mL subcutaneous pen injector (Weariavy) amlodipine 5 mg tablet (Norvasc) 5 mg PO QAM #90 tabs 04/10/25 06/02/25 Rx furosemide 40 mg tablet (Lasix) 40 mg PO DAILY PRN edema #90 tabs 04/10/25 06/02/25 Rx budesonide-formoterol HFA 160 2 puff inhalation QAM #10.2 grams 04/15/25 06/02/25 Rx mcg-4.5 mcg/actuation aerosol inhaler (Symbicort) cyanocobalamin (vitamin B-12) 1,000 mcg IM MONTHLY #3 KITS 04/17/25 06/02/25 Rx 1,000 mcg/mL injection kit montelukast 10 mg tablet 10 mg PO HS #90 tabs 04/17/25 06/02/25 Rx (Singulair) cholecalciferol (vitamin D3) 50 50 mcg PO QAM #90 caps 04/25/25 06/02/25 Rx mcg (2,000 unit) capsule ibuprofen 800 mg tablet 800 mg PO AMPM PRN pain #60 tabs 04/25/25 06/02/25 Rx syringe with needle, safety 3 mL #12 ea 04/25/25 05/28/25 Rx 25 gauge x 5/8" (Monoject Safety Syringes) multivitamin 1 tab PO DAILY 04/30/25 06/02/25 History albuterol sulfate 90 mcg/actuation 2 puff inhalation QID PRN SHORT OF 05/21/25 06/02/25 Rx aerosol inhaler (Ventolin HFA) BREATH #18 grams cyclobenzaprine 10 mg tablet 10 mg PO Q8H spasm #30 tabs 05/21/25 06/02/25 Rx ondansetron HCl 4 mg tablet 4 mg PO Q8H PRN nausea and 05/21/25 06/02/25 Rx vomiting #20 tabs electric lift chair #1 ea 05/23/25 05/28/25 Rx miscellaneous medical supply See Rx Instructions .Route 05/23/25 05/28/25 Rx .COMPLEX #1 ea dexlansoprazole 60 mg 60 mg PO DAILY 06/02/25 06/02/25 History capsule,biphase delayed release (Dexilant) losartan 100 1 tab PO QAM 06/02/25 06/02/25 History mg-hydrochlorothiazide 25 mg tablet (Hyzaar) Patient History Medical History Herniated lumbar intervertebral disc Iron deficiency anemia Intractable back pain (03/2025) had fallen at home, had left leg numbness, crawled to her bed, was in bed x 3 days, taken to [facility] via ambulance, admitted and d/c - using walker to ambulate, having extreme pain Hx of acute renal failure 04/10/25- admitted to [facility]- resolved on discharge Hx of gastritis Osteoarthritis Rheumatoid arthritis No rheum at this time History of urinary incontinence Stenosis, spinal, lumbar Disc degeneration, lumbar Degenerative spondylolisthesis Chronic venous insufficiency Ambulatory dysfunction History of dog bite (05/19/24) - attacked by a pitbull on may 19, 2024- has had 7 right hand surgeries- will need additional surgery- bone graft - had wound vac on left calf- now healed- no current issues - left arm-- 33 bite amador, right arm-- 28 bite amador- admit to [facility] trauma Sleep apnea never got cpap, it was during the time last year when she was attacked by a dog, now has to retested to get machine Prediabetes diet controlled Depression Seasonal allergies IBS (irritable bowel syndrome) History of COVID-19 diagnosed 09/2020 @ [facility]--denies hospitalization--no issues now History of anesthesia reaction states woke up itchy after hysterectomy--no other issues with anesthesia with prior surgeries or surgeries after 2022: woke up during knee surgery- thought she was at [employer]- wide awake after surgery Lumbar disc disorder Overactive bladder Anxiety Hypertension controlled, stable per ptp Asthma well controlled at present, rare res inh use Surgical History History of vascular surgery 02/05/25- LEFT GREAT SAPHENOUS ENDOVENOUS ABLATION History of bilateral knee replacement (2022) right 2022 2018 left H/O thumb surgery (2023) has had 7 surgeries so far- R thumb reconstruction .- pt. was attacked by a pitbull on may 19, 2024- will need additional surgery- bone graft H/O gastric bypass (02/09/23) 02/09/23 by [facility] History of left knee surgery (~05/11/19) Left knee quadriceps tendon and medial retinacular repair with irrigation of knee joint repair of skin LMA#4. History of carpal tunnel surgery bilat H/O bilateral breast reduction surgery S/P panniculectomy History of hysterectomy (2001) History of section (1993) x1 History of bilateral tubal ligation History of esophagogastroduodenoscopy (EGD) History of colonoscopy History of cholecystectomy History of tooth extraction states all teeth are removed History of nasal septoplasty (2008) Family History Father Family history of esophageal cancer Heart disease Lung cancer Family/Other Breast cancer maternal cousin Multiple sclerosis paternal side Aunt Breast cancer maternal Sister Colorectal cancer Family/Other Ovarian cancer niece and 2 of mothers nieces Grandfather (Paternal) Cirrhosis Other No family history of adverse response to anesthesia Denies family history of Prostate cancer Myocardial infarction Social History Smoking Status: Former smoker Tobacco Type: Cigarettes Age Started Using Tobacco: 12; Age Quit Using Tobacco: 22; packs per day: 0.25; Smoking End Date: quit 15 years ago; Second Hand Exposure: No; Do You Dip or Chew Tobacco: No; Tobacco Cessation Education Requested by Patient: No Hx Alcohol Use: No Hx Substance Use: Yes Last Used Substance: Unknown Last Used Substance Other:: marijuana (gummy)- advised Substance Use Type Other:: oxycodone Preferred Language: Mongolian Communication Ability: Effective Visual Impairment: No Limitations Hearing Ability: Normal Plaster Block Layer Required: No Beliefs That Will Affect Care: None marital status: Current Living Situation: Alone Current Living Situation Comment: daughter lives across road and helps pt current occupational status: disabled How many Children do You have: 2 Other Information That Helps Us Care for You: No Feels Safe at Home: Yes Safety Concerns: Feels Safe At This Time Childhood Exposure to Second-Hand Smoke: No Diet: regular Diet Comment: regular caffeine: Yes during the past year weight has: remained stable Dental Care, Regularly: Yes Physical Activity Frequency: Does not Exercise Seatbelt Use: always Sunscreen Use: No Assistive Devices: Cane, Denture - Upper, Denture - Lower, Glasses and Walker Review of Systems Review of Systems: All systems reviewed & are unremarkable except as noted in HPI & below Physical Exam Physical Exam: General: 54yo obese female resting in bed in [facility], warming blanket in place, NAD but fatigued appearing, appears older than stated age Head atraumatic, normocephalic, mm dry, trachea midline Resp: even/unlabored, slightly diminished in the bases but no wheezing/rales, on 2L post-op CV: regular, ?+faint systolic murmur, no pitting edema, pulses present GI: +BS, soft/obese, prior lower midline scar from surgery noted, nontender to palpation : no lebron (removed post-op) MSK/Neuro: dressing to lumbar spine (not observed today), dorsiflexion/plantar flexion intact bilaterally and strength equal, pulses present, sensation intact Psych: alert to per Results & Data Results & Data Vital Signs (Past 12 Hours) Vital Signs Temp Pulse Pulse Resp BP Pulse Ox O2 Del Method 06/02/25 15:00 73 12 123/73 100 Oxymask 06/02/25 14:50 73 15 123/69 100 Oxymask 06/02/25 14:40 75 12 125/61 100 Oxymask 06/02/25 14:30 76 13 109/61 100 Oxymask 06/02/25 14:26 36.3 C L 78 12 104/62 100 Oxymask 06/02/25 05:59 36.9 C 87 18 146/88 H 99 Room Air O2 Flow Rate 06/02/25 15:00 2 06/02/25 14:50 2 06/02/25 14:40 2 06/02/25 14:30 4 06/02/25 14:26 4 06/02/25 05:59 Diagnostic Findings Lumbar Spine X-Ray 06/02/25 00:00 FL lumbar spine 2-3V CLINICAL HISTORY: L3-L4 LATERAL FUSION, POST FUSION COMPARISON STUDY: None FLUOROSCOPY TIME: 147 seconds FLUOROSCOPY IMAGES: 10 EXPOSURE DOSE: 109.93 mGy FINDINGS: Discectomy with posterior interbody tamy and screw fusion hardware is noted at what is labeled the L3-L4 level. No unexpected opaque foreign bodies. IMPRESSION: Fluoroscopic assistance as above. ACT 112: Negative or not required by law. Electronically signed by: Mauro Yates M.D. 06/02/2025 2:06 PM PG Care Time/CCT Total # of Minutes Spent Total Time Spent with Patient: Total time spent is greater than 50% in coordination of care (as documented) at patient's floor/unit and/or counseling patient: Coding Level of Care Code 18609 IN/OBS CONSULT LVL 3,45M Diagnoses Stenosis, spinal, lumbar M48.061 Acute left lumbar radiculopathy M54.16 Prediabetes R73.03 Gastritis K29.70 Metabolic syndrome E88.81 Diastolic dysfunction I51.89 Obstructive sleep apnea G47.33 Rheumatoid arthritis M06.9 Moderate persistent asthma without complication J45.40 Asthma complication type: uncomplicated Asthma persistence: persistent Asthma severity: moderate Hypertension I10 (9) Asthma Asthma complication type: uncomplicated Asthma persistence: persistent Asthma severity: moderate Qualified Code(s): J45.40 - Moderate persistent asthma, uncomplicated
[2025-06-02] MEDS ORDERED: GLUCOSE 40% GEL 15 GM TUBE PO PRN (16:32)
[2025-06-02] MEDS ORDERED: FUROSEMIDE 40 MG TAB PO PRN (16:32)
[2025-06-02] MEDS ORDERED: ALBUTEROL HFA 8 GM INHALER INH PRN (16:32)
[2025-06-02] MEDS ORDERED: GLUCAGON FOR INJ 1 MG VIAL SQ PRN (16:32)
[2025-06-02] MEDS ORDERED: GLUCOSE 10 TAB/TUBE PO PRN (16:32)
[2025-06-02] MEDS ORDERED: CARBOHYDRATES FOR HYPOGLYCEMIA PO PRN (16:32)
[2025-06-02] MEDS ORDERED: DEXTROSE 50% 50 ML SYRINGE IV PRN (16:32)
[2025-06-02] MEDS ORDERED: ONDANSETRON 4 MG OD TAB PO PRN (16:42)
[2025-06-02] MEDS: INSULIN ASPART PER UNIT CHARGE SC SCH (16:50)
[2025-06-02] MEDS ORDERED: METHYLPHENIDATE HCL 5 MG TABLET PO PRN (18:10)
[2025-06-02] MEDS: ONDANSETRON INJ 2 MG/ML 2 ML VIAL IV PRN (20:09)
[2025-06-02] MEDS: HYDROmorphone INJ 0.5 MG/0.5 ML SYR IV PRN (20:11)
[2025-06-02] MEDS: CITALOPRAM 40 MG TAB PO SCH (21:25)
[2025-06-02] MEDS: DOCUSATE SODIUM/SENNA 50/8.6MG TAB PO SCH (21:25)
[2025-06-02] MEDS: GABAPENTIN 300 MG CAP PO SCH (21:26)
[2025-06-02] MEDS: MONTELUKAST SODIUM 10 MG TABLET PO SCH (21:27)
[2025-06-03] MEDS: VANCOMYCIN HCL 1,500 MG in SODIUM CHLORIDE 0.9% 500 ML IV SCH (00:56)
[2025-06-03] MEDS: HYDROmorphone INJ 1 MG/ML SYRINGE IV PRN (04:57)
[2025-06-03] MEDS: POLYETHYLENE (MIRALAX) 17 GM PACK PO SCH (05:03)
[2025-06-03] MEDS: METOPROLOL SUCC 25MG EXT REL TAB PO SCH (07:35)
[2025-06-03] MEDS: FLUTICASONE/VILANTEROL 100/25MCG 14 PUFFS/INHALER INH SCH (07:39)
--- NOTE | 2025-06-03 08:23 | Hospitalist Progress Note ---
Date of Service June 03, 2025 Assessment & Plan (1) Stenosis, spinal, lumbar: (2) Acute left lumbar radiculopathy: (3) Prediabetes: (4) Gastritis: (5) Metabolic syndrome: (6) Diastolic dysfunction: (7) Obstructive sleep apnea: (8) Rheumatoid arthritis: (9) Asthma: (10) Hypertension: Plan 54yo female presented for elective lumbar decompression/fusion for LLE stenosis with radiculopathy with Dr Feliciano. MRI last month during admission w/ L2-L3 L sided disc bulge causing mild neuroforaminal narrowing, sequestered disc posterior to lower border L3 on L causing compression over traversing as well as exiting nerve roots on the left. Diffuse posterior disc bulge causing grade II canal stenosis, indentation over traversing as well as b/l exiting nerve roots with bilateral moderate neuroforamial narrowing #Lumbar stenosis with radiculopathy s/p L3-L4 decompression/fusion with Dr Feliciano. EBL 100cc Post-op pain management, bowel regimen, DVT proph per primary service Hgb 12.5--> 10.2 - acute blood loss anemia from surgery as welll as dilutional aspect from IVF. Asymptomatic, stable BP/renal functions Rec continued bowel regimen. +BS but no BM for 2-3 days. 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 Adjustment pending serial BSGs Continues on gabapentin TID but reduced to 300mg TID from 400mg to prevent over sedation but is on at baseline -- can resume home dose if needing for pain control as messaged primary regarding such. B12 wnl on check #Asthma continue inhalers as needed, montelukast daily. Reports typically uses albuterol HFA in AM and is available as needed Rec continued use incentive spirometry, currently on room air #GERD/Gastritis- chronic continue PPI daily - ordered dexliant (prior reports not effective with pantoprazole). -can see if able to bring in home meds. Pepcid BID prn available as well #LEYDI- CPAP HS ordered but patient was to get machine last year but delayed w/ dog bite/surgeries/etc and will need re-tested outpatient. Overnight pulse ox without needs Should have repeat testing outpatient with PCP #Hx UTI -Note was tx Levaquin for possible UTI on pre-op testing from 05/07, did see urology following and repeat urine cx 05/12 without growth. Patient denied sx UTI. Lebron w/ surgery placed but removed prior to [facility]. Was given vanco/ancef ethel-operative abx and should be covered. No issues reported DVT proph: SCDs, bunny hose in place Dispo: continued inpatient stay for pain control/therapy evals. Thank you for allowing hospitalist service to participate in the care of Ms Jones. Can follow peripherally as needed. Please call with any questions/concerns. Admission and Anticipated Discharge Date Admission Date: June 02, 2025 Supervising Physician Co-Signing Physician Notes The patient was not seen by me. The chart was reviewed. Case discussed with DANITZA Nguyen. Agree with assessment and plan Subjective Evaluated this morning, resting in bed. Awoken to name, but sleepy, however reporting incisional pain. Passing flatus, leg strength equal bilaterally. No fever/chills, chest pain, shortness of breath, nausea/vomiting. Inquired about marijuana use - said uses vape occasionally but "not enough to matter" when asked to quantify. Cautious use sedation medications recommended. Questions/concerns addressed at this time. Physical Exam 2 Physical Exam: General: 54yo obese female resting in bed, sleeping, NAD but reports incisional pain upon waking, appears older than stated age Head atraumatic, normocephalic, mm dry, trachea midline Resp: even/unlabored, slightly diminished in the bases but no wheezing/rales, on room air CV: regular, faint systolic murmur, no pitting edema, pulses present GI: +BS, soft/obese, prior lower midline scar from surgery noted, nontender to palpation : no lebron MSK/Neuro: dressing to lumbar spine intact, equal strength bilateral LE w/ dorsiflexion/plantar flexion intact bilaterally and strength equal, pulses present, sensation intact Psych: alert to person/place/time, fatigued/sleepy but cooperative Results & Data Results & Data Vital Signs (Past 12 Hours) Vital Signs Temp Pulse Pulse Resp BP Pulse Ox Pulse Ox 06/03/25 07:11 36.3 C L 87 16 107/72 95 06/03/25 04:36 97 06/03/25 03:22 74 95 06/03/25 03:03 36.9 C 61 16 150/83 H 98 06/02/25 23:42 36.3 C L 66 16 150/77 H 95 06/02/25 23:13 65 98 06/02/25 21:43 O2 Del Method O2 Del Method 06/03/25 07:11 Room Air 06/03/25 04:36 Room Air 06/03/25 03:22 Room Air 06/03/25 03:03 Room Air 06/02/25 23:42 Room Air 06/02/25 23:13 Room Air 06/02/25 21:43 Room Air Laboratory Results 06/03/25 07:57 06/03/25 07:57 Diagnostic Findings Lumbar Spine X-Ray 06/02/25 00:00 FL lumbar spine 2-3V CLINICAL HISTORY: L3-L4 LATERAL FUSION, POST FUSION COMPARISON STUDY: None FLUOROSCOPY TIME: 147 seconds FLUOROSCOPY IMAGES: 10 EXPOSURE DOSE: 109.93 mGy FINDINGS: Discectomy with posterior interbody tamy and screw fusion hardware is noted at what is labeled the L3-L4 level. No unexpected opaque foreign bodies. IMPRESSION: Fluoroscopic assistance as above. ACT 112: Negative or not required by law. Electronically signed by: Mauro Yates M.D. 06/02/2025 2:06 PM PG Care Time/CCT Total # of Minutes Spent Total Time Spent with Patient: Total time spent is greater than 50% in coordination of care (as documented) at patient's floor/unit and/or counseling patient: Coding Level of Care Code 67584 SUB INP/OBS CARE 2/35MIN Diagnoses Stenosis, spinal, lumbar M48.061 Acute left lumbar radiculopathy M54.16 Prediabetes R73.03 Gastritis K29.70 Metabolic syndrome E88.81 Diastolic dysfunction I51.89 Obstructive sleep apnea G47.33 Rheumatoid arthritis M06.9 Moderate persistent asthma without complication J45.40 Asthma complication type: uncomplicated Asthma persistence: persistent Asthma severity: moderate Hypertension I10 (9) Asthma Asthma complication type: uncomplicated Asthma persistence: persistent A sthma severity: moderate Qualified Code(s): J45.40 - Moderate persistent asthma, uncomplicated
[2025-06-03 08:30] LABS: Hematocrit (blood only) 32.3 % (37.0-47.0); Hemoglobin 10.2 g/dl (12.0-16.0); Immature Granulocytes # (auto) 0.02 K/uL (0.01-0.20); Immature Granulocytes % (auto) 0.3 %; Mean Corpuscular Hemoglobin 28.7 pg (25.0-34.0); Mean Corpuscular Volume 90.7 fL (80.0-100.0); Platelet Count 212 K/uL (130-400); RDW Standard Deviation 50.2 fL (36.4-46.3); Red Blood Count 3.56 M/uL (4.20-5.40); White Blood Count 6.11 K/ul (4.8-10.8)
[2025-06-03 08:46] LABS: Alanine Aminotransferase 24.0 U/L (7-52); Albumin Globulin Ratio 1.7 (0.9-2); Alkaline Phosphatase 58.0 U/L (34-104); Anion Gap 2.0 (3-11); Bilirubin,Total 0.4 mg/dl (0.2-1.0); Blood Urea Nitrogen 15.0 mg/dl (6-23); Calcium 9.3 mg/dl (8.6-10.3); Carbon Dioxide 30.0 mmol/L (21-32); Chloride 109.0 mmol/L (98-107); Creatinine Clr Calc Pharmacy 85.8 ml/min; Globulin 2.0 gm/dl (2.5-4.0); Glucose 125.0 mg/dl (70-99(Fasting)); Magnesium 2.0 mg/dl (1.7-2.4); Potassium 4.3 mmol/L (3.5-5.1); Sodium 141.0 mmol/L (136-145); Total Protein 5.4 gm/dl (6.0-8.3)
[2025-06-03] MEDS ORDERED: METHYLPHENIDATE HCL 20 MG PO SCH (09:00)
--- NOTE | 2025-06-03 12:50 | Operative Report ---
PG Post Operative Report Pre & Post Diagnosis Operation Date: 06/02/25 07:30 Pre-Op Diagnosis: 1. Herniation of Intervertebral L3-L4 2. Degenerative Spondylosis 3. Spinal Stenosis Post-Op Diagnosis: 1. Herniation of Intervertebral L3-L4 2. Degenerative Spondylosis 3. Spinal Stenosis I identified the patient and participated in the time-out.: Yes Procedure Operation Date: 06/02/25 07:30 Actual Procedures p L3-L4 Lateral Fusion(Not Applicable) - Chris Feliciano MD s Lumbar Decompression and Posterior Fusion(Not Applicable) - Chris Feliciano MD Surgeon Chris Feliciano MD Behavioral Health Technician none Estimated Blood Loss 100 Findings Consistent with Post-Op Diagnosis Specimens none Description of Procedure 1. Right L3-4 lateral interbody arthrodesis. (38083) 2. Insertion of intervertebral cage L3-4, NuVasive cohere XL, 8 x 18 x 45 mm lordotic. (97790) 3. Left L3-4 posterior lumbar decompression/laminectomy. (28407) 4. L3-4 posterior arthrodesis. (38331) 5. L3-4 posterior nonsegmental instrumentation, LocalEatstronic modular X. (83572) 6. Utilization of proximal of decompression for fusion purposes. (22902) 7. Utilization of stereotactic CT-guided navigation for instrumentation. (22111) Patient was taken the operating room after adequate anesthesia was carefully positioned on the Quyen table left lateral decubitus position right side up for a lateral approach to the L3-4 level. Patient was secured in routine fashion, fluoroscopy was brought into help align the patient optimally on the table, followed by a preprep of the lumbar abdominal region. Approximate location for the incision was marked, prep and drape was performed. Transverse incision was made just superior to the iliac crest in line with the L3-4 interspace. I advanced down through the subcutaneous layers and into the retroperitoneal region without difficulty palpating the psoas, where I inserted the initial dilator from the OhmDataVasive system. Monitoring was utilized, I was able to locate appropriate location at the L3-4 interspace followed by insertion of the guidewire and then additional dilators. Access apparatus was inserted, fluoroscopy was used to check the overall position and monitoring for the area to be approached. Then entered the interspace after incising the annulus laterally and use a variety of instruments to remove the disc base and cartilage from the endplates, along with dilators to elevate the disc base to a more appropriate level. This was followed by additional removal of disc materials, I then went through trial selecting the size cage as noted. Fusion materials were inserted to the cage, along with some fusion materials within the interspace and then this was tapped in excellent position on AP and lateral views using fluoroscopy. Final images were obtained, vancomycin powder was placed, the access apparatus was removed no issues were noted. The operative site was closed with interrupted 0 and 2-0 Vicryl suture javy for the skin sterile dressing was applied. Patient was then repositioned prone on a Francisco frame, I marked for the appropriate location for the incision for the L3-4 level followed by prep and drape. Longitudinal incision was made over the L3-4 level and I advanced this down to the interlaminar region at L3-4 confirm via fluoroscopy. The retractors were set, a attachment was then placed on the L4 spinous process for the navigation system and secured in routine fashion. With the area exposed for the insertion of the hardware and the decompression, I then used the navigation system to make start points for the L4 and L3 pedicle screws followed by insertion of gearshift dilator and tap followed by 6.5 millimeter screws from the Medtronic set, 45 mm in length. All screws were checked with monitoring and found to be greater than 20 in readings. With this completed, decompression at the level was then performed, a left-sided hemilaminectomy along the inferior laminar edge of L3 across the superior laminar edge of L4 and partial medial facetectomy was performed. This was utilized to decompress across the interspace both centrally and in the lateral recess region, some disc material in this region which had been extruded was also removed. Once the decompression was completed, final images were obtained after the screw heads were attached along with the rods, all setscrews were torqued down properly. Fusion materials were placed in the posterior and facet region on the right side, the operative site had been irrigated thoroughly, vancomycin powder was placed, 0 Vicryl sutures in 2 layers were inserted followed by 2-0 Vicryl sutures and javy for the skin. Sterile dressing was applied, the patient tolerated procedure well was taken recovery room in satisfactory condition. I attest to the content of the Intraoperative Record and any orders documented therein. Any exceptions are noted below.
--- NOTE | 2025-06-03 13:59 | Orthopedic Progress Note ---
Date of Service June 03, 2025 Subjective Patient seen and examined, she notes an improvement in terms of her left leg preoperative symptoms, she has been up ambulating with physical therapy. She had some limited incisional symptoms. Exam reveals neurologically intact, limited drainage regarding operative sites. Impression: Stable postoperative course, postoperative day 1 from lateral cage placement L3-4 along with posterior lumbar decompression instrumentation and fusion. I expressed to the patient that she can see how she feels after physical therapy this afternoon, if she is doing well she could potentially discharge to family resident, but if not, continue with physical therapy today with probable discharge tomorrow after occluding physical therapy. Review of Systems All systems reviewed & are unremarkable except as noted in HPI & below. Physical Exam . Results & Data Results & Data Laboratory Results . Diagnostic Findings . PG Care Time/CCT Total # of Minutes Spent Total Time Spent with Patient: Total time spent is greater than 50% in coordination of care (as documented) at patient's floor/unit and/or counseling patient: Coding Level of Care Code 74337 Post Operative Follow-Up
--- NOTE | 2025-06-04 09:11 | Orthopedic Progress Note ---
Date of Service June 04, 2025 Assessment & Plan (1) Stenosis, spinal, lumbar: * Continue Current Treatment * Disposition: Home * Daily treatment: Physical Therapy/ Occupational Therapy per protocol * Weight bearing status: WBAT, activity as tolerated * Continue to monitor for ABLA * Pain control * Office/hospital f/u 2 weeks for progress check and staple/suture removal * Plan for discharge today pending PT/OT clearance Subjective . Active Problems: S/p L3-4 decompression, lateral fusion POD 2 54y/o female s/p L3-4 decompression, lateral fusion. Doing well overall, pain managed and improved function. Denies fever/chills, chest pain/SOB, nausea/v omiting. Otherwise no complaints. Review of Systems All systems reviewed & are unremarkable except as noted in HPI & below. Physical Exam .General: Alert and oriented, no acute distress * Constitutional: well-developed, well-nourished. * Respiratory: Normal respiratory effort, no distress * Gastrointestinal: No tenderness to palpation, no rigidity or guarding. * Skin: No rash or lesion. * Neurologic: Grossly normal * Musculoskeletal: Surgical dressing CDI. Lumbar spine region without obvious deformity or overlying skin changes. Minimal tenderness of surgical region, otherwise no tenderness b/l buttock or LE. Lumbar flexion/extension and rotation ROM with minimal pain. AROM b/l hip flexion, knee flexion/extension, ankle flexion/extension intact. Sensation intact plantar/dorsal foot. Brisk capillary refill. Results & Data Results & Data Laboratory Results . Diagnostic Findings . PG Care Time/CCT Total # of Minutes Spent Total Time Spent with Patient: Total time spent is greater than 50% in coordination of care (as documented) at patient's floor/unit and/or counseling patient: Coding Level of Care Code 04898 Post Operative Follow-Up Diagnoses Stenosis, spinal, lumbar M48.061
[2025-06-04] MEDS: SODIUM CHLORIDE 0.9% 500 ML IV ONE (09:30)
--- NOTE | 2025-06-04 10:01 | Hospitalist Progress Note ---
Date of Service June 04, 2025 Assessment & Plan (1) Orthostatic hypotension: (2) Stenosis, spinal, lumbar: (3) Acute left lumbar radiculopathy: (4) Prediabetes: (5) Gastritis: (6) Metabolic syndrome: (7) Diastolic dysfunction: (8) Obstructive sleep apnea: (9) Rheumatoid arthritis: (10) Asthma: (11) Hypertension: Plan 54yo female presented for elective lumbar decompression/fusion for LLE stenosis with radiculopathy with Dr Feliciano. MRI last month during admission w/ L2-L3 L sided disc bulge causing mild neuroforaminal narrowing, sequestered disc posterior to lower border L3 on L causing compression over traversing as well as exiting nerve roots on the left. Diffuse posterior disc bulge causing grade II canal stenosis, indentation over traversing as well as b/l exiting nerve roots with bilateral moderate neuroforamial narrowing #Lumbar stenosis with radiculopathy s/p L3-L4 decompression/fusion with Dr Feliciano. EBL 100cc Post-op pain management, bowel regimen, PT/OT DVT proph per primary service Hgb 12.5--> 10.2 - acute blood loss anemia from surgery as welll as dilutional aspect from IVF. Asymptomatic on 06/03 with stable BM/renal function HOWEVER NOW ORTHOSTATIC BELOW w/ DIZZINESS AND URINARY RETENTION req ongoing inpatient stay #Hypotension, Orthostatic Hypotension, Dizziness #Urinary retention POD #2 AM 06/04 reporting feeling dizziness with standing, orthostatic VS + per nursing and systolic BP dropped to 70s w/ standing. 500cc NSS bolus ordered, monitoring repeat orthostatic VS w/ nausea, zofran to be provided Check labs NOW for CBC, BMP, Mag to ensure electrolytes and renal function stabl e, UA given prior UTI. Notable patient on HCTZ 25mg-Losartan 100mg daily at baseline and was planned to resume today AM however was held given symptoms and discussed with patient that she possibly takes this EVERY OTHER DAY --> continue to HOLD Also checking BLADDER SCAN --> >540cc Lebron to be placed, checking UA given recent UTI prior to surgery as well as placement of lebron w/ surgery (and removed prior to leaving [facility] recovery) Continue to monitor #HTN BP as above, metoprolol w/ hold parameters Other anti-HTN agents placed on hold due to above Monitor #Pre-DM A1c 5.3 most recently, on Wegovy [employer], held x 1 wk per patient BSG AC/HS with sliding scale. Adjustment pending serial BSGs Continues on gabapentin TID but reduced to 300mg TID from 400mg to prevent over sedation (also suspect contributes to leg edema w/ amlodipine use) Can increase back to 400mg TID as home rx but w/ dizziness avoiding for now #Asthma continue inhalers as needed, montelukast daily. Reports typically uses albuterol HFA in AM and is available as needed Rec continued use incentive spirometry, currently on room air #GERD/Gastritis- chronic continue PPI daily - ordered dexliant (prior reports not effective with pantoprazole). -can see if able to bring in home meds. Pepcid BID prn available as well #LEYDI- CPAP HS ordered but patient was to get machine last year but delayed w/ dog bite/surgeries/etc and will need re-tested outpatient. Overnight pulse ox without needs Should have repeat testing outpatient with PCP #Recent UTI -Note was tx Levaquin for possible UTI on pre-op testing from 05/07, did see urology following and repeat urine cx 05/12 without growth. Patient denied sx UTI. Lebron w/ surgery placed but removed prior to [facility] and note was given vanco/ancef ethel-operative abx and should be covered. NOW W URINARY RETENTION as above, lebron/UA ordered and monitoring DVT proph: SCDs, bunny hose in place Dispo: continued inpatient stay given orthostatic hypotension/dizziness and urinary retention Message to primary service sent, labs/UA ordered Hospitalist service will follow along. Please call with any questions/concerns. Admission and Anticipated Discharge Date Admission Date: June 02, 2025 Supervising Physician Co-Signing Physician Notes The patient was not seen by me. The chart was reviewed. Case discussed with DANITZA gNuyen. Agree with assessment and plan Subjective Initially signed off patient/discussed with primary but notified by nursing for dizziness this morning reported and drop in BP to 70s systolic with standing. Orthostatic VS obtained, +. IVF bolus ordered. Patient eval, feeling dizzy/nauseated but remains alert/oriented to person, knows at [facility], that she had back surgery, year 2024 and month May. Reports takes her HCTZ-Losartan every OTHER day (initially reported taking daily) and also reports taking gabapentin 400mg (4 tablets at a time) three times a day. No fever/chills, shortness of breath or chest pain. Does have some associated nausea and req trevor, RN notified to provide. Nursing did report had to change her dressing twice overnight. Labs added for eval, message to primary service regarding events/likely continued inpatient stay. Physical Exam Physical Exam: General: 54yo obese laying in bed, NAD but reporting nauseated/feeling like she's going to vomit HEENT: normocephalic, mm DRY, trachea midline Resp: diminished in the bases but no wheezing/rales, on room air CV: regular, +faint systolic murmur, trace pedal edema, pulses present, calves nontender GI: +BS, soft/obese, nontender no lebron MSK/Neuro: dressing changed this morning but nursing, intact, no drain, dorsiflexion/plantar flexion acceptable, sensation present to touch, cap refill wnl, calves nontender, bunny hose/SCDs in place Psych: AOx3, cooperative but fatigued appearing Results & Data Results & Data Vital Signs (Past 12 Hours) Vital Signs Temp Pulse Pulse Pulse Resp BP Pulse Ox 06/04/25 07:33 37.1 C 83 16 114/70 90 06/03/25 23:21 72 18 97 06/03/25 23:17 36.9 C 72 16 143/79 H 95 O2 Del Method FiO2 06/04/25 07:33 Room Air 06/03/25 23:21 21 06/03/25 23:17 Room Air PG Care Time/CCT Total # of Minutes Spent Total Time Spent with Patient: Total time spent is greater than 50% in coordination of care (as documented) at patient's floor/unit and/or counseling patient: Coding Level of Care Code 17021 SUB INP/OBS CARE 3/50MIN Diagnoses Orthostatic hypotension I95.1 Stenosis, spinal, lumbar M48.061 Acute left lumbar radiculopathy M54.16 Prediabetes R73.03 Gastritis K29.70 Metabolic syndrome E88.81 Diastolic dysfunction I51.89 Obstructive sleep apnea G47.33 Rheumatoid arthritis M06.9 Moderate persistent asthma without complication J45.40 Asthma complication type: uncomplicated Asthma persistence: persistent Asthma severity: moderate Hypertension I10 (10) Asthma Asthma complication type: uncomplicated Asthma persistence: persistent Asthma severity: moderate Qualified Code(s): J45.40 - Moderate persistent asthma, uncomplicated
[2025-06-04] MEDS: LOSARTAN/HCTZ 50/12.5MG TAB PO SCH (10:16)
[2025-06-04 10:22] LABS: Hematocrit (blood only) 29.7 % (37.0-47.0); Hemoglobin 9.6 g/dl (12.0-16.0); Mean Corpuscular Hemoglobin 28.6 pg (25.0-34.0); Mean Corpuscular Volume 88.4 fL (80.0-100.0); Platelet Count 169 K/uL (130-400); RDW Standard Deviation 47.7 fL (36.4-46.3); Red Blood Count 3.36 M/uL (4.20-5.40); White Blood Count 5.80 K/ul (4.8-10.8)
[2025-06-04 10:39] LABS: Anion Gap 3.0 (3-11); Blood Urea Nitrogen 13.0 mg/dl (6-23); Calcium 8.7 mg/dl (8.6-10.3); Carbon Dioxide 28.0 mmol/L (21-32); Chloride 108.0 mmol/L (98-107); Creatinine Clr Calc Pharmacy 103.4 ml/min; Glucose 99.0 mg/dl (70-99(Fasting)); Magnesium 1.7 mg/dl (1.7-2.4); Potassium 3.8 mmol/L (3.5-5.1); Sodium 139.0 mmol/L (136-145)
[2025-06-04 10:45] LABS: Appearance Urine Clear (Clear); Glucose Urine UA Negative (Negative)
[2025-06-04] MEDS: FAMOTIDINE 20MG IV PUSH 20 MG/5 ML SYR IV STA (10:59)
[2025-06-04] MEDS: MAGNESIUM SULFATE / D5W 1 GM/100 ML BAG IV ONE (11:05)
[2025-06-04] MEDS: ACETAMINOPHEN 500 MG TAB PO PRN (18:26)
[2025-06-04 23:44] VITALS: O2SAT 98
[2025-06-05 06:32] LABS: Hematocrit (blood only) 27.8 % (37.0-47.0); Hemoglobin 9.1 g/dl (12.0-16.0); Mean Corpuscular Hemoglobin 29.0 pg (25.0-34.0); Mean Corpuscular Volume 88.5 fL (80.0-100.0); Platelet Count 178 K/uL (130-400); RDW Standard Deviation 46.9 fL (36.4-46.3); Red Blood Count 3.14 M/uL (4.20-5.40); White Blood Count 5.98 K/ul (4.8-10.8)
[2025-06-05 06:55] LABS: Anion Gap 2.0 (3-11); Blood Urea Nitrogen 12.0 mg/dl (6-23); Calcium 9.1 mg/dl (8.6-10.3); Carbon Dioxide 30.0 mmol/L (21-32); Chloride 106.0 mmol/L (98-107); Creatinine Clr Calc Pharmacy 94.4 ml/min; Glucose 92.0 mg/dl (70-99(Fasting)); Magnesium 2.0 mg/dl (1.7-2.4); Potassium 4.3 mmol/L (3.5-5.1); Sodium 138.0 mmol/L (136-145)
[2025-06-05 07:10] VITALS: BP 147/83; PULSE 71; RESP 18; TEMP 97.7
[2025-06-05] MEDS: ONDANSETRON 4 MG OD TAB PO PRN (07:20)
--- NOTE | 2025-06-05 08:48 | Orthopedic Progress Note ---
Date of Service June 05, 2025 Assessment & Plan (1) Stenosis, spinal, lumbar: * Continue Current Treatment * Disposition: Home * Daily treatment: Physical Therapy/ Occupational Therapy per protocol * Weight bearing status: WBAT, activity as tolerated * Continue to monitor for ABLA * Pain control * Office/hospital f/u 2 weeks for progress check and staple/suture removal * Plan for discharge today pending PT/OT clearance, hospital medicine clearance (2) Orthostatic hypotension: * Improved mentation today, no reported symptoms with positional changes so far this morning * S/p fluid bolus Subjective . Active Problems: S/p L3-4 decompression, lateral fusion POD 3 54y/o female s/p L3-4 decompression, lateral fusion. Feels much better today, much more awake. Orthostatic hypotension yesterday, responsive to fluid bolus. Also urinary retention, Daley placed. Doing well overall, pain managed and improved function. Denies fever/chills, chest pain/SOB, nausea/vomiting. Otherwise no complaints. Review of Systems All systems reviewed & are unremarkable except as noted in HPI & below. Physical Exam .General: Alert and oriented, no acute distress * Constitutional: well-developed, well-nourished. * Respiratory: Normal respiratory effort, no distress * Gastrointestinal: No tenderness to palpation, no rigidity or guarding. * Skin: No rash or lesion. * Neurologic: Grossly normal * Musculoskeletal: Surgical dressing CDI. Lumbar spine region without obvious deformity or overlying skin changes. Minimal tenderness of surgical region, otherwise no tenderness b/l buttock or LE. Lumbar flexion/extension and rotation ROM with minimal pain. AROM b/l hip flexion, knee flexion/extension, ankle flexion/extension intact. Sensation intact plantar/dorsal foot. Brisk capillary refill. Results & Data Results & Data Laboratory Results . Diagnostic Findings . PG Care Time/CCT Total # of Minutes Spent Total Time Spent with Patient: Total time spent is greater than 50% in coordination of care (as documented) at patient's floor/unit and/or counseling patient: Coding Level of Care Code 45684 Post Operative Follow-Up Diagnoses Stenosis, spinal, lumbar M48.061 Orthostatic hypotension I95.1
--- NOTE | 2025-06-05 10:29 | Hospitalist Progress Note ---
Date of Service June 05, 2025 Assessment & Plan (1) Orthostatic hypotension: (2) Stenosis, spinal, lumbar: (3) Acute left lumbar radiculopathy: (4) Prediabetes: (5) Gastritis: (6) Metabolic syndrome: (7) Diastolic dysfunction: (8) Obstructive sleep apnea: (9) Rheumatoid arthritis: (10) Asthma: (11) Hypertension: Plan 54yo female presented for elective lumbar decompression/fusion for LLE stenosis with radiculopathy with Dr Feliciano. MRI last month during admission w/ L2-L3 L sided disc bulge causing mild neuroforaminal narrowing, sequestered disc posterior to lower border L3 on L causing compression over traversing as well as exiting nerve roots on the left. Diffuse posterior disc bulge causing grade II canal stenosis, indentation over traversing as well as b/l exiting nerve roots with bilateral moderate neuroforamial narrowing #Lumbar stenosis with radiculopathy s/p L3-L4 decompression/fusion with Dr Feliciano. EBL 100cc Post-op pain management, bowel regimen, PT/OT DVT proph per primary service Hgb 12.5--> 10.2 - acute blood loss anemia from surgery as welll as dilutional aspect from IVF. Asymptomatic on 06/03 with stable BM/renal function HOWEVER NOW ORTHOSTATIC BELOW w/ DIZZINESS AND URINARY RETENTION req ongoing inpatient stay #Hypotension, Orthostatic Hypotension, Dizziness #Urinary retention POD #3 AM 06/04 reporting feeling dizziness with standing, orthostatic VS + per nursing and systolic BP dropped to 70s w/ standing. 500cc NSS bolus ordered, monitoring repeat orthostatic VS--repeated this AM and resolved. No longer orthostatic by definition but still slight dip from 108 systolic sitting to 91 standing. w/ nausea, zofran to be provided CBC, BMP, Mag obtained 06/05, WNL except hgb 9.1; UA unremarkable Notable patient on HCTZ 25mg-Losartan 100mg daily at baseline, held on 06/04 due to orthostatics, would continue to hold in setting of marginal BP Also checking BLADDER SCAN --> >540cc Lebron placed in 06/04, will transition to leg bag upon dc and schedule urology f/u for TOV #HTN BP as above, metoprolol w/ hold parameters Other anti-HTN agents placed on hold due to above #Pre-DM A1c 5.3 most recently, on Wegovy [employer] POW[employer] METAL, held x 1 wk per patient BSG AC/HS with sliding scale. Adjustment pending serial BSGs Continues on gabapentin TID but reduced to 300mg TID from 400mg to prevent over sedation (also suspect contributes to leg edema w/ amlodipine use) Can increase back to 400mg TID upon dc home #Asthma continue inhalers as needed, montelukast daily. Reports typically uses albuterol HFA in AM and is available as needed Rec continued use incentive spirometry, currently on room air #GERD/Gastritis- chronic continue PPI daily - ordered dexliant (prior reports not effective with pantoprazole). -can see if able to bring in home meds. Pepcid BID prn available as well #LEYDI- CPAP HS ordered but patient was to get machine last year but delayed w/ dog bite/surgeries/etc and will need re-tested outpatient. Overnight pulse ox without needs Should have repeat testing outpatient with PCP #Recent UTI -Note was tx Levaquin for possible UTI on pre-op testing from 05/07, did see urology following and repeat urine cx 05/12 without growth. Patient denied sx UTI. Lebron w/ surgery placed but removed prior to [facility] and note was given vanco/ancef ethel-operative abx and should be covered. Repeat UA on 06/04 unremarkable for infection. At this time, pt has improved and can be safely discharged home. In setting of urinary retention, will d/c home with lebron--transition to leg bag--and schedule urology follow up. She has seen urology in the past, follows with [facility]. Home PT/OT and nursing to follow up with patient upon discharge. Continue holding BP meds. Can safely take Metoprolol if systolic BP >100. Instructed pt to check BP every day in AM. Hold other medications until seen in follow up by PCP which ideally should be early next week. Pt understood all instructions, all questions answered. Will sign off as she is medically stable for discharge home with close follow up and home health services. Thank you for allowing us to participate in the care of your patient. Plan to be d/w Dr. Burton. Admission and Anticipated Discharge Date Admission Date: June 02, 2025 Tj Jang was seen today on daily rounds. She was reportedly orthostatic and "out of it" yesterday. She received IVF bolus and orthostatic improved. Also developed urinary retention for which a lebron was placed. This morning, she reports feeling "much better." RN reports that BP was still marginal 90-100 systolic but she is less dizzy and was able to ambulate in the halls. Her Metoprolol as well as her HCTZ and Losartan were all held this AM. She reports that her back pain is somewhat controlled, medication is helping. She is passing gas, has not yet had BM since surgery. Review of Systems 2 Review of Systems: All systems reviewed and are unremarkable except as noted in HPI and below. Denies fever, chills, fatigue, headache, nasal congestion, sore throat, cough, chest pain, shortness of breath, palpitations, orthopnea, PND, abdominal pain, n/v/d, constipation, joint pain or swelling, easy bruising or bleeding, skin lesions or rashes. Physical Exam 2 Physical Exam: GENERAL: 54 yo obese WF. A&O x3. No distress. LUNGS: Clear to auscultation bilaterally. No W/R/R. CARDIOVASCULAR: Regular rate and rhythm. ABDOMEN: Soft, non-tender and non-distended. Bs normoactive x 4 quad. EXTREMITIES: No edema. Non-tender. Peripheral pulses +2/4. NEUROLOGIC: No focal neurological deficits. CN II-XII grossly intact. PSYCHIATRIC: Cooperative. Appropriate mood and affect. SKIN: Lower back incision is dressed/dry. Results & Data Results & Data Vital Signs (Past 12 Hours) Vital Signs Temp Pulse Pulse Resp BP Pulse Ox O2 Del Method 06/05/25 07:07 36.5 C 71 18 147/83 H 98 Room Air 06/04/25 23:42 79 17 98 06/04/25 23:08 36.4 C L 18 100 Room Air FiO2 06/05/25 07:07 06/04/25 23:42 21 06/04/25 23:08 Laboratory Results 06/05/25 05:40 06/05/25 05:40 PG Care Time/CCT Total # of Minutes Spent Total Time Spent with Patient: Total time spent is greater than 50% in coordination of care (as documented) at patient's floor/unit and/or counseling patient: 40 minutes Coding Level of Care Code 71529 SUB INP/OBS CARE 2/35MIN Diagnoses Orthostatic hypotension I95.1 Stenosis, spinal, lumbar M48.061 Acute left lumbar radiculopathy M54.16 Prediabetes R73.03 Gastritis K29.70 Metabolic syndrome E88.81 Diastolic dysfunction I51.89 Obstructive sleep apnea G47.33 Rheumatoid arthritis M06.9 Moderate persistent asthma without complication J45.40 Asthma complication type: uncomplicated Asthma persistence: persistent Asthma severity: moderate Hypertension I10 (10) Asthma Asthma complication type: uncomplicated Asthma persistence: persistent A sthma severity: moderate Qualified Code(s): J45.40 - Moderate persistent asthma, uncomplicated
== END 2025-06-05 14:09 | disposition home health service (06) | DRG 402 ==
LOC: ASU 05:23 → 3W 14:38